=== PATIENT | male | born 1950 | race Caucasian/White ===

== ENCOUNTER 2017-08-04 09:56 | Outpatient (RCR) | payer MEDICARE, MEDICAID ==
[2013-11-03 08:59] VITALS: Ht 167.6 cm; Wt 79.8 kg
[~2017-08-04] VITALS: Ht 167.6 cm; Wt 79.8 kg
[~2017-08-04 09:56] MED LIST: ACE325 PO; ACET-2043 PO; AMLO-104 PO; AMLO-39 PO; AMLO-96 PO; AMLO1TAB51 PO; ASP325 PO; ASPI-879 PO; ATOR20TA22 PO; BACL-1 PO; BENZ0.5T19 PO; CELE-1 PO; CEP500 PO; CEPH-13 PO; CIPR-214 PO; CIPR-344 PO; CLON-393 PO; CYCL10TA29 PO; DOCU-202 PO; FLUO-202 PO; FLUOD OU; GABA-549 PO; HCTZ25 PO; HYDR-2966 PO; HYDR-389 PO; HYDR-4305 PO; LEVO-85 PO; LIDO700A29 TD; LISI-374 PO; MELO-150 PO; MULT-885 PO; NAP500 PO; NAPR-1003 PO; NAPR500T31 PO; NIT50 PO; NITR-105 PO; OXYC-865 PO; OXYC5CAP21 PO; PANT20TA27 PO; PENI-24 PO; PHEN200T32 PO; POTA-28 PO; PRE20 PO; QUET25TA PO; QUET25TA30 PO; QUET50TA21 PO; SIMV10TA98 PO; SULF-198 PO; TAMS0.4C25 PO; TAMS0.4C70 PO; TEMA-55 PO; TRA50 PO; TRAM-420 PO; TRAM-627 PO; VALS1TAB63 PO
--- NOTE | 2017-08-05 16:48 | Medical Nutrition Therapy ---
Nutrition Anthropometrics Height (Inches): 66 Weight (Pounds): 176 (from Standing scale- stated usual wt 188# ) BMI: 30 Hx Weight Loss: Yes Hx Weight Gain: No Sherif Nutrition Score: Sherif Nutrition Risk Score: Dietary Referral Nutrition Risk Factors: Recent Nutrition Impact Nutrition Risk Comment: Pt reports not eating for 3 days Nutrition/Food History Skipped Meals: Yes (usually eats 1 or 2X/da) Alcohol Use: Occassional (Beer) Exercise: No Breakfast: Egg omellet, cottage cheese, yogurt, coffee, water Lunch: Eats out at [employer] and [employer] Dinner: Steak, green beans, vegetables, hamburger Snacks: Muffin, pastry Nutritional Education Nutrition Education Topic: Diabetic Nutrition Learning Readiness: Eager, Interested Teaching Methods: Discussion, Handout Response to Teaching: Verbalize understanding Teaching Recipient: Patient Nutrition Counselin/5 Pt came in with new diagnosis T2DM. Pt is currently retired and lives at [facility]. Pt has limited walking ablility. Uses scooter for mobility. Pt came in wanting to learn what foods should he be eating, how much and how often to eat. Pt had done a lot of research prior to his appt. and received information from other seniors living in his complex who have T2DM. He became fearful of sugar and felt like he couldn't eat anything. Pt had recieved some misinformation from the internet and friends which were discussed. Since his diagnosis he had changed his entire diet off what he researched and lost about 12 pounds in three weeks by cutting out many things in his diet. Reassured pt that small amounts of most foods can be added and still maintain BG WNR. Pt stated that he typically eats once or twice a day. Pt states he normally never eats breakfast until his diagnosis, he now eats cottage cheese, yogurt, and egg omelets. For lunch he normally eats out at [employer] and [employer]. He will normally eat hamburger at [employer] and [place] meal at [employer]. He will sometimes order pancakes. Pt enjoys TV dinners, they are easy for him to make at home. Pt states that changing his diet would be no issue. Reviewed quality and quantity of different CHO and how it effects his BG. Pt had fixation on avoiding sugar. Educated on the conversion of CHO into sugar and how both starches and sugars are important in label reading. He verbalized he now understood. He loves vegetables and is willing to add more into his diet. Reviewed glycemic index. Rrecommended 45-50g of CHO per meal eating at least 3 times a day. Provided examples of TV dinners that would meet his CHO needs and lower in Na, due to his hx of HTN. Provided meal ideas that he could have during the day. Encouraged pt to have a source of protein and fat per meal. A support plan was planned out and pt is scheduled for classes later in the month. Copies To Copies to: GAUDENCIO RUIZ DO Nutrition Monitoring & Eval RD Patient Assessment Time: [address] Assessment Type: RD Education Nutritional Comment: Procvided 90 minutes diabetes education focusing on nutriton, support plan and behavioural goals. ANUM PETERSEN Aug 04, 2017 16:32
--- NOTE | 2017-09-09 13:28 | Medical Nutrition Therapy ---
Nutritional Education Nutrition Education Topic: Diabetic Nutrition Learning Readiness: Not Interested Response to Teaching: Patient Refused Teaching Recipient: Patient Nutrition Counselin/11 Pt scheduled for f/u class on nutrition and living with diabetes. Pt states he is not intersted in any more classes or f/u. Pt states he does reasearch on his owe plus many of his friends are diabetic. Pt stated he did not feel any additional classes would be benifical. Informed pt we are here for him and if he had any questions or concens in the future, please contact us. Copies To Copies to: GAUDENCIO RUIZ BETH Sep 09, 2017 13:28
== END 2017-09-09 ==
LOC: DIET 09:56
PROVIDERS: ATTEND Family Medicine
DX: Z71.3 Dietary counseling and surveillance (principal); E11.65 Type 2 diabetes mellitus with hyperglycemia; F17.210 Nicotine dependence, cigarettes, uncomplicated; Z68.30 Body mass index [BMI] 30.0-30.9, adult
CPT/HCPCS: G0108; G0109

== ENCOUNTER 2017-08-19 10:41 | Emergency (ER) | payer MEDICARE, MEDICAID ==
[2013-11-03 08:59] VITALS: Wt 79.8 kg
--- NOTE | 2017-08-19 10:51 | ER Report ---
History and Physical Time Seen By MD: 10:49 HPI/ROS CHIEF COMPLAINT: Chest and back pain HISTORY OF PRESENT ILLNESS: 66-year-old male long history of chronic back pain is been seen in this emergency department numerous times for both back and chest discomfort has no cardiac history I was recently diagnosis being a diabetic started on new medications was advised to do some exercises cleaning his apartment today for approximately 1 hour fell pain in his back with some radiation into his chest was concerned because of his new diagnosis that he may be having a heart attack on arrival to the emergency department however his chest pain has subsequently resolved patient denies any shortness of breath nausea vomiting diarrhea fever chills abdominal pain or discomfort. Patient does state that he has been a smoker pretty much his entire life and with new diagnosis of diabetes was concerned that his pain may have been caused by his heart did not residual and reciprocal from his back pain. REVIEW OF SYSTEMS: Respiratory: No cough, no dyspnea. Cardiovascular: Chest pain no palpitations Gastrointestinal: No vomiting, no abdominal pain. Musculoskeletal: Chronic back pain Remainder of the 14 system rev: Yes Allergies: Coded Allergies: No Known Drug Allergies (Verified , 08/19/17) Home Meds Active Scripts Tramadol Hcl (TRAMADOL HCL) 50 Mg Tablet, 1 TAB PO Q6H Y for PAIN, #30 TAB Prov:KENNETH REYEZ DO 11/27/15 Reported Medications Acetaminophen (ACETAMINOPHEN) 500 Mg Tablet, 2 TAB PO QID Y for PAIN, TAB 12/07/15 Amlodipine/Atorvastatin (AMLODIPINE-ATORVAST 5-20 MG) 1 Each Tablet, 1 EACH PO QDAY, TAB 06/08/15 Potassium Chloride (POTASSIUM CHLORIDE) 10 Meq Tablet.er, 10 MEQ PO QDAY 06/08/15 Benztropine Mesylate (BENZTROPINE MESYLATE) 0.5 Mg Tab, 0.5 MG PO HS, TAB 01/29/15 Pantoprazole Sodium (PANTOPRAZOLE SODIUM) 20 Mg Tablet.dr, 40 MG PO DAILY, TAB.SR 11/22/14 Quetiapine Fumarate (QUETIAPINE FUMARATE) 25 Mg Tablet, 25 MG PO Q6H Y for AGITATION, #60 10/30/13 Gabapentin (GABAPENTIN) 300 Mg Capsule, 900 MG PO BID, #180 CAPSULE Take 3 capsules every morning and before bed 07/04/13 Baclofen (BACLOFEN) 10 Mg Tablet, 10 MG PO BID, #60 TAB Take 1 tablet by mouth twice daily 06/28/13 Valsartan/Hydrochlorothiazide (DIOVAN HCT 80-12.5 MG TABLET) 1 Each Tablet, 1 TAB PO DAILY, #30 03/18/13 Discontinued Reported Medications Sulfamethoxazole/Trimet 800-160 Mg Tab (BACTRIM DS TABLET) 1 Each Tablet, 1 TAB PO Q12H, TAB 11/27/15 Discontinued Scripts Oxycodone Hcl/Acetaminophen (PERCOCET 5-325 MG TABLET) 1 Each Tablet, 1 EACH PO Q4H Y for PAIN, #12 Prov:KENNETH REYEZ DO 11/27/15 Reviewed Nurses Notes: Yes Old Medical Records Reviewed: Yes Hx Smoking: Yes (1 ppd, 40 years) Smoking Status: Current: Every Day Smoker Exposure to Second Hand Smoke?: Yes Hx Substance Use Disorder: Yes (pot daily) Hx Alcohol Use: No Constitutional Vital Sign - Last 24 Hours 08/19/17 10:42 Temp 98.7 Pulse 75 Resp 16 B/P (MAP) 134/94 Pulse Ox 95 O2 Delivery Nasal Cannula Physical Exam General Appearance: [The patient is alert, has no immediate need for airway protection and no current signs of toxicity.] [ ] Eyes: Pupils equal and round no injection. Respiratory: Chest is non tender, lungs are clear to auscultation. Cardiac: regular rate and rhythm [ ] Gastrointestinal: Abdomen is soft and non tender, no masses, bowel sounds normal. Musculoskeletal: Neck: Neck is supple and non tender. Extremities have full range of motion and are non tender. Skin: No rashes or lesions. [ ] DIFFERENTIAL DIAGNOSIS: After history and physical exam differential diagnosis was considered for acute myocardial infarction blood clot pulmonary emboli aortic dissection chronic back pain with reciprocal changes radiculopathy to the chest costochondritis Medical Decision Making Data Points Result Diagram: 08/19/17 1040 08/19/17 1040 Laboratory Hematology Test 08/19/17 10:40 Red Blood Count 4.87 M/uL (4.00-5.60) Mean Corpuscular Volume 86.3 fL (80.0-96.0) Mean Corpuscular Hemoglobin 29.6 pg (26.0-33.0) Mean Corpuscular Hemoglobin Concent 34.3 g/dL (32.0-36.0) Red Cell Distribution Width 15.4 % (11.5-14.5) Mean Platelet Volume 8.4 fL (7.2-11.1) Neutrophils (%) (Auto) 77.6 % (39.4-72.5) Lymphocytes (%) (Auto) 12.9 % (17.6-49.6) Monocytes (%) (Auto) 8.4 % (4.1-12.4) Eosinophils (%) (Auto) 0.5 % (0.4-6.7) Basophils (%) (Auto) 0.6 % (0.3-1.4) Nucleated RBC Relative Count (auto) 0.1 /100WBC Neutrophils # (Auto) 5.9 K/uL (2.0-7.4) Lymphocytes # (Auto) 1.0 K/uL (1.3-3.6) Monocytes # (Auto) 0.6 K/uL (0.3-1.0) Eosinophils # (Auto) 0.0 K/uL (0.0-0.5) Basophils # (Auto) 0.0 K/uL (0.0-0.1) Nucleated RBC Absolute Count (auto) 0.01 K/uL D-Dimer Quantitative (PE/DVT) 0.43 ug/ml (0-0.50) Sodium Level 139 mmol/L (137-145) Potassium Level 3.6 mmol/L (3.5-5.0) Chloride Level 97 mmol/L (98-107) Carbon Dioxide Level 25 mmol/L (22-30) Blood Urea Nitrogen 21 mg/dl (9-21) Creatinine 0.90 mg/dl (0.66-1.25) Glomerular Filtration Rate Calc > 60.0 Random Glucose 123 mg/dl (75-110) Calcium Level 10.2 mg/dl (8.4-10.2) Total Bilirubin 1.0 mg/dl (0.2-1.3) Aspartate Amino Transf (AST/SGOT) 24 U/L (0-35) Alanine Aminotransferase (ALT/SGPT) 33 U/L (0-56) Alkaline Phosphatase 146 U/L (0-126) Troponin I < 0.012 ng/ml Total Protein 8.3 g/dl (6.3-8.2) Albumin 4.5 g/dl (3.5-5.0) Chemistry Test 08/19/17 10:40 White Blood Count 7.6 k/uL (4.5-11.0) Red Blood Count 4.87 M/uL (4.00-5.60) Hemoglobin 14.4 g/dL (14.0-18.0) Hematocrit 42.0 % (42.0-52.0) Mean Corpuscular Volume 86.3 fL (80.0-96.0) Mean Corpuscular Hemoglobin 29.6 pg (26.0-33.0) Mean Corpuscular Hemoglobin Concent 34.3 g/dL (32.0-36.0) Red Cell Distribution Width 15.4 % (11.5-14.5) Platelet Count 300 K/uL (150-450) Mean Platelet Volume 8.4 fL (7.2-11.1) Neutrophils (%) (Auto) 77.6 % (39.4-72.5) Lymphocytes (%) (Auto) 12.9 % (17.6-49.6) Monocytes (%) (Auto) 8.4 % (4.1-12.4) Eosinophils (%) (Auto) 0.5 % (0.4-6.7) Basophils (%) (Auto) 0.6 % (0.3-1.4) Nucleated RBC Relative Count (auto) 0.1 /100WBC Neutrophils # (Auto) 5.9 K/uL (2.0-7.4) Lymphocytes # (Auto) 1.0 K/uL (1.3-3.6) Monocytes # (Auto) 0.6 K/uL (0.3-1.0) Eosinophils # (Auto) 0.0 K/uL (0.0-0.5) Basophils # (Auto) 0.0 K/uL (0.0-0.1) Nucleated RBC Absolute Count (auto) 0.01 K/uL D-Dimer Quantitative (PE/DVT) 0.43 ug/ml (0-0.50) Glomerular Filtration Rate Calc > 60.0 Calcium Level 10.2 mg/dl (8.4-10.2) Total Bilirubin 1.0 mg/dl (0.2-1.3) Aspartate Amino Transf (AST/SGOT) 24 U/L (0-35) Alanine Aminotransferase (ALT/SGPT) 33 U/L (0-56) Alkaline Phosphatase 146 U/L (0-126) Troponin I < 0.012 ng/ml Total Protein 8.3 g/dl (6.3-8.2) Albumin 4.5 g/dl (3.5-5.0) Coagulation Test 08/19/17 10:40 D-Dimer Quantitative (PE/DVT) 0.43 ug/ml ED Course/Re-evaluation ED Course ED clinical course 64 mL frequent visitor to the emergency department for chronic pain related complaints is workup is negative for cardiac abnormalities negative EKG chest x-ray cardiac markers enzymes d-dimer his pain is reproducible changes in position this is musculoskeletal we'll diagnose accordingly and have him follow primary care Decision to Disposition Date: Aug 19, 2017 Decision to Disposition Time: 11:48 Depart Departure Latest Vital Signs Vital Signs Date Time Temp Pulse Resp B/P (MAP) Pulse Ox O2 Delivery O2 Flow Rate FiO2 08/19/17 10:42 98.7 75 16 134/94 95 Nasal Cannula Impression: Primary Impression: Musculoskeletal chest pain Condition: Improved Disposition: HOME OR SELF-CARE Referrals: GAUDENCIO RUIZ DO (PCP) 5 Days Patient Instructions: Chest Pain (DC) LEENA CHRISTIANSON MD Aug 19, 2017 10:50
--- NOTE | 2017-08-19 11:08 | EKG ---
FACILITY: [facility] - [place] PATIENT NAME: JOEL GOLDBERG : [id number] MR: [id number] V: [id number] EXAM DATE: ORDERING PHYSICIAN: LEENA CHRISTIANSON TECHNOLOGIST: NATALI Mclaughlin Reason : Blood Pressure : / mmHG Vent. Rate : 076 BPM Atrial Rate : 076 BPM P-R Int : 172 ms QRS Dur : 098 ms QT Int : 386 ms P-R-T Axes : 057 022 051 degrees QTc Int : 434 ms Normal sinus rhythm Normal ECG When compared with ECG of 27-NOV-2015 18:17, No significant change was found Confirmed by GUME BROOKS ([id number]) on 08/19/2017 1:18:25 PM Referred By: SAMMY Confirmed By:GUME BROOKS
[2017-08-19 11:17] LABS: PLATELET COUNT, AUTOMATED 300 K/uL (150-450)
--- NOTE | 2017-08-19 11:41 | RADIOLOGY IMAGING REPORT ---
[place] [facility] [place] NAME: Ozzy Mesa : 1950 MR: [id number] V: [id number] EXAM DATE: ORDERING PHYSICIAN: LEENA CHRISTIANSON TECHNOLOGIST: Location: [facility] [place] Patient: Ozzy Mesa : 1950 Visit/Account:[id number] Date of Sevice: 08/19/2017 Exam type: CHEST PA AND LAT History: cp Comparison: November 27, 2015. Findings: The lungs are free of acute effusions, infiltrates or edema. There is no evidence of a pneumothorax or pneumomediastinum. Cardiac silhouette is normal in size. The trachea is midline. There is a mil d compression deformity at the thoracolumbar junction incompletely imaged on the prior study IMPRESSION: 1. No acute cardiac pulmonary process is seen Report Dictated By: Florina Her MD at 08/19/2017 11:35 AM Report E-Signed By: Florina Her MD at 08/19/2017 11:36 AM WSN:[email or web address]
[2017-08-19 11:51] VITALS: BP 115/81
== END 2017-08-19 12:02 | disposition home or self-care (01) ==
LOC: ER 10:44
DX: R07.9 Chest pain, unspecified (principal)
CPT/HCPCS: 71046; 82040; 82247; 82310; 82374; 82435; 82565; 82947; 84075; 84132; 84155; 84295; 84450; 84460; 84484; 84520; 85025; 85379; 93005; 99284

== ENCOUNTER → 2017-08-19 | Outpatient (CLI) | payer MEDICARE, MEDICAID ==
[2013-11-03 08:59] VITALS: BMI 30.8
== END ==
LOC: AMB 10:20
PROVIDERS: ATTEND Nurse Practitioner
DX: R07.9 Chest pain, unspecified (principal); M54.9 Dorsalgia, unspecified; E11.649 Type 2 diabetes mellitus with hypoglycemia without coma
CPT/HCPCS: A0425; A0427

== ENCOUNTER 2017-09-24 15:03 | Emergency (ER) | payer MEDICARE, MEDICAID ==
[2013-11-03 08:59] VITALS: Wt 76.2 kg
--- NOTE | 2017-09-24 15:38 | EKG ---
FACILITY: [facility] - [place] PATIENT NAME: JOEL GOLDBERG : [id number] MR: [id number] V: [id number] EXAM DATE: ORDERING PHYSICIAN: STEPH COLE TECHNOLOGIST: Test Reason : ELECTROLYTE DISORDER Blood Pressure : / mmHG Vent. Rate : 071 BPM Atrial Rate : 071 BPM P-R Int : 176 ms QRS Dur : 094 ms QT Int : 410 ms P-R-T Axes : 036 018 050 degrees QTc Int : 445 ms Sinus rhythm No acute appearing findings When compared with ECG of 19-AUG-2017 10:45, No significant change was found Confirmed by ARCENIO HERNANDEZ ([id number] on 09/25/2017 6:06:49 AM Referred By: Confirmed By:ARCENIO HERNANDEZ
--- NOTE | 2017-09-24 15:38 | ER Report ---
History and Physical Time Seen By MD: 15:20 Hx. of Stated Complaint: pt thinks he might have an uti; experiencing same symptoms like last time; pt has been going numb all over; going on for about 3 days HPI/ROS CHIEF COMPLAINT: I think I have a uti HISTORY OF PRESENT ILLNESS: Pt has 1 d hx of change in odor of urine, r flank pain, increased frequency of urination, and since this afternoon, sensation of numbness throughout his body that he states is similar to prior uti. Symptoms have been gradually increasing, and are present constantly. Pt denies acuna, sob, cp, n/v/abd pain, change in stool, increased thirst, LE edema, or focal weakness. Pt is recently dx'd and treated type 11 diabetic; has checked bs today and it has been in 's. REVIEW OF SYSTEMS: Constitutional: No fever, no chills. Eyes: No discharge. ENT: No sore throat. Cardiovascular: No chest pain, no palpitations. Respiratory: No cough, no shortness of breath. Gastrointestinal: No abdominal pain, no vomiting. Genitourinary: No hematuria. Musculoskeletal: mild r flank pain Skin: No rashes. Neurological: No headache. Has had prior uti's, though unsure why, does not cath. No abx x 2 yrs Allergies: Coded Allergies: No Known Drug Allergies (Verified , 08/19/17) Home Meds Active Scripts Tramadol Hcl (TRAMADOL HCL) 50 Mg Tablet, 1 TAB PO Q6H Y for PAIN, #30 TAB Prov:KENNETH REYEZ 11/27/15 Reported Medications Acetaminophen (ACETAMINOPHEN) 500 Mg Tablet, 2 TAB PO QID Y for PAIN, TAB 12/07/15 Amlodipine/Atorvastatin (AMLODIPINE-ATORVAST 5-20 MG) 1 Each Tablet, 1 EACH PO QDAY, TAB 06/08/15 Potassium Chloride (POTASSIUM CHLORIDE) 10 Meq Tablet.er, 10 MEQ PO QDAY 06/08/15 Benztropine Mesylate (BENZTROPINE MESYLATE) 0.5 Mg Tab, 0.5 MG PO HS, TAB 01/29/15 Pantoprazole Sodium (PANTOPRAZOLE SODIUM) 20 Mg Tablet.dr, 40 MG PO DAILY, TAB.SR 11/22/14 Quetiapine Fumarate (QUETIAPINE FUMARATE) 25 Mg Tablet, 25 MG PO Q6H Y for AGITATION, #60 10/30/13 Gabapentin (GABAPENTIN) 300 Mg Capsule, 900 MG PO BID, #180 CAPSULE Take 3 capsules every morning and before bed 07/04/13 Baclofen (BACLOFEN) 10 Mg Tablet, 10 MG PO BID, #60 TAB Take 1 tablet by mouth twice daily 06/28/13 Valsartan/Hydrochlorothiazide (DIOVAN HCT 80-12.5 MG TABLET) 1 Each Tablet, 1 TAB PO DAILY, #30 03/18/13 Past Medical/Surgical History Cerebral palsy, DM, HTN, prior UTI's Hx Smoking: Yes (1 ppd, 40 years) Smoking Status: Current: Every Day Smoker Exposure to Second Hand Smoke?: Yes Hx Substance Use Disorder: Yes (occ) Hx Alcohol Use: No Constitutional Vital Sign - Last 24 Hours 09/24/17 15:14 Temp 98.5 Pulse 84 Resp 18 B/P (MAP) 138/91 Pulse Ox 94 O2 Delivery Room Air Physical Exam General Appearance: [The patient is alert, has no immediate need for airway protection and no signs of toxicity.] [ ] Eyes: Pupils equal and round no pallor or injection. ENT, Mouth: Mucous membranes are moist. Respiratory: There are no retractions, lungs are clear to auscultation. Cardiovascular: Regular rate and rhythm. no m/r/g Gastrointestinal: Abdomen is soft and non tender, no masses, bowel sounds normal. Neurological: alert, oriented, nad Skin: Warm and dry, no rashes. Musculoskeletal: mild r cvat Extremities are nontender, nonswollen and have full range of motion except lle; strength and rom limited by CP. No edema DIFFERENTIAL DIAGNOSIS: After history and physical exam differential diagnosis was considered for causes of numbness; anginal equivalent, cva, electrolyte disorder, hypoglycemia/hyperglycemia, or other emergent neurologic emergency ( for ex, GBS). Cause of urinary tract symptoms; cystitis/pyelonehpritis/ prostatits or other emergent etiology Medical Decision Making Data Points Result Diagram: 09/24/17 1547 09/24/17 1547 Laboratory Hematology Test 09/24/17 15:09 09/24/17 15:47 Urine Color Yellow Urine Clarity Slightly-cloudy Urine pH 5.0 pH (4.8-9.5) Urine Specific [place] 1.008 Urine Protein Negative mg/dL (NEGATIVE) Urine Glucose (UA) Negative mg/dL (NEGATIVE) Urine Ketones Negative mg/dL (NEGATIVE) Urine Blood Negative (NEGATIVE) Urine Nitrite Negative (NEGATIVE) Urine Bilirubin Negative (NEGATIVE) Urine Urobilinogen Negative mg/dL (0.2-1.9) Urine Leukocyte Esterase Large (NEGATIVE) Urine RBC 2 /HPF (0-2/HPF) Urine WBC 53 /HPF (0-5/HPF) Urine Squamous Epithelial Cells None /LPF (</=FEW) Urine Bacteria Few /HPF (NONE-FEW) Urine Mucus None /HPF (NONE-FEW) Red Blood Count 4.62 M/uL (4.00-5.60) Mean Corpuscular Volume 82.9 fL (80.0-96.0) Mean Corpuscular Hemoglobin 29.0 pg (26.0-33.0) Mean Corpuscular Hemoglobin Concent 35.0 g/dL (32.0-36.0) Red Cell Distribution Width 14.8 % (11.5-14.5) Mean Platelet Volume 8.4 fL (7.2-11.1) Neutrophils (%) (Auto) 70.8 % (39.4-72.5) Lymphocytes (%) (Auto) 18.9 % (17.6-49.6) Monocytes (%) (Auto) 9.0 % (4.1-12.4) Eosinophils (%) (Auto) 0.8 % (0.4-6.7) Basophils (%) (Auto) 0.5 % (0.3-1.4) Nucleated RBC Relative Count (auto) 0.0 /100WBC Neutrophils # (Auto) 4.2 K/uL (2.0-7.4) Lymphocytes # (Auto) 1.1 K/uL (1.3-3.6) Monocytes # (Auto) 0.5 K/uL (0.3-1.0) Eosinophils # (Auto) 0.0 K/uL (0.0-0.5) Basophils # (Auto) 0.0 K/uL (0.0-0.1) Nucleated RBC Absolute Count (auto) 0.00 K/uL Sodium Level 139 mmol/L (137-145) Potassium Level 3.4 mmol/L (3.5-5.0) Chloride Level 101 mmol/L (98-107) Carbon Dioxide Level 24 mmol/L (22-30) Blood Urea Nitrogen 14 mg/dl (9-21) Creatinine 0.70 mg/dl (0.66-1.25) Glomerular Filtration Rate Calc > 60.0 Random Glucose 92 mg/dl (75-110) Calcium Level 9.6 mg/dl (8.4-10.2) Total Bilirubin 0.7 mg/dl (0.2-1.3) Aspartate Amino Transf (AST/SGOT) 25 U/L (0-35) Alanine Aminotransferase (ALT/SGPT) 27 U/L (0-56) Alkaline Phosphatase 129 U/L (0-126) Total Protein 8.2 g/dl (6.3-8.2) Albumin 4.5 g/dl (3.5-5.0) Chemistry Test 09/24/17 15:09 09/24/17 15:47 Urine Color Yellow Urine Clarity Slightly-cloudy Urine pH 5.0 pH (4.8-9.5) Urine Specific [place] 1.008 Urine Protein Negative mg/dL (NEGATIVE) Urine Glucose (UA) Negative mg/dL (NEGATIVE) Urine Ketones Negative mg/dL (NEGATIVE) Urine Blood Negative (NEGATIVE) Urine Nitrite Negative (NEGATIVE) Urine Bilirubin Negative (NEGATIVE) Urine Urobilinogen Negative mg/dL (0.2-1.9) Urine Leukocyte Esterase Large (NEGATIVE) Urine RBC 2 /HPF (0-2/HPF) Urine WBC 53 /HPF (0-5/HPF) Urine Squamous Epithelial Cells None /LPF (</=FEW) Urine Bacteria Few /HPF (NONE-FEW) Urine Mucus None /HPF (NONE-FEW) White Blood Count 5.9 k/uL (4.5-11.0) Red Blood Count 4.62 M/uL (4.00-5.60) Hemoglobin 13.4 g/dL (14.0-18.0) Hematocrit 38.3 % (42.0-52.0) Mean Corpuscular Volume 82.9 fL (80.0-96.0) Mean Corpuscular Hemoglobin 29.0 pg (26.0-33.0) Mean Corpuscular Hemoglobin Concent 35.0 g/dL (32.0-36.0) Red Cell Distribution Width 14.8 % (11.5-14.5) Platelet Count 304 K/uL (150-450) Mean Platelet Volume 8.4 fL (7.2-11.1) Neutrophils (%) (Auto) 70.8 % (39.4-72.5) Lymphocytes (%) (Auto) 18.9 % (17.6-49.6) Monocytes (%) (Auto) 9.0 % (4.1-12.4) Eosinophils (%) (Auto) 0.8 % (0.4-6.7) Basophils (%) (Auto) 0.5 % (0.3-1.4) Nucleated RBC Relative Count (auto) 0.0 /100WBC Neutrophils # (Auto) 4.2 K/uL (2.0-7.4) Lymphocytes # (Auto) 1.1 K/uL (1.3-3.6) Monocytes # (Auto) 0.5 K/uL (0.3-1.0) Eosinophils # (Auto) 0.0 K/uL (0.0-0.5) Basophils # (Auto) 0.0 K/uL (0.0-0.1) Nucleated RBC Absolute Count (auto) 0.00 K/uL Glomerular Filtration Rate Calc > 60.0 Calcium Level 9.6 mg/dl (8.4-10.2) Total Bilirubin 0.7 mg/dl (0.2-1.3) Aspartate Amino Transf (AST/SGOT) 25 U/L (0-35) Alanine Aminotransferase (ALT/SGPT) 27 U/L (0-56) Alkaline Phosphatase 129 U/L (0-126) Total Protein 8.2 g/dl (6.3-8.2) Albumin 4.5 g/dl (3.5-5.0) Urinalysis Test 09/24/17 15:09 Urine Color Yellow Urine Clarity Slightly-cloudy Urine pH 5.0 pH (4.8-9.5) Urine Specific [place] 1.008 Urine Protein Negative mg/dL (NEGATIVE) Urine Glucose (UA) Negative mg/dL (NEGATIVE) Urine Ketones Negative mg/dL (NEGATIVE) Urine Blood Negative (NEGATIVE) Urine Nitrite Negative (NEGATIVE) Urine Bilirubin Negative (NEGATIVE) Urine Urobilinogen Negative mg/dL (0.2-1.9) Urine Leukocyte Esterase Large (NEGATIVE) Urine RBC 2 /HPF (0-2/HPF) Urine WBC 53 /HPF (0-5/HPF) Urine Squamous Epithelial Cells None /LPF (</=FEW) Urine Bacteria Few /HPF (NONE-FEW) Urine Mucus None /HPF (NONE-FEW) EKG/Imaging EKG Interpretation 12 lead EKG: Rhythm: Normal sinus rhythm rate 71 [place]: Normal QRS: Normal ST segments: Normal ED Course/Re-evaluation ED Course Mr. Msea remains in NAD throughout stay, tolerating po, afebrile, and well appearing. Labs unremarkable other than ua which is c/w uti and pt's sympotms. I reviewed prior culture from 02/14 and noted multiple drug resistance. I called pcm and discussed findings with pt's nurse; pt had not clearly improved on nitrofurantoin and was started on clindamycin, and appeared to improve. Given the limited spectrum of clinda for uti and the prior sensitivity x 2 to nitrofurantoin, will initiate both meds in order to provide optimal chance for resolution. Pt will call for close f/u and understands SRP's to ED. Decision to Disposition Date: Sep 24, 2017 Decision to Disposition Time: 16:35 Depart Departure Latest Vital Signs Vital Signs Date Time Temp Pulse Resp B/P (MAP) Pulse Ox O2 Delivery O2 Flow Rate FiO2 09/24/17 15:14 98.5 84 18 138/91 94 Room Air Impression: Primary Impression: Urinary tract infection Condition: Improved Disposition: HOME OR SELF-CARE Referrals: GAUDENCIO RUIZ DO (PCP) New Scripts Nitrofurantoin Monohyd/M-Cryst (MACROBID 100 MG CAPSULE) 100 Mg Capsule 100 MG PO BID for 7 Days, #14 CAPSULE Prov: STEPH COLE MD 09/24/17 Clindamycin Hcl (CLINDAMYCIN HCL) 300 Mg Capsule 300 MG PO Q6H for 7 Days, #28 CAPSULE Prov: STEPH COLE MD 09/24/17 Patient Instructions: Urinary Tract Infection in Men (DC) Problem Qualifiers Primary Impression: Urinary tract infection Urinary tract infection type: acute cystitis Hematuria presence: without hematuria Qualified Codes: N30.00 - Acute cystitis without hematuria STEPH COLE MD Sep 24, 2017 15:37
[2017-09-24 16:02] LABS: PLATELET COUNT, AUTOMATED 304 K/uL (150-450)
[2017-09-24] MEDS ORDERED: NITROFURANTOIN MONO 100 MG PO ONE (16:35)
[2017-09-24] MEDS ORDERED: NITR-105 PO (16:45)
[2017-09-24] MEDS ORDERED: CLIN300C99 PO (16:45)
[2017-09-24 16:55] VITALS: BP 134/98
== END 2017-09-24 16:57 | disposition home or self-care (01) ==
LOC: ER 15:16
DX: N30.00 Acute cystitis without hematuria (principal)
CPT/HCPCS: 36415; 81001; 85025; 87088; 93005; 99283; A9270; 82040; 82247; 82310; 82374; 82435; 82565; 82947; 84075; 84132; 84155; 84295; 84450; 84460; 84520

== ENCOUNTER → 2017-10-05 | Outpatient (CLI) | payer MEDICARE, MEDICAID ==
[2013-11-03 08:59] VITALS: BMI 30.8
[~2017-10-05] MED LIST changes: +CLIN300C99 PO
== END ==
LOC: LAB 14:49
PROVIDERS: ATTEND Family Medicine
DX: N30.00 Acute cystitis without hematuria (principal)
CPT/HCPCS: 81001; 87088

== ENCOUNTER 2017-10-10 06:59 | Emergency (ER) | payer MEDICARE, MEDICAID ==
[2013-11-03 08:59] VITALS: Wt 73.9 kg
[2017-10-10 07:04] VITALS: BP 148/102
--- NOTE | 2017-10-10 07:04 | ER Report ---
History and Physical Time Seen By MD: 07:04 HPI/ROS CHIEF COMPLAINT: Urinary tract infection symptoms. HISTORY OF PRESENT ILLNESS: Patient is a 67-year-old male who presents emergency Department with complaint of increased urinary frequency change in urine color or foul-smelling urine and burning with urination. The symptoms started this past Thursday and progressively worsened. Patient was recently treated for urinary tract infection on September 24. Electronic medical record was reviewed from the contact. Patient's organism at that time did show sensitivity to Rocephin and cephalexin. REVIEW OF SYSTEMS: Respiratory: No cough, no dyspnea. Cardiovascular: No chest pain, no palpitations. Gastrointestinal: No vomiting, no abdominal pain. Musculoskeletal: No back pain. dysuria change in urine color increased urinary frequency: Allergies: Coded Allergies: No Known Drug Allergies (Verified , 10/10/17) Home Meds Active Scripts Tramadol Hcl (TRAMADOL HCL) 50 Mg Tablet, 1 TAB PO Q6H Y for PAIN, #30 TAB Prov:KENNETH REYEZ DO 11/27/15 Reported Medications Acetaminophen (ACETAMINOPHEN) 500 Mg Tablet, 2 TAB PO QID Y for PAIN, TAB 12/07/15 Amlodipine/Atorvastatin (AMLODIPINE-ATORVAST 5-20 MG) 1 Each Tablet, 1 EACH PO QDAY, TAB 06/08/15 Potassium Chloride (POTASSIUM CHLORIDE) 10 Meq Tablet.er, 10 MEQ PO QDAY 06/08/15 Benztropine Mesylate (BENZTROPINE MESYLATE) 0.5 Mg Tab, 0.5 MG PO HS, TAB 01/29/15 Pantoprazole Sodium (PANTOPRAZOLE SODIUM) 20 Mg Tablet.dr, 40 MG PO DAILY, TAB.SR 11/22/14 Quetiapine Fumarate (QUETIAPINE FUMARATE) 25 Mg Tablet, 25 MG PO Q6H Y for AGITATION, #60 10/30/13 Gabapentin (GABAPENTIN) 300 Mg Capsule, 900 MG PO BID, #180 CAPSULE Take 3 capsules every morning and before bed 07/04/13 Baclofen (BACLOFEN) 10 Mg Tablet, 10 MG PO BID, #60 TAB Take 1 tablet by mouth twice daily 06/28/13 Valsartan/Hydrochlorothiazide (DIOVAN HCT 80-12.5 MG TABLET) 1 Each Tablet, 1 TAB PO DAILY, #30 03/18/13 Discontinued Scripts Nitrofurantoin Monohyd/M-Cryst (MACROBID 100 MG CAPSULE) 100 Mg Capsule, 100 MG PO BID for 7 Days, #14 CAPSULE Prov:STEPH COLE MD 09/24/17 Clindamycin Hcl (CLINDAMYCIN HCL) 300 Mg Capsule, 300 MG PO Q6H for 7 Days, #28 CAPSULE Prov:STEPH COLE MD 09/24/17 Past Medical/Surgical History Cerebral palsy Hypertension, type II diabetes, urinary tract infection, gastroesophageal reflux disease Hx Smoking: Yes (1 ppd, 40 years) Smoking Status: Current: Every Day Smoker Exposure to Second Hand Smoke?: Yes Hx Substance Use Disorder: Yes (occ) Hx Alcohol Use: No Constitutional Vital Sign - Last 24 Hours 10/10/17 07:04 Temp 97.8 Pulse 109 Resp 14 B/P (MAP) 148/102 Pulse Ox 92 O2 Delivery Room Air Physical Exam General Appearance: The patient is alert, has no immediate need for airway protection and no current signs of toxicity. Eyes: Pupils equal and round no injection. Respiratory: Chest is non tender, lungs are clear to auscultation. Cardiac: regular rate and rhythm Gastrointestinal: Abdomen is soft and non tender, no masses, bowel sounds normal. Skin: No rashes or lesions. Medical Decision Making Data Points Laboratory Hematology Test 10/10/17 07:06 Chemistry Test 10/10/17 07:06 Urinalysis Test 10/10/17 07:06 ED Course/Re-evaluation ED Course 10/10/2017 7:26:06 am patient with symptoms of urinary tract infection. Patient recently had urinary tract infection and was treated G and 26. Soon after stopping the antibiotics he had recurrence. This could be related to his cerebral palsy as patient is had multiple urinary tract infections throughout his life. Plan at this time will be to give him an injection of IM Rocephin to get a high therapeutic dose of antibiotic. We will start the patient on oral cephalexin for the next 2 weeks. We'll give refill of her cephalexin if symptoms return Decision to Disposition Date: Oct 10, 2017 Decision to Disposition Time: 07:28 Depart Departure Latest Vital Signs Vital Signs Date Time Temp Pulse Resp B/P (MAP) Pulse Ox O2 Delivery O2 Flow Rate FiO2 10/10/17 07:04 97.8 109 14 148/102 92 Room Air Impression: Primary Impression: Dysuria Additional Impression: Urinary tract infection Condition: Condition Unchanged Disposition: HOME OR SELF-CARE Referrals: GAUDENCIO RUIZ DO (PCP) 2 Days if symptoms persist New Scripts Phenazopyridine Hcl (PHENAZOPYRIDINE HCL) 200 Mg Tablet 200 MG PO TID Y for dysuria, #9 TAB 1 Refill Prov: STEPH PHELAN MD 10/10/17 Cephalexin 500 Mg Tab (KEFLEX 500 MG TAB) 500 Mg Tablet 500 MG PO Q6H, #56 TAB 1 Refill TAKE ONE TABLET BY MOUTH EVERY SIX HOURS Prov: STEPH PHELAN MD 10/10/17 Patient Instructions: Urinary Tract Infection in Men (DC) Additional Instructions: Take your antibiotics as directed until complete. If your symptoms seem to persist or return sooner after completing her course of antibiotics you should get a refill of antibiotic and begin immediately intake until completed. Problem Qualifiers Additional Impression: Urinary tract infection Urinary tract infection type: acute cystitis Hematuria presence: without hematuria Qualified Codes: N30.00 - Acute cystitis without hematuria STEPH PHELAN MD Oct 10, 2017 07:04
[2017-10-10] MEDS ORDERED: cefTRIAXone 1 GM VIAL IM ONE (07:25)
[2017-10-10] MEDS ORDERED: PHENAZOPYRIDINE 200 MG TAB PO ONE (07:25)
[2017-10-10] MEDS ORDERED: LIDOCAINE 1% MDV 200 MG/20 ML INJ ONE (07:25)
[2017-10-10] MEDS ORDERED: PHEN200T32 PO (07:30)
[2017-10-10] MEDS ORDERED: CEPH500T7 PO (07:30)
== END 2017-10-10 07:47 | disposition home or self-care (01) ==
LOC: ER 07:02
DX: N30.00 Acute cystitis without hematuria (principal); F17.200 Nicotine dependence, unspecified, uncomplicated; E11.9 Type 2 diabetes mellitus without complications; K21.9 Gastro-esophageal reflux disease without esophagitis; Z87.440 Personal history of urinary (tract) infections; Z79.899 Other long term (current) drug therapy
CPT/HCPCS: 81001; 87088; 99283; A9270; J0696; J2001; 87077; 87186

== ENCOUNTER 2017-10-24 09:06 | Emergency (ER) | payer MEDICARE, MEDICAID ==
[2013-11-03 08:59] VITALS: Wt 69.9 kg
[~2017-10-24 09:06] MED LIST changes: +CEPH500T7 PO
[2017-10-24] MEDS ORDERED: LOSA-51 PO (09:24)
[2017-10-24] MEDS ORDERED: cefTRIAXone 1 GM VIAL IVP ONE (09:50)
[2017-10-24 09:59] LABS: PLATELET COUNT, AUTOMATED 303 K/uL (150-450)
--- NOTE | 2017-10-24 10:03 | ER Report ---
History and Physical Time Seen By MD: 09:12 Hx. of Stated Complaint: PT PRESENTS WITH C/O UTI, STILL ON ANTIBX BUT NOTED INCREASED MATTER IN HIS URINE THIS AM HPI/ROS CHIEF COMPLAINT: Dysuria HISTORY OF PRESENT ILLNESS: Patient is a 67-year-old male who I had seen on October 10 for complaint of urinary tract infection symptoms. At that time he was given IM Rocephin and placed on a 2 week course of Keflex. He states that this past Thursday symptoms seem to be recurring he's having burning and pain with urination. He has been seen multiple times since August for recurring infections the last 2 cultures have grown out Escherichia coli. He states that he is passing particulate material in the urine. He also feels "kidney pain bilaterally". No nausea or vomiting denies any fevers. Patient does have a history of difficulty with bladder emptying secondary to cerebral palsy.. He does follow with the primary care provider REVIEW OF SYSTEMS: Respiratory: No cough, no dyspnea. Cardiovascular: No chest pain, no palpitations. Gastrointestinal: No vomiting, no abdominal pain. Musculoskeletal: No back pain. Allergies: Coded Allergies: No Known Drug Allergies (Verified , 10/24/17) Home Meds Active Scripts Docusate Sodium (COLACE) 100 Mg Capsule, 100 MG PO QDAY for constipation, #20 CAPSULE 0 Refills Prov:STEPH PHELAN MD 10/24/17 Tamsulosin Hcl (FLOMAX) 0.4 Mg Cap.er.24h, 0.4 MG PO QHS for 30 Days, #30 CAP 0 Refills Prov:STEPH PHELAN MD 10/24/17 Cephalexin 500 Mg Tab (KEFLEX 500 MG TAB) 500 Mg Tablet, 500 MG PO Q6H, #56 TAB 1 Refill TAKE ONE TABLET BY MOUTH EVERY SIX HOURS Prov:STEPH PHELAN MD 10/10/17 Tramadol Hcl (TRAMADOL HCL) 50 Mg Tablet, 1 TAB PO Q6H PRN for PAIN, #30 TAB Prov:KENNETH REYEZ DO 11/27/15 Reported Medications Losartan/Hydrochlorothiazide (LOSARTAN-HCTZ 50-12.5 MG TAB) 1 Each Tablet, 1 EACH PO QDAY 10/24/17 Amlodipine/Atorvastatin (AMLODIPINE-ATORVAST 5-20 MG) 1 Each Tablet, 1 EACH PO QDAY, TAB 06/08/15 Potassium Chloride (POTASSIUM CHLORIDE) 10 Meq Tablet.er, 10 MEQ PO QDAY 06/08/15 Benztropine Mesylate (BENZTROPINE MESYLATE) 0.5 Mg Tab, 0.5 MG PO HS, TAB 01/29/15 Pantoprazole Sodium (PANTOPRAZOLE SODIUM) 20 Mg Tablet.dr, 40 MG PO DAILY, TAB.SR 11/22/14 Quetiapine Fumarate (QUETIAPINE FUMARATE) 25 Mg Tablet, 25 MG PO Q6H PRN for AGITATION, #60 10/30/13 Gabapentin (GABAPENTIN) 300 Mg Capsule, 900 MG PO BID, #180 CAPSULE Take 3 capsules every morning and before bed 07/04/13 Baclofen (BACLOFEN) 10 Mg Tablet, 10 MG PO BID, #60 TAB Take 1 tablet by mouth twice daily 06/28/13 Discontinued Reported Medications Acetaminophen (ACETAMINOPHEN) 500 Mg Tablet, 2 TAB PO QID PRN for PAIN, TAB 12/07/15 Valsartan/Hydrochlorothiazide (DIOVAN HCT 80-12.5 MG TABLET) 1 Each Tablet, 1 TAB PO DAILY, #30 03/18/13 Discontinued Scripts Phenazopyridine Hcl (PHENAZOPYRIDINE HCL) 200 Mg Tablet, 200 MG PO TID PRN for dysuria, #9 TAB 1 Refill Prov:STEPH PHELAN MD 10/10/17 Past Medical/Surgical History History of recurrent urinary tract infections, history of cerebral palsy Hx Smoking: Yes (1 ppd, 40 years) Smoking Status: Current: Every Day Smoker Exposure to Second Hand Smoke?: Yes Hx Substance Use Disorder: Yes (occ) Hx Alcohol Use: No Constitutional Vital Sign - Last 24 Hours 10/24/17 10/24/17 10/24/17 10/24/17 09:11 09:18 09:30 09:36 Temp 98.4 Pulse 91 82 Resp 20 B/P (MAP) 146/98 146/98 (114) 136/100 (112) Pulse Ox 95 93 10/24/17 10/24/17 10/24/17 10/24/17 09:41 10:00 10:11 10:30 Pulse 79 84 B/P (MAP) 138/92 (107) 131/86 (101) Pulse Ox 94 96 10/24/17 10/24/17 10/24/17 10/24/17 11:00 11:11 11:16 11:59 Pulse 77 79 B/P (MAP) 126/78 (94) 113/79 (90) Pulse Ox 90 90 Physical Exam General Appearance: The patient is alert, has no immediate need for airway protection and no current signs of toxicity. Eyes: Pupils equal and round no injection. Respiratory: Chest is non tender, lungs are clear to auscultation. Cardiac: regular rate and rhythm Gastrointestinal: Abdomen is soft and non tender, no masses, bowel sounds normal. Musculoskeletal: Neck: Neck is supple and non tender. Skin: No rashes or lesions. Medical Decision Making Data Points Result Diagram: 10/24/17 0940 10/24/17 0940 Laboratory Hematology Test 10/24/17 09:13 10/24/17 09:40 Urine Color Straw Urine Clarity Clear Urine pH 6.0 pH (4.8-9.5) Urine Specific [place] 1.006 Urine Protein Negative mg/dL (NEGATIVE) Urine Glucose (UA) Negative mg/dL (NEGATIVE) Urine Ketones Negative mg/dL (NEGATIVE) Urine Blood Negative (NEGATIVE) Urine Nitrite Negative (NEGATIVE) Urine Bilirubin Negative (NEGATIVE) Urine Urobilinogen Negative mg/dL (0.2-1.9) Urine Leukocyte Esterase Negative (NEGATIVE) Urine RBC <1 /HPF (0-2/HPF) Urine WBC None /HPF (0-5/HPF) Urine Squamous Epithelial Cells Few /LPF (</=FEW) Urine Bacteria Negative /HPF (NONE-FEW) Urine Mucus None /HPF (NONE-FEW) Red Blood Count 4.72 M/uL (4.00-5.60) Mean Corpuscular Volume 83.8 fL (80.0-96.0) Mean Corpuscular Hemoglobin 28.7 pg (26.0-33.0) Mean Corpuscular Hemoglobin Concent 34.2 g/dL (32.0-36.0) Red Cell Distribution Width 15.6 % (11.5-14.5) Mean Platelet Volume 8.2 fL (7.2-11.1) Neutrophils (%) (Auto) 69.0 % (39.4-72.5) Lymphocytes (%) (Auto) 18.9 % (17.6-49.6) Monocytes (%) (Auto) 10.2 % (4.1-12.4) Eosinophils (%) (Auto) 1.0 % (0.4-6.7) Basophils (%) (Auto) 0.9 % (0.3-1.4) Nucleated RBC Relative Count (auto) 0.0 /100WBC Neutrophils # (Auto) 3.8 K/uL (2.0-7.4) Lymphocytes # (Auto) 1.0 K/uL (1.3-3.6) Monocytes # (Auto) 0.6 K/uL (0.3-1.0) Eosinophils # (Auto) 0.1 K/uL (0.0-0.5) Basophils # (Auto) 0.0 K/uL (0.0-0.1) Nucleated RBC Absolute Count (auto) 0.00 K/uL Sodium Level 141 mmol/L (137-145) Potassium Level 3.6 mmol/L (3.5-5.0) Chloride Level 102 mmol/L (98-107) Carbon Dioxide Level 24 mmol/L (22-30) Blood Urea Nitrogen 14 mg/dl (9-21) Creatinine 0.70 mg/dl (0.66-1.25) Glomerular Filtration Rate Calc > 60.0 Random Glucose 101 mg/dl (75-110) Calcium Level 9.7 mg/dl (8.4-10.2) Chemistry Test 10/24/17 09:13 10/24/17 09:40 Urine Color Straw Urine Clarity Clear Urine pH 6.0 pH (4.8-9.5) Urine Specific [place] 1.006 Urine Protein Negative mg/dL (NEGATIVE) Urine Glucose (UA) Negative mg/dL (NEGATIVE) Urine Ketones Negative mg/dL (NEGATIVE) Urine Blood Negative (NEGATIVE) Urine Nitrite Negative (NEGATIVE) Urine Bilirubin Negative (NEGATIVE) Urine Urobilinogen Negative mg/dL (0.2-1.9) Urine Leukocyte Esterase Negative (NEGATIVE) Urine RBC <1 /HPF (0-2/HPF) Urine WBC None /HPF (0-5/HPF) Urine Squamous Epithelial Cells Few /LPF (</=FEW) Urine Bacteria Negative /HPF (NONE-FEW) Urine Mucus None /HPF (NONE-FEW) White Blood Count 5.5 k/uL (4.5-11.0) Red Blood Count 4.72 M/uL (4.00-5.60) Hemoglobin 13.5 g/dL (14.0-18.0) Hematocrit 39.6 % (42.0-52.0) Mean Corpuscular Volume 83.8 fL (80.0-96.0) Mean Corpuscular Hemoglobin 28.7 pg (26.0-33.0) Mean Corpuscular Hemoglobin Concent 34.2 g/dL (32.0-36.0) Red Cell Distribution Width 15.6 % (11.5-14.5) Platelet Count 303 K/uL (150-450) Mean Platelet Volume 8.2 fL (7.2-11.1) Neutrophils (%) (Auto) 69.0 % (39.4-72.5) Lymphocytes (%) (Auto) 18.9 % (17.6-49.6) Monocytes (%) (Auto) 10.2 % (4.1-12.4) Eosinophils (%) (Auto) 1.0 % (0.4-6.7) Basophils (%) (Auto) 0.9 % (0.3-1.4) Nucleated RBC Relative Count (auto) 0.0 /100WBC Neutrophils # (Auto) 3.8 K/uL (2.0-7.4) Lymphocytes # (Auto) 1.0 K/uL (1.3-3.6) Monocytes # (Auto) 0.6 K/uL (0.3-1.0) Eosinophils # (Auto) 0.1 K/uL (0.0-0.5) Basophils # (Auto) 0.0 K/uL (0.0-0.1) Nucleated RBC Absolute Count (auto) 0.00 K/uL Glomerular Filtration Rate Calc > 60.0 Calcium Level 9.7 mg/dl (8.4-10.2) Urinalysis Test 10/24/17 09:13 Urine Color Straw Urine Clarity Clear Urine pH 6.0 pH (4.8-9.5) Urine Specific [place] 1.006 Urine Protein Negative mg/dL (NEGATIVE) Urine Glucose (UA) Negative mg/dL (NEGATIVE) Urine Ketones Negative mg/dL (NEGATIVE) Urine Blood Negative (NEGATIVE) Urine Nitrite Negative (NEGATIVE) Urine Bilirubin Negative (NEGATIVE) Urine Urobilinogen Negative mg/dL (0.2-1.9) Urine Leukocyte Esterase Negative (NEGATIVE) Urine RBC <1 /HPF (0-2/HPF) Urine WBC None /HPF (0-5/HPF) Urine Squamous Epithelial Cells Few /LPF (</=FEW) Urine Bacteria Negative /HPF (NONE-FEW) Urine Mucus None /HPF (NONE-FEW) EKG/Imaging Imaging FACILITY: [facility] [place] PATIENT NAME: Ozzy Mesa : 1950 MR: [id number] V: [id number] EXAM DATE: ORDERING PHYSICIAN: STEPH PHELAN TECHNOLOGIST: Location: [facility] [place] Patient: Ozzy Mesa : 1950 Visit/Account:[id number] Date of Sevice: 10/24/2017 ABDOMEN/PELVIS W/O CONTRAST HISTORY: Flank pain TECHNIQUE: CT abdomen and pelvis without intravenous contrast. One of the following dose optimization techniques was utilized in the performance of this exam: Automated exposure control; adjustment of the mA and/or kV according to the patient's size; or use of an iterative reconstruction technique. Specific details can be referenced in the facility's radiology CT exam operational policy. CONTRAST: None. Please note, lack of IV contrast limits evaluation of solid organs. COMPARISON: December 06, 2014.. FINDINGS: Visualized lung bases: Negative. Hepatobiliary: Gallbladder surgically absent. Otherwise negative. Spleen: Borderline enlarged measuring 14.4 cm in greatest diameter. Adrenals: Negative. Pancreas: Negative. Kidneys/: No visualized urolithiasis or hydronephrosis. Mild/moderate bladder distention. Questionable mild thickening along the posterior/inferior bladder base. Prostate is mildly enlarged with mild nodular mass effect upon the bladder base. No contour deforming renal mass. GI: Mild descending colon diverticulosis without evidence for diverticulitis. Moderate volume stool within the colon with stool noted in the distal ileum. Appendix is not definitively identified however there is no inflammatory changes within the expected region. Vessels/spaces/nodes: Mild atherosclerosis. Conglomerate of lymphadenopathy within the aortocaval retroperitoneum measuring approximately 5.0 x 5.8 cm (coronal image 50). Borderline prominent para-aortic lymph node measuring 9 mm in short axis (image 77 of series 2). Bones/soft tissues: Dense sclerotic lesion within the posterior left iliac bone measuring up to to 6 mm, unchanged and most compatible with a benign bone island.. Few additional punctate sclerotic densities within the pelvis, likely related to benign bone islands. Mild chronic appearing wedging of the L1 superior endplate. IMPRESSION: 1. No acute findings. No urolithiasis or hydronephrosis. 2. Conglomerate of lymphadenopathy within the aortocaval retroperitoneum, of unclear etiology however concerning for bruce metastasis and less likely lymphomatous disease. No gross primary malignancy identified on this unenhanced CT. Tissue sampling is recommended. 3. Mild/moderate bladder distention. 4. Questionable mild thickening along the posterior/inferior bladder base, possibly projectional. This is similar to prior exam from 2015 and favored benign. 5. Borderline nonspecific splenomegaly. Results were discussed with STEPH PHELAN at 10/24/2017 11:10 AM. Report Dictated By: Toby Albarado MD at 10/24/2017 10:55 AM Report E-Signed By: Toby Albarado MD at 10/24/2017 11:52 AM WSN:[facility] ED Course/Re-evaluation ED Course 10/24/2017 10:03:16 am plan at this time will be urinalysis with culture. We will perform a bladder scan postvoid residual test. We'll check CBC and electrolytes we'll consider additional imaging if required. 10/24/2017 10:19:49 am postvoid residual [address] scan concerning for abnormal appearance of abdominal and retroperitoneal lymph nodes concerning possibly for metastatic disease without primary source noted. Tissue sampling is recommended. This was explained to the patient as an incidental finding on CAT scan that will require follow-up with his primary care provider Decision to Disposition Date: Oct 24, 2017 Decision to Disposition Time: 11:53 Depart Departure Latest Vital Signs Vital Signs Date Time Temp Pulse Resp B/P (MAP) Pulse Ox O2 Delivery O2 Flow Rate FiO2 10/24/17 11:59 113/79 (90) 10/24/17 11:16 79 90 10/24/17 09:11 98.4 20 Impression: Primary Impression: Dysuria Additional Impressions: Urinary retention Enlarged lymph nodes Condition: Improved Disposition: HOME OR SELF-CARE Referrals: GAUDENCIO RUIZ DO (PCP) 2 Days call to [facility] [place] appointment New Scripts Docusate Sodium (COLACE) 100 Mg Capsule 100 MG PO QDAY for constipation, #20 CAPSULE 0 Refills Prov: STEPH PHELAN MD 10/24/17 Tamsulosin Hcl (FLOMAX) 0.4 Mg Cap.er.24h 0.4 MG PO QHS for 30 Days, #30 CAP 0 Refills Prov: STEPH PHELAN MD 10/24/17 Patient Instructions: Dysuria (ED) Additional Instructions: Your CT scan today showed an incidental finding of enlarged lymph nodes in the abdomen. The size of the lymph nodes is abnormal and needs follow-up to determine the cause of the enlargement which could include lymphoma. You should schedule a follow-up appointment with your primary care provider next week to follow-up both for the urinary tract infection but also to discuss further workup and evaluation of these enlarged lymph nodes. Continue to take your oral Keflex as directed until completed. Problem Qualifiers STEPH PHELAN MD Oct 24, 2017 10:03
[2017-10-24] MEDS ORDERED: DOCU-416 PO (11:56)
[2017-10-24] MEDS ORDERED: TAMS0.4C25 PO (11:56)
--- NOTE | 2017-10-24 11:57 | RADIOLOGY IMAGING REPORT ---
FACILITY: [facility] [place] PATIENT NAME: Ozzy Mesa : 1950 MR: [id number] V: [id number] EXAM DATE: ORDERING PHYSICIAN: STEPH PHELAN TECHNOLOGIST: Location: [facility] Patient: Ozzy Mesa : 1950 Visit/Account:[id number] Date of Sevice: 10/24/2017 ADDENDUM #1 Impression should include: Small to moderate to large stool within the right hemicolon with stool visualized in the distal ileum , possibly related to an incompetent ileocecal valve. Report Dictated By: Toby Albarado MD at 10/24/2017 12:25 PM Report E-Signed By: Toby Albarado MD at 10/24/2017 12:27 PM ORIGINAL REPORT ABDOMEN/PELVIS W/O CONTRAST HISTORY: Flank pain TECHNIQUE: CT abdomen and pelvis without intravenous contrast. One of the following dose optimization techniques was utilized in the performance of this exam: Autom ated exposure control; adjustment of the mA and/or kV according to the patient's size; or use of an i terative reconstruction technique. Specific details can be referenced in the facility's radiology C T exam operational policy. CONTRAST: None. Please note, lack of IV contrast limits evaluation of solid organs. COMPARISON: December 06, 2014.. FINDINGS: Visualized lung bases: Negative. Hepatobiliary: Gallbladder surgically absent. Otherwise negative. Spleen: Borderline enlarged measuring 14.4 cm in greatest diameter. Adrenals: Negative. Pancreas: Negative. Kidneys/: No visualized urolithiasis or hydronephrosis. Mild/moderate bladder distention. Questi onable mild thickening along the posterior/inferior bladder base. Prostate is mildly enlarged with m ild nodular mass effect upon the bladder base. No contour deforming renal mass. GI: Mild descending colon diverticulosis without evidence for diverticulitis. Moderate volume stool within the colon with stool noted in the distal ileum. Appendix is not definitively identified thomas giovanni there is no inflammatory changes within the expected region. Vessels/spaces/nodes: Mild atherosclerosis. Conglomerate of lymphadenopathy within the aortocaval r etroperitoneum measuring approximately 5.0 x 5.8 cm (coronal image 50). Borderline prominent para-ao rtic lymph node measuring 9 mm in short axis (image 77 of series 2). Bones/soft tissues: Dense sclerotic lesion within the posterior left iliac bone measuring up to to 6 mm, unchanged and most compatible with a benign bone island.. Few additional punctate sclerotic den sities within the pelvis, likely related to benign bone islands. Mild chronic appearing wedging of t he L1 superior endplate. IMPRESSION: 1. No acute findings. No urolithiasis or hydronephrosis. 2. Conglomerate of lymphadenopathy within the aortocaval retroperitoneum, of unclear etiology howeve r concerning for bruce metastasis and less likely lymphomatous disease. No gross primary malignancy identified on this unenhanced CT. Tissue sampling is recommended. 3. Mild/moderate bladder distention. 4. Questionable mild thickening along the posterior/inferior bladder base, possibly projectional. T his is similar to prior exam from 2015 and favored benign. 5. Borderline nonspecific splenomegaly. Results were discussed with STEPH PHELAN at 10/24/2017 11:10 AM. Report Dictated By: Toby Albarado MD at 10/24/2017 10:55 AM Report E-Signed By: Toby Albarado MD at 10/24/2017 11:52 AM WSN:[email or web address]
[2017-10-24 11:59] VITALS: BP 113/79
== END 2017-10-24 12:07 | disposition home or self-care (01) ==
LOC: ER 09:09
DX: R30.0 Dysuria (principal); R33.9 Retention of urine, unspecified; R59.0 Localized enlarged lymph nodes
CPT/HCPCS: 81001; 85025; 87088; 96374; 99284; J0696; 82310; 82374; 82435; 82565; 82947; 84132; 84295; 84520; 87077; 87186

== ENCOUNTER 2017-11-03 16:59 | Emergency (ER) | payer MEDICARE, MEDICAID ==
[2013-11-03 08:59] VITALS: Wt 69.9 kg
[~2017-11-03 16:59] MED LIST changes: -AMLO-111 PO; +AMLO-96 PO; -LEVO250T55 PO
[2017-11-03 17:26] LABS: PLATELET COUNT, AUTOMATED 312 K/uL (150-450)
--- NOTE | 2017-11-03 17:34 | ER Report ---
History and Physical Time Seen By MD: 17:20 Hx. of Stated Complaint: UTI HPI/ROS CHIEF COMPLAINT: I think i have a uti HISTORY OF PRESENT ILLNESS: Pt states that he has had two uti's in september. Was seen here on the 10 of october and was treated with keflex. pt states symptoms returned so he came back on the and had urine rechecked. Pt refilled his prior keflex. Pt states he has not felt any better. NO fevers. no chills. Pt denies back pain. Pt states "my whole body feels numb and this happens when I have uti". Pt denies any weakness. pt stastes that he used to see flock and jules but does not get along with either so no longer sees urology.t came her to be rechecked. REVIEW OF SYSTEMS: Constitutional: No fever, no chills. Eyes: No discharge. ENT: No sore throat. Cardiovascular: No chest pain, no palpitations. Respiratory: No cough, no shortness of breath. Gastrointestinal: No abdominal pain, no vomiting. Genitourinary: No hematuria, + dysuria Musculoskeletal: No back pain. Skin: No rashes. Neurological: No headache, Complete body numbness Allergies: Coded Allergies: No Known Drug Allergies (Verified , 11/03/17) Home Meds Active Scripts Docusate Sodium (COLACE) 100 Mg Capsule, 100 MG PO QDAY for constipation, #20 CAPSULE 0 Refills Prov:STEPH PHELAN MD 10/24/17 Tamsulosin Hcl (FLOMAX) 0.4 Mg Cap.er.24h, 0.4 MG PO QHS for 30 Days, #30 CAP 0 Refills Prov:STEPH PHELAN MD 10/24/17 Cephalexin 500 Mg Tab (KEFLEX 500 MG TAB) 500 Mg Tablet, 500 MG PO Q6H, #56 TAB 1 Refill TAKE ONE TABLET BY MOUTH EVERY SIX HOURS Prov:STEPH PHELAN MD 10/10/17 Tramadol Hcl (TRAMADOL HCL) 50 Mg Tablet, 1 TAB PO Q6H PRN for PAIN, #30 TAB Prov:KENNETH REYEZ DO 11/27/15 Reported Medications Losartan/Hydrochlorothiazide (LOSARTAN-HCTZ 50-12.5 MG TAB) 1 Each Tablet, 1 EACH PO QDAY 10/24/17 Amlodipine/Atorvastatin (AMLODIPINE-ATORVAST 5-20 MG) 1 Each Tablet, 1 EACH PO QDAY, TAB 06/08/15 Potassium Chloride (POTASSIUM CHLORIDE) 10 Meq Tablet.er, 10 MEQ PO QDAY 06/08/15 Benztropine Mesylate (BENZTROPINE MESYLATE) 0.5 Mg Tab, 0.5 MG PO HS, TAB 01/29/15 Pantoprazole Sodium (PANTOPRAZOLE SODIUM) 20 Mg Tablet.dr, 40 MG PO DAILY, TAB.SR 11/22/14 Quetiapine Fumarate (QUETIAPINE FUMARATE) 25 Mg Tablet, 25 MG PO Q6H PRN for AGITATION, #60 10/30/13 Gabapentin (GABAPENTIN) 300 Mg Capsule, 900 MG PO BID, #180 CAPSULE Take 3 capsules every morning and before bed 07/04/13 Baclofen (BACLOFEN) 10 Mg Tablet, 10 MG PO BID, #60 TAB Take 1 tablet by mouth twice daily 06/28/13 Past Medical/Surgical History Pmhx: uti, cerebral palsy, htn, dm Reviewed Nurses Notes: Yes Old Medical Records Reviewed: Yes Hx Smoking: Yes (1 ppd, 40 years) Smoking Status: Current: Every Day Smoker Exposure to Second Hand Smoke?: Yes Hx Substance Use Disorder: Yes (occ) Hx Alcohol Use: No Constitutional Vital Sign - Last 24 Hours 11/03/17 17:02 Temp 98.7 Pulse 78 Resp 20 B/P (MAP) 136/85 Pulse Ox 94 O2 Delivery Room Air Physical Exam General Appearance: The patient is alert, has no immediate need for airway protection and no signs of toxicity. Eyes: Pupils equal and round no pallor or injection, EOMI ENT: no pharyngeal erythema or exudates, Mucous membranes are moist, TM are nl b/l Respiratory: There are no retractions, lungs are clear to auscultation. Cardiovascular: Regular rate and rhythm. pulses are equal and symmetrical Gastrointestinal: Abdomen is soft and non tender, no masses, bowel sounds normal, no guarding, no rigidity or rebound Neurological: Cranial nerves II-XII grossly intact, no sensory or motor loss Skin: Warm and dry, no rashes. Musculoskeletal: Neck is supple non tender, no vertebral tenderness Extremities are nontender, nonswollen and have full range of motion. DIFFERENTIAL DIAGNOSIS: After history and physical exam differential diagnosis was considered for uti, electrolyte abn Medical Decision Making Data Points Result Diagram: 11/03/17 1709 11/03/17 1709 Laboratory Hematology Test 11/03/17 17:09 11/03/17 17:31 Red Blood Count 4.88 M/uL (4.00-5.60) Mean Corpuscular Volume 83.2 fL (80.0-96.0) Mean Corpuscular Hemoglobin 28.4 pg (26.0-33.0) Mean Corpuscular Hemoglobin Concent 34.2 g/dL (32.0-36.0) Red Cell Distribution Width 15.7 % (11.5-14.5) Mean Platelet Volume 8.0 fL (7.2-11.1) Neutrophils (%) (Auto) 69.6 % (39.4-72.5) Lymphocytes (%) (Auto) 18.9 % (17.6-49.6) Monocytes (%) (Auto) 10.1 % (4.1-12.4) Eosinophils (%) (Auto) 0.9 % (0.4-6.7) Basophils (%) (Auto) 0.5 % (0.3-1.4) Nucleated RBC Relative Count (auto) 0.0 /100WBC Neutrophils # (Auto) 4.0 K/uL (2.0-7.4) Lymphocytes # (Auto) 1.1 K/uL (1.3-3.6) Monocytes # (Auto) 0.6 K/uL (0.3-1.0) Eosinophils # (Auto) 0.0 K/uL (0.0-0.5) Basophils # (Auto) 0.0 K/uL (0.0-0.1) Nucleated RBC Absolute Count (auto) 0.00 K/uL Sodium Level 139 mmol/L (137-145) Potassium Level 3.7 mmol/L (3.5-5.0) Chloride Level 102 mmol/L (98-107) Carbon Dioxide Level 25 mmol/L (22-30) Blood Urea Nitrogen 13 mg/dl (9-21) Creatinine 0.90 mg/dl (0.66-1.25) Glomerular Filtration Rate Calc > 60.0 Random Glucose 113 mg/dl (75-110) Calcium Level 9.5 mg/dl (8.4-10.2) Total Bilirubin 0.7 mg/dl (0.2-1.3) Aspartate Amino Transf (AST/SGOT) 25 U/L (0-35) Alanine Aminotransferase (ALT/SGPT) 32 U/L (0-56) Alkaline Phosphatase 122 U/L (0-126) Total Protein 8.2 g/dl (6.3-8.2) Albumin 4.5 g/dl (3.5-5.0) Urine Color Yellow Urine Clarity Clear Urine pH 6.0 pH (4.8-9.5) Urine Specific [place] 1.011 Urine Protein Negative mg/dL (NEGATIVE) Urine Glucose (UA) Negative mg/dL (NEGATIVE) Urine Ketones Negative mg/dL (NEGATIVE) Urine Blood Negative (NEGATIVE) Urine Nitrite Negative (NEGATIVE) Urine Bilirubin Negative (NEGATIVE) Urine Urobilinogen Negative mg/dL (0.2-1.9) Urine Leukocyte Esterase Negative (NEGATIVE) Urine RBC 1 /HPF (0-2/HPF) Urine WBC <1 /HPF (0-5/HPF) Urine Squamous Epithelial Cells Few /LPF (</=FEW) Urine Bacteria Negative /HPF (NONE-FEW) Urine Mucus None /HPF (NONE-FEW) Chemistry Test 11/03/17 17:09 11/03/17 17:31 White Blood Count 5.7 k/uL (4.5-11.0) Red Blood Count 4.88 M/uL (4.00-5.60) Hemoglobin 13.9 g/dL (14.0-18.0) Hematocrit 40.6 % (42.0-52.0) Mean Corpuscular Volume 83.2 fL (80.0-96.0) Mean Corpuscular Hemoglobin 28.4 pg (26.0-33.0) Mean Corpuscular Hemoglobin Concent 34.2 g/dL (32.0-36.0) Red Cell Distribution Width 15.7 % (11.5-14.5) Platelet Count 312 K/uL (150-450) Mean Platelet Volume 8.0 fL (7.2-11.1) Neutrophils (%) (Auto) 69.6 % (39.4-72.5) Lymphocytes (%) (Auto) 18.9 % (17.6-49.6) Monocytes (%) (Auto) 10.1 % (4.1-12.4) Eosinophils (%) (Auto) 0.9 % (0.4-6.7) Basophils (%) (Auto) 0.5 % (0.3-1.4) Nucleated RBC Relative Count (auto) 0.0 /100WBC Neutrophils # (Auto) 4.0 K/uL (2.0-7.4) Lymphocytes # (Auto) 1.1 K/uL (1.3-3.6) Monocytes # (Auto) 0.6 K/uL (0.3-1.0) Eosinophils # (Auto) 0.0 K/uL (0.0-0.5) Basophils # (Auto) 0.0 K/uL (0.0-0.1) Nucleated RBC Absolute Count (auto) 0.00 K/uL Glomerular Filtration Rate Calc > 60.0 Calcium Level 9.5 mg/dl (8.4-10.2) Total Bilirubin 0.7 mg/dl (0.2-1.3) Aspartate Amino Transf (AST/SGOT) 25 U/L (0-35) Alanine Aminotransferase (ALT/SGPT) 32 U/L (0-56) Alkaline Phosphatase 122 U/L (0-126) Total Protein 8.2 g/dl (6.3-8.2) Albumin 4.5 g/dl (3.5-5.0) Urine Color Yellow Urine Clarity Clear Urine pH 6.0 pH (4.8-9.5) Urine Specific [place] 1.011 Urine Protein Negative mg/dL (NEGATIVE) Urine Glucose (UA) Negative mg/dL (NEGATIVE) Urine Ketones Negative mg/dL (NEGATIVE) Urine Blood Negative (NEGATIVE) Urine Nitrite Negative (NEGATIVE) Urine Bilirubin Negative (NEGATIVE) Urine Urobilinogen Negative mg/dL (0.2-1.9) Urine Leukocyte Esterase Negative (NEGATIVE) Urine RBC 1 /HPF (0-2/HPF) Urine WBC <1 /HPF (0-5/HPF) Urine Squamous Epithelial Cells Few /LPF (</=FEW) Urine Bacteria Negative /HPF (NONE-FEW) Urine Mucus None /HPF (NONE-FEW) Urinalysis Test 11/03/17 17:31 Urine Color Yellow Urine Clarity Clear Urine pH 6.0 pH (4.8-9.5) Urine Specific [place] 1.011 Urine Protein Negative mg/dL (NEGATIVE) Urine Glucose (UA) Negative mg/dL (NEGATIVE) Urine Ketones Negative mg/dL (NEGATIVE) Urine Blood Negative (NEGATIVE) Urine Nitrite Negative (NEGATIVE) Urine Bilirubin Negative (NEGATIVE) Urine Urobilinogen Negative mg/dL (0.2-1.9) Urine Leukocyte Esterase Negative (NEGATIVE) Urine RBC 1 /HPF (0-2/HPF) Urine WBC <1 /HPF (0-5/HPF) Urine Squamous Epithelial Cells Few /LPF (</=FEW) Urine Bacteria Negative /HPF (NONE-FEW) Urine Mucus None /HPF (NONE-FEW) ED Course/Re-evaluation Clinical Indication for ER IV: IV Access ED Course check labs and urine 11/03/2017 5:34:17 pm reviewed old records UTI on 10/10 grew ecoli and on 10/24 it grew out pseudomonas. Pt is currently taking the keflex refill which he was given on 10/10 PTs urine on 10/24 appeared clean on UA but grew out pseudomonas. Will repeat culture but will treat for pseudomonas and pt will need to follow up. PT refusing cipro. Pt willing to take levaquin Decision to Disposition Date: Nov 03, 2017 Decision to Disposition Time: 18:38 Depart Departure Latest Vital Signs Vital Signs Date Time Temp Pulse Resp B/P (MAP) Pulse Ox O2 Delivery O2 Flow Rate FiO2 11/03/17 17:02 98.7 78 20 136/85 94 Room Air Impression: Primary Impression: Pseudomonas urinary tract infection Condition: Improved Disposition: HOME OR SELF-CARE Referrals: GAUDENCIO RUIZ DO (PCP) 5 Days New Scripts Levofloxacin 250 Mg Tab (LEVAQUIN 250 MG TAB) 250 Mg Tablet 250 MG PO DAILY, #7 TAB Prov: ANGEL MACDONALD DO 11/03/17 Patient Instructions: GENERAL ER DISCHARGE INSTRUCTIONS Additional Instructions: Follow up with your family doctor this week. Stop your Keflex. Start Levaquin once a day. Return if symptoms worsen. ANGEL MACDONALD DO Nov 03, 2017 17:34
[2017-11-03] MEDS ORDERED: LEVO250T55 PO (18:39)
[2017-11-03] MEDS ORDERED: LEVOFLOXACIN 500 MG TAB PO ONE (18:40)
[2017-11-03 18:54] VITALS: BP 123/97
== END 2017-11-03 18:54 | disposition home or self-care (01) ==
LOC: ER 17:15
DX: N39.0 Urinary tract infection, site not specified (principal); B96.5 Pseudomonas (aeruginosa) (mallei) (pseudomallei) as the cause of diseases classified elsewhere
CPT/HCPCS: 81001; 85025; 87088; 99283; A9270; 82040; 82247; 82310; 82374; 82435; 82565; 82947; 84075; 84132; 84155; 84295; 84450; 84460; 84520; 87077; 87186

== ENCOUNTER → 2017-11-03 | Outpatient (CLI) | payer MEDICARE, MEDICAID ==
[2013-11-03 08:59] VITALS: BMI 30.8
[~2017-11-03] MED LIST changes: +AMLO-111 PO; -AMLO-96 PO; +DOCU-416 PO; +LEVO250T55 PO; +LOSA-51 PO
== END ==
LOC: AMB 16:39
PROVIDERS: ATTEND Nurse Practitioner
DX: R20.0 Anesthesia of skin (principal); N39.0 Urinary tract infection, site not specified; R53.1 Weakness
CPT/HCPCS: A0425; A0429

== ENCOUNTER → 2017-11-27 | Outpatient (CLI) | payer MEDICARE, MEDICAID ==
[2013-11-03 08:59] VITALS: BMI 30.8
[~2017-11-27] MED LIST changes: +AMLO-111 PO; -AMLO-96 PO; +IOPAMIDOL 76% 75 ML INFUS BTL 75 ML ONE; +LEVO250T55 PO
--- NOTE | 2017-11-27 11:02 | RADIOLOGY IMAGING REPORT ---
FACILITY: [facility] PATIENT NAME: Ozzy Mesa : 1950 MR: [id number] V: [id number] EXAM DATE: ORDERING PHYSICIAN: ZAYDA SIDDIQUI TECHNOLOGIST: Location: [facility] Patient: Ozzy Mesa : 1950 Visit/Account:[id number] Date of Sevice: 11/27/2017 CHEST/AB/PELV W/CONTRAST HISTORY: Retroperitoneal lymphadenopathy ADDITIONAL HISTORY: None. TECHNIQUE: Following administration of IV contrast axial images acquired through the chest abdomen a nd pelvis during the portal venous phase. Coronal and sagittal reformatting was also performed. Dose Lowering Technique One of the following dose optimization techniques was utilized in the performance of this exam: Autom ated exposure control; adjustment of the mA and/or kV according to the patient's size; or use of an i terative reconstruction technique. Specific details can be referenced in the facility's radiology C T exam operational policy. CONTRAST: 75 mL Isovue-370 COMPARISON: October 24, 2017, CT of abdomen and pelvis FINDINGS: CHEST: Lungs/Pleura: Negative. Mediastinum/lymph nodes: Negative. Heart/vessels: Coronary artery calcifications mild calcifications and plaque identified the origin o f the left subclavian artery. There are calcifications seen within the left ventricle of uncertain e tiology Bones/soft tissues: No aggressive appearing bone lesions are seen ABDOMEN AND PELVIS: Hepatobiliary: Postsurgical changes from a cholecystectomy Spleen: Borderline enlarged although appears relatively unchanged when compared the prior study Pancreas: Negative. Adrenals: Negative. Kidneys ureters and bladder : Kidneys appear grossly unremarkable. Bladder wall appears mildly thick ened most prominent along the base Genitalia: Prostate gland is heterogeneous containing coarse calcifications with mild impingement on the floor the bladder GI: Mild diverticulosis throughout the left-sided colon although no CT evidence of acute diverticul itis there is a moderate amount fecal material seen in the colon which can be seen with constipation Vessels/spaces/nodes: Mild atherosclerotic changes are seen throughout the abdomen and pelvis. Ther e is an incidental retroaortic left renal vein. Markedly enlarged aortocaval lymph nodes are again seen. These collectively measure 6.4 cm in heigh t 5 cm in width and 3.5 cm in AP dimension and is increased in size. Previous measurements were 5.8 x 5 x 3.1 cm previously noted left periaortic lymph node measuring 9 mm in maximum dimension is also increased in size and now measures 1.3 x 1.1 cm Bones/soft tissues: Dense sclerotic lesion in the posterior left iliac bone remains stable measuring 6 mm in diameter. Mild compression fracture of L1 remains stable Additional findings: None pertinent. IMPRESSION: Aortic caval adenopathy has increased in size when compared to the prior study as concerning for meta static disease although lymphoma does remain in the differential diagnosis. Left periaortic lymph no de also slightly increased. Mild bladder wall thickening most prominent along the base appears similar to the prior study Borderline splenomegaly unchanged Coronary artery calcifications with mild calcifications also noted at the origin the left subclavian artery. Also present are calcifications within the left ventricle of uncertain etiology . Additional chronic findings as described Report Dictated By: Florina Her MD at 11/27/2017 10:26 AM Report E-Signed By: Florina Her MD at 11/27/2017 10:58 AM SAVN:[id number]
== END ==
LOC: CT 04:15
PROVIDERS: ATTEND Surgery
DX: I25.10 Atherosclerotic heart disease of native coronary artery without angina pectoris (principal); R16.1 Splenomegaly, not elsewhere classified
CPT/HCPCS: 71260; 74177; Q9967

== ENCOUNTER → 2017-12-22 | Outpatient (CLI) | payer MEDICARE, MEDICAID ==
[2013-11-03 08:59] VITALS: BMI 30.8
[~2017-12-22] MED LIST changes: -HYDR-4305 PO; +HYDR-627 PO; -IOPAMIDOL 76% 75 ML INFUS BTL 75 ML ONE
--- NOTE | 2017-12-22 15:24 | RADIOLOGY IMAGING REPORT ---
FACILITY: [facility] PATIENT NAME: Ozzy Mesa : 1950 MR: [id number] V: [id number] EXAM DATE: ORDERING PHYSICIAN: ZAYDA SIDDIQUI TECHNOLOGIST: Location: [facility] Patient: Ozzy Mesa : 1950 Visit/Account:[id number] Date of Sevice: 12/22/2017 TESTICULAR HISTORY: Suspected testicular cancer, mass and right testicle COMPARISON: None. FINDINGS: Testes: The right testicle measures 4.4 x 2 x 3.3 cm. The left testicle measures 3.8 x 2.1 x 2.5 cm Symmetric and unremarkable blood flow documented by color and Duplex Doppler ultrasound. There is a 2.7 x 1.9 x 2.8 cm heterogeneous hypervascular mass projecting inferior to the right testi dani. On several images this appears to be extratesticular in origin.. 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 Epididymides: Head epididymis on the right measures 1.7 cm on the left 1 cm there is a 3 mm cyst had epididymis on the left and a 4 mm cyst had epididymis on the right Blood flow is unremarkable in eac h epididymis by color Doppler ultrasound. Hydrocele: Small on the left Varicocele: None. IMPRESSION: There is a 2.7 x 1.9 x 2.8 cm heterogeneous hypervascular mass projecting inferior to the right testi dani. This appears to be extra testicular in origin on several images. 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 Small left hydrocele Small cysts in the head the epididymides bilaterally Report Dictated By: Florina Her MD at 12/22/2017 3:07 PM Report E-Signed By: Florina Her MD at 12/22/2017 3:20 PM WSN:[email or web address]
== END ==
LOC: US 14:06
PROVIDERS: ATTEND Surgery
DX: N43.3 Hydrocele, unspecified (principal); N50.3 Cyst of epididymis; R19.09 Other intra-abdominal and pelvic swelling, mass and lump
CPT/HCPCS: 76870

== ENCOUNTER → 2017-12-24 | Outpatient (CLI) | payer MEDICARE, MEDICAID ==
[2013-11-03 08:59] VITALS: BMI 30.8
[~2017-12-24] MED LIST changes: +DOXY-252 PO; +SITA1TAB17 PO
== END ==
LOC: LAB 11:19
PROVIDERS: ATTEND Urology
DX: R59.0 Localized enlarged lymph nodes (principal); R59.9 Enlarged lymph nodes, unspecified
CPT/HCPCS: 36415; 81001; 82105; 83615; 84702

== ENCOUNTER 2018-01-11 00:48 | Observation (INO) | payer MEDICARE, MEDICAID ==
[2018-01-11] VITALS (20 sets, daily range): BP systolic 97–168; BP diastolic 70–94; Ht 167.6 cm; Wt 59.4 kg
[~2018-01-11] VITALS: Ht 167.6 cm; Wt 59.4 kg
[2018-01-11] MEDS ORDERED: NORMOSOL R SOLN(*) 1000 ML BAG 1,000 ML IV PRN ×2 (05:49→06:30)
[2018-01-11] MEDS ORDERED: LEVOFLOXACIN/D5W*500 MG/100 ML 100 ML IVPB ONE (05:50)
[2018-01-11] MEDS ORDERED: FAMOTIDINE 20 MG TAB PO ONE (06:30)
[2018-01-11] MEDS ORDERED: MIDAZOLAM 2 MG/2 ML VIAL IVP PRN (06:30)
[2018-01-11] MEDS ORDERED: LIDOCAINE/SOD BICARB 8.4% SYR ID ONE (06:30)
[2018-01-11] MEDS ORDERED: HEPARIN SOD LCK FLSH 100 UN/ML ONE (06:57)
[2018-01-11] MEDS ORDERED: ROPIVACAINE 0.5% 20 ML VIAL ONE (06:57)
[2018-01-11] MEDS ORDERED: BUPIV/EPI 0.25% 1:200,000 50ML INFIL ONE (06:58)
[2018-01-11] MEDS ORDERED: NS(*) 0.9% 10 ML VIAL 20 ML ONE (06:58)
[2018-01-11] MEDS ORDERED: ONDANSETRON 4 MG/2 ML VIAL ONE (07:06)
[2018-01-11] MEDS ORDERED: PROPOFOL EMUL(*) 10MG/ML 20 ML 20 ML ONE (07:06)
[2018-01-11] MEDS ORDERED: DEXAMETHASONE SOD 4 MG/ML VIAL ONE (07:06)
[2018-01-11] MEDS ORDERED: LIDOCAINE MPF 1% 5 ML VIAL ONE (07:06)
[2018-01-11] MEDS ORDERED: KETAMINE HCL-NS 50 MG/5 ML SYR ONE (07:07)
[2018-01-11] MEDS ORDERED: fentaNYL CITR 100 MCG/2 ML AMP ONE ×3 (07:07→09:07)
--- NOTE | 2018-01-11 08:40 | Short(Outpt) Discharge Summary ---
Discharge Summary Discharge Instructions Home Meds Active Scripts Doxycycline Monohydrate (DOXYCYCLINE MONOHYDRATE) 100 Mg Capsule, 100 MG PO BID for 10 Days, #20 CAPSULE 1 Refill Prov:JESUS OVALLES MD 12/24/17 Docusate Sodium (COLACE) 100 Mg Capsule, 100 MG PO QDAY for constipation, #20 CAPSULE 0 Refills Prov:STEPH PHELAN MD 10/24/17 Tamsulosin Hcl (FLOMAX) 0.4 Mg Cap.er.24h, 0.4 MG PO QHS for 30 Days, #30 CAP 0 Refills Prov:STEPH PHELAN MD 10/24/17 Tramadol Hcl (TRAMADOL HCL) 50 Mg Tablet, 1 TAB PO Q6H PRN for PAIN, #30 TAB Prov:KENNETH REYEZ DO 11/27/15 Reported Medications Hydrochlorothiazide (HYDROCHLOROTHIAZIDE) 25 Mg Tablet, 0.5 TAB PO QDAY, TAB 12/25/17 Amlodipine/Atorvastatin (AMLODIPINE-ATORVAST 5-20 MG) 1 Each Tablet, 1 EACH PO QDAY, TAB 06/08/15 Potassium Chloride (POTASSIUM CHLORIDE) 10 Meq Tablet.er, 10 MEQ PO QDAY 06/08/15 Benztropine Mesylate (BENZTROPINE MESYLATE) 0.5 Mg Tab, 0.5 MG PO HS, TAB 01/29/15 Pantoprazole Sodium (PANTOPRAZOLE SODIUM) 20 Mg Tablet.dr, 40 MG PO DAILY, TAB.SR 11/22/14 Quetiapine Fumarate (QUETIAPINE FUMARATE) 25 Mg Tablet, 25 MG PO Q6H PRN for AGITATION, #60 10/30/13 Gabapentin (GABAPENTIN) 300 Mg Capsule, 900 MG PO BID, #180 CAPSULE Take 3 capsules every morning and before bed 07/04/13 Baclofen (BACLOFEN) 10 Mg Tablet, 10 MG PO BID, #60 TAB Take 1 tablet by mouth twice daily 06/28/13 Special Instructions: Dr. Siddiqui instructions regarding the chemotherapy port: You may shower starting on 01/13/18, unless Dr. Ovalles needs you to wait longer before showering but don't immerse the incisions for 2 weeks. Leave the steristrips in place until they fall off on their own. There is a stitch in your neck that SHOULD fall out in the next 2 weeks. If it doesn't, gently tug on it and see if it comes out. If it doesn't come out then someone at the cancer center can remove it or you can call my office at [phone] and we'll have you come in to remove the stitch or Dr. Ovalles can remove it as well if you're seeing him in his office in follow up. ZAYDA SIDDIQUI MD Jan 11, 2018 08:39
--- NOTE | 2018-01-11 08:44 | Post Operative Progress Note ---
Post Operative Progress Note Date: Jan 11, 2018 Time: 08:40 Surgeon: Betty Dictation number: [id number] Anesthesia: LMA by Dr. Cabral Pre-Op Diagnosis: Testicular cancer Post-Op Diagnosis: FRANK Findings: None Procedure(s): Right IJ Power Port placement Specimen Removed:(May be N/A): None Complications: None Fluids: See anesthesia record Estimated Blood Loss: Minimal Date OP Note Dictated: Jan 11, 2018 Time OP Note Dictated: 08:40 ZAYDA SIDDIQUI MD Jan 11, 2018 08:44
--- NOTE | 2018-01-11 08:51 | RADIOLOGY IMAGING REPORT ---
FACILITY: [facility] PATIENT NAME: Ozzy Mesa : 1950 MR: [id number] V: [id number] EXAM DATE: ORDERING PHYSICIAN: ZAYDA SIDDIQUI TECHNOLOGIST: Location: [facility] Patient: Ozzy eMsa : 1950 Visit/Account:[id number] Date of Sevice: 01/11/2018 Study: C-ARM FLUORO PORT/CATH Indication: Intraoperative fluoroscopy Findings:2 intraoperative spot films of the upper right chest demonstrates the presence of a implante d port within the right chest. The tip of the catheter is not visualized on these images. There is no evidence of pneumothorax. A fluoroscopy exposure of 0.26296 mGym2 DAP was recorded. IMPRESSION: Intraoperative spot films. Report Dictated By: Akin Downing at 01/11/2018 8:45 AM Report E-Signed By: Akin Downing at 01/11/2018 8:46 AM WSN:[id number]
[2018-01-11] MEDS ORDERED: NORMOSOL R SOLN(*) 1000 ML BAG 1,000 ML IV ONE (09:16)
[2018-01-11] MEDS ORDERED: QUEtiapine FUM 25 MG TAB PO PRN (09:45)
--- NOTE | 2018-01-11 09:57 | RADIOLOGY IMAGING REPORT ---
FAC[place] [facility] [place]IENT NAME: Ozzy Mesa : 1950 MR: [id number] V: [id number] EXAM DATE: ORDERING PHYSICIAN: ZAYDA SIDDIQUI TECHNOLOGIST: Location: [facility] Patient: Ozzy Mesa : 1950 Visit/Account:[id number] Date of Sevice: 01/11/2018 EXAMINATION: Chest radiograph HISTORY: PowerPort placement COMPARISON: August 19, 2017 FINDINGS: Right chest wall port is new with catheter tip in the mid to lower SVC. The cardiac silhouette is normal in size. No pneumothorax. The lungs are clear. Normal osseous str uctures. IMPRESSION: Right chest wall port with catheter tip in the mid to lower SVC. No pneumothorax or acute finding. Report Dictated By: Toby Hinton MD at 01/11/2018 9:51 AM Report E-Signed By: Toby Hinton MD at 01/11/2018 9:52 AM WSN:[email or web address]
[2018-01-11] MEDS: traMADol 50 MG TAB PO PRN ×2 (11:15→18:44)
--- NOTE | 2018-01-11 11:30 | OPERATIVE REPORT 1 ---
EVENT DATE: January 11, 2018 SURGEON: Sunny Hernández M.D. ANESTHESIOLOGIST: Sami Cabral MD ANESTHESIA: LMA. PREOPERATIVE DIAGNOSIS Testicular cancer. POSTOPERATIVE DIAGNOSIS Testicular cancer. PROCEDURE PERFORMED Right IJ PowerPort placement. COMPLICATIONS None. CONDITION Stable. ESTIMATED BLOOD LOSS Minimal. INDICATIONS This is a 67-year-old gentleman who was referred to me initially with retroperitoneal adenopathy adjacent to the right renal hilum, aorta and inferior vena cava. Exam was consistent with a right testicular mass and PET CT, which did not go low enough to see the testicle, revealed only the adenopathy and no other lesions. I referred him to Dr. Cabello with urology, who confirmed the diagnosis and has scheduled him today for an orchiectomy and has requested that I place a PowerPort for this patient, who will need chemotherapy. DESCRIPTION OF PROCEDURE The patient was brought to the operating room and placed supine on the operating table. LMA anesthesia anesthesia was administered and his right neck, chest and shoulder were prepped and draped in the sterile fashion. A time-out was completed. With the patient in Trendelenburg, I used the ultrasound to identify the right internal jugular vein. I used the access needle and accessed the vein in one attempt. I threaded the wire through the needle and removed the needle and then used the C-arm to confirm the wire in the SVC. I then anesthetized the skin in the neck and the right infraclavicular skin and then made a transverse incision in the right infraclavicular area and dissected through the dermis and subcutaneous fat. I then creasted a pocket caudad to the incision using electrocautery and blunt dissection with my finger and the nature of this was hemostatic and made a stab incision in the neck where the wire entered the skin. I then used the tunneler and dragged the catheter from the pocket up into the neck and then with the patient in Trendelenburg threaded the dilator and sheath over the wire and then confirmed this position in the SVC with C-arm and then removed the wire and dilator and threaded the catheter through the sheath and removed the sheath. I then, under fluoroscopic guidance, withdrew the catheter so the tip was in the SVC just above the right atrium and then cut it to length and placed the port on a catheter and locked into place with locking cup. The port was secured to underlying muscle fascia with 2-0 Nylon at the corners and then I aspirated blood through the port and catheter and flushed it with 10 mL of normal saline and then 5 mL of 100 units/mL heparinized saline for a total of 500 units of heparin. It aspirated and flushed without any problems. I took more C-arm images to confirm good course of the catheter and good positioning of the tip and there were no kinks or twists and the tip looked good in the SVC. I then closed the skin incision in the neck with a single 3-0 Chromic suture and the incision in the right infraclavicular area was closed with 3-0 Vicryl interrupted deep dermal sutures and 4-0 Monocryl running subcuticular sutures. The skin was cleaned and dried and steri-strips were applied. I then left the operating room and Dr. Cabello proceeded with his portion of the case, which was the orchiectomy. Please refer to his documentation regarding the rest of this case. MARZENA
[2018-01-11] MEDS ORDERED: APAP/HYDROCODONE 325/5 TAB PO PRN (12:10)
[2018-01-11] MEDS ORDERED: PANT40TA65 PO (12:38)
--- NOTE | 2018-01-11 12:38 | OPERATIVE REPORT 1 ---
EVENT DATE: January 11, 2018 SURGEON: Rufino Cabello MD ANESTHESIOLOGIST: [*] ANESTHESIA: LMA/General. WASTEWATER OPERATOR: None. PREOPERATIVE DIAGNOSIS Right testicular mass. POSTOPERATIVE DIAGNOSIS Right testicular mass. PROCEDURE PERFORMED Right inguinal orchiectomy. DESCRIPTION OF PROCEDURE The patient was brought to the operating room and after adequate induction of general anesthesia via LMA, Dr. Hernández performed the placement of a Portacath. After completion of his part of the procedure, attention was turned to the right inguinal region. The area was scrubbed, prepped and draped in a sterile fashion and the patient examined. Again, demonstrated was a hard immobile mass associated with the lower pole of the right testis. An inguinal incision was made and carried down to the external oblique fascia. This was then opened in the direction of its fibers, exposing the right spermatic cord. The right cord was encircled and the testis delivered from the right hemiscrotum into the surgical field. The cord was then dissected cephalad to the internal inguinal ring. It was then doubly clamped and suture ligated with 0 silk. The specimen was passed off. The area around the incision was then thoroughly infiltrated with 0.25% plain Marcaine. The fascia was closed with a running 3-0 Vicryl suture and the subcutaneous tissue closed with a similar suture. The skin was then closed with a running 5-0 Monocryl in subcuticular fashion. Steri-strips and Tegaderm dressing was applied. He was aroused from anesthesia and then transported to PACU in stable condition. ESTIMATED BLOOD LOSS 10 mL. MTDD
[2018-01-11] MEDS: HYDROmorphone HCL 2 MG TAB PO PRN ×2 (16:20→22:06)
[2018-01-11] MEDS: BACLOFEN 10 MG TAB PO SCH (20:40)
[2018-01-11] MEDS: GABAPENTIN 300 MG CAP PO SCH (20:40)
[2018-01-11] MEDS ORDERED: BENZTROPINE MESYLATE 0.5MG TAB PO SCH (21:00)
[2018-01-11] MEDS ORDERED: TAMSULOSIN HCL 0.4 MG CAP PO SCH (21:00)
[2018-01-12] MEDS: traMADol 50 MG TAB PO PRN ×2 (01:15→08:30)
[2018-01-12 02:23] VITALS: BP 125/77
[2018-01-12] MEDS: HYDROmorphone HCL 2 MG TAB PO PRN (05:12)
[2018-01-12] MEDS: BACLOFEN 10 MG TAB PO SCH (08:29)
[2018-01-12] MEDS: GABAPENTIN 300 MG CAP PO SCH (08:29)
[2018-01-12] MEDS ORDERED: PROMETHAZINE 25 MG/ML 1 ML AMP IVP PRN (08:35)
[2018-01-12] MEDS ORDERED: D5 1/2 NS(*) 1000 ML BAG 1,000 ML IV PRN (08:35)
[2018-01-12] MEDS ORDERED: APAP/HYDROCODONE 325/5 TAB PO PRN ×2 (08:35)
[2018-01-12] MEDS ORDERED: ACETAMINOPHEN 325 MG TAB PO PRN (08:35)
--- NOTE | 2018-01-12 08:47 | Urology Progress Note ---
Subjective Patient Complains of: Neurological: No: Syncope, Confusion, Weakness, Dizziness, Slurred Speech, Other Cardiovascular: No: Chest Pain, Palpitations, Orthostatic Hypotension, Other Respiratory: No: Cough, Congestion, Shortness of Breath, Wheezing, Other Gastrointestinal: No Nausea, No Vomiting, No Flatus, No Bowel Movement, No Other Genitourinary: Other (he has some incisional tenderness appropriate for the procedure) Musculoskeletal: Impaired Mobility Physical Exam Vital Signs Date Time Temp Pulse Resp B/P (MAP) Pulse Ox O2 Delivery O2 Flow Rate FiO2 01/12/18 02:23 98.6 71 12 125/77 (93) 92 Room Air 01/11/18 10:14 2.0 01/11/18 10:14 96.0 Intake and Output 01/12/18 07:00 Intake Total 2150 ml Output Total 1100 ml Balance 1050 ml Intake Oral 1050 ml IV Total 1100 ml Output Urine Total 1100 ml # Voids 4 General Appearance: Alert, Other (he slept poorly and is slightly irate) Eyes: PERRLA GI: Soft and Non-Tender : No CVA Tenderness, Other (incisional dressing is intact on erythematous) Integumentary: Generalized Fragile Skin Assessment and Plan Condition I think he is stable for discharge with home health care assistance. I will send a prescription for Vicodin to his pharmacy to control postoperative pain #51 by mouth every 6 hours when necessary. I would like him to follow up in my office next week to review the pathology. I told him he has no new dietary or showering restrictions Time Spent: < 30 min (postop day #1 status post placement of venous port and right inguinal orchiectomy for testicular mass) Exam Sepsis Risk: No Definite Risk JESUS OVALLES MD Jan 12, 2018 08:47
[2018-01-12] MEDS ORDERED: HYDR-385 PO (08:56)
[2018-01-12] MEDS ORDERED: HYDROCHLOROTHIAZIDE 25 MG TAB PO SCH (09:00)
[2018-01-12] MEDS ORDERED: amLODIPine BESYL(*) 5 MG TAB PO SCH (09:00)
[2018-01-12] MEDS ORDERED: POTASSIUM CHL 10 MEQ TABCR PO SCH (09:00)
[2018-01-12] MEDS ORDERED: ATORVASTATIN 10 MG TAB PO SCH (09:00)
[2018-01-12] MEDS ORDERED: PANTOPRAZOLE SOD 40 MG TABEC PO SCH (09:00)
[2018-01-12] MEDS ORDERED: DOCUSATE SODIUM 100 MG CAP PO SCH ×2 (09:00)
--- NOTE | 2018-01-12 10:22 | Urology Discharge Summary ---
Discharge Summary Departure Weight (Pounds): 131 Condition: Improved Discharge Instructions Home Meds Active Scripts Hydrocodone Bit/Acetaminophen (HYDROCODON-ACETAMINOPHEN 5-325) 1 Each Tablet, 1- 2 TAB PO QID PRN for PAIN for 3 Days, #5 TAB 0 Refills Prov:JESUS OVALLES MD 01/12/18 Pantoprazole Sodium (PANTOPRAZOLE SODIUM) 40 Mg Tablet.dr, 40 MG PO QDAY for 90 Days, #90 TAB.SR Prov:ZAYDA DUDLEY DO 01/11/18 Docusate Sodium (COLACE) 100 Mg Capsule, 100 MG PO QDAY for constipation, #20 CAPSULE 0 Refills Prov:STEPH PHELAN MD 10/24/17 Tamsulosin Hcl (FLOMAX) 0.4 Mg Cap.er.24h, 0.4 MG PO QHS for 30 Days, #30 CAP 0 Refills Prov:STEPH PHELAN MD 10/24/17 Tramadol Hcl (TRAMADOL HCL) 50 Mg Tablet, 1 TAB PO Q6H PRN for PAIN, #30 TAB Prov:KENNETH REYEZ DO 11/27/15 Reported Medications Hydrochlorothiazide (HYDROCHLOROTHIAZIDE) 25 Mg Tablet, 0.5 TAB PO QDAY, TAB 12/25/17 Amlodipine/Atorvastatin (AMLODIPINE-ATORVAST 5-20 MG) 1 Each Tablet, 1 EACH PO QDAY, TAB 06/08/15 Potassium Chloride (POTASSIUM CHLORIDE) 10 Meq Tablet.er, 10 MEQ PO QDAY 06/08/15 Benztropine Mesylate (BENZTROPINE MESYLATE) 0.5 Mg Tab, 0.5 MG PO HS, TAB 01/29/15 Quetiapine Fumarate (QUETIAPINE FUMARATE) 25 Mg Tablet, 25 MG PO Q6H PRN for AGITATION, #60 10/30/13 Gabapentin (GABAPENTIN) 300 Mg Capsule, 900 MG PO BID, #180 CAPSULE Take 3 capsules every morning and before bed 07/04/13 Baclofen (BACLOFEN) 10 Mg Tablet, 10 MG PO BID, #60 TAB Take 1 tablet by mouth twice daily 06/28/13 Discontinued Reported Medications Pantoprazole Sodium (PANTOPRAZOLE SODIUM) 20 Mg Tablet.dr, 40 MG PO DAILY, TAB.SR 11/22/14 Discontinued Scripts Doxycycline Monohydrate (DOXYCYCLINE MONOHYDRATE) 100 Mg Capsule, 100 MG PO BID for 10 Days, #20 CAPSULE 1 Refill Prov:JESUS OVALLES MD 12/24/17 Diet: Regular (okay to shower. We will make an appointment to return to clinic in one week to review pathology results.) Special Instructions: Dr. Hernández instructions regarding the chemotherapy port: You may shower starting on 01/13/18, unless Dr. Ovalles needs you to wait longer before showering but don't immerse the incisions for 2 weeks. Leave the steristrips in place until they fall off on their own. There is a stitch in your neck that SHOULD fall out in the next 2 weeks. If it doesn't, gently tug on it and see if it comes out. If it doesn't come out then someone at the cancer center can remove it or you can call my office at [phone] and we'll have you come in to remove the stitch or Dr. Ovalles can remove it as well if you're seeing him in his office in follow up. Venous Thromboembolism Antithrombotics Is Pt On Any Antithrombotics?: No JESUS OVALLES MD Jan 12, 2018 10:22
--- NOTE | 2018-01-12 12:31 | DISCHARGE SUMMARY ---
DATE OF ADMISSION January 11, 2018 DATE OF DISCHARGE January 12, 2018 BRIEF CLINICAL COURSE The patient is a 67-year-old gentleman found to have retroperitoneal adenopathy on CT scan. Subsequently found to have a right testicular mass. On 01/11/2018, he was taken to the operating room where he underwent placement of a central venous Port-A-Cath for presumed need for further chemotherapy and a right inguinal orchiectomy. His pain was controlled with oral narcotic, and the following day, he was ambulating without assistance, tolerating regular diet, and his pain was controllable with the oral narcotic. He was discharged home with instructions to avoid pushing, lifting, or straining. He was discharged with Home Health Services. He was given no dietary restriction and was instructed to follow up with me in one week to review the pathology findings. MARZENA
== END 2018-01-12 08:32 | disposition home health service (06) ==
LOC: OR 00:48 → MED 10:14
PROVIDERS: ADMIT Urology; ATTEND Urology
DX: C62.91 Malignant neoplasm of right testis, unspecified whether descended or undescended (principal); J44.9 Chronic obstructive pulmonary disease, unspecified; G80.9 Cerebral palsy, unspecified; K21.9 Gastro-esophageal reflux disease without esophagitis; E11.9 Type 2 diabetes mellitus without complications; N40.0 Benign prostatic hyperplasia without lower urinary tract symptoms; Z90.49 Acquired absence of other specified parts of digestive tract
CPT/HCPCS: 36416; 36561; 54530; 71045; 77001; 82948; 88307; A9270; C1788; G0378; J1100; J1956; J2001; J2405; J2704; J2795; J3010; J3490

== ENCOUNTER 2018-02-18 12:39 | Emergency (ER) | payer MEDICARE, MEDICAID ==
[2018-01-11 14:37] VITALS: Wt 58.1 kg
[~2018-02-18 12:39] MED LIST changes: +HYDR-385 PO; +PANT40TA65 PO
--- NOTE | 2018-02-18 12:49 | ER Report ---
History and Physical Time Seen By MD: 12:49 HPI/ROS CHIEF COMPLAINT: Flank pain, abdominal pain HISTORY OF PRESENT ILLNESS: 67-year-old male patient presents to emergency room with complaint of flank pain and abdominal pain. Patient states that he was diagnosed with urinary tract infection approximately one week ago. He states he was treated with Levaquin. He is following up today and had a clean urine. He states that he has had worsening pain to the right flank as well as his abdomen starting on Levaquin. Patient states that the pain has been so significant that his tramadol has not seemed to help. He denies having any fevers or chills. He states he is eating and drinking well but has had continual weight loss. He denies having any dysuria. REVIEW OF SYSTEMS: Respiratory: No cough, no dyspnea. Cardiovascular: No chest pain, no palpitations. Gastrointestinal: As noted above Musculoskeletal: No back pain. Allergies: Coded Allergies: No Known Drug Allergies (Verified , 02/18/18) Home Meds Active Scripts Oxycodone Hcl/Acetaminophen (PERCOCET 5-325 MG TABLET) 1 Each Tablet, 1 EACH PO Q4-6H PRN for PAIN, #30 TAB Prov:INGRID MARINELLI 02/18/18 Pantoprazole Sodium (PANTOPRAZOLE SODIUM) 40 Mg Tablet.dr, 40 MG PO QDAY for 90 Days, #90 TAB.SR Prov:ZAYDA DUDLEY DO 01/11/18 Docusate Sodium (COLACE) 100 Mg Capsule, 100 MG PO QDAY for constipation, #20 CAPSULE 0 Refills Prov:STEPH PHELAN MD 10/24/17 Tamsulosin Hcl (FLOMAX) 0.4 Mg Cap.er.24h, 0.4 MG PO QHS for 30 Days, #30 CAP 0 Refills Prov:STEPH PHELAN MD 10/24/17 Tramadol Hcl (TRAMADOL HCL) 50 Mg Tablet, 1 TAB PO Q6H PRN for PAIN, #30 TAB Prov:KENNETH REYEZ DO 11/27/15 Reported Medications Levofloxacin 500 Mg Tab (LEVAQUIN 500 MG TAB) 500 Mg Tablet, 500 MG PO DAILY, TAB 02/15/18 Hydrochlorothiazide (HYDROCHLOROTHIAZIDE) 25 Mg Tablet, 0.5 TAB PO QDAY, TAB 12/25/17 Amlodipine/Atorvastatin (AMLODIPINE-ATORVAST 5-20 MG) 1 Each Tablet, 1 EACH PO QDAY, TAB 06/08/15 Potassium Chloride (POTASSIUM CHLORIDE) 10 Meq Tablet.er, 10 MEQ PO QDAY 06/08/15 Benztropine Mesylate (BENZTROPINE MESYLATE) 0.5 Mg Tab, 0.5 MG PO HS, TAB 01/29/15 Quetiapine Fumarate (QUETIAPINE FUMARATE) 25 Mg Tablet, 25 MG PO Q6H PRN for AGITATION, #60 10/30/13 Gabapentin (GABAPENTIN) 300 Mg Capsule, 900 MG PO BID, #180 CAPSULE Take 3 capsules every morning and before bed 07/04/13 Baclofen (BACLOFEN) 10 Mg Tablet, 10 MG PO BID, #60 TAB Take 1 tablet by mouth twice daily 06/28/13 Past Medical/Surgical History Patient has a past medical history of cerebral palsy, angina, hypertension, hyperlipidemia, COPD, frequent UTI, enlarged prostate, spinal stenosis, frequent falls, generalized arthritis, fractures, back pain, diabetes, occasional substance abuse, anxiety. Patient has a surgical history of eye surgery, tonsillectomy, right leg surgery, left leg surgery, ankle surgery, heel surgery, cholecystectomy, hernia repair, ulcers, orchiectomy. Patient has a family medical history of cancer, CAD. Reviewed Nurses Notes: Yes Hx Smoking: Yes (1 ppd, 40 years) Smoking Status: Current: Every Day Smoker Exposure to Second Hand Smoke?: Yes Hx Substance Use Disorder: Yes (occ) Hx Alcohol Use: No Constitutional Vital Sign - Last 24 Hours 02/18/18 02/18/18 02/18/18 02/18/18 12:44 12:45 13:00 13:30 Temp 97.5 Resp 20 B/P (MAP) 142/98 (113) 142/98 146/94 (111) 144/99 (114) Pulse Ox 92 O2 Delivery Room Air 02/18/18 02/18/18 02/18/18 02/18/18 13:35 13:40 13:45 13:50 Pulse ? 02/18/18 02/18/18 02/18/18 02/18/18 13:55 14:00 14:05 14:10 Pulse ? 02/18/18 02/18/18 02/18/18 02/18/18 14:11 14:15 14:20 14:25 Pulse 65 70 69 B/P (MAP) 135/89 (104) Pulse Ox 92 93 93 02/18/18 02/18/18 02/18/18 14:30 15:00 15:30 Pulse ??? B/P (MAP) 144/95 (111) 153/96 (115) ???/??? (1665) Pulse Ox 92 Physical Exam General Appearance: The patient is alert, has no immediate need for airway protection and no current signs of toxicity. Respiratory: Chest is non tender, lungs are clear to auscultation. Cardiac: regular rate and rhythm Gastrointestinal: Abdomen is soft and non tender, no masses, bowel sounds normal. Musculoskeletal: Neck: Neck is supple and non tender. Back: Patient does have right-sided CVA tenderness. Extremities have full range of motion and are non tender. Skin: No rashes or lesions. DIFFERENTIAL DIAGNOSIS: After history and physical exam differential diagnosis was considered for flank pain including but not limited to musculoskeletal causes, kidney stone, pyelonephritis, shingles, and intra-abdominal causes such as diverticulitis and appendicitis. Medical Decision Making EKG/Imaging Imaging ABDOMEN/PELVIS WITH CONTRAST HISTORY: abdominal pain, right flank pain, history of kidney cancer TECHNIQUE: Following administration of IV contrast contiguous axial images acquired through the abdomen/pelvis. Coronal and sagittal reformatting also performed.Dose Lowering Technique One of the following dose optimization techniques was utilized in the performance of this exam: Automated exposure control; adjustment of the mA and/or kV according to the patient's size; or use of an iterative reconstruction technique. Specific details can be referenced in the facility's radiology CT exam operational policy. CONTRAST: 75 mL Isovue-370 COMPARISON: CT chest abdomen pelvis November 27, 2017 FINDINGS: Visualized lung bases: There are coronary artery calcifications present Hepatobiliary: There are postsurgical changes from a cholecystectomy Spleen: Spleen appears borderline enlarged although relatively unchanged when compared the prior study Adrenals: Negative. Pancreas: Negative. Kidneys ureters or bladder: There is a 1.3 cm ovoid hypoattenuating mass along the posterior medial inferior left kidney not appreciated on the prior study . There is mild fullness of the right renal collecting system. The bladder is markedly distended to 2 cm below the level of the umbilicus . Genitalia: Coarse calcifications are noted within the prostate gland GI: There is mild diverticulosis throughout the left-sided colon although no CT evidence of acute diverticulitis Vessels/spaces/nodes: Mild atherosclerotic changes are again seen throughout the abdomen and pelvis. Bulky aortocaval adenopathy appears relatively unchanged measuring 6.5 cm in height, 4.8 cm in width 3.5 cm in AP dimension Previous described left para-aortic lymph node is slightly increased in size now measuring 1.7 x 1.5 cm as opposed 1.3 x 1.1 cm previously Bones/soft tissues: Round sclerotic focus in the posterior left iliac bone remains unchanged in size measuring 6 mm in diameter. Mild compression fracture of L1 remains unchanged. There is a new lytic lesion involving the T8 vertebral body not appreciated previously Additional findings: None pertinent. IMPRESSION: There is a 1.3 cm ovoid hypoattenuating mass along the posterior medial inferior aspect left kidney which was not present on the prior study. This could be further evaluated with MR with and without contrast There is mild fullness of the right renal collecting system. This is likely related to marked distention of the urinary bladder with the dome extending to just 2 cm below the level the umbilicus There is a new lytic lesion involving the T8 vertebral body Left periaortic lymph node has increased in size Large aortocaval bruce mass is relatively unchanged Additional chronic findings as described Report Dictated By: Florina Her MD at 02/18/2018 2:30 PM Report E-Signed By: Florina Her MD at 02/18/2018 2:56 PM ED Course/Re-evaluation ED Course Patient was admitted to an exam room, history and physical were obtained. Differential diagnoses were considered. On examination lungs are clear, heart is regular, abdomen is soft with no obvious tenderness to palpation. Patient does complain about some upper abdominal pain. On palpation of the back he does have some tenderness to the right flank. A CT scan of the abdomen and pelvis was done. Patient had lab work done at the cancer center. That showed no urinary tract infection, no elevated white count. CT scan was done looking at the kidney itself as well as any possible worsening of his cancer. CT scan did show a new cyst in the left kidney measuring 1.3 cm. Patient also had a lytic lesion to T8. I believe pain the patient is having is likely advancement of the patient's cancer. As a result we will have him stop doing the tramadol for pain and we will put him on Percocet. Patient was given a limited supply of Percocet, 30, to get him through the weekend and until he can see the cancer center on Thursday. At which time I believe the cancer Center will need to be taking care of his pain management at that time. Patient verbalized understanding and agreement with plan. Decision to Disposition Date: Feb 18, 2018 Decision to Disposition Time: 15:23 Depart Departure Latest Vital Signs Vital Signs Date Time Temp Pulse Resp B/P (MAP) Pulse Ox O2 Delivery O2 Flow Rate FiO2 02/18/18 15:30 ???/??? (1665) 02/18/18 14:30 ??? 92 02/18/18 12:45 97.5 20 Room Air Impression: Primary Impression: Right flank pain Condition: Improved Disposition: HOME OR SELF-CARE Referrals: GAUDENCIO RUIZ DO (PCP) New Scripts Oxycodone Hcl/Acetaminophen (PERCOCET 5-325 MG TABLET) 1 Each Tablet 1 EACH PO Q4-6H PRN for PAIN, #30 TAB Prov: INGRID MARINELLI 02/18/18 Patient Instructions: Flank Pain (ED) Additional Instructions: Monitor your urinary output. Follow up with the cancer center next Thursday, call tomorrow to make an appointment. Return to the ER if pain worsens. Limit activity by pain. INGRID MARINELLI Feb 18, 2018 12:49
[2018-02-18] MEDS ORDERED: NS(*) 0.9% 500 ML BAG 500 ML IV ONE (13:05)
[2018-02-18] MEDS ORDERED: MORPHINE 4 MG/ML SDV IVP ONE (13:05)
[2018-02-18] MEDS ORDERED: IOPAMIDOL 76% 50 ML INFUS BTL 100 ML ONE (13:35)
--- NOTE | 2018-02-18 15:01 | RADIOLOGY IMAGING REPORT ---
FACILITY: [facility] - [place] PATIENT NAME: Ozzy Mesa : 1950 MR: [id number] V: [id number] EXAM DATE: ORDERING PHYSICIAN: INGRID MARINELLI TECHNOLOGIST: Location: [facility] [place] Patient: Ozzy Mesa : 1950 Visit/Account:[id number] Date of Sevice: 02/18/2018 ABDOMEN/PELVIS WITH CONTRAST HISTORY: abdominal pain, right flank pain, history of kidney cancer TECHNIQUE: Following administration of IV contrast contiguous axial images acquired through the abdom en/pelvis. Coronal and sagittal reformatting also performed.Dose Lowering Technique One of the following dose optimization techniques was utilized in the performance of this exam: Autom ated exposure control; adjustment of the mA and/or kV according to the patient's size; or use of an i terative reconstruction technique. Specific details can be referenced in the facility's radiology C T exam operational policy. CONTRAST: 75 mL Isovue-370 COMPARISON: CT chest abdomen pelvis November 27, 2017 FINDINGS: Visualized lung bases: There are coronary artery calcifications present Hepatobiliary: There are postsurgical changes from a cholecystectomy Spleen: Spleen appears borderline enlarged although relatively unchanged when compared the prior sujata dy Adrenals: Negative. Pancreas: Negative. Kidneys ureters or bladder: There is a 1.3 cm ovoid hypoattenuating mass along the posterior medial i nferior left kidney not appreciated on the prior study . There is mild fullness of the right renal c ollecting system. The bladder is markedly distended to 2 cm below the level of the umbilicus . Genitalia: Coarse calcifications are noted within the prostate gland GI: There is mild diverticulosis throughout the left-sided colon although no CT evidence of acute di verticulitis Vessels/spaces/nodes: Mild atherosclerotic changes are again seen throughout the abdomen and pelvis. Bulky aortocaval adenopathy appears relatively unchanged measuring 6.5 cm in height, 4.8 cm in width 3.5 cm in AP dimension Previous described left para-aortic lymph node is slightly increased in size now measuring 1.7 x 1.5 cm as opposed 1.3 x 1.1 cm previously Bones/soft tissues: Round sclerotic focus in the posterior left iliac bone remains unchanged in size measuring 6 mm in diameter. Mild compression fracture of L1 remains unchanged. There is a new lytic lesion involving the T8 vertebral body not appreciated previously Additional findings: None pertinent. IMPRESSION: There is a 1.3 cm ovoid hypoattenuating mass along the posterior medial inferior aspect left kidney w hich was not present on the prior study. This could be further evaluated with MR with and without co ntrast There is mild fullness of the right renal collecting system. This is likely related to marked disten tion of the urinary bladder with the dome extending to just 2 cm below the level the umbilicus There is a new lytic lesion involving the T8 vertebral body Left periaortic lymph node has increased in size Large aortocaval bruce mass is relatively unchanged Additional chronic findings as described Report Dictated By: Florina Her MD at 02/18/2018 2:30 PM Report E-Signed By: Florina Her MD at 02/18/2018 2:56 PM WSN:[email or web address]
[2018-02-18] MEDS ORDERED: OXYC-865 PO (15:26)
[2018-02-18] MEDS ORDERED: HEPARIN FLSH (PORT) 500 UN/5ML IVP ONE (15:30)
== END 2018-02-18 15:54 | disposition home or self-care (01) ==
LOC: ER 12:56
DX: R10.9 Unspecified abdominal pain (principal)
CPT/HCPCS: 74177; 87088; 96361; 96374; 96375; 99284; A9270; J1642; J2270; J7040; Q9967

== ENCOUNTER 2018-04-09 11:00 | Outpatient (RCR) | payer MEDICARE, MEDICAID ==
[2018-01-11 14:37] VITALS: Ht 163.8 cm; Wt 60.1 kg
[2018-01-13 15:56] VITALS: BP 115/82
[2018-01-13 17:02] LABS: PLATELET COUNT, AUTOMATED 341 K/uL (150-450)
--- NOTE | 2018-01-13 21:49 | ONCOLOGY CONSULTATION ---
EVENT DATE: January 13, 2018 REFERRING PHYSICIANS Sunny Hernández MD and Rufino Cabello MD REASON FOR CONSULTATION Concern for testicular cancer. CHIEF COMPLAINT Fatigue. HISTORY OF PRESENT ILLNESS Mr. 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 The patient had undergone a CT scan of the abdomen and pelvis on 10/24/17. This revealed a conglomerate of lymphadenopathy within the aortocaval retroperitoneum. No gross primary was identified on the unenhanced CT. There was [id number] bladder distention. There was questionable mild thickening along the posterior/inferior bladder base. This was similar to 2015 findings and favored benign. There was borderline nonspecific splenomegaly. On November 27, he subsequently underwent a contrast-enhanced CT scan of the chest, abdomen, and pelvis. This revealed aortocaval adenopathy that had increased in size compared to the prior study, and a left periaortic lymph node was also slightly increased. Otherwise, findings were similar. There was coronary artery calcification with mild calcification along the origin of the left subclavian. Also present were calcifications within the left ventricle. 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 The patient had also been experiencing right testicular discomfort. Testicular ultrasound performed on 12/22/17 revealed a 2.7 x 1.9 x 2.8 cm heterogeneous hypervascular mass projecting inferior to the right testicle. This appeared to be extratesticular in origin. 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 Most recently, the patient underwent right inguinal orchiectomy on January 11. Surgical pathology is currently pending. Today, the patient reports that pain is generally well controlled. He reports rather significant fatigue, and he blames this on lack of sleep. He reports an occasional cough, but no shortness of breath or chest pain. He is frustrated by his history of recurrent urinary tract infections. REVIEW OF SYSTEMS Otherwise negative, and all systems were reviewed. PAST MEDICAL HISTORY 1. Recurrent urinary tract infections. 2. Smoking and reported history of polysubstance abuse. 3. Reported concern for personality disorder (borderline versus antisocial characteristics). CURRENT MEDICATIONS 1. Amlodipine/atorvastatin. 2. Benztropine. 3. Colace. 4. Gabapentin. 5. Hydrochlorothiazide. 6. Pantoprazole. 7. Potassium. 8. Quetiapine. 9. Flomax. 10. Tramadol p.r.n. ALLERGIES No known drug allergies. SOCIAL HISTORY The patient does have a history of alcohol use. He is a current everyday smoker. There is a reported history of polysubstance abuse. FAMILY HISTORY Noncontributory. VITAL SIGNS Temperature is 98.3, blood pressure 115/82, heart rate is 79, respirations 16, oxygen saturation is 95% on room air. Weight is 60.6 kg. PHYSICAL EXAMINATION GENERAL: Patient is alert and oriented times three, in no apparent distress, sitting in his wheelchair. He is thin and appears chronically ill. HEENT: Anicteric sclerae. NEUROLOGIC: Grossly nonfocal, although I did not test his gait today. EXTREMITIES: No edema, clubbing, or cyanosis. SKIN: Cursory exam reveals no concerning rash or lesion. LABORATORY STUDIES Reviewed per the [facility] record. IMAGING Please see History of Present Illness. PATHOLOGY Please see History of Present Illness. ASSESSMENT AND PLAN Concern for renal cell carcinoma and possible primary testicular cancer. I visited with Mr. Mesa in clinic today, and we reviewed his past medical history as well as his recent symptoms and workup to date. We spent a great deal of time today discussing the pending results of his surgical pathology from his recent right orchiectomy. I have reviewed the situation over the phone with Dr. Norman in Pathology, and findings at this point would indicate a potentially benign testicular lesion. This is being sent for second opinion, however. At this time, there is also reportedly concern for a renal cell carcinoma from a retroperitoneal lymph node biopsy. I will need to confirm this with the Pathology Department. The patient had many questions today about what will be next steps in management as he has had a port placed for chemotherapy. As discussed, I would want to await and confirm final pathology results, that I will be in touch with him over the phone and visit with him as soon as possible to discuss next steps. I spent a total of 45 minutes of time with the patient today [id number], and 40 minutes of this were spent in direct counseling and coordination of care. MARZENA
[2018-01-27 08:07] VITALS: BP 124/84
--- NOTE | 2018-01-27 14:28 | ONCOLOGY FOLLOW UP NOTE ---
EVENT DATE: January 27, 2018 REASON FOR FOLLOWUP Renal cell carcinoma, diagnosis made by way of retroperitoneal lymph node biopsy. CHIEF COMPLAINT Fatigue. INTERIM HISTORY Mr. Mesa returns to clinic for a followup visit today. Since our last visit, he has been feeling about the same. He reports no new pain or fever. He does continue to feel fairly tired. He has had some increasing back pain since our last visit and he is concerned that it could be one of his kidneys. He reports no hematuria. He has had no changes in his bowel habits. His appetite is fair and his weight has been stable. REVIEW OF SYSTEMS Otherwise negative and all systems were reviewed. ONCOLOGY HISTORY Renal cell carcinoma. * October 24, 2017: CT scan of abdomen and pelvis reveals conglomerate lymphadenopathy within the aortocaval retroperitoneum. No gross primary was identified. Mild to moderate bladder distention. Questionable mild thickening along posterior/inferior bladder base (similar to 2015 findings); borderline nonspecific splenomegaly. * November 27, 2017: CT scan chest, abdomen and pelvis: Aortocaval adenopathy has increased in size compared to prior; a left periaortic lymph node slightly increased; otherwise findings similar to prior study. * December 15, 2017: Retroperitoneal lymph node biopsy. 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 * November 2017: Patient presents with right testicular discomfort. * December 22, 2017: Testicular ultrasound reveals a 2.7 x 1.9 x 2.8 cm heterogeneous hypervascular mass projecting inferior to the right testicle; this appears extratesticular in origin. * January 11, 2018: Patient undergoes right inguinal orchiectomy. Surgical pathology is consistent with chronic lymphocytic inflammation with fibrosis. There is no evidence of malignancy. Second opinion on this tissue shows nonspecific findings overall. Diagnostic considerations included smooth muscle hyperplasia of testicular adnexa, granulomatous ischemic lesion, resolving granulomatous orchitis or possibly resolving reaction to extravasated sperm (sperm granuloma). There is no evidence of neoplastic process. PAST MEDICAL HISTORY 1. Recurrent urinary tract infections. 2. Smoking and reported history of polysubstance abuse. 3. Reported concern for personality disorder (borderline versus antisocial characteristics). CURRENT MEDICATIONS 1. Amlodipine/atorvastatin. 2. Benztropine. 3. Colace. 4. Gabapentin. 5. Hydrochlorothiazide. 6. Pantoprazole. 7. Potassium. 8. Quetiapine. 9. Flomax. 10. Tramadol p.r.n. ALLERGIES No known drug allergies. SOCIAL HISTORY The patient does have a history of alcohol use. He is a current everyday smoker. There is a reported history of polysubstance abuse. FAMILY HISTORY Noncontributory. VITAL SIGNS Temperature is 97.9, blood pressure 124/84, heart rate is 87, respirations 16, oxygen saturation is 93% on room air. Weight is 61.5 kg. PHYSICAL EXAMINATION GENERAL: Patient is alert and oriented x3, in no apparent distress. He is currently sitting in his wheelchair. HEENT: Anicteric sclerae and poor dentition. NEUROLOGIC: Grossly nonfocal, although he does seem generally somewhat weak. SKIN: No concerning rash or lesion. EXTREMITIES: No edema, clubbing, or cyanosis. LABORATORY STUDIES/IMAGING [facility]ed [facility]. PATHOLOGY Please see Oncology History. ASSESSMENT AND PLAN 1. Renal cell carcinoma. I had a good visit with Mr. Mesa today. We spent time reviewing his oncology history in detail. This is noted above. He is somewhat frustrated today as he initially had stated that he really does not understand what is going on. As discussed, his retroperitoneal lymph node biopsy was indeed consistent with renal cell carcinoma, although on re-review of his imaging there is no evidence of a definitive renal mass. We moved on discuss the results of his more recent surgical pathology from his right orchiectomy. This reveals inflammatory changes and no evidence of malignancy. As discussed with Mr. Mesa today, I would recommend that he consider systemic therapy. I do think that he would have a good chance of tolerating a medication such as Votrient, for example. I do, however, want to review his situation with colleagues at [facility]. I am unsure at this point whether he would be a candidate for a retroperitoneal lymph node dissection, for example, again we are unable to identify a renal primary and he does not have evidence of parenchymal metastatic disease. He does have fairly bulky retroperitoneal lymph nodes, however. He is now having more pain and I do think it will be important for him to begin treatment as soon as possible. We will begin the preauthorization process for Votrient and I will be back in touch with him after review with colleagues. Patient had several additional questions for me today and I believe I answered all of his questions to his satisfaction. I spent a total of 30 minutes of time face to face with the patient today and 25 minutes of this was spent in direct counseling and coordination of care. MARZENA
--- NOTE | 2018-02-01 13:36 | NUR ---
Pt states he has spoken with his sister about helping him afford transportation and lodging costs, and she is willing to send him some money to help with this. CHAVA encouraged the pt to hire a industrial tractor driver, however the pt was not agreeable saying "I dont want to rape my sister of all of her money". However, then the patient stated his sister has millions of dollars. CHAVA is concerned for the patient driving himself and will continue to encourage him to hire a industrial tractor driver. CHAVA did give the pt a brochure for [employer] which he can use to hire extra help including a industrial tractor driver.
[2018-02-10 13:52] VITALS: BP 143/79
[2018-02-10 14:31] LABS: PLATELET COUNT, AUTOMATED 369 K/uL (150-450)
--- NOTE | 2018-02-11 00:16 | ONCOLOGY FOLLOW UP NOTE ---
EVENT DATE: February 10, 2018 REASON FOR FOLLOWUP Renal cell carcinoma. CHIEF COMPLAINT Patient feels well today. INTERIM HISTORY Mr. Mesa returns to clinic for a followup visit today. Since our last visit, he has been feeling about the same, perhaps a bit better. His groin incision is healing. He reports no new pain. He denies fever. His appetite has been pretty good, and his weight has been stable. He reports no new bowel or bladder symptoms. He has undergone treatment education for cabozantinib. He does understand the potential side effects and risks. He feels ready to begin treatment. REVIEW OF SYSTEMS Otherwise negative with the exception of some ongoing back pain that has stayed about the same. All systems reviewed. ONCOLOGY HISTORY Renal cell carcinoma. * October 24, 2017: CT scan of abdomen and pelvis reveals conglomerate lymphadenopathy within the aortocaval retroperitoneum. No gross primary was identified. Mild to moderate bladder distention. Questionable mild thickening along posterior/inferior bladder base (similar to 2015 findings); borderline nonspecific splenomegaly. * November 27, 2017: CT scan chest, abdomen and pelvis: Aortocaval adenopathy has increased in size compared to prior; a left periaortic lymph node slightly increased; otherwise findings similar to prior study. * December 15, 2017: Retroperitoneal lymph node biopsy. 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 * November 2017: Patient presents with right testicular discomfort. * December 22, 2017: Testicular ultrasound reveals a 2.7 x 1.9 x 2.8 cm heterogeneous hypervascular mass projecting inferior to the right testicle; this appears extratesticular in origin. * January 11, 2018: Patient undergoes right inguinal orchiectomy. Surgical pathology is consistent with chronic lymphocytic inflammation with fibrosis. There is no evidence of malignancy. Second opinion on this tissue shows nonspecific findings overall. Diagnostic considerations included smooth muscle hyperplasia of testicular adnexa, granulomatous ischemic lesion, resolving granulomatous orchitis or possibly resolving reaction to extravasated sperm (sperm granuloma). There is no evidence of neoplastic process. * January 2018: Plan to initiate palliative cabozantinib. PAST MEDICAL HISTORY 1. Recurrent urinary tract infections. 2. Smoking and reported history of polysubstance abuse. 3. Reported concern for personality disorder (borderline versus antisocial characteristics). CURRENT MEDICATIONS 1. Amlodipine/atorvastatin. 2. Benztropine. 3. Colace. 4. Gabapentin. 5. Hydrochlorothiazide. 6. Pantoprazole. 7. Potassium. 8. Quetiapine. 9. Flomax. 10. Tramadol p.r.n. ALLERGIES No known drug allergies. SOCIAL HISTORY The patient does have a history of alcohol use. He is a current everyday smoker. There is a reported history of polysubstance abuse. FAMILY HISTORY Noncontributory. PHYSICAL EXAMINATION VITAL SIGNS: Temperature is 99.1, blood pressure 143/79, heart rate 107, respirations 16, oxygen saturation 91% on room air. GENERAL: Patient is alert and oriented x3, in no apparent distress, sitting in the exam room chair. HEENT: Anicteric sclerae and poor dentition. NEUROLOGIC: Grossly nonfocal. His gait is somewhat antalgic but stable. EXTREMITIES: No edema, clubbing, or cyanosis. SKIN: No concerning rash or lesion. The right inguinal incision seems to be healing well. LABORATORY STUDIES AND IMAGING Please see oncology history. ASSESSMENT AND PLAN Renal cell carcinoma. I had a good visit with Mr. Mesa today. As discussed, since our last visit, his situation has been reviewed between myself and colleagues at the [facility] [place]. We did have questions previously about the merits of consideration for retroperitoneal lymph node dissection. There are concerns currently that this is quite a large surgery, and given his relative lack of reserve, surgery may well be too risky. Also, there had been discussion about the most appropriate choice for initial systemic therapy for his renal cell carcinoma. We discussed the possibility of using Votrient. After review with Medical Oncology at [facility], the decision has been made to try cabozantinib. The patient has undergone treatment education, and there are two outstanding issues that needed to be addressed from the pharmacy's standpoint. The first is concern for wound healing. I do not have concerns in this regard. His right groin looks good. The second was for a possible increased risk of osteonecrosis of the jaw, with his poor dentition. After further review of the literature, it does seem that the majority of osteonecrosis of the jaw cases have come for patients on bisphosphonate therapy and targeted therapy for renal cell carcinoma. The patient is well aware of the risk of osteonecrosis of the jaw, and quite frankly he just wants to get started on his treatment. We will have him begin the cabozantinib now. He will follow up with Josi Blue, Nurse Practitioner, here in the next two to three weeks. I will plan to see him back after the first of the year. He will have baseline laboratory studies drawn today. MARZENA
[2018-02-18 11:03] VITALS: BP 129/92
[2018-02-18 11:50] LABS: PLATELET COUNT, AUTOMATED 355 K/uL (150-450)
--- NOTE | 2018-02-20 15:04 | ONCOLOGY FOLLOW UP NOTE ---
EVENT DATE: February 18, 2018 CHIEF COMPLAINT Followup for renal cell carcinoma. HISTORY OF PRESENT ILLNESS Patient is a 67-year-old male who was seen today as a work-in. He was diagnosed with a UTI on 02/11/18. Cipro was prescribed, but he did not take this as he felt it "never works." He was then prescribed Levaquin. He began cabozantinib on 02/10/18. He is tolerating this fairly well. He has had constipation for several months. His biggest issue today is that of significant and worsening back pain as well as bilateral "kidney pain." He believes that his UTI is still present. Pain is not well controlled on tramadol one to three per day. ONCOLOGY HISTORY Renal cell carcinoma. * October 24, 2017: CT scan of abdomen and pelvis reveals conglomerate lymphadenopathy within the aortocaval retroperitoneum. No gross primary was identified. Mild to moderate bladder distention. Questionable mild thickening along posterior/inferior bladder base (similar to 2015 findings); borderline nonspecific splenomegaly. * November 27, 2017: CT scan chest, abdomen and pelvis: Aortocaval adenopathy has increased in size compared to prior; a left periaortic lymph node slightly increased; otherwise findings similar to prior study. * December 15, 2017: Retroperitoneal lymph node biopsy. 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 * November 2017: Patient presents with right testicular discomfort. * December 22, 2017: Testicular ultrasound reveals a 2.7 x 1.9 x 2.8 cm heterogeneous hypervascular mass projecting inferior to the right testicle; this appears extratesticular in origin. * January 11, 2018: Patient undergoes right inguinal orchiectomy. Surgical pathology is consistent with chronic lymphocytic inflammation with fibrosis. There is no evidence of malignancy. Second opinion on this tissue shows nonspecific findings overall. Diagnostic considerations included smooth muscle hyperplasia of testicular adnexa, granulomatous ischemic lesion, resolving granulomatous orchitis or possibly resolving reaction to extravasated sperm (sperm granuloma). There is no evidence of neoplastic process. * January 2018: Began palliative cabozantinib. PAST MEDICAL HISTORY 1. Recurrent UTI. 2. Smoking and reported history of polysubstance abuse. 3. Concern for personality disorder. 4. Cerebral palsy. CURRENT MEDICATIONS 1. Amlodipine/atorvastatin. 2. Benztropine. 3. Colace. 4. Gabapentin. 5. Hydrochlorothiazide. 6. Pantoprazole. 7. Potassium. 8. Quetiapine. 9. Flomax. 10. Tramadol p.r.n. ALLERGIES No known drug allergies. FAMILY HISTORY Noncontributory. SOCIAL HISTORY Patient is single. He has a history of heavy alcohol use. He is a current every day smoker. There is also a reported history of polysubstance abuse. LABORATORIES CBC today reveals a WBC of 5.4, hemoglobin 13.6, hematocrit 41.2, platelets 355,000. CMP is within normal limits. Urinalysis is completely clear. REVIEW OF SYSTEMS A 12-point review of systems is performed and is negative except as stated above. PHYSICAL EXAMINATION VITAL SIGNS: BP 129/92, P 74, R 16, temp 97.4, O2 sat 94%. GENERAL: Patient is a well-developed, but somewhat anxious man who is in no acute distress. HEAD: Normocephalic, atraumatic. EYES: Sclerae anicteric. MOUTH: Moist mucous membranes. No lesions. NECK: Supple. No palpable adenopathy. LUNGS: Slightly diminished, but clear bilaterally. CARDIOVASCULAR: Heart rate regular, 74 per minute without murmur, S3, or S4. ABDOMEN: Soft, nontender, with hypoactive bowel sounds. He does have CVA tenderness on the right. EXTREMITIES: No edema. Abnormal gait due to history of cerebral palsy. NEUROLOGIC: Nonfocal. PSYCHIATRIC: Patient's speech is somewhat pressured. He has difficulty relating his symptoms and is very frustrated by the level of pain he is experiencing. IMPRESSION AND PLAN The patient is a 67-year-old male diagnosed with renal cell carcinoma. Began palliative cabozantinib on 02/10/18. 1. Renal cell carcinoma. Continue cabozantinib. He is actually tolerating this well. He has had no issues with diarrhea or nausea. He is mildly hypertensive today, but is very frustrated by his level of pain. He has no evidence of hand-foot syndrome. 2. Genitourinary. Diagnosed with urinary tract infection on 02/11/18 with >100,000 pseudomonas. Cipro was prescribed, but he chose not to take this as he stated, "It never worked." Levaquin was prescribed. Urinalysis today shows no evidence of infection. 3. Back pain/right CVA tenderness. Patient is in significant discomfort. I have referred him to our emergency room for further evaluation as he will likely require some scans. He is in agreement with this plan. 4. Follow up with Dr. Beckford on 02/24/18 to review workup done in the Emergency Room today. MARZENA
[2018-02-24 11:48] VITALS: BP 147/98
--- NOTE | 2018-02-24 14:26 | ONCOLOGY FOLLOW UP NOTE ---
EVENT DATE: February 24, 2018 REASON FOR FOLLOWUP Renal cell carcinoma. INTERIM HISTORY Mr. Mesa returns to clinic for a followup visit today. He reports this has been a very trying time for him. He was recently seen in the emergency department for back pain and he has been taking Percocet since that time. The Percocet seems to be working pretty well but he does have some ongoing issues with constipation that predated opioid use. He had a large BM this morning. He reports no fever. He does have ongoing back pain. He has had no problems urinating. His appetite has been fair. He began taking the cabozantinib on February 10 and he reports that he can barely tell he is taking it. He has a lot of p.r.n. medications at home but he has not had any use for them with the exception of Senna. REVIEW OF SYSTEMS Otherwise negative and all systems were reviewed. ONCOLOGY HISTORY Renal cell carcinoma. * October 24, 2017: CT abdomen and pelvis: Conglomerate lymphadenopathy within aortocaval retroperitoneum; no gross primary malignancy; mild to moderate bladder distention; questionable mild thickening along posterior/inferior bladder base similar to 2015 findings; borderline nonspecific splenomegaly. * November 27, 2017: CT scan chest, abdomen and pelvis: Aortocaval adenopathy has increased in size compared to prior; a left periaortic lymph node has slightly increased. * November 2017: Patient presents with right testicular discomfort. * December 22, 2017: Testicular ultrasound reveals 2.7 x 1.9 x 2.8 cm heterogeneous hypervascular mass projecting inferior to the right testicle. * January 11, 2018: Patient undergoes right inguinal orchiectomy. Surgical pathology reveals chronic lymphocytic inflammation with fibrosis and no evidence of malignancy. Second opinion on tissue shows nonspecific findings overall with diagnostic considerations including smooth muscle hyperplasia of testicular adnexa, granulomatous ischemic lesion, resolving granulomatous orchitis or possibly resolving reaction to extravasated sperm (sperm granuloma). PAST MEDICAL HISTORY 1. Recurrent urinary tract infections. 2. Smoking and reported history of polysubstance abuse. 3. Concern for personality disorder. 4. Cerebral palsy. 5. Hypertension. 6. Hypercholesterolemia. CURRENT MEDICATIONS 1. Potassium. 2. Benztropine mesylate. 3. Quetiapine. 4. Gabapentin. 5. Baclofen p.r.n. 6. Senna p.r.n. 7. Percocet p.r.n. 8. Pantoprazole p.r.n. 9. Colace p.r.n. 10. Flomax 0.4 mg p.o. daily. 11. Tramadol p.r.n. The patient was recently prescribed Levofloxacin, hydrochlorothiazide 12.5 mg daily and Amlodipine/atorvastatin daily. ALLERGIES No known drug allergies. FAMILY HISTORY Noncontributory. SOCIAL HISTORY The patient is single. He has a history of heavy alcohol use. He is a currently daily smoker. There is a reported history of polysubstance abuse. PHYSICAL EXAMINATION VITAL SIGNS: Temperature is 97.2, blood pressure 147/98, heart rate 91, respirations 16, oxygen saturation 96% on room air. GENERAL: Patient is alert and oriented x3, in no apparent distress, sitting in his wheelchair. He is thin. He is interactive and pleasant. HEENT: Anicteric sclerae and poor dentition. NEUROLOGIC: Grossly nonfocal. EXTREMITIES: No edema, clubbing, or cyanosis. SKIN: No concerning rash or lesion. LABORATORY STUDIES AND IMAGING Please see [employer] record. Recent CT scan of abdomen and pelvis (February 18, 2018): 1.3 cm ovoid hypoattenuating mass along the posterior medial inferior aspect of the left kidney. This was not present on the prior study. There was mild fullness of the renal collecting system and marked distention of the urinary bladder. There was a new lytic lesion involving T8 and left periaortic lymph node had increased in size. A large aortocaval bruce mass is relatively unchanged. ASSESSMENT AND PLAN Metastatic renal cell carcinoma. I had a good visit with Mr. Mesa today. Symptomatically, he seems to be holding his own but he is having more back pain, likely as a result of increased size of retroperitoneal lymphadenopathy and potentially to a lesser extent the T8 lesion. He has started cabozantinib and he does seem to be tolerating this without any significant side effects to date. We discussed that it is far too early to assess response to the medication. I will give him a prescription for Percocet today but our main priority will be for pain control. I have recommended that he visit with Radiation Oncology to see whether palliative radiation could help him. This referral will be made today. We discussed Xgeva today, as well. He has very poor dentition, and over the years he has pulled his own teeth if he thinks necessary. He is concerned about expense of dental visit, and we will help him address this, as well. Patient will have follow up with me or with Josi Blue, nurse practitioner, in the next two weeks. MARZENA
[2018-02-25 13:11] LABS: PLATELET COUNT, AUTOMATED 294 K/uL (150-450)
[2018-02-25 13:18] VITALS: BP 121/105
--- NOTE | 2018-02-26 10:53 | NUR ---
CHAVA found a dentist in [place] who takes [place] Medicaid - [facility] [phone]. CHAVA also investigated pt's dental benefits and learned that the pt does have limited benefits which would include exams and tooth extractions. CHAVA gave this information to the patient to schedule the appointment.
--- NOTE | 2018-03-09 05:33 | ONCOLOGY FOLLOW UP NOTE ---
EVENT DATE: March 08, 2018 CHIEF COMPLAINT Followup for renal cell carcinoma. HISTORY OF PRESENT ILLNESS Patient is a 67-year-old male who was seen today as a work-in. He believes he has another UTI. He presents today with dysuria, although notes that his urine has been clear. This has been ongoing for a week. He also has significant back pain, likely complicated by large retroperitoneal mass with nerve root irritation as well as an osteolytic tumor involving T8. he complains of intermittent constipation. He is also very concerned with his living situation, as he lives independently at this time. ONCOLOGY HISTORY Renal cell carcinoma. * October 24, 2017: CT scan of abdomen and pelvis reveals conglomerate lymphadenopathy within the aortocaval retroperitoneum. No gross primary was identified. Mild to moderate bladder distention. Questionable mild thickening along posterior/inferior bladder base (similar to 2015 findings); borderline nonspecific splenomegaly. * November 27, 2017: CT scan chest, abdomen and pelvis: Aortocaval adenopathy has increased in size compared to prior; a left periaortic lymph node slightly increased; otherwise findings similar to prior study. * December 15, 2017: Retroperitoneal lymph node biopsy. 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 * November 2017: Patient presents with right testicular discomfort. * December 22, 2017: Testicular ultrasound reveals a 2.7 x 1.9 x 2.8 cm heterogeneous hypervascular mass projecting inferior to the right testicle; this appears extratesticular in origin. * January 11, 2018: Patient undergoes right inguinal orchiectomy. Surgical pathology is consistent with chronic lymphocytic inflammation with fibrosis. There is no evidence of malignancy. Second opinion on this tissue shows nonspecific findings overall. Diagnostic considerations included smooth muscle hyperplasia of testicular adnexa, granulomatous ischemic lesion, resolving granulomatous orchitis or possibly resolving reaction to extravasated sperm (sperm granuloma). There is no evidence of neoplastic process. * January 2018: Began palliative cabozantinib. * CT scan on 02/18/18 showed an increasing retroperitoneal mass with nerve root irritation and an osteolytic tumor involving T8. To begin palliative radiation. PAST MEDICAL HISTORY 1. Recurrent UTI. 2. Smoking and reported history of polysubstance abuse. 3. Concern for personality disorder. 4. Cerebral palsy. CURRENT MEDICATIONS 1. Amlodipine/atorvastatin. 2. Benztropine. 3. Colace. 4. Gabapentin. 5. Hydrochlorothiazide. 6. Pantoprazole. 7. Potassium. 8. Quetiapine. 9. Flomax. 10. Tramadol p.r.n. 11. Percocet p.r.n. ALLERGIES No known drug allergies. FAMILY HISTORY Noncontributory. SOCIAL HISTORY Patient is single. He has a history of heavy alcohol use. He is a current everyday smoker. There is also a reported history of polysubstance abuse. REVIEW OF SYSTEMS A 12-point review of systems is performed and is negative except as stated above. PHYSICAL EXAMINATION VITAL SIGNS: Blood pressure 121/90, pulse 76, respirations 16, temperature 97.6, O2 saturation 92%. GENERAL: Patient is a well-developed, thin male in no acute distress. He is in a wheelchair. HEAD: Normocephalic, atraumatic. EYES: Sclerae anicteric. MOUTH: Moist mucous membranes. Poor dentition. NECK: Supple. No palpable adenopathy. LUNGS: Slightly diminished but clear bilaterally. CARDIOVASCULAR: Heart rate regular, 76 per minute, without murmur, S3 or S4. EXTREMITIES: No edema. NEUROLOGIC: Bilateral lower-extremity weakness on extension (longstanding, related to cerebral palsy). LABORATORY Urinalysis today shows positive nitrites and moderate leukocytes. IMPRESSION AND PLAN The patient is a 67-year-old male diagnosed with metastatic renal cell carcinoma. Began palliative cabozantinib on 02/10/18. 1. Renal cell carcinoma. Continue cabozantinib. He is tolerating this well. He has had no issues with nausea or diarrhea. He has had no problems with hand- foot syndrome. He is mildly hypertensive, but relates this to his level of pain. 2. . Believes he has a urinary tract infection. Urinalysis showed nitrites and moderate leukocytes. Levaquin 500 mg daily for seven days is prescribed. I will check culture results when available. 3. Pain. Significant back pain. He has met with Dr. Fall, who believes that this is related to nerve root irritation from the large retroperitoneal mass. He will undergo CT simulation today and begin palliative radiation in the near future. 4. Social. Patient is concerned about his living situation, as he is now living independently. He plans to meet with the manager social at his apartment complex to review this further. 5. Follow up as scheduled for continued care, earlier if there is a problem. [facility]William
[2018-03-11 11:38] VITALS: BP 136/93
[2018-03-11 11:48] LABS: PLATELET COUNT, AUTOMATED 186 K/uL (150-450)
--- NOTE | 2018-03-12 02:51 | ONCOLOGY FOLLOW UP NOTE ---
EVENT DATE: March 11, 2018 CHIEF COMPLAINT Followup for metastatic renal cell carcinoma. HISTORY OF PRESENT ILLNESS Patient is a 67-year-old male who was seen today in followup. He was seen on 03/08/18 and presented with dysuria as well as back pain. UA showed nitrites and leukocytes, but unfortunately, culture was not sent. He began Levaquin on 03/08/18, and today feels that this is slightly improved. He also complains of significant constipation and states his last BM was on Thursday. He has been taking increased Percocet since last weekend due to significant pain. We again reviewed that his pain is likely related to the large retroperitoneal mass causing nerve root irritation. Plans are to start palliative radiation on 03/15/18 or 03/16/18. He continues on cabozantinib, which he is actually tolerating fairly well. He is somewhat overwhelmed by all his recent symptoms. ONCOLOGY HISTORY Renal cell carcinoma. * October 24, 2017: CT scan of abdomen and pelvis reveals conglomerate lymphadenopathy within the aortocaval retroperitoneum. No gross primary was identified. Mild to moderate bladder distention. Questionable mild thickening along posterior/inferior bladder base (similar to 2015 findings); borderline nonspecific splenomegaly. * November 27, 2017: CT scan chest, abdomen and pelvis: Aortocaval adenopathy has increased in size compared to prior; a left periaortic lymph node slightly increased; otherwise findings similar to prior study. * December 15, 2017: Retroperitoneal lymph node biopsy. 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 * November 2017: Patient presents with right testicular discomfort. * December 22, 2017: Testicular ultrasound reveals a 2.7 x 1.9 x 2.8 cm heterogeneous hypervascular mass projecting inferior to the right testicle; this appears extratesticular in origin. * January 11, 2018: Patient undergoes right inguinal orchiectomy. Surgical pathology is consistent with chronic lymphocytic inflammation with fibrosis. There is no evidence of malignancy. Second opinion on this tissue shows nonspecific findings overall. Diagnostic considerations included smooth muscle hyperplasia of testicular adnexa, granulomatous ischemic lesion, resolving granulomatous orchitis or possibly resolving reaction to extravasated sperm (sperm granuloma). There is no evidence of neoplastic process. * January 2018: Began palliative cabozantinib. * CT scan on 02/18/18 showed an increasing retroperitoneal mass with nerve root irritation and an osteolytic tumor involving T8. To begin palliative radiation 03/15/2018. PAST MEDICAL HISTORY 1. Recurrent UTI. 2. Smoking and reported history of polysubstance abuse. 3. Concern for personality disorder. 4. Cerebral palsy. 5. Type 2 diabetes, diet controlled. CURRENT MEDICATIONS 1. Amlodipine/atorvastatin. 2. Benztropine. 3. Colace. 4. Gabapentin. 5. Hydrochlorothiazide. 6. Pantoprazole. 7. Potassium. 8. Quetiapine. 9. Flomax. 10. Tramadol p.r.n. 11. Percocet p.r.n. 12. Levaquin. ALLERGIES No known drug allergies. FAMILY HISTORY Noncontributory. SOCIAL HISTORY Patient is single. He has a history of heavy alcohol use. He is a current everyday smoker. There is also a reported history of polysubstance abuse. REVIEW OF SYSTEMS A 12-point review of systems is performed and is negative except as stated above. PHYSICAL EXAMINATION VITAL SIGNS: Weight is not taken. Blood pressure 136/93, pulse 88, respirations 16, temperature 98.4, O2 saturation 93%. GENERAL: Patient is a well-developed, thin male in no acute distress. He ambulates very slowly using a cane. HEAD: Normocephalic, atraumatic. EYES: Sclerae anicteric. MOUTH: Slightly dry mucous membranes. No lesions. NECK: Supple. No palpable adenopathy. LUNGS: Slightly diminished but clear bilaterally. CARDIOVASCULAR: Heart rate regular, 88 per minute, without murmur, S3 or S4. EXTREMITIES: No edema. NEUROLOGIC: Bilateral lower-extremity weakness (longstanding, related to cerebral palsy). LABORATORY CBC reveals a WBC of 4.2, ANC of 2.7, hemoglobin 15.1, hematocrit 45.6, platelets 186,000. CMP shows a slightly elevated AST of 52, ALT 61, and alkaline phosphatase 163. UA with culture if indicated is pending. IMPRESSION AND PLAN The patient is a 67-year-old male diagnosed with metastatic renal cell carcinoma. Began palliative cabozantinib on 02/10/18. To begin palliative radiation on 03/15/18. 1. Renal cell carcinoma. Continue cabozantinib. He tolerates this fairly well. He has had no issues with nausea or diarrhea. He does have mild hypertension, possibly related to his level of pain. He has had no issues with hand-foot syndrome. 2. GI. Significant constipation. Last bowel movement was on Thursday. He has been using senna S. I recommended trial of magnesium citrate tonight, and then continue senna S. 3. . Patient is concerned that he has another urinary tract infection. He began Levaquin on 03/08/18. Urinalysis with possible culture is pending. 4. Pain. Significant back pain. He believes this is mostly related to his urinary tract infection symptoms, but we again discussed that he has a large retroperitoneal mass causing nerve root irritation. We expect to begin palliative radiation on 03/15/18. He is using Percocet between one and six per day. Pain has subsided somewhat. I have refilled Percocet 5/325, #60, for him today. He attempts to use as little as possible. 5. Social. Patient continues to be concerned about his living situation, as he lives independently. He has met with the social secretary at his apartment complex. He is considering moving into assisted living during radiation, but will evaluate as treatment progresses. 6. Follow up with Dr. Fall on 03/16/18 for radiation. 7. Follow up in two weeks for continued care. CBC and CMP will be drawn at that time. MTDD
[2018-03-17 13:52] VITALS: BP 175/88
--- NOTE | 2018-03-17 16:25 | NUR ---
RETURNED PT'S CALL ABOUT COMPLAINT OF LOWER ABDOMINAL PAIN AND CONSTIPATION. PT DID NOT ANSWER. LEFT A VOICEMAIL MESSAGES ASKING PT TO CALL BACK AT HIS CONVIENENCE.
--- NOTE | 2018-03-19 14:58 | NUR ---
CHAVA rec'd a request from Elizabeth Mercado, for copy of patients most recent progress note. Consent was signed by patient and filed. CHAVA faxed this along with consultation notes.
[2018-03-22 10:41] VITALS: BP 152/102
[2018-03-22 11:02] LABS: PLATELET COUNT, AUTOMATED 172 K/uL (150-450)
--- NOTE | 2018-03-23 04:46 | ONCOLOGY FOLLOW UP NOTE ---
EVENT DATE: March 22, 2018 CHIEF COMPLAINT Followup for metastatic renal cell carcinoma. HISTORY OF PRESENT ILLNESS Patient is a 67-year-old male who was seen today in followup. He continues on cabozantinib, which he is tolerating fairly well. He does have slightly loose stools, but is concerned about constipation, so is using senna S. It is not felt that this is diarrhea related to the cabozantinib. He has noted more GERD symptoms, which he blames on the senna. Today he presents and notes less overall back pain. I am hopeful that radiation is helping him. He does complain of L1 discomfort (known old compression fracture), which is worse when using twisting movements. He requests bilateral arm/elbow crutches. Otherwise he is doing fairly well. He requests another urinalysis, as he has had some dysuria. ONCOLOGY HISTORY Renal cell carcinoma. * October 24, 2017: CT scan of abdomen and pelvis reveals conglomerate lymphadenopathy within the aortocaval retroperitoneum. No gross primary was identified. Mild to moderate bladder distention. Questionable mild thickening along posterior/inferior bladder base (similar to 2015 findings); borderline nonspecific splenomegaly. * November 27, 2017: CT scan chest, abdomen and pelvis: Aortocaval adenopathy has increased in size compared to prior; a left periaortic lymph node slightly increased; otherwise findings similar to prior study. * December 15, 2017: Retroperitoneal lymph node biopsy. 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 * November 2017: Patient presents with right testicular discomfort. * December 22, 2017: Testicular ultrasound reveals a 2.7 x 1.9 x 2.8 cm heterogeneous hypervascular mass projecting inferior to the right testicle; this appears extratesticular in origin. * January 11, 2018: Patient undergoes right inguinal orchiectomy. Surgical pathology is consistent with chronic lymphocytic inflammation with fibrosis. There is no evidence of malignancy. Second opinion on this tissue shows nonspecific findings overall. Diagnostic considerations included smooth muscle hyperplasia of testicular adnexa, granulomatous ischemic lesion, resolving granulomatous orchitis or possibly resolving reaction to extravasated sperm (sperm granuloma). There is no evidence of neoplastic process. * January 2018: Began palliative cabozantinib. * CT scan on 02/18/18 showed an increasing retroperitoneal mass with nerve root irritation and an osteolytic tumor involving T8. Began palliative radiation on 01/14/19. PAST MEDICAL HISTORY 1. Recurrent UTI. 2. Smoking and reported history of polysubstance abuse. 3. Concern for personality disorder. 4. Cerebral palsy. 5. Type 2 diabetes, diet controlled. CURRENT MEDICATIONS 1. Amlodipine/atorvastatin. 2. Benztropine. 3. Colace. 4. Gabapentin. 5. Hydrochlorothiazide. 6. Pantoprazole. 7. Potassium. 8. Quetiapine. 9. Flomax. 10. Tramadol p.r.n. 11. Percocet p.r.n. ALLERGIES No known drug allergies. FAMILY HISTORY Noncontributory. SOCIAL HISTORY Patient is single. He has a history of heavy alcohol use. He is a current everyday smoker. There is also a reported history of polysubstance abuse. REVIEW OF SYSTEMS A 12-point review of systems is performed and is negative except as stated above. PHYSICAL EXAMINATION VITAL SIGNS: Blood pressure 152/102, pulse 78, respirations 16, temperature 98.8, O2 saturation 93%. GENERAL: Patient is a well-developed, well-nourished male in no acute distress. He is in a wheelchair today. HEAD: Normocephalic, atraumatic. EYES: Sclerae anicteric. MOUTH: Moist mucous membranes. No lesions. NECK: Supple. No palpable adenopathy. LUNGS: Diminished but clear bilaterally. CARDIOVASCULAR: Heart rate regular, 78 per minute, without murmur, S3 or S4. EXTREMITIES: No edema. NEUROLOGIC: Nonfocal. LABORATORY CBC today reveals a WBC of 4.7, hemoglobin 15.2, hematocrit 47.2, platelets 172,000. CMP is within normal limits except for an alkaline phosphatase of 155. IMPRESSION AND PLAN The patient is a 67-year-old male diagnosed with metastatic renal cell carcinoma. Began palliative cabozantinib on 02/10/18. Began palliative radiation on 03/15/18. 1. Metastatic renal cell carcinoma. Continue cabozantinib. He is actually tolerating this fairly well. He has had no issues with nausea. Stools are slightly loose, but he suspects it is related to the senna S. He has had no evidence of hand-foot syndrome. 2. Hypertension. Blood pressure today on exam is 152/102. However, he relates that at home this morning, an hour before he came to the clinic, it was 130/79. He continues on amlodipine/atorvastatin. He believes he has white-coat syndrome. We will continue to monitor his blood pressure as this can be affected by the cabozantinib. 3. Dysuria. Urinalysis today was completely negative. 4. GI. He recently had significant constipation. He has been using senna S and is trying to keep his stools somewhat loose due to pain from what he believes is his L1 compression fracture. 5. Pain. Ongoing back pain, although today presents and has only had to take one Percocet today. He is moving better. I am hopeful that the radiation is helping this. 6. Prescription is written for bilateral arm/elbow crutches. He has used these in the past. He deferred physical therapy consult. 7. Follow up with Dr. Singh on 03/31/18 for continued care, earlier if there is a problem. MARZENA
--- NOTE | 2018-03-24 10:48 | PROGRESS NOTE ---
DATE: March 24, 2018 The patient is a 67-year old male who has a history of cerebral palsy. He previously had been ambulating with a cane. However, he was diagnosed with metastatic renal cell carcinoma in September 2017. He was noted to have bone metastases in January 2018, causing significant pain and overall weakness. He is currently receiving palliative radiation but ambulation is affected by both pain and weakness from his cancer as well as his cerebral palsy. He is no longer stable on his cane. I have recommended bilateral arm/elbow crutches to improve his stability when ambulating. He has used these previously and feels that he will manage well with these at this time. Please call us if you need any further information. MTDD
--- NOTE | 2018-03-26 08:20 | NUR ---
SW followed up on pt's question about why he was receiving a letter from [employer] (his [employer]) that he had surpassed his 180 pills/30 days limit. The rep indicated even though he had not yet filled 180 pills/30 days (6/day), the recommendation on his most recent fill ([employer] - for 60 pills/5 days = 12/day), was greater than the 6 per day limit they allot the patient. The rep indicated either the next time the pt would need medication he could ask the provider to write it for 6/day, or if there was a greater need, he could submit a quantity limit review. Information given to the patient.
[2018-03-31 10:48] VITALS: BP 145/94
[2018-03-31 10:57] LABS: PLATELET COUNT, AUTOMATED 156 K/uL (150-450)
--- NOTE | 2018-03-31 16:00 | ONCOLOGY FOLLOW UP NOTE ---
EVENT DATE: March 31, 2018 REASON FOR FOLLOWUP Renal cell carcinoma. INTERIM HISTORY Mr. Mesa returns to clinic for a followup visit today. He is here by himself. I visited with him as well as Josi Blue, nurse practitioner. For the most part, he reports that side effects from ongoing cabozantinib have been pretty minimal. He has had some modest skin changes, but no tamir rash. He denies fever. His appetite has been fair. He has been having ongoing issues with pain control. He continues on palliative radiation. He feels that there has been perhaps about a 15% reduction in his pain in general, but he is relying on p.r.n. Percocet regularly. He did have a particularly bad day recently where he required more pain medication than usual. He feels that he is not keeping up with the pain as well as he could. On days when the pain is bad, he tends to spend quite a bit of time in bed. He reports he will be getting paid soon, so he will have a particularly active day that will likely bring more pain. He reports no nausea. He has had no other concerns while on the palliative cabozantinib. REVIEW OF SYSTEMS Otherwise negative, and all systems reviewed. ONCOLOGY HISTORY Renal cell carcinoma. * October 24, 2017, CT abdomen and pelvis: Conglomerate lymphadenopathy within aortocaval retroperitoneum; no gross primary malignancy; [id number] bladder distention; questionable mild thickening along posterior/inferior bladder base similar to 2015 findings; borderline nonspecific splenomegaly. * November 27, 2017, CT scan chest, abdomen and pelvis: Aortocaval adenopathy has increased in size compared to prior; a left periaortic lymph node has slightly increased. * November 2017, patient presents with right testicular discomfort. * December 22, 2017, testicular ultrasound reveals 2.7 x 1.9 x 2.8 cm heterogeneous hypervascular mass projecting inferior to the right testicle. * January 11, 2018, patient undergoes right inguinal orchiectomy. Surgical pathology reveals chronic lymphocytic inflammation with fibrosis and no evidence of malignancy. Second opinion on tissue shows nonspecific findings overall with diagnostic considerations including smooth muscle hyperplasia of testicular adnexa, granulomatous ischemic lesion, resolving granulomatous orchitis or possibly resolving reaction to extravasated sperm (sperm granuloma). * February 18, 2018, CT of abdomen and pelvis reveals 1.3 cm ovoid, hypoattenuating mass along posteromedial inferior aspect of left kidney, not present on prior study. There was fullness of the right renal collecting system related to marked distention of the urinary bladder. There is a new lytic lesion involving the T8 vertebral body, and left periaortic lymph node has increased in size. A large aortocaval bruce mass was relatively unchanged. * He began palliative radiation on March 15, 2018, ongoing. PAST MEDICAL HISTORY 1. Recurrent urinary tract infections. 2. Smoking and reported history of polysubstance abuse. 3. Concern for personality disorder. 4. Cerebral palsy. 5. Hypertension. 6. Hypercholesterolemia. CURRENT MEDICATIONS 1. Potassium. 2. Benztropine mesylate. 3. Quetiapine. 4. Gabapentin. 5. Baclofen p.r.n. 6. Senna p.r.n. 7. Percocet p.r.n. 8. Pantoprazole p.r.n. 9. Colace p.r.n. 10. Flomax 0.4 mg p.o. daily. 11. Tramadol p.r.n. The patient was recently prescribed levofloxacin, hydrochlorothiazide 12.5 mg daily, and amlodipine/atorvastatin daily. ALLERGIES No known drug allergies. FAMILY HISTORY Noncontributory. SOCIAL HISTORY The patient is single. He has a history of heavy alcohol use. He is a currently daily smoker. There is a reported history of polysubstance abuse. PHYSICAL EXAMINATION VITAL SIGNS: Temperature is 97.1, blood pressure 145/94, heart rate 75, respirations 16, oxygen saturation is 96% on room air. Weight is 60.1 kg. GENERAL: Patient is alert and oriented times three, no apparent distress, sitting in his wheelchair. He is kyphotic and appears somewhat disheveled and tired. He is nontoxic. HEENT: Anicteric sclerae. NEUROLOGIC: Grossly nonfocal, though his gait was not tested today. SKIN: Generalized pallor, but no concerning rash or lesion. EXTREMITIES: No edema, clubbing, or cyanosis. Exam is further deferred for discussion. ASSESSMENT AND PLAN Renal cell carcinoma. We had a good visit with Mr. Mesa today. There has been quite a bit of concern for pain control recently, but with further discussion with the patient, it does seem that his pain in general has been better both with p.r.n. Percocet and ongoing palliative radiation. That said, he does not feel like he has very good control with only p.r.n. dosing of opioid pain medication. I have recommended that he consider a long-acting pain medicine. We will give him a prescription for OxyContin 10 mg p.o. q.12 hours to take on the clock, and he will change from Percocet to oxycodone to avoid high levels of Tylenol. He does have a prescription for 5 mg one to two tablets q.4-6 hours as needed for breakthrough pain. He did begin palliative cabozantinib in January, and we will need to address followup imaging, likely in April or April. I would want to have some input from Dr. Fall in this regard to see whether or not we will be able to accurately assess response to the cabozantinib, depending on radiation valentine. The patient will continue to have regular short-term followup with Josi Blue here, and I will plan to see him back in four to six weeks. All questions answered today. [facility]
[~2018-04-09] VITALS: Ht 163.8 cm; Wt 60.1 kg
[~2018-04-09 11:00] MED LIST changes: -AMLO-111 PO; +AMLO-125 PO; +OXYC-823 PO; +SENN1TAB28 PO; +oxycodone PO
[2018-04-09 12:51] LABS: PLATELET COUNT, AUTOMATED 136 K/uL (150-450)
--- NOTE | 2018-04-09 20:26 | ONCOLOGY FOLLOW UP NOTE ---
EVENT DATE: April 09, 2018 CHIEF COMPLAINT Followup for metastatic renal cell carcinoma. HISTORY OF PRESENT ILLNESS Patient is a 67-year-old male who was seen today as a work-in. He has multiple complaints including increased GERD symptoms, constipation, possible UTI, and pain. He continues on cabozantinib, which he is tolerating well. He recently was changed from Percocet to OxyContin 10 mg q.12 hours and oxycodone p.r.n. breakthrough pain. He is not sure that this is effective, but would prefer to wait until next week so that he can bring his log with him. He is concerned about possible urinary tract infection as he notes some left-sided discomfort. ONCOLOGY HISTORY Renal cell carcinoma. * October 24, 2017: CT scan of abdomen and pelvis reveals conglomerate lymphadenopathy within the aortocaval retroperitoneum. No gross primary was identified. [id number] bladder distention. Questionable mild thickening along posterior/inferior bladder base (similar to 2015 findings); borderline nonspecific splenomegaly. * November 27, 2017: CT scan chest, abdomen, and pelvis: Aortocaval adenopathy has increased in size compared to prior; a left periaortic lymph node slightly increased; otherwise findings similar to prior study. * December 15, 2017: Retroperitoneal lymph node biopsy. 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 * November 2017: Patient presents with right testicular discomfort. * December 22, 2017: Testicular ultrasound reveals a 2.7 x 1.9 x 2.8 cm heterogeneous hypervascular mass projecting inferior to the right testicle; this appears extratesticular in origin. * January 11, 2018: Patient undergoes right inguinal orchiectomy. Surgical pathology is consistent with chronic lymphocytic inflammation with fibrosis. There is no evidence of malignancy. Second opinion on this tissue shows nonspecific findings overall. Diagnostic considerations included smooth muscle hyperplasia of testicular adnexa, granulomatous ischemic lesion, resolving granulomatous orchitis, or possibly resolving reaction to extravasated sperm (sperm granuloma). There is no evidence of neoplastic process. * January 2018: Began palliative cabozantinib. * CT scan on 02/18/18 showed an increasing retroperitoneal mass with nerve root irritation and an osteolytic tumor involving T8. Began palliative radiation on 03/15/18. PAST MEDICAL HISTORY 1. Recurrent UTI. 2. Smoking and reported history of polysubstance abuse. 3. Concern for personality disorder. 4. Cerebral palsy. 5. Type 2 diabetes, diet controlled. CURRENT MEDICATIONS 1. Amlodipine/atorvastatin. 2. Benztropine. 3. Colace. 4. Gabapentin. 5. Hydrochlorothiazide. 6. Pantoprazole. 7. Potassium. 8. Quetiapine. 9. Flomax. 10. Tramadol p.r.n. 11. Percocet p.r.n. ALLERGIES No known drug allergies. FAMILY HISTORY Noncontributory. SOCIAL HISTORY Patient is single. He has a history of heavy alcohol use. He is a current everyday smoker. There is also a reported history of polysubstance abuse. REVIEW OF SYSTEMS A 12-point review of systems is performed and is negative except as stated above. PHYSICAL EXAMINATION VITAL SIGNS: BP 145/94, P 75, R 16, temp 97.1, O2 sat 91%. GENERAL: Patient is a well-developed, thin male in no acute distress. He is in a wheelchair. HEAD: Normocephalic, atraumatic. EYES: Sclerae anicteric. MOUTH: Poor dentition. Moist mucous membranes. LUNGS: Diminished bilaterally. CARDIOVASCULAR: Heart rate regular, 75 per minute, without murmur, S3, or S4. EXTREMITIES: No edema. BACK: No CVA tenderness. LABORATORY CBC today reveals a WBC of 3.9, hemoglobin 14.3, hematocrit 42.6, platelets 136,000. CMP shows mildly elevated LFTs, but fairly stable. Urinalysis is pending. IMPRESSION The patient is a 67-year-old male diagnosed with metastatic renal cell carcinoma. Began palliative cabozantinib on 02/10/18. Began palliative radiation on 03/15/18. PLAN 1. Metastatic renal cell carcinoma. Continue cabozantinib. He has had no issues with nausea or diarrhea. He has no evidence of hand-foot syndrome. 2. Pain. Currently on OxyContin 10 mg q.12 hours with oxycodone p.r.n. breakthrough pain. He is not sure that this is "working very well," but promises to bring his pain log with him to his visit next week. He notes he does have enough oxycodone in the interim. 3. ? UTI. Complaining of left-sided discomfort. No CVA tenderness. UA will be repeated today. 4. GI. Recent constipation. He has been using Senna-S which had been working fairly well. I recommended magnesium citrate if needed. 5. GERD. Increased GERD symptoms despite pantoprazole. He ate [place] food last night, but does not think it affected his GERD. I recommended Pepcid Complete. 6. Follow up on 04/13/18 for continued care, earlier if there is a problem. MARZENA
[2018-04-13] MEDS ORDERED: ONDANSETRON 4 MG/2 ML VIAL IVP ONE (14:15)
[2018-04-13] MEDS ORDERED: NS(*) 0.9% 1000 ML BAG 1,000 ML IV ONE (14:15)
== END 2018-04-12 ==
LOC: SPU 11:00
PROVIDERS: ATTEND Internal Medicine Medical Oncology
DX: C64.9 Malignant neoplasm of unspecified kidney, except renal pelvis (principal); R53.83 Other fatigue; F17.210 Nicotine dependence, cigarettes, uncomplicated; B96.5 Pseudomonas (aeruginosa) (mallei) (pseudomallei) as the cause of diseases classified elsewhere; R06.02 Shortness of breath; M54.5 Low back pain; N39.0 Urinary tract infection, site not specified; R30.0 Dysuria; R82.90 Unspecified abnormal findings in urine; Z92.3 Personal history of irradiation; Z79.810 Long term (current) use of selective estrogen receptor modulators (SERMs)
CPT/HCPCS: 36415; 81001; 83615; 84153; 84443; 85025; 86140; 87077; 87088; 87186; 93306; G0463; 82040; 82247; 82310; 82374; 82435; 82565; 82947; 84075; 84132; 84155; 84295; 84450; 84460; 84520; 99202; 99212

== ENCOUNTER 2018-04-16 13:15 | Outpatient (RCR) | payer MEDICARE, MEDICAID ==
[2018-01-11 14:37] VITALS: BMI 21.1
--- NOTE | 2018-03-05 03:06 | TOBIN CONSULT ---
EVENT DATE: March 04, 2018 DIAGNOSIS Severe back pain related to metastatic renal cell carcinoma. Patient presenting with large retroperitoneal lymph node mass with nerve root irritation, celiac plexus and the prevertebral space. Aortocaval adenopathy measures 6.5 x 4.8 x 3.5 cm. 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 Mild compression fracture of L1. STAGE IV. HISTORY This is a 67-year-old gentleman with a complex medical history, who was referred to me with metastatic renal cell carcinoma resulting in back pain. Patient is referred by Dr. Singh, who is the patient's primary medical oncologist. The patient was diagnosed in September 2017 with metastatic renal cell carcinoma with progressive lymphadenopathy in the aortocaval lymph node chain. The initial imaging was obtained 10/24/17. Patient has been started on systemic therapy directed by Dr. Singh with reasonably good tolerance. The patient underwent initial retroperitoneal lymph node biopsy on 12/15/[address] Hernández. Pathology was compatible with clear cell/renal cell carcinoma. The patient has also undergone a recent right testicular orchiectomy; however, the pathology on that specimen (dated 01/20/18) was benign. The patient was started on Cabometyx with very good tolerance to date. Patient also was started on denosumab at the end of January. The patient presented to the emergency room recently with moderately severe back pain. This has been present for the last three to six weeks, but seems to be increasing in intensity and presently is rated as an 8 on a scale of 1 to 10. Tramadol was ineffective and was discontinued, and the patient was started recently on Percocet. He presently takes three to four tablets per day at 5 mg strength. The patient is referred for focal palliative radiotherapy recommendations due to the progressive retroperitoneal lymphadenopathy with back pain as well as the osteolytic T8 vertebral involvement. PAST MEDICAL HISTORY 1. Type 2 diabetes. 2. Hypertension. 3. DJD. 4. Cerebral palsy. 5. 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 6. History of tobacco and polysubstance abuse. MEDICATIONS 1. Gabapentin. 2. Baclofen p.r.n. 3. Percocet, one every four to six hours. 4. Pantoprazole. 5. Colace. 6. Flomax 0.4 mg a day. ALLERGIES None. SOCIAL HISTORY Patient is single, has a history of significant alcohol use. He smokes one pack per day. FAMILY HISTORY Negative for cancer. REVIEW OF SYSTEMS Comprehensive review of systems most notable for the back pain, movement disorder which is longstanding, intermittent constipation. PHYSICAL EXAMINATION GENERAL: A pleasant 67-year-old male of medium build. VITALS: Weight 127, blood pressure 113/81, pulse 81, respirations 16, O2 saturation 92% on room air. Karnofsky Performance Status 70. LUNGS: Clear bilaterally. HEART: Heart sounds regular; no audible murmur. LYMPHATIC: No peripheral lymphadenopathy detected. ABDOMEN: Soft, with no gross organomegaly, mass, or tenderness. BACK: Exam reveals no tenderness on light percussion. NEUROLOGICAL: Exam reveals bilateral weakness on extension at the knee and hip level, but that is longstanding related to his cerebral palsy. No recent change in motor strength. Abnormal shuffling gait due to some mild truncal ataxia. Alert and oriented. Aware of disease status. IMPRESSION This is a 67-year-old gentleman who was recently diagnosed with metastatic renal cell carcinoma, presenting with retroperitoneal lymphadenopathy. He has been initiated on appropriate systemic therapy by Dr. Singh, and he is presently referred for radiation therapy considerations due to progressive back pain. On review of the recent CT images, the lymphadenopathy appears to be in a location sufficient to cause pain along the celiac axis. The mass was approximately 7 x 5 x 3 cm with multiple adjacent enlarged lymph nodes along the chain as well. There is also osteolytic involvement at T8. There is a partial compression fracture at L1, which may or may not be related to his malignancy, and I will need to review older images later today on the computer to make that determination. PLAN Patient is agreeable to a course of external beam radiotherapy to decrease the size of the tumor mass in the portocaval space. I would hope to relieve the pain and also prevent secondary complications of lymph nodes at that location, which can include lymphedema. My tentative plan is to also add a second radiation field to the T8 vertebral body separately. I plan to treat to 45 Gy in 25 fractions with a multifield IMRT approach to minimize dose to normal tissues surrounding the lymph node mass, which include the kidneys, liver, and small bowel. T8 will be treated by 3D or IMRT technique to 30Gy/15 fxs. I may need to use IMRT due to proximity of the heart anteriorly. Targeting simulation will be performed within the next 72 hours, and treatments will start within the next five to seven days. Images were reviewed with the patient, and he is fully agreeable to proceed with the above treatment plan. Potential acute and late side effects and alternatives discussed. All questions answered to his satisfaction over a 90- minute consultation today. Patient was seen with [facility] Lawson CNP, [facility], who assisted with the continuity of care between Medical and Radiation Oncology and is also assisting with pain management. MARZENA
--- NOTE | 2018-04-13 08:45 | NUR ---
CHAVA rec'd a request to help look into a coverage issue for his oxycontin. He received a letter from [employer] indicating the quantity he is being prescribed will not be covered. CHAVA spent approximately 2 hours investigating the appropriate way to approach a "quantity limit review" per [employer]'s request. However the process was not clear. CHAVA has prepared a "Request for an Appeal of an [employer] Medicare [employer]vantage Plan Authorization Denial". CHAVA contacted the pt to bring in his [employer] card to complete the request however pt did not respond. CHAVA will visit with pt about this today.
--- NOTE | 2018-04-13 15:19 | Medical Nutrition Therapy ---
Nutritional Education Nutrition Education Topic: Other ([place]) Learning Readiness: Interested Teaching Methods: Handout Teaching Recipient: Patient Nutrition Counseling: Provided NIH handout. Pt states will contact RD and make appointment to review nutritional issues. Nutrition Monitoring & Eval RD Patient Assessment Time: [address] Assessment Type: RD Education ANUM PETERSEN Apr 13, 2018 15:19
--- NOTE | 2018-04-14 01:57 | ONCOLOGY FOLLOW UP NOTE ---
EVENT DATE: April 13, 2018 CHIEF COMPLAINT Followup for metastatic renal cell carcinoma. HISTORY OF PRESENT ILLNESS Patient is a 67-year-old male who was seen today in followup. He continues on cabozantinib, which he is tolerating fairly well. Pain is under fairly good control on OxyContin with p.r.n. oxycodone. He was diagnosed with a UTI yesterday and is on levofloxacin. He relates a history of nausea and vomiting "all day yesterday." He has not eaten today. He has had problems with constipation, but has tried to manage this. Dr. Fall also saw him today. ONCOLOGY HISTORY Renal cell carcinoma. * October 24, 2017: CT scan of abdomen and pelvis reveals conglomerate lymphadenopathy within the aortocaval retroperitoneum. No gross primary was identified. Npya-il-qsyvflxy bladder distention. Questionable mild thickening along posterior/inferior bladder base (similar to 2015 findings); borderline nonspecific splenomegaly. * November 27, 2017: CT scan chest, abdomen, and pelvis: Aortocaval adenopathy has increased in size compared to prior; a left periaortic lymph node slightly increased; otherwise findings similar to prior study. * December 15, 2017: Retroperitoneal lymph node biopsy. 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 * November 2017: Patient presents with right testicular discomfort. * December 22, 2017: Testicular ultrasound reveals a 2.7 x 1.9 x 2.8 cm heterogeneous hypervascular mass projecting inferior to the right testicle; this appears extratesticular in origin. * January 11, 2018: Patient undergoes right inguinal orchiectomy. Surgical pathology is consistent with chronic lymphocytic inflammation with fibrosis. There is no evidence of malignancy. Second opinion on this tissue shows nonspecific findings overall. Diagnostic considerations included smooth muscle hyperplasia of testicular adnexa, granulomatous ischemic lesion, resolving granulomatous orchitis, or possibly resolving reaction to extravasated sperm (sperm granuloma). There is no evidence of neoplastic process. * January 2018: Began palliative cabozantinib. * CT scan on 02/18/18 showed an increasing retroperitoneal mass with nerve root irritation and an osteolytic tumor involving T8. Began palliative radiation on 03/15/18. PAST MEDICAL HISTORY 1. Recurrent UTI. 2. Smoking and reported history of polysubstance abuse. 3. Concern for personality disorder. 4. Cerebral palsy. 5. Type 2 diabetes, diet controlled. CURRENT MEDICATIONS 1. Amlodipine/atorvastatin. 2. Benztropine. 3. Colace. 4. Gabapentin. 5. Hydrochlorothiazide. 6. Pantoprazole. 7. Potassium. 8. Quetiapine. 9. Flomax. 10. Tramadol p.r.n. 11. Oxycodone 10 mg p.r.n. breakthrough pain. 12. OxyContin 10 mg every 12 hours. ALLERGIES No known drug allergies. FAMILY HISTORY Noncontributory. SOCIAL HISTORY Patient is single. He has a history of heavy alcohol use. He is a current everyday smoker. There is also a reported history of polysubstance abuse. REVIEW OF SYSTEMS A 12-point review of systems is performed and is negative except as stated above. PHYSICAL EXAMINATION VITAL SIGNS: Recorded in medical record. GENERAL: Patient is a well-developed, thin male in no acute distress. He is in a wheelchair. HEAD: Normocephalic, atraumatic. EYES: Sclerae anicteric. MOUTH: Dry mucous membranes. No lesions. Poor dentition. LUNGS: Diminished bilaterally. CARDIOVASCULAR: Heart rate regular, 88 per minute. EXTREMITIES: No edema. NEURO: Nonfocal. LABORATORY No lab today. Urinalysis with culture on 04/12/18 showed greater than 100,000 Pseudomonas aeruginosa. IMPRESSION The patient is a 67-year-old male diagnosed with metastatic renal cell carcinoma. Began palliative cabozantinib on 02/10/18. Began palliative radiation on 03/15/18. PLAN 1. Metastatic renal cell carcinoma. Continue cabozantinib. He had one-day history of nausea, but not previously. He has had no diarrhea and no evidence of hand/foot syndrome. 2. GI. Relates a one-day history of nausea and vomiting. He is slightly tachycardic with dry mucous membranes. He will be hydrated with 1L of normal saline. As he is still nauseated, Zofran 8 mg IV will be given. 3. Pain. He brought in his pain log. I have reviewed this. It appears that he is managing fairly well with OxyContin 10 mg every 12 hours routinely. He uses between two to four oxycodone per day. We again spent some time discussing pain management. 4. UTI. Urine culture showed >100,000 pseudomonas. Levaquin 500 mg daily was prescribed on 04/12/18. He still has some discomfort from this. 5. Constipation. He has been using senna S, although I again reiterated the need to be taking this routinely. I instructed him to take one to two daily to prevent significant constipation. 6. GERD. He continues on pantoprazole. He also had some increased GERD symptoms. I recommended Pepcid Complete, but he was not able to chew this. He will monitor his symptoms. 7. Continue daily radiation. 8. Followup as scheduled for continued care, earlier if there is a problem. MTDD
[2018-05-25] MEDS ORDERED: LEVO-85 PO (15:50)
[2018-05-26] MEDS ORDERED: POTA10CA40 PO (16:25)
== END 2018-06-01 ==
LOC: RAON 13:15
PROVIDERS: ATTEND Radiology Radiation Oncology
DX: Z51.0 Encounter for antineoplastic radiation therapy (principal); C64.2 Malignant neoplasm of left kidney, except renal pelvis
CPT/HCPCS: 36415; 77336; 77386; 81001; 85025; 87088; G0463; 77280; 77290; 77300; 77301; 77338; 82040; 82247; 82310; 82374; 82435; 82565; 82947; 84075; 84132; 84155; 84295; 84450; 84460; 84520; 96361; 96365; 99212; J2405; J7030

== ENCOUNTER 2018-05-18 13:05 | Inpatient (IN) | payer MEDICARE, MEDICAID ==
[~2018-05-18] VITALS: Ht 163.8 cm; Wt 53.5 kg
--- NOTE | 2018-05-18 13:07 | ER Report ---
History and Physical Time Seen By MD: 13:06 HPI/ROS CHIEF COMPLAINT: Electrolyte abnormalities HISTORY OF PRESENT ILLNESS:Patient is a 67-year-old male who was sent from the cancer center for evaluation of multiple electrolyte abnormalities including low nasion, low potassium and low calcium. Patient is on his 4th round of Cabometyx renal cell carcinoma. The patient has been having diarrhea ongoing for approximately 3 weeks, of note he prefers "having diarrhea to constipation". Patient has a primary care provider is Dr. Ruiz and patient is apparently on 40 mEq of potassium daily. Patient just states he's having 20 loose stools per d ay states he feels generally weak and nauseous and is unable to eat. REVIEW OF SYSTEMS: Constitutional: No fever, no chills. Denies weakness Eyes: No discharge. ENT: No sore throat. Cardiovascular: No chest pain, no palpitations. Respiratory: No cough, no shortness of breath. Gastrointestinal: Voluminous diarrhea 3 weeks Genitourinary: No hematuria. Musculoskeletal: No back pain. Skin: No rashes. Neurological: No headache. Allergies: Coded Allergies: No Known Drug Allergies (Verified , 05/18/18) Home Meds Active Scripts Pantoprazole Sodium (PANTOPRAZOLE SODIUM) 40 Mg Tablet.dr, 40 MG PO QDAY for 90 Days, #90 TAB.SR Prov:ZAYDA DUDLEY DO 01/11/18 Tamsulosin Hcl (FLOMAX) 0.4 Mg Cap.er.24h, 0.4 MG PO QHS for 30 Days, #30 CAP 0 Refills Prov:STEPH PHELAN MD 10/24/17 Reported Medications [oxycodone] 5mg No Conflict Check, 5 MG PO Q4-6H PRN for PAIN take 1-2 tabs po q 4-6 hours 03/31/18 Oxycodone Hcl (OXYCONTIN) 10 Mg Tab.er.12h, 10 MG PO, TAB 03/31/18 Sennosides/Docusate Sodium (SENNA S TABLET) 1 Each Tablet, 1 EACH PO 03/22/18 Amlodipine/Atorvastatin (AMLODIPINE-ATORVAST 5-20 MG) 1 Each Tablet, 1 EACH PO QDAY, TAB 06/08/15 Potassium Chloride (POTASSIUM CHLORIDE) 10 Meq Tablet.er, 10 MEQ PO QDAY 06/08/15 Benztropine Mesylate (BENZTROPINE MESYLATE) 0.5 Mg Tab, 0.5 MG PO HS, TAB 01/29/15 Quetiapine Fumarate (QUETIAPINE FUMARATE) 25 Mg Tablet, 25 MG PO Q6H PRN for AGITATION, #60 10/30/13 Gabapentin (GABAPENTIN) 300 Mg Capsule, 900 MG PO BID, #180 CAPSULE Take 3 capsules every morning and before bed 07/04/13 Baclofen (BACLOFEN) 10 Mg Tablet, 10 MG PO BID, #60 TAB Take 1 tablet by mouth twice daily 06/28/13 Discontinued Reported Medications Levofloxacin 500 Mg Tab (LEVAQUIN 500 MG TAB) 500 Mg Tablet, 500 MG PO DAILY, TAB 02/15/18 Hydrochlorothiazide (HYDROCHLOROTHIAZIDE) 25 Mg Tablet, 0.5 TAB PO QDAY, TAB 12/25/17 Past Medical/Surgical History Past medical history for alcohol abuse, polysubstance abuse, depression and suicidal ideation, renal cell cancer currently undergoing chemotherapy, urinary tract infections, chronic pain, GERD, benign prostatic hypertrophy., Cerebral palsy, hypercholesterolemia, patient is a smoker Hx Smoking: Yes (1 ppd, 40 years) Smoking Status: Current: Every Day Smoker Exposure to Second Hand Smoke?: Yes Hx Substance Use Disorder: Yes (occ) Hx Alcohol Use: No Constitutional Vital Sign - Last 24 Hours 05/18/18 05/18/18 05/18/18 05/18/18 13:16 13:19 13:30 13:35 Temp 97.7 Pulse 59 59 Resp 14 13 B/P (MAP) 120/92 (101) 120/92 115/85 (95) Pulse Ox 90 91 O2 Delivery Room Air 05/18/18 05/18/18 14:00 14:05 Pulse 58 Resp 8 B/P (MAP) 123/84 (97) Pulse Ox 90 Physical Exam General/Constitutional: Patient is awake, alert, appears pale Head: Normocephalic and atraumatic. Eyes: Conjunctival clear, Pupils are equal and reactive to light. Extraocular muscles are intact and symmetrical. Sclera are clear and anicteric. Ears:External canals are clear. Tympanic membranes are clear with normal landmarks and light reflex. Nares: No rhinorrhea or bleeding. Turbinates are pink and moist. Oropharyngeal: Mucous membranes are moist. There is no pharyngeal erythema or exudate. There are no palatal petechiae. Uvula is midline and symmetrical. Neck: Supple, no adenopathy. Cardiovascular: Heart is regular rate and rhythm without audible murmurs, rubs or gallops. Pulmonary: Lungs are clear to auscultation bilaterally. There are no wheezes, rales, or rhonchi. Chest rise is symmetrical Abdomen: Soft, nontender, no guarding or peritoneal signs. Extremities: No gross deformities, No peripheral cyanosis. Able to move all 4 extremities. Neuro: Alert and oriented X3, Skin: No rashes, skin is pale and cool Medical Decision Making Data Points Result Diagram: 05/19/18 0532 05/19/18 0532 EKG/Imaging EKG Interpretation EKG shows sinus bradycardia with a ventricular rate of 59 bpm with some T-wave inversions in the anterior leads which appears new from August 2017. Monitor Interpretation: Sinus Bradycardia ED Course/Re-evaluation Clinical Indication for ER IV: Hydration, IV Access ED Course Case discussed with hospitalist will admit MedSurg telemetry for electrolyte replacement. Decision to Disposition Date: May 18, 2018 Decision to Disposition Time: 13:42 Depart Departure Latest Vital Signs Vital Signs Date Time Temp Pulse Resp B/P (MAP) Pulse Ox O2 Delivery O2 Flow Rate FiO2 05/18/18 14:05 58 8 90 05/18/18 14:00 123/84 (97) 05/18/18 13:19 97.7 Room Air Impression: Primary Impression: Hypomagnesemia Additional Impressions: Hypokalemia Hypocalcemia Condition: Condition Unchanged Disposition: Admitted from ER (to DR Medrano, med surg tele) Referrals: GAUDENCIO RUIZ DO (PCP) Problem Qualifiers STEPH PHELAN MD May 18, 2018 13:07
[2018-05-18] MEDS ORDERED: KCL (*) 20 MEQ/100 ML PREMIX 100 ML IV SCH (13:15)
[2018-05-18] MEDS ORDERED: MAGNESIUM SUL* 2 GM/50 ML IVPB 50 ML IVPB ONE (13:15)
[2018-05-18] MEDS ORDERED: CALCIUM GLUC 10% 100 MG/ML VL IVP ONE (13:15)
[2018-05-18] MEDS ORDERED: NS(*) 0.9% 1000 ML BAG 1,000 ML IV ONE (13:45)
[2018-05-18] MEDS ORDERED: CALCIUM GLUC 1 GM/NS 100 ML IVPB ONE (13:45)
--- NOTE | 2018-05-18 14:01 | EKG ---
FACILITY: [facility] PATIENT NAME: JOEL GOLDBERG : [id number] MR: [id number] V: [id number] EXAM DATE: ORDERING PHYSICIAN: STEPH PHELAN TECHNOLOGIST: XAVIER Test Reason : VOMITTING, FATIGUE Blood Pressure : / mmHG Vent. Rate : 059 BPM Atrial Rate : 059 BPM P-R Int : 176 ms QRS Dur : 102 ms QT Int : 436 ms P-R-T Axes : 047 034 062 degrees QTc Int : 431 ms Sinus bradycardia T wave abnormality consitent with hypokalemia Abnormal ECG When compared with ECG of 24-SEP-2017 15:31, Changes of hypokalemia evident T wave inversion now evident in Anterior leads Confirmed by Rashad Woody ([id number]) on 05/19/2018 12:06:17 AM Referred By: TAPAN Confirmed By:Rashad Medrano
[2018-05-18 14:59] VITALS: BP 123/78
[2018-05-18] MEDS ORDERED: oxyCODONE HCL 5 MG CAP PO PRN (16:20)
[2018-05-18] MEDS ORDERED: BACLOFEN 10 MG TAB PO PRN (16:20)
[2018-05-18] MEDS ORDERED: QUEtiapine FUM 25 MG TAB PO PRN (16:20)
[2018-05-18] MEDS ORDERED: ONDANSETRON 4 MG/2 ML VIAL IVP PRN (16:20)
[2018-05-18] MEDS ORDERED: FLUSH 10 ML SYR IVP PRN (16:20)
[2018-05-18] MEDS ORDERED: ACETAMINOPHEN 325 MG TAB PO PRN (16:20)
[2018-05-18] MEDS ORDERED: KCL/NS* 20 MEQ/1000 ML PREMIX 1,000 ML IV SCH (17:00)
[2018-05-18] MEDS ORDERED: MAGNESIUM SUL* 4 GM/100 ML BAG 100 ML IVPB ONE (17:00)
[2018-05-18] MEDS: KCL/NS* 20 MEQ/1000 ML PREMIX 1,000 ML IV SCH (17:15)
[2018-05-18] MEDS ORDERED: LOPERAMIDE HCL 2 MG CAP PO PRN (18:40)
--- NOTE | 2018-05-18 18:54 | History & Physical ---
History of Present Illness Chief Complaint electrolyte problems, diarrhea History of Present Illness 67M admitted after referral from cancer center for electrolyte disturbances. PMHx significant for metastatic RCC, DM, chronic diarrhea. Reports diarrhea since 04.20.18 when he completed radiation therapy. Has been working with PCP to try and correct electrolyte disturbances caused by diarrhea. Up to 20 BM daily, he had not told the cancer center staff about. Labs reveal severe hypomagnesemia, hypokalemia, hypocalcemia. Reports some clouded thinking is what made him seek further medical attention and led to lab abnormalities being discovered. History Problems: (1) Renal cell carcinoma Home Meds Active Scripts Pantoprazole Sodium (PANTOPRAZOLE SODIUM) 40 Mg Tablet.dr, 40 MG PO QDAY for 90 Days, #90 TAB.SR Prov:ZAYDA DUDLEY DO 01/11/18 Tamsulosin Hcl (FLOMAX) 0.4 Mg Cap.er.24h, 0.4 MG PO QHS for 30 Days, #30 CAP 0 Refills Prov:STEPH PHELAN MD 10/24/17 Reported Medications [oxycodone] 5mg No Conflict Check, 5 MG PO Q4-6H PRN for PAIN take 1-2 tabs po q 4-6 hours 03/31/18 Oxycodone Hcl (OXYCONTIN) 10 Mg Tab.er.12h, 10 MG PO, TAB 03/31/18 Sennosides/Docusate Sodium (SENNA S TABLET) 1 Each Tablet, 1 EACH PO 03/22/18 Levofloxacin 500 Mg Tab (LEVAQUIN 500 MG TAB) 500 Mg Tablet, 500 MG PO DAILY, TAB 02/15/18 Hydrochlorothiazide (HYDROCHLOROTHIAZIDE) 25 Mg Tablet, 0.5 TAB PO QDAY, TAB 12/25/17 Amlodipine/Atorvastatin (AMLODIPINE-ATORVAST 5-20 MG) 1 Each Tablet, 1 EACH PO QDAY, TAB 06/08/15 Potassium Chloride (POTASSIUM CHLORIDE) 10 Meq Tablet.er, 10 MEQ PO QDAY 06/08/15 Benztropine Mesylate (BENZTROPINE MESYLATE) 0.5 Mg Tab, 0.5 MG PO HS, TAB 01/29/15 Quetiapine Fumarate (QUETIAPINE FUMARATE) 25 Mg Tablet, 25 MG PO Q6H PRN for AGITATION, #60 10/30/13 Gabapentin (GABAPENTIN) 300 Mg Capsule, 900 MG PO BID, #180 CAPSULE Take 3 capsules every morning and before bed 07/04/13 Baclofen (BACLOFEN) 10 Mg Tablet, 10 MG PO BID, #60 TAB Take 1 tablet by mouth twice daily 06/28/13 Allergies: Coded Allergies: No Known Drug Allergies (Verified , 05/18/18) Patient History: Back pain FATHER FH: cerebral palsy FATHER FH: diabetes mellitus FATHER Hx Smoking: Yes (1 ppd, 40 years) Smoking Status: Current: Every Day Smoker Exposure to Second Hand Smoke?: Yes Caffeine Intake: Coffee Caffeine/Cups Per Day: 1 quart of cpffee/day Hx Alcohol Use: No Hx Substance Use Disorder: Yes (occ) Social Drug Use: Former Social Drugs: Marijuana Amount Of Social Drug/s Used: Used Meth once, Marijuana daily Review of Systems All Systems Reviewed/Normal: Yes, Except as Noted Neurological: Confusion Exam Vital Signs Vital Signs Date Time Temp Pulse Resp B/P (MAP) Pulse Ox O2 Delivery O2 Flow Rate FiO2 05/18/18 15:40 91 Room Air 05/18/18 14:59 98.3 57 16 123/78 (93) General Appearance: Awake, No Acute Distress, Afebrile Neuro: No Gross deficits Cardiovascular: Normal Rhythm & Peripheral Pulses Respiratory: No Respiratory Distress GI: Abd Soft and Non-Tender (hyperactive bowel sounds) Extremities: Soft and Non Tender, Warm, Pulses, Perfused; No Edema Integumentary: Pallor Medical Decision Making EKG / Imaging EKG Interpretation sinus avelino Assessment and Plan Problems: (1) Renal cell carcinoma Assessment & Plan: Metastatic, completed radiation 04.20, Currently taking Cabometyx. Diarrhea without blood, mucous and has been occurring for one month is common side effect of medication. Hold Cabometyx per cancer center. Poor short term prognosis. (2) Hypomagnesemia Status: Acute Assessment & Plan: Severe at 0.3 on admission, secondary to diarrhea. Will replace PRN and monitor. (3) Hypocalcemia Status: Acute Assessment & Plan: Likely secondary to severe hypomagnesemia. Will recheck on AM lab after getting Mg replaced and replete PRN. (4) Hypokalemia Status: Acute Assessment & Plan: Due to diarrhea, will replace after getting Mg to reasonable level. (5) Diarrhea due to drug Assessment & Plan: Does not appear infectious and is very common side effect of chemotherapy medication. Will begin loperamide in addition to supportive cares. Venous Thromboembolism Antithrombotics Is Pt On Any Antithrombotics?: Yes Exam Sepsis Risk: No Definite Risk ADAMS YAMIL FLORES DO May 18, 2018 18:54
[2018-05-18 19:00] VITALS: BP 123/90
[2018-05-18] MEDS: GABAPENTIN 300 MG CAP PO SCH (20:37)
[2018-05-18] MEDS ORDERED: QUEtiapine FUM 25 MG TAB PO SCH (21:00)
[2018-05-18] MEDS ORDERED: TAMSULOSIN HCL 0.4 MG CAP PO SCH (21:00)
[2018-05-18] MEDS ORDERED: KCL (*) 20 MEQ/100 ML PREMIX 100 ML IV ONE (22:00)
[2018-05-18 23:17] VITALS: BP 124/78
[2018-05-19] MEDS: KCL (*) 20 MEQ/100 ML PREMIX 100 ML IV SCH ×2 (00:05→01:20)
[2018-05-19] MEDS: KCL/NS* 20 MEQ/1000 ML PREMIX 1,000 ML IV SCH (01:20)
[2018-05-19 03:40] VITALS: BP 130/74
[2018-05-19 05:47] LABS: PLATELET COUNT, AUTOMATED 130 K/uL (150-450)
[2018-05-19 07:26] VITALS: BP 96/62
[2018-05-19] MEDS ORDERED: CALCIUM GLUC 100 MG/ML 50 ML SDV IVP ONE (07:30)
[2018-05-19] MEDS ORDERED: CALCIUM GLUC 10% 100 MG/ML VL IVP ONE (07:30)
[2018-05-19 08:47] VITALS: BMI 19.9
[2018-05-19] MEDS ORDERED: PANTOPRAZOLE SOD 40 MG TABEC PO SCH (09:00)
[2018-05-19] MEDS ORDERED: ENOXAPARIN 40 MG/0.4ML SYR SC SCH (09:00)
[2018-05-19] MEDS ORDERED: amLODIPine BESYL(*) 5 MG TAB PO SCH (09:00)
[2018-05-19] MEDS: GABAPENTIN 300 MG CAP PO SCH (09:10)
--- NOTE | 2018-05-19 10:19 | Hospitalist Depart ---
Discharge Summary Reason for Hosp/Final Diag: (1) Hypomagnesemia Status: Acute Hospital Course & Plan: He was noted to have severely low magnesium at admission. He received several doses of IV magnesium, and his levels are now in normal range. (2) Hypokalemia Status: Acute Hospital Course & Plan: Resolved with IV supplementation. (3) Diarrhea due to drug Hospital Course & Plan: His diarrhea spontaneously resolved on admission. (4) Renal cell carcinoma Hospital Course & Plan: He will follow up in the cancer center. Departure Latest Vital Signs Vital Signs 05/19/18 05/19/18 07:26 07:30 Temp 98.1 Pulse 61 Resp 16 B/P (MAP) 96/62 (73) Pulse Ox 95 O2 Delivery Room Air Weight (Pounds): 118 Result Diagram: 05/19/1853105/19/18531 Condition: Improved Discharge: Home, Self Care Discharge Instructions Home Meds Active Scripts Pantoprazole Sodium (PANTOPRAZOLE SODIUM) 40 Mg Tablet.dr, 40 MG PO QDAY for 90 Days, #90 TAB.SR Prov:ZAYDA DUDLEY DO 01/11/18 Tamsulosin Hcl (FLOMAX) 0.4 Mg Cap.er.24h, 0.4 MG PO QHS for 30 Days, #30 CAP 0 Refills Prov:STEPH PHELAN MD 10/24/17 Reported Medications [oxycodone] 5mg No Conflict Check, 5 MG PO Q4-6H PRN for PAIN take 1-2 tabs po q 4-6 hours 03/31/18 Oxycodone Hcl (OXYCONTIN) 10 Mg Tab.er.12h, 10 MG PO, TAB 03/31/18 Sennosides/Docusate Sodium (SENNA S TABLET) 1 Each Tablet, 1 EACH PO 03/22/18 Amlodipine/Atorvastatin (AMLODIPINE-ATORVAST 5-20 MG) 1 Each Tablet, 1 EACH PO QDAY, TAB 06/08/15 Potassium Chloride (POTASSIUM CHLORIDE) 10 Meq Tablet.er, 10 MEQ PO QDAY 06/08/15 Benztropine Mesylate (BENZTROPINE MESYLATE) 0.5 Mg Tab, 0.5 MG PO HS, TAB 01/29/15 Quetiapine Fumarate (QUETIAPINE FUMARATE) 25 Mg Tablet, 25 MG PO Q6H PRN for AGITATION, #60 10/30/13 Gabapentin (GABAPENTIN) 300 Mg Capsule, 900 MG PO BID, #180 CAPSULE Take 3 capsules every morning and before bed 07/04/13 Baclofen (BACLOFEN) 10 Mg Tablet, 10 MG PO BID, #60 TAB Take 1 tablet by mouth twice daily 06/28/13 Discontinued Reported Medications Levofloxacin 500 Mg Tab (LEVAQUIN 500 MG TAB) 500 Mg Tablet, 500 MG PO DAILY, TAB 02/15/18 Hydrochlorothiazide (HYDROCHLOROTHIAZIDE) 25 Mg Tablet, 0.5 TAB PO QDAY, TAB 12/25/17 Diet: Regular Activity: As Tolerated Copies to: JULIET CAPELLAN MD ; Venous Thromboembolism Antithrombotics Is Pt On Any Antithrombotics?: Yes ZAYDA DUDLEY DO May 19, 2018 10:19
[2018-05-19] MEDS ORDERED: HEPARIN FLSH (PORT) 500 UN/5ML ONE (10:33)
[2018-05-19 10:59] VITALS: Ht 163.8 cm; Wt 53.5 kg
[2018-05-20] MEDS ORDERED: INFLUENZA VIRUS VAC 0.5ML SYR IM ONLY ONE (16:20)
== END 2018-05-19 11:15 | disposition home or self-care (01) | DRG 641 ==
LOC: ER 13:39 → MED 14:09
PROVIDERS: ADMIT Internal Medicine; ATTEND Internal Medicine
DX: E83.42 Hypomagnesemia (principal); C64.9 Malignant neoplasm of unspecified kidney, except renal pelvis; K52.1 Toxic gastroenteritis and colitis; E87.6 Hypokalemia; E83.51 Hypocalcemia; E11.9 Type 2 diabetes mellitus without complications; T45.1X5A Adverse effect of antineoplastic and immunosuppressive drugs, initial encounter; F32.9 Major depressive disorder, single episode, unspecified; G89.29 Other chronic pain; K21.9 Gastro-esophageal reflux disease without esophagitis; N40.0 Benign prostatic hyperplasia without lower urinary tract symptoms; G80.9 Cerebral palsy, unspecified; F17.210 Nicotine dependence, cigarettes, uncomplicated; E78.00 Pure hypercholesterolemia, unspecified; Z87.440 Personal history of urinary (tract) infections; Z92.3 Personal history of irradiation; Z90.49 Acquired absence of other specified parts of digestive tract
CPT/HCPCS: 36415; 82310; 82374; 82435; 82565; 82947; 83735; 84132; 84295; 84520; 85025; 93005; J0610; J1642; J1650; J3475; J3480; J7030; J7050

== ENCOUNTER 2018-05-25 11:06 | Emergency (ER) | payer MEDICARE, MEDICAID ==
[2018-05-19 10:59] VITALS: BMI 19.9
--- NOTE | 2018-05-25 11:23 | ER Report ---
History and Physical Time Seen By MD: 11:23 Hx. of Stated Complaint: S/S of UTI HPI/ROS CHIEF COMPLAINT: UTI symptoms HISTORY OF PRESENT ILLNESS: 67 year old male presents to ED with symptoms of a UTI. Symptoms started on with nausea, burning with urination, frequency of urination, pain with urination, and vomiting that occurred Thursday. Patient reports urine was the color of mud this morning. Report s to increasing his fluid intake over the weekend and drinking 32oz of water this morning. Patient reports costovertebral angle tenderness bilaterally with a pain of 7 out of 10; reports pain is dull and achy. Patient has taken oxycontin and oxycodone this morning with no pain relief. Patient was hospitalized last week and discharged last Thursday. Reports diarrhea over the hospital stay and believes his UTI is from that. Reports frequent UTIs and last dose of levaquin due to a UTI was about 1.5 months ago. Patient has a history of kidney cancer and is followed by oncology. Patient did reports his symptoms to his oncologist. They collected a urine sample yesterday, but were waiting for the culture before treating. Patient reports his symptoms were so bad this morning compared to yesterday that he decided to come to the ER. REVIEW OF SYSTEMS: Respiratory: No cough, no dyspnea. Cardiovascular: No chest pain, no palpitations. Gastrointestinal: Reports nausea, vomiting on Thursday, no abdominal or pelvic pain. Reports diarrhea last week. Reports he now has constipation and hasn't had a BM since his discharge from the hospital last Thursday. Genitourinary: Reports burning, frequency, and pain with urination. Reports dark urine; urine was the color of mud this morning. Musculoskeletal: Reports constovertebral angle tenderness bilaterally; reports pain is 7 out of dull and dull and achy. Reports weakness that has gotten worse over the last few days. Allergies: Coded Allergies: No Known Drug Allergies (Verified , 05/25/18) Home Meds Active Scripts Levofloxacin 500 Mg Tab (LEVAQUIN 500 MG TAB) 500 Mg Tablet, 500 MG PO DAILY for 7 Days, #7 TAB Prov:INGRID MARINELLI 05/25/18 Pantoprazole Sodium (PANTOPRAZOLE SODIUM) 40 Mg Tablet., 40 MG PO QDAY for 90 Days, #90 TAB.SR Prov:ZAYDA DUDLEY DO 01/11/18 Tamsulosin Hcl (FLOMAX) 0.4 Mg Cap.er.24h, 0.4 MG PO QHS for 30 Days, #30 CAP 0 Refills Prov:STEPH PHELAN MD 10/24/17 Reported Medications [oxycodone] 5mg No Conflict Check, 5 MG PO Q4-6H PRN for PAIN take 1-2 tabs po q 4-6 hours 03/31/18 Oxycodone Hcl (OXYCONTIN) 10 Mg Tab.er.12h, 10 MG PO, TAB 03/31/18 Sennosides/Docusate Sodium (SENNA S TABLET) 1 Each Tablet, 1 EACH PO 03/22/18 Amlodipine/Atorvastatin (AMLODIPINE-ATORVAST 5-20 MG) 1 Each Tablet, 1 EACH PO QDAY, TAB 06/08/15 Potassium Chloride (POTASSIUM CHLORIDE) 10 Meq Tablet.er, 10 MEQ PO QDAY 06/08/15 Benztropine Mesylate (BENZTROPINE MESYLATE) 0.5 Mg Tab, 0.5 MG PO HS, TAB 01/29/15 Quetiapine Fumarate (QUETIAPINE FUMARATE) 25 Mg Tablet, 25 MG PO Q6H PRN for AGITATION, #60 10/30/13 Gabapentin (GABAPENTIN) 300 Mg Capsule, 900 MG PO BID, #180 CAPSULE Take 3 capsules every morning and before bed 07/04/13 Baclofen (BACLOFEN) 10 Mg Tablet, 10 MG PO BID, #60 TAB Take 1 tablet by mouth twice daily 06/28/13 Discontinued Reported Medications Levofloxacin 500 Mg Tab (LEVAQUIN 500 MG TAB) 500 Mg Tablet, 500 MG PO DAILY, TAB 02/15/18 Hydrochlorothiazide (HYDROCHLOROTHIAZIDE) 25 Mg Tablet, 0.5 TAB PO QDAY, TAB 12/25/17 Past Medical/Surgical History Past medical history significant for cerebral palsy, angina, hypertension, hypercholesterolemia, COPD, GERD, gastric ulcers, left inguinal hernia without surgery,gallbladder disease, frequent UTIs, enlarged prostate, spinal stenosis, arthritis, spinal fracture in 2012, multiple falls, back pain, diabetes, anxiety, renal cell carcinoma diagnosed in 12/17- on chemotherapy. Past surgical history significant for childhood inguinal hernia repair, procedure for ulcers on 08/2014, cholecystectomy in 1999, multiple surgeries for cerebral palsy, tonsillectomy, eye surgery in 1999 Reviewed Nurses Notes: Yes Hx Smoking: Yes (1 ppd, 40 years) Smoking Status: Current: Every Day Smoker Exposure to Second Hand Smoke?: Yes Hx Substance Use Disorder: Yes (occ) Hx Alcohol Use: No Constitutional Vital Sign - Last 24 Hours 05/25/18 05/25/18 05/25/18 05/25/18 11:32 11:33 11:36 11:48 Pulse 86 82 Resp 14 B/P (MAP) 123/82 (96) 123/82 Pulse Ox 91 94 O2 Delivery Room Air O2 Flow Rate 2.0 05/25/18 05/25/18 05/25/18 05/25/18 12:06 12:36 12:41 13:00 Pulse 70 67 70 B/P (MAP) ???/??? (1665) Pulse Ox 97 97 97 05/25/18 05/25/18 05/25/18 05/25/18 13:07 13:11 13:30 13:41 Pulse 66 79 Resp 14 14 B/P (MAP) 112/73 (86) 124/74 (91) Pulse Ox 97 97 05/25/18 05/25/18 05/25/18 05/25/18 14:00 14:11 14:16 14:43 Pulse 65 68 Resp 19 16 B/P (MAP) 103/64 (77) 116/73 (87) Pulse Ox 97 05/25/18 05/25/18 05/25/18 05/25/18 14:46 14:51 15:00 15:06 Pulse 68 70 70 Resp 16 7 10 B/P (MAP) 114/64 (81) Pulse Ox 93 96 96 05/25/18 05/25/18 05/25/18 15:21 15:30 15:36 Pulse 76 74 Resp 9 12 B/P (MAP) 99/68 (78) Pulse Ox 97 94 Physical Exam General Appearance: The patient is alert, has no immediate need for airway protection and no current signs of toxicity. Eyes: Pupils equal and round no injection. Respiratory: Chest is non tender, lungs are clear to auscultation with decreased air flow in bases bilaterally. Cardiac: regular rate and rhythm Gastrointestinal: Abdomen is soft and non tender, no masses, bowel sounds normal. Musculoskeletal: Reports CVA tenderness bilaterally with light palpation Skin: No rashes or lesions. DIFFERENTIAL DIAGNOSIS: After history and physical exam differential diagnosis was considered for acute cystitis, chronic cystitis, pyelonephritis. Medical Decision Making Data Points Result Diagram: 05/25/18 1222 05/25/18 1222 Laboratory Hematology Test 05/25/18 11:30 05/25/18 12:22 Urine Color Yellow Urine Clarity Slightly-cloudy Urine pH 6.0 pH (4.8-9.5) Urine Specific [place] 1.012 Urine Protein Negative mg/dL (NEGATIVE) Urine Glucose (UA) Negative mg/dL (NEGATIVE) Urine Ketones Negative mg/dL (NEGATIVE) Urine Blood Negative (NEGATIVE) Urine Nitrite Negative (NEGATIVE) Urine Bilirubin Negative (NEGATIVE) Urine Urobilinogen 4.0 mg/dL (0.2-1.9) Urine Leukocyte Esterase Trace (NEGATIVE) Urine RBC None /HPF (0-2/HPF) Urine WBC 3 /HPF (0-5/HPF) Urine Squamous Epithelial Cells Few /LPF (</=FEW) Urine Bacteria Few /HPF (NONE-FEW) Urine Mucus None /HPF (NONE-FEW) Red Blood Count 2.95 M/uL (4.00-5.60) Mean Corpuscular Volume 89.9 fL (80.0-96.0) Mean Corpuscular Hemoglobin 31.2 pg (26.0-33.0) Mean Corpuscular Hemoglobin Concent 34.7 g/dL (32.0-36.0) Red Cell Distribution Width 32.0 % (11.5-14.5) Mean Platelet Volume 7.0 fL (7.2-11.1) Neutrophils (%) (Auto) % (39.4-72.5) Lymphocytes (%) (Auto) % (17.6-49.6) Monocytes (%) (Auto) % (4.1-12.4) Eosinophils (%) (Auto) % (0.4-6.7) Basophils (%) (Auto) % (0.3-1.4) Nucleated RBC Relative Count (auto) /100WBC Neutrophils # (Auto) K/uL (2.0-7.4) Lymphocytes # (Auto) K/uL (1.3-3.6) Monocytes # (Auto) K/uL (0.3-1.0) Eosinophils # (Auto) K/uL (0.0-0.5) Basophils # (Auto) K/uL (0.0-0.1) Nucleated RBC Absolute Count (auto) K/uL Neutrophils % (Manual) 48 % (39.4-72.5) Band Neutrophils % 6 % Lymphocytes % (Manual) 4 % (17.6-49.6) Monocytes % (Manual) 7 % (4.1-12.4) Eosinophils % (Manual) 35 % (0.4-6.7) Basophils % (Manual) 0 % (0.3-1.4) Platelet Estimate Normal Anisocytosis 3+ Peripheral Blood Smear Yes Y/N Sodium Level 136 mmol/L (137-145) Potassium Level 2.9 mmol/L (3.5-5.0) Chloride Level 99 mmol/L (98-107) Carbon Dioxide Level 31 mmol/L (22-30) Blood Urea Nitrogen 11 mg/dl (9-21) Creatinine 0.60 mg/dl (0.66-1.25) Glomerular Filtration Rate Calc > 60.0 Random Glucose 92 mg/dl (75-110) Calcium Level 8.5 mg/dl (8.4-10.2) Magnesium Level 1.2 mg/dl (1.7-2.2) Total Bilirubin 1.7 mg/dl (0.2-1.3) Aspartate Amino Transf (AST/SGOT) 33 U/L (0-35) Alanine Aminotransferase (ALT/SGPT) 37 U/L (0-56) Alkaline Phosphatase 129 U/L (0-126) Total Protein 6.5 g/dl (6.3-8.2) Albumin 3.3 g/dl (3.5-5.0) Chemistry Test 05/25/18 11:30 05/25/18 12:22 Urine Color Yellow Urine Clarity Slightly-cloudy Urine pH 6.0 pH (4.8-9.5) Urine Specific [place] 1.012 Urine Protein Negative mg/dL (NEGATIVE) Urine Glucose (UA) Negative mg/dL (NEGATIVE) Urine Ketones Negative mg/dL (NEGATIVE) Urine Blood Negative (NEGATIVE) Urine Nitrite Negative (NEGATIVE) Urine Bilirubin Negative (NEGATIVE) Urine Urobilinogen 4.0 mg/dL (0.2-1.9) Urine Leukocyte Esterase Trace (NEGATIVE) Urine RBC None /HPF (0-2/HPF) Urine WBC 3 /HPF (0-5/HPF) Urine Squamous Epithelial Cells Few /LPF (</=FEW) Urine Bacteria Few /HPF (NONE-FEW) Urine Mucus None /HPF (NONE-FEW) White Blood Count 3.6 k/uL (4.5-11.0) Red Blood Count 2.95 M/uL (4.00-5.60) Hemoglobin 9.2 g/dL (14.0-18.0) Hematocrit 26.5 % (42.0-52.0) Mean Corpuscular Volume 89.9 fL (80.0-96.0) Mean Corpuscular Hemoglobin 31.2 pg (26.0-33.0) Mean Corpuscular Hemoglobin Concent 34.7 g/dL (32.0-36.0) Red Cell Distribution Width 32.0 % (11.5-14.5) Platelet Count 150 K/uL (150-450) Mean Platelet Volume 7.0 fL (7.2-11.1) Neutrophils (%) (Auto) % (39.4-72.5) Lymphocytes (%) (Auto) % (17.6-49.6) Monocytes (%) (Auto) % (4.1-12.4) Eosinophils (%) (Auto) % (0.4-6.7) Basophils (%) (Auto) % (0.3-1.4) Nucleated RBC Relative Count (auto) /100WBC Neutrophils # (Auto) K/uL (2.0-7.4) Lymphocytes # (Auto) K/uL (1.3-3.6) Monocytes # (Auto) K/uL (0.3-1.0) Eosinophils # (Auto) K/uL (0.0-0.5) Basophils # (Auto) K/uL (0.0-0.1) Nucleated RBC Absolute Count (auto) K/uL Neutrophils % (Manual) 48 % (39.4-72.5) Band Neutrophils % 6 % Lymphocytes % (Manual) 4 % (17.6-49.6) Monocytes % (Manual) 7 % (4.1-12.4) Eosinophils % (Manual) 35 % (0.4-6.7) Basophils % (Manual) 0 % (0.3-1.4) Platelet Estimate Normal Anisocytosis 3+ Peripheral Blood Smear Yes Y/N Glomerular Filtration Rate Calc > 60.0 Calcium Level 8.5 mg/dl (8.4-10.2) Magnesium Level 1.2 mg/dl (1.7-2.2) Total Bilirubin 1.7 mg/dl (0.2-1.3) Aspartate Amino Transf (AST/SGOT) 33 U/L (0-35) Alanine Aminotransferase (ALT/SGPT) 37 U/L (0-56) Alkaline Phosphatase 129 U/L (0-126) Total Protein 6.5 g/dl (6.3-8.2) Albumin 3.3 g/dl (3.5-5.0) Urinalysis Test 05/25/18 11:30 Urine Color Yellow Urine Clarity Slightly-cloudy Urine pH 6.0 pH (4.8-9.5) Urine Specific [place] 1.012 Urine Protein Negative mg/dL (NEGATIVE) Urine Glucose (UA) Negative mg/dL (NEGATIVE) Urine Ketones Negative mg/dL (NEGATIVE) Urine Blood Negative (NEGATIVE) Urine Nitrite Negative (NEGATIVE) Urine Bilirubin Negative (NEGATIVE) Urine Urobilinogen 4.0 mg/dL (0.2-1.9) Urine Leukocyte Esterase Trace (NEGATIVE) Urine RBC None /HPF (0-2/HPF) Urine WBC 3 /HPF (0-5/HPF) Urine Squamous Epithelial Cells Few /LPF (</=FEW) Urine Bacteria Few /HPF (NONE-FEW) Urine Mucus None /HPF (NONE-FEW) ED Course/Re-evaluation ED Course Patient admitted to an exam room, history and physical obtained, and differential diagnoses considered. Patient presents with UTI symtpoms that started on with nausea, vomiting, burning with urination, frequency of urination, pain with urination. Reports bilateral CVA tenderness; reports pain in a 7 out of 10. He has taken oxycontin and oxycodone for pain with no relief. Reports urine the color of mud this morning. Reports he contacted his oncologist yesterday. They had him go to the cancer center and leave a UA, but did not treat at that time. IV started with 500mL NS. Oxygen started and titrated to keep sats >90%. CBC, CMP, Mag, UA with culture collected. Mag was 1.2 and potassium was 2.9. 2 grams IV magnesium and 20 meq IV potassium given. 20 meq oral potassium then given. Hct 26.5 and hbg 9.2; these values appear to be at about his baseline. UA that was collected yesterday shows >100,000 colonies per ML growth present; checking for pathogens. UA today with trace leukocytes. Patient reports he feels much better after infusion of magnesium and potassium. Patient to be discharged home with prescription for levaquin, 500mg for 7 days. Once we receive his UA sensitivity, we will let him know if the antibiotic needs to be changed. He is to follow up with his oncologist and primary care provider. Decision to Disposition Date: May 25, 2018 Decision to Disposition Time: 15:39 Depart Departure Latest Vital Signs Vital Signs Date Time Temp Pulse Resp B/P (MAP) Pulse Ox O2 Delivery O2 Flow Rate FiO2 05/25/18 15:36 74 12 94 05/25/18 15:30 99/68 (78) 05/25/18 11:48 2.0 05/25/18 11:33 Room Air Impression: Primary Impression: Urinary tract infection Condition: Improved Disposition: HOME OR SELF-CARE Referrals: GAUDENCIO RUIZ DO (PCP) New Scripts Levofloxacin 500 Mg Tab (LEVAQUIN 500 MG TAB) 500 Mg Tablet 500 MG PO DAILY for 7 Days, #7 TAB Prov: INGRID MARINELLI 05/25/18 Patient Instructions: Interstitial Cystitis (ED) Additional Instructions: Please take levoquin once a day for 7 days until the antibiotics are gone. Please follow up with your primary care provider or oncologist in 2 days. Please drink plenty of fluids the next couple of days. Please return to the ED if your UTI symptoms worsen, you develop fevers, you start to vomit, or your flank pain does not worsen. Problem Qualifiers Primary Impression: Urinary tract infection Urinary tract infection type: acute cystitis Hematuria presence: without hematuria Qualified Codes: N30.00 - Acute cystitis without hematuria INGRID MARINELLI May 25, 2018 11:23
[2018-05-25] MEDS ORDERED: NS(*) 0.9% 1000 ML BAG 500 ML IV ONE (11:40)
[2018-05-25 12:34] LABS: PLATELET COUNT, AUTOMATED 150 K/uL (150-450)
[2018-05-25] MEDS ORDERED: MAGNESIUM SUL* 2 GM/50 ML IVPB 50 ML IVPB ONE (12:50)
[2018-05-25] MEDS ORDERED: POTASSIUM CHL 20 MEQ TABCR PO ONE (12:50)
[2018-05-25] MEDS ORDERED: KCL (*) 20 MEQ/100 ML PREMIX 100 ML IV ONE (12:50)
[2018-05-25 15:30] VITALS: BP 99/68
[2018-05-25] MEDS ORDERED: HEPARIN FLSH (PORT) 500 UN/5ML IVP ONE (15:50)
[2018-05-25] MEDS ORDERED: LEVO-85 PO (15:50)
[2018-05-26] MEDS ORDERED: POTA10CA40 PO (16:25)
== END 2018-05-25 16:08 | disposition home or self-care (01) ==
LOC: ER 11:36
DX: N30.00 Acute cystitis without hematuria (principal); I10 Essential (primary) hypertension; G80.9 Cerebral palsy, unspecified
CPT/HCPCS: 81001; 83735; 85025; 87088; 96361; 96365; 96366; 96375; 99284; A9270; J1642; J3475; J3480; J7030; 82040; 82247; 82310; 82374; 82435; 82565; 82947; 84075; 84132; 84155; 84295; 84450; 84460; 84520

== ENCOUNTER 2018-06-15 11:00 | Outpatient (RCR) | payer MEDICARE, MEDICAID ==
[2018-04-13 16:11] VITALS: BP 118/78
[2018-04-26 10:41] VITALS: BP 105/80
[2018-04-26 10:43] LABS: PLATELET COUNT, AUTOMATED 139 K/uL (150-450)
[2018-05-11 11:17] VITALS: BP 91/62
[2018-05-11 11:41] LABS: PLATELET COUNT, AUTOMATED 141 K/uL (150-450)
--- NOTE | 2018-05-11 14:35 | ONCOLOGY FOLLOW UP NOTE ---
EVENT DATE: May 11, 2018 The patient was in [facility] today for scheduled weekly labs, to include CBC and CMP. The patient then left prior to results. I was notified of patient's hypokalemia on CMP with a potassium of 2.5. This has significantly decreased compared to two weeks ago when potassium was 3.6 on 04/26/18. In addition, his calcium today was 6.8, also decreased from previous 8.8 two weeks ago on 04/26/18. The patient is currently on Cabometyx and is on his fourth cycle. Corrected calcium using his albumin level from today's lab draw, which is 3.5, is still low at 7.2. I did have our flue gas analyst call the patient and speak to him. Apparently, the patient did notify one of our staff members that he has having diarrhea, though stated that this was ongoing for about three weeks now. He apparently stated that he much preferred to have diarrhea versus constipation. He also incidentally mentioned that he recently had labs done with an outside physician, his PCP, and stated that he was aware that he had hypokalemia. When our office called the patient, he stated that he was currently having breakfast at a restaurant nearby, and we instructed him to continue eating and drinking and push fluids. We also questioned his diarrhea, though he reported that this was stable. Lastly, I did have the nurses instruct the patient that I recommended he return to clinic for IV fluids hydration and potassium replacement as well as consideration of oral potassium supplementation, but patient remarked that he is currently seeing Dr. Tillman, PCP, and was placed on 40 mEq potassium daily. He also reported he will be having repeat labs with his PCP. He is diabetic, but apparently reported that he was no longer checking his blood sugar. The patient also reported when he was here for labs that he thought he was having a UTI, and so UA was obtained today. This is currently pending. Blood glucose from today's labs was normal, with a blood glucose level at 87. I did have the nurses instruct him to increase his oral calcium intake as well as potassium and to stay on his potassium supplementation, and we will defer to PCP since he is already scheduled with them the day after tomorrow. He declined the need for IV fluid hydration as well. We did give him precautions in signs and symptoms. He will return to clinic next week as scheduled for ongoing weekly labs. MRAZENA
[2018-05-18 11:37] VITALS: BP 106/74
[2018-05-18 11:58] LABS: PLATELET COUNT, AUTOMATED 163 K/uL (150-450)
--- NOTE | 2018-05-19 00:31 | ONCOLOGY FOLLOW UP NOTE ---
EVENT DATE: May 18, 2018 CHIEF COMPLAINT Here for followup regarding fatigue and diarrhea times one month. Diagnosis of metastatic renal cell carcinoma. DIAGNOSIS Metastatic renal cell carcinoma. HISTORY OF PRESENT ILLNESS Patient is a 67-year-old male seen today after he called this morning and requested an add-on visit for complaints of fatigue, nausea, and diarrhea. He reports that he has had diarrhea constantly for the last four weeks. He is currently on cabozantinib 60 mg daily. At his last visit, he reported that he was tolerating this fairly well. He does have a pain syndrome and reports that his pain is under good control with OxyContin b.i.d. as well as oxycodone p.r.n. He tells me he is only using about three oxycodone tablets per 24 hours. He has had frequent UTIs in the past as well, but denies any UTI-type symptoms currently. He has had difficulty with constipation in the past and as such tells me that once he began starting having diarrhea, he felt that this was actually a good thing given his history of significant constipation. He also states that he did not know that he needed to notify us for severe ongoing diarrhea. He has also had nausea and vomiting for the last four weeks as well. His main issue is diarrhea, and he tells me that he cannot really eat or drink because he then immediately has to go to the bathroom. He believes he last ate a full meal approximately three days, but then tells me today that he drank a glass of milk and ate a banana this morning. He is alternating with his home antiemetics and is using his Compazine and lorazepam. He believes the Compazine may be worsening his diarrhea. Lastly, he was in the clinic on 05/11/18 for weekly labs, and at that time, his potassium was noted to be 2.5. We did notify the patient, and he stated that he was following up with his PCP and would be following up his PCP a couple of days later for repeat labs. He was placed on potassium supplementation through his PCP. Labs a couple of days later on 05/14/[address] Tillman's office did show that he was still hypokalemic with a potassium of 2.7. He has also had hypocalcemia, and calcium level at that time was not much improved and was only at 7.0. He tells me that he is having general abdominal pain mostly from his diarrhea. He states that his diarrhea began exactly on 04/20/18. He believes his weight is down. He is also having some increased gas, but tells me that he is unable to use simethicone chewable tablets as he does not have any teeth, and it is hard for him to chew. He remains on daily Cabometyx, 60 mg, and denies missing any doses. ONCOLOGY HISTORY Renal cell carcinoma. * October 24, 2017: CT scan of abdomen and pelvis reveals conglomerate lymphadenopathy within the aortocaval retroperitoneum. No gross primary was identified. Scyy-tc-sexlaozw bladder distention. Questionable mild thickening along posterior/inferior bladder base (similar to 2015 findings); borderline nonspecific splenomegaly. * November 27, 2017: CT scan chest, abdomen, and pelvis: Aortocaval adenopathy has increased in size compared to prior; a left periaortic lymph node slightly increased; otherwise findings similar to prior study. * December 15, 2017: Retroperitoneal lymph node biopsy. 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 * November 2017: Patient presents with right testicular discomfort. * December 22, 2017: Testicular ultrasound reveals a 2.7 x 1.9 x 2.8 cm heterogeneous hypervascular mass projecting inferior to the right testicle; this appears extratesticular in origin. * January 11, 2018: Patient undergoes right inguinal orchiectomy. Surgical pathology is consistent with chronic lymphocytic inflammation with fibrosis. There is no evidence of malignancy. Second opinion on this tissue shows nonspecific findings overall. Diagnostic considerations included smooth muscle hyperplasia of testicular adnexa, granulomatous ischemic lesion, resolving granulomatous orchitis, or possibly resolving reaction to extravasated sperm (sperm granuloma). There is no evidence of neoplastic process. * January 2018: Began palliative cabozantinib. * CT scan on 02/18/18 showed an increasing retroperitoneal mass with nerve root irritation and an osteolytic tumor involving T8. Began palliative radiation on 03/15/18. PAST MEDICAL HISTORY 1. Recurrent UTI. 2. Smoking and reported history of polysubstance abuse. 3. Concern for personality disorder. 4. Cerebral palsy. 5. Type 2 diabetes, diet controlled. FAMILY HISTORY Noncontributory. SOCIAL HISTORY Patient is single. He has a history of heavy alcohol use. He is a current everyday smoker. There is also a reported history of polysubstance abuse. CURRENT MEDICATIONS 1. Amlodipine/atorvastatin. 2. Benztropine. 3. Colace. 4. Gabapentin. 5. Hydrochlorothiazide. 6. Pantoprazole. 7. Potassium. 8. Quetiapine. 9. Flomax. 10. Tramadol p.r.n. 11. Oxycodone 10 mg p.r.n. breakthrough pain. 12. OxyContin 10 mg every 12 hours. ALLERGIES No known drug allergies. REVIEW OF SYSTEMS CONSTITUTIONAL: The patient denies any recent fevers or infections. He does report significant fatigue, which he attributes to his ongoing and persistent diarrhea and decreased oral intake. HENT: He denies mucositis. CARDIOVASCULAR: He denies any chest pain, syncope, or presyncope. RESPIRATORY: He denies any shortness of breath, hemoptysis, or pleuritic chest pain. GASTROINTESTINAL: He reports some general abdominal pain mostly in the form of gas. He has also had significant nausea for several weeks. He has had several episodes of emesis, but tells me that he mostly has nausea. He has been having diarrhea, he reports for at least four weeks now. Basically, anything he eats or drinks causes diarrhea. He is worried about having incontinence or accidents. He has significant dysgeusia and reports that nothing tastes good, not even water. He is diabetic and is concerned about drinking Boost, but tells me he thinks maybe it is time for him to start Boost supplements/shakes. GENITOURINARY: He denies any UTI symptoms at this time. No dysuria, no hematuria, no urinary frequency or urgency, no genitourinary discharge. He reports a history of frequent UTIs. MUSCULOSKELETAL: The patient reports generalized weakness. No focal areas of pain, though he does have a pain syndrome and a history of back pain. ENDOCRINE: No heat or cold intolerance. He has generalized fatigue and weakness, as well as lower endurance. He feels hungry, but nothing tastes good. DERM: He denies any rash. He has a couple of areas on each hand bilaterally which he says he was told could be related to his current chemo regimen. He tells me that one area is still not healed, and this is due to rubbing from his walking stick. No drainage. No pus. No free bleeding or generalized pruritus. EXTREMITIES: He denies any swelling. The remainder of a 12-point review of systems is performed today and is otherwise negative. PHYSICAL EXAMINATION VITAL SIGNS: Weight today 125 pounds, which is down 7 pounds compared to last weight on 03/31/18. T 98.0 degrees Fahrenheit, P 76, R 14, BP 105/74, oxygen saturation 95% room air. GENERAL: This is a pleasant 67-year-old chronically ill-appearing, somewhat volume contracted, and possibly under nourished gentleman who is in no acute distress. He does seem alert and is able to answer questions appropriately, though is having some obvious short-term memory disturbances today. HEAD: Atraumatic, normocephalic. EYES: Sclerae anicteric. ENT, MOUTH: No mucositis. No ulcerations. Patient is missing teeth. NECK: Supple. No lymphadenopathy. No JVD. LUNGS: Diminished breath sounds to auscultation bilaterally. No wheezes, rales, or rhonchi. Respiratory effort is normal. CARDIOVASCULAR: Heart rate regular. No ectopy. Heart sounds are somewhat distant. ABDOMEN: Soft, nondistended. Minimal pain to palpation. Bowel sounds positive times four. EXTREMITIES: No edema bilaterally. No clubbing or cyanosis. NEUROLOGIC: Patient is awake, alert, oriented times three. He has had some moments of forgetfulness in the form of repeating himself or forgetting what he told the medical transcription supervisor 10 minutes prior to our visit. I think he is mixing up some of his dates during our exam today, but otherwise, he appears alert. PSYCHIATRIC: Mood and affect are appropriate today. DERM: Patient has a mild grade 1 hand-foot syndrome. This is most noticeable in the form of excessive dryness and some peeling in his palms bilaterally. There are two areas on his palms bilaterally which appear to be old dried blisters, which are still a little open and likely related to friction from his walking stick. No signs of infection. LABORATORY CBC today: WBC 8.3, ANC pending, hemoglobin 11.4, hematocrit 33.0%, platelets 163,000. CMP today: Sodium 137, potassium 2.9, only minimally improved from 05/11/18 at 2.5, serum creatinine normal at 0.60, random glucose 85, calcium lower today at 6.2, previously 6.8 on 05/11/18, phosphorus normal at 3.7, magnesium critically low at 0.3 today, total bilirubin 1.3, AST slightly more elevated today at 49 compared to 43 on 05/11/18, ALT 44, alkaline phosphatase 82. IMPRESSION AND PLAN Mr. Mesa is a 67-year-old male diagnosed with metastatic renal cell carcinoma. He began palliative treatment with cabozantinib on 02/10/18. He initiated palliative radiation on 03/15/18. He is currently into his fourth cycle with cabozantinib. He is having significant diarrhea, which he states has been ongoing now for four weeks. He has had electrolyte disturbances of hypokalemia and hypocalcemia, and this is noted as recently as 05/11/18. At that time, patient was seeing his primary care physician and was placed oral potassium supplementation. He tells me is currently on 30 mEq of potassium chloride daily, prescribed through his primary care physician. He does seem to have a very mild grade 1 hand-foot syndrome. He has also had significant nausea, which he has had for several weeks as well with minimal emesis, though this has persisted. He believes he has had diarrhea for at least a month now. His pain, thankfully, is under good control with his current regimen with OxyContin 10 mg b.i.d. as well as oxycodone p.r.n. breakthrough pain, of which he is using approximately three tablets per day. He does have gastroesophageal reflux disease as well. 1. Metastatic renal cell carcinoma: Patient is currently on full dose of cabozantinib 60 mg daily. He typically takes this every morning at 6 a.m. and took today's dose. Due to his significant diarrhea, volume contraction, and electrolyte disturbance, I have instructed Mr. Mesa to HOLD his cabozantinib for one week, starting with tomorrow's dose. We will reevaluate whether or not we proceed with treatment versus dose reduction when he is in clinic next week. Once his symptoms do improve, we will likely need to re-initiate treatment at a lower dose of 40 mg daily. I explained this to the patient today at length. He has a good understanding. 2. Hand-foot syndrome, mild, grade 1: No intervention necessary at this time. We discussed using a good emollient lotion and protecting his hands as he does have some possible irritation related to some friction from his walking stick. He verbalized understanding. 3. Diarrhea: Ongoing. Per patient, it has been going on for at least four weeks. We had a long discussion about side effects related to cabozantinib, and I have given instructions on when he needs to call our office. He is down at least 7 pounds today. As such, I have written orders to hold cabozantinib per #1, and I would like to hydrate him today as well. At the time of this dictation, CMP was pending, but I did write for orders to hydrate with 1 L of normal saline and plan to treat with 30 mEq of potassium intravenously. 4. Nausea: He is alternating his Compazine with lorazepam, but I do not think he is using his lorazepam as prescribed or as often. Today, he is having some nausea, and I have written orders to add Zofran 8 mg intravenously today with his intravenous fluid hydration. I have called in a prescription for Zofran 8 mg ODT one sublingual q.8 hours p.r.n. chemotherapy-induced nausea or vomiting, #20, no refills. I discussed how he should take this. 5. Diet/nutrition: We had a long discussion about which foods to use appropriately, as patient is concerned about his diabetes, though tells that he his recent hemoglobin A1c was in good range with Dr. Tillman. We discussed eating small, frequent meals, softer foods, drinking half water/half Gatorade to get some electrolytes and flavor as he is having significant dysgeusia, and we also discussed using potentially Glucerna shakes as he is concerned about Boost because of his diabetes. 6. Pain: Currently under good control with his current pain regimen with OxyContin b.i.d. and oxycodone p.r.n. breakthrough pain. 7. Gastroesophageal reflux disease: Under control right now, managed with daily pantoprazole. He is to continue this. We also discussed that he could potentially use Alondra Sycamore for upset stomach as he has difficulty chewing. 8. I have asked the patient to return to clinic next week as scheduled so that we may reevaluate him. 9. I have given him emergency room parameters. ADDENDUM Initially during the time of this dictation and during patient's assessment, all labs were not resulted. Magnesium came back low at 0.3. Initially, planned to administer IV magnesium and calcium along with his IV fluids and potassium replacement today; however, as this is critically low and quite a change for the patient, and as he would likely need an EKG given these abnormally low results, I have had a long discussion with the patient in the infusion room today, and I have recommended ER evaluation. I explained that he will likely be admitted. Patient understands and agrees to proceed to the Emergency Room. Our office called report to the ER. I did instruct him that he is to continue with all instructions, especially holding his cabozantinib and returning to clinic next week for followup evaluation. MARZENA
[2018-05-19 10:59] VITALS: Wt 56.6 kg
[2018-05-24 11:11] VITALS: BP 105/73
--- NOTE | 2018-05-25 10:58 | Oncology Note ---
Mr. Cagle called the clinic this morning at 0937 am. He spoke with our FO staff, Viv, and told her he has a UTI and asked to speak with me or other clinical staff. I called him back at 0940 am and tried to assess his symptoms via phone. He immediately stated that he had just woken up and "took a pee and noticed that his urine was dark brown". I asked Mr. Cagle if he had any fever or elevated temperature or any other symptoms. I informed him that the UA we collected yesterday on Thursday05/24/17 was sent for C&S as there was a trace amount of leukocytes in the urine, though the UA was negative for nitrites. He told me he didn't care if it was pending C&S as he knew he had a UTI. He denied any fever but reported "some left-sided pain". He also stated that he had some nausea. When I asked how severe his nausea was, if he had any associated emesis with it, or if he had picked up the Zofran Rx we sent in for him last week, he told me that he knew his nausea wasn't related to his cancer. He then went on to state that he "wasn't going to argue with me because anyone else would be looking at his toilet and calling an ambulance". I politely and calmly explained that I was simply trying to get some information from him but he again cut me off. He was very short on the phone, wasn't listening to what I was asking, and wouldn't allow me to finish my sentences or questions. He was speaking over me. He did sound agitated and insisted that he had some kind of UTI. Per his history, he's had chronic UTI-type symptoms and UAs are often collected on patient. I asked the patient if he would be able to see his PCP today, as this didn't seem to be related to his oncologic disease, but he told me that he needed an ER. Finally, Mr. Cagle told me that he was going to call an ambulance. I told him to go ahead and proceed as he felt like he really needed emergent care. I will update clinic staff and we'll follow-up with him as scheduled, sooner if needed. ENEIDA LEONG APRN,DIE CAST TECHNICIAN May 25, 2018 10:58
[2018-05-26 12:34] VITALS: BP 148/88
[2018-05-26 13:31] LABS: PLATELET COUNT, AUTOMATED 174 K/uL (150-450)
--- NOTE | 2018-06-04 07:42 | ONCOLOGY FOLLOW UP NOTE ---
EVENT DATE: May 26, 2018 REASON FOR FOLLOWUP Metastatic renal cell carcinoma. INTERIM HISTORY Mr. Mesa returns to clinic for a followup visit today. He continues to take palliative cabozantinib, which he started in January. In general, his tolerance for side effects of the cabozantinib has been excellent. Unfortunately, he continues to have problems with pre-existing fatigue as well as low back pain. We spent a good deal of time today discussing his recent concern for UTI. Mr. Mesa expresses confusion about who he is supposed to call in case he has these symptoms. He most recently was seen in the emergency department, where he received Levaquin. Urinalysis was very modestly abnormal at that time but there was significant growth on his urine culture of what might be a carinii bacterium species. In any case, since starting the antibiotic, he is feeling much better. His appetite has been somewhat modest but he is maintaining his weight. Nausea has been minimal. He denies fever. Urinary symptoms have resolved. REVIEW OF SYSTEMS Otherwise negative and all systems reviewed. ONCOLOGY HISTORY Renal cell carcinoma. * October 24, 2017, CT abdomen and pelvis: Conglomerate lymphadenopathy within aortocaval retroperitoneum; no gross primary malignancy; [id number] bladder distention; questionable mild thickening along posterior/inferior bladder base similar to 2015 findings; borderline nonspecific splenomegaly. * November 27, 2017, CT scan chest, abdomen and pelvis: Aortocaval adenopathy has increased in size compared to prior; a left periaortic lymph node has slightly increased. * November 2017, patient presents with right testicular discomfort. * December 22, 2017, testicular ultrasound reveals 2.7 x 1.9 x 2.8 cm heterogeneous hypervascular mass projecting inferior to the right testicle. * January 11, 2018, patient undergoes right inguinal orchiectomy. Surgical pathology reveals chronic lymphocytic inflammation with fibrosis and no evidence of malignancy. Second opinion on tissue shows nonspecific findings overall with diagnostic considerations including smooth muscle hyperplasia of testicular adnexa, granulomatous ischemic lesion, resolving granulomatous orchitis or possibly resolving reaction to extravasated sperm (sperm granuloma). * February 18, 2018, CT of abdomen and pelvis reveals 1.3 cm ovoid, hypoattenuating mass along posteromedial inferior aspect of left kidney, not present on prior study. There was fullness of the right renal collecting system related to marked distention of the urinary bladder. There is a new lytic lesion involving the T8 vertebral body, and left periaortic lymph node has increased in size. A large aortocaval bruce mass was relatively unchanged. * He began palliative radiation on March 15, 2018, ongoing. * January 2018: Initiation of palliative cabozantinib. PAST MEDICAL HISTORY 1. Recurrent urinary tract infections. 2. Smoking and reported history of polysubstance abuse. 3. Concern for personality disorder. 4. Cerebral palsy. 5. Hypertension. 6. Hypercholesterolemia. CURRENT MEDICATIONS 1. Potassium. 2. Benztropine mesylate. 3. Quetiapine. 4. Gabapentin. 5. Baclofen p.r.n. 6. Senna p.r.n. 7. Percocet p.r.n. 8. Pantoprazole p.r.n. 9. Colace p.r.n. 10. Flomax 0.4 mg p.o. daily. 11. Tramadol p.r.n. The patient was recently prescribed levofloxacin, hydrochlorothiazide 12.5 mg daily, and amlodipine/atorvastatin daily. ALLERGIES No known drug allergies. FAMILY HISTORY Noncontributory. SOCIAL HISTORY The patient is single. He has a history of heavy alcohol use. He is a currently daily smoker. There is a reported history of polysubstance abuse. PHYSICAL EXAMINATION VITAL SIGNS: Temperature is 98.5, blood pressure 148/88, heart rate 100, respirations 16, oxygen saturation is 93% on room air. GENERAL: Patient is alert and oriented x3, no apparent distress, sitting in his wheelchair. He appears chronically ill but is in good spirits. He is kyphotic. HEENT: Anicteric sclerae and poor dentition. NEUROLOGIC: Grossly nonfocal, although he does have some generalized weakness. SKIN: No concerning rash or lesion. EXTREMITIES: No edema or cyanosis but some clubbing. LABORATORY STUDIES Reviewed per the [employer] record. IMAGING None today. ASSESSMENT AND PLAN Renal cell carcinoma. Mr. Mesa continues on palliative cabozantinib, which he is tolerating remarkably well. He remains on a chronic schedule of opioid medication for pain control and these seem to be doing a good job for the time being, although he does continue to have pain. We spent time today reviewing his diagnostic and treatment history. It is certainly time for us to evaluate his response to therapy and I have recommended that he undergo a repeat CT scan in the next week. He can either follow up with me or with nurse practitioner here in the clinic to review the results. At this point, he does not have particularly concerning symptoms to suggest progression and given his excellent tolerance for therapy I certainly hope he is finding some response to his current treatment. We discussed management of recurrent UTI and we would certainly be more than happy to help him with this as the first call. I have also asked for speciation and sensitivity of the organism that is currently growing in urine culture. This may be helpful for us in the future. All questions answered today. I spent a total of 30 minutes of time face to face with the patient today and 25 minutes of this was spent in direct counseling and coordination of care. [*] TEAD
[2018-06-04 12:34] VITALS: BP 103/70
[2018-06-04 12:44] LABS: PLATELET COUNT, AUTOMATED 286 K/uL (150-450)
[2018-06-04] MEDS: LIDOCAINE/SOD BICARB 8.4% SYR ID PRN (12:50)
[2018-06-04] MEDS: HEPARIN FLSH (PORT) 500 UN/5ML IVP PRN (13:44)
--- NOTE | 2018-06-04 20:21 | ONCOLOGY FOLLOW UP NOTE ---
EVENT DATE: June 04, 2018 CHIEF COMPLAINT Metastatic renal cell carcinoma, acute visit for complaints of recent diarrhea and fatigue INTERIM HISTORY Mr. Mesa is here today for an add-on visit after calling our office this morning with complaints of significant fatigue, diarrhea, and dehydration which began 36 hours ago. He continues to take palliative cabozantinib, which he started in January. In general, his tolerance for side effects of the cabozantinib has been excellent. Unfortunately, he continues to have problems with pre-existing fatigue as well as low back pain. Several weeks ago, he presented to clinic with complaints of diarrhea and worsening fatigue and had significant electrolyte imbalance. He was admitted inpatient for about a day and a half. Electrolytes were repleted, and he was discharged in good condition. He has also had difficulty with chronic UTIs. He is currently on amoxicillin for his most recent UTI, and this was just changed approximately four days ago per our hospital after sensitivity reports returned back. Most recent urine culture showed possibly a carinii bacterium species. He did feel better after initiating antibiotics, but today tells me that he is unsure if his symptoms are related to his UTI or side effect from cabozantinib. His appetite has been somewhat modest, but recently improved, and he has actually increased his weight. He was quite happy to see that he had gained about 5 pounds. He has had minimal nausea. He has not had any fevers. As far as urinary symptoms are concerned, he tells me he has some "left urethra pain." He began to notice excessive stooling approximately 36 hours ago and tells me that this has been quite loose. He is using adult briefs. He tells me he has gone through about four briefs in a 24-hour period. He has not tried any [id number] measures for his diarrhea to include no Imodium, although he does report that he knows we've previously instructed him to try Imodium. He believes he may be dehydrated. ONCOLOGY HISTORY Renal cell carcinoma. 1. October 24, 2017, CT abdomen and pelvis: Conglomerate lymphadenopathy within aortocaval retroperitoneum; no gross primary malignancy; [id number]-yodiaexn bladder distention; questionable mild thickening along posterior/inferior bladder base similar to 2015 findings; borderline nonspecific splenomegaly. 2. November 27, 2017, CT scan chest, abdomen, and pelvis: Aortocaval adenopathy has increased in size compared to prior; a left periaortic lymph node has slightly increased. 3. November 2017, patient presents with right testicular discomfort. 4. December 22, 2017, testicular ultrasound reveals 2.7 x 1.9 x 2.8 cm heterogeneous hypervascular mass projecting inferior to the right testicle. 5. January 11, 2018, patient undergoes right inguinal orchiectomy. Surgical pathology reveals chronic lymphocytic inflammation with fibrosis and no evidence of malignancy. Second opinion on tissue shows nonspecific findings overall with diagnostic considerations including smooth muscle hyperplasia of testicular adnexa, granulomatous ischemic lesion, resolving granulomatous orchitis, or possibly resolving reaction to extravasated sperm (sperm granuloma). 6. February 18, 2018, CT of abdomen and pelvis reveals 1.3 cm ovoid, hypoattenuating mass along posteromedial inferior aspect of left kidney, not present on prior study. There was fullness of the right renal collecting system related to marked distention of the urinary bladder. There is a new lytic lesion involving the T8 vertebral body, and left periaortic lymph node has increased in size. A large aortocaval bruce mass was relatively unchanged. 7. He began palliative radiation on March 15, 2018, ongoing. 8. January 2018: Initiation of palliative cabozantinib. PAST MEDICAL HISTORY 1. Recurrent urinary tract infections. 2. Smoking and reported history of polysubstance abuse. 3. Concern for personality disorder. 4. Cerebral palsy. 5. Hypertension. 6. Hypercholesterolemia. FAMILY HISTORY Noncontributory. SOCIAL HISTORY The patient is single. He has a history of heavy alcohol use. He is a currently daily smoker. There is a reported history of polysubstance abuse. ALLERGIES No known drug allergies. CURRENT MEDICATIONS 1. Potassium. 2. Benztropine mesylate. 3. Quetiapine. 4. Gabapentin. 5. Baclofen p.r.n. 6. Senna p.r.n. 7. Percocet p.r.n. 8. Pantoprazole p.r.n. 9. Colace p.r.n. 10. Flomax 0.4 mg p.o. daily. 11. Tramadol p.r.n. 12. Levofloxacin. 13. Amoxicillin. 14. Hydrochlorothiazide 12.5 mg. 15. Amlodipine/atorvastatin. REVIEW OF SYSTEMS CONSTITUTIONAL: Patient denies any recent fevers, chills, or night sweats. He does report significant fatigue and believes he is dehydrated. HEENT: He denies any vision changes. No significant epistaxis. He denies any mouth sores. CARDIOVASCULAR: He denies any chest pain, syncope, or presyncope. RESPIRATORY: He denies any shortness of breath, hemoptysis, or pleuritic chest pain. GASTROINTESTINAL: No abdominal pain. No nausea. No emesis. He has had significant diarrhea, which he states began approximately 36 hours ago. He is having to use adult briefs due to the urgency and spontaneity of his diarrhea. He tells me that this is all loose. He has not tried anything prescription or over the counter for his diarrhea. He is extremely concerned about incontinence and is having some accidents. He does report some significant dysgeusia, even with water, but tells me that his weight has recently improved, up 5 pounds. He is diabetic and also is concerned about that. Prior to these symptoms, he tells me he was feeling quite well, eating and drinking well, and may have been eating a bit too much since he was feeling so good. GENITOURINARY: He reports some left flank pain, which he describes as left ureteral pain. No dysuria or hematuria. No significant urinary frequency. He reports a history of frequent UTIs and tells me that the Emergency Room recently called and changed him over to amoxicillin approximately four days ago after sensitivities returned back from most recent UA and C and S. MUSCULOSKELETAL: He has generalized weakness. He does have a pain syndrome and has a history of back pain. No focal areas of pain today. ENDOCRINE: No heat or cold intolerance. He has generalized fatigue and weakness. His fatigue has worsened a bit over the last day or two. He has poor endurance. DERM: He denies any rash. EXTREMITIES: He denies any swelling. The remainder of a 12-point review of systems is performed today and is otherwise negative. PHYSICAL EXAMINATION VITAL SIGNS: Temperature 97.3 degrees Fahrenheit, pulse 100, respirations 16, BP 103/70, oxygen saturation 94% room air. GENERAL: In general, this is a pleasant 67-year-old gentleman who appears chronically ill and somewhat fatigued today, but is otherwise in no acute distress. HEAD: Atraumatic, normocephalic. EYES: Sclerae anicteric. ENT, MOUTH: No mucositis. No ulcerations. Patient is missing teeth and has poor dentition. NECK: Supple. No lymphadenopathy. No JVD. LUNGS: Diminished breath sounds to auscultation bilaterally. No focal findings. Respiratory effort is normal. CARDIOVASCULAR: Mildly tachycardic with regular rhythm. No ectopy. Heart sounds are somewhat distant. ABDOMEN: Soft, nondistended, nontender. Bowel sounds positive times four. No organomegaly. EXTREMITIES: No edema bilaterally. No clubbing or cyanosis. NEUROLOGIC: Patient is awake, alert, oriented times three. PSYCHIATRIC: Mood and affect are appropriate. DERM: No hand-foot syndrome. He has mostly dryness to his palms bilaterally. No blisters or ulcerations. LABORATORY CBC today: WBC 2.3, ANC 1.8, hemoglobin 10.3, hematocrit 30.3%, platelets 286,000. CMP today: Sodium 137, potassium 3.8, serum creatinine 0.60, blood glucose 79. Magnesium level today normal at 1.8. IMPRESSION AND PLAN Renal cell carcinoma: This is a pleasant 67-year-old gentleman with metastatic renal cell carcinoma. He currently continues on palliative cabozantinib, which he had been tolerating fairly well. He is into his fifth cycle, and last month, he did have difficulty with severe diarrhea resulting in dehydration and electrolytes imbalance. He did require hospital admission for about a day and a half or so and was discharged in much better condition. He has followed up with Dr. Beckford. He remains on cabozantinib at 60 mg daily. He is also on a chronic scheduled opioid medication for his pain control due to chronic lower back pain. His pain medication has been managing his pain fairly well, although he does continue to have some pain. After his last visit, restaging CT scans were ordered. He tells me that these are scheduled to be done early next week. He will be following up with me next week to review results. He does have chronic urinary tract infections and most recently had recurrence and apparently was switched over to a different antibiotic a few days ago per the Emergency Room after sensitivity reports resulted back. He is currently on amoxicillin for this. He has not had any fevers or significant dysuria, but does report some flank pain. He is being seen today for add-on visit with complaints of significant diarrhea which began approximately 36 hours ago. He has not had any fevers, nausea, or vomiting. He did take his dose of cabozantinib this morning. Labs today all look good. 1. Metastatic renal cell carcinoma: Due to current symptomatology, I have asked the patient to hold cabozantinib. HE took his dose this morning so he'll start to hold this tomorrow. We will hold this until we reevaluate him next week. 2. For his mild hypotension and diarrhea and overall volume contraction, we will administer 1 L normal saline intravenously today. 3. Labs today: CBC is in good range, as is CMP, which was a bit surprising given his symptoms. Added stool for O&P, leukocytes, and C-diff. 4. Patient will be having restaging CT scans next week. I have instructed him to hold cabozantinib until we see him next week when we review results. Hopefully, there is not any sign of disease progression on his upcoming scans, and hopefully we can continue with treatment. Depending on scans, we may continue with cabozantinib, though likely at a dose reduction at 40 mg daily. This will change, however, if there is any disease progression on scans. 5. He is to continue all of his other medications, to include his antibiotic for his urinary tract infection. 6. We reviewed emergency room parameters and signs and symptoms of when to notify our office. MARZENA
[2018-06-09] MEDS: LIDOCAINE/SOD BICARB 8.4% SYR ID PRN ×2 (08:45→10:53)
[2018-06-09 09:04] VITALS: BP 88/65
[2018-06-09] MEDS: HEPARIN FLSH (PORT) 500 UN/5ML IVP PRN ×2 (09:53→10:53)
--- NOTE | 2018-06-09 11:16 | RADIOLOGY IMAGING REPORT ---
FACILITY: [facility] - [place] PATIENT NAME: Ozzy Mesa : 1950 MR: [id number] V: [id number] EXAM DATE: ORDERING PHYSICIAN: JULIET CAPELLAN TECHNOLOGIST: Location: [facility] [place] Patient: Ozzy Mesa : 1950 Visit/Account:[id number] Date of Sevice: 06/09/2018 CT CHEST ABDOMEN PELVIS W/CON HISTORY: Renal cell carcinoma ADDITIONAL HISTORY: None. TECHNIQUE: Following administration of IV contrast axial images acquired through the chest abdomen a nd pelvis during the portal venous phase. Coronal and sagittal reformatting was also performed.Dose Lowering Technique One of the following dose optimization techniques was utilized in the performance of this exam: Autom ated exposure control; adjustment of the mA and/or kV according to the patient's size; or use of an i terative reconstruction technique. Specific details can be referenced in the facility's radiology C T exam operational policy. CONTRAST: 75 mL [id number] COMPARISON: CT chest seven pelvis November 19, [address] abdomen pelvis February 18, 2018 FINDINGS: CHEST: Lungs/Pleura: There is a small patchy area of airspace consolidation the posterior aspect right lowe r lobe not present previously. An additional small area of pleural parenchymal scarring in the poste rior aspect superior segment of the right lower lobe. There is mild pleural pleural thickening along the posterior aspect left lower lobe that is slightly increased. Mediastinum/lymph nodes: Negative. Heart/vessels: There is an implanted right-sided port with the distal tip in the superior vena cava. There are coronary artery calcifications. There is a small pericardial effusion. There are increa sing calcifications within the left ventricle. There calcifications and plaque at the origin of the left subclavian artery similar to the prior study Bones/soft tissues: There is a large lytic lesion in the T8 vertebral body that appears similar to t he prior CT of abdomen and pelvis from February 18, 2018. There is a new lytic lesion along the ante rior right side of the T5 vertebral body. Mild compression fracture of L1 appears relatively unchang ed. There is a dextroconvex scoliosis of the thoracic spine ABDOMEN AND PELVIS: Hepatobiliary: There postsurgical changes from a cholecystectomy Spleen: Negative. Pancreas: Negative. Adrenals: Negative. Kidneys ureters and bladder : Previously noted ovoid hypoattenuating mass along the posterior medial inferior left kidney is again seen although slightly decreased in size now measuring approximately 1. 1 cm . There is mild to moderate perinephric stranding bilaterally increased when compared the prio r study Genitalia: There coarse calcifications within the prostate gland GI: There is diverticulosis of the left-sided colon although no CT evidence of acute diverticulitis . There is a moderate amount of fecal material seen throughout colon which can be seen with constipa tion Vessels/spaces/nodes: Mild atherosclerotic calcifications again seen throughout the abdomen and pelv is. Previously noted left periaortic lymph node slightly decreased in size now measuring 1.5 x 1.1 cm pre viously measuring 1.7 x 1.5 cm. Bulky aortocaval adenopathy previously noted bulky aortocaval adenopathy is slightly decreased in siz e now measuring 6.2 cm in height collectively 4.3 cm in width and 2.1 cm in AP dimension Bones/soft tissues: As mentioned above there are lytic lesions involving the T8 and T5 vertebral bod ies. Mild compression fracture L1 remains stable Round sclerotic focus posterior aspect of the left iliac bone remains stable at 6 mm Additional findings: None pertinent. IMPRESSION: There is a small patchy area of airspace consolidation posterior aspect of the right lower lobe not p resent previously. Is also mild pleural thickening along the posterior aspect left lower lobe that i s slightly increased. These could represent an acute infectious/inflammatory processes ho ever short -term interval follow-up recommended. The additional small area of pleural parenchymal scarring supe rior aspect of the right lower lobe is minimally increased There is a small pericardial effusionCalcifications within the left ventricle are slightly increased. Previously noted ovoid hypoattenuating mass along the posterior medial aspect left kidney is slightly decreased in size although does not appear to represent a simple cyst further evaluation with MR wit h and without contrast is recommended. Previously noted retroperitoneal adenopathy is slightly decreased as described above There is a new lytic lesion involving the right side of the T5 vertebral body. The previously noted lytic lesion involving T8 and a mild compression fracture of L1 remains relatively stable. Additional chronic findings as described Report Dictated By: Florina Her MD at 06/09/2018 10:20 AM Report E-Signed By: Florina Her MD at 06/09/2018 11:13 AM WSN:[id number]
[2018-06-09 12:26] VITALS: BP 116/72
--- NOTE | 2018-06-10 03:31 | ONCOLOGY FOLLOW UP NOTE ---
EVENT DATE: June 09, 2018 CHIEF COMPLAINT Metastatic renal cell carcinoma, here for complaints of symptoms which he believes are UTI symptoms. INTERIM HISTORY Mr. Mesa is here today for an add-on visit after calling our office this morning with complaints of significant fatigue, diarrhea, and dehydration which began 36 hours ago. He continues to take palliative cabozantinib, which he started in January. In general, his tolerance for side effects of the cabozantinib has been excellent. Unfortunately, he continues to have problems with pre-existing fatigue as well as low back pain. Several weeks ago, he presented to clinic with complaints of diarrhea and worsening fatigue and had significant electrolyte imbalance. He was admitted inpatient for about a day and a half. Electrolytes were repleted, and he was discharged in good condition. He has also had difficulty with chronic UTIs. Currently, he was changed over to amoxicillin per our ER due to sensitivity reports from most recent UA and urine culture and sensitivity. He just completed amoxicillin yesterday. Most recent urine culture showed possibly a corynebacterium species. He did feel better after initiating antibiotics, but today continues to report that he believes he may have UTI symptoms. He is not sure. He also tells me that maybe this is musculoskeletal in nature. He is reporting some left-sided back pain, though he tells me that this is "left urethra pain." I did see him last week for an acute-care visit secondary to UTI symptoms as well as sudden onset of diarrhea of approximately 36 hours. He was volume contracted and required IV fluid hydration. He was in the hospital incidentally today for his CT scans. He is scheduled to follow up with me again in two days' time to review CT results. His cabozantinib remains on hold per our last instructions. He reports that he took two oxycodone yesterday for this left-sided pain, and his pain significantly responded to that. He has not had any further diarrhea since his last visit. He believes that he is drinking fluids fairly well today, but tells me that he had some difficulty drinking fluids yesterday. He tried to purposely push fluids today prior to his CT scan. He reports that his urine was extremely dark-colored this morning, which he describes as brown to nirali. ONCOLOGY HISTORY Renal cell carcinoma. 1. October 24, 2017, CT abdomen and pelvis: Conglomerate lymphadenopathy within aortocaval retroperitoneum; no gross primary malignancy; [id number] bladder distention; questionable mild thickening along posterior/inferior bladder base similar to 2015 findings; borderline nonspecific splenomegaly. 2. November 27, 2017, CT scan chest, abdomen, and pelvis: Aortocaval adenopathy has increased in size compared to prior; a left periaortic lymph node has slightly increased. 3. November 2017, patient presents with right testicular discomfort. 4. December 22, 2017, testicular ultrasound reveals 2.7 x 1.9 x 2.8 cm heterogeneous hypervascular mass projecting inferior to the right testicle. 5. January 11, 2018, patient undergoes right inguinal orchiectomy. Surgical pathology reveals chronic lymphocytic inflammation with fibrosis and no evidence of malignancy. Second opinion on tissue shows nonspecific findings overall with diagnostic considerations including smooth muscle hyperplasia of testicular adnexa, granulomatous ischemic lesion, resolving granulomatous orchitis, or possibly resolving reaction to extravasated sperm (sperm granuloma). 6. February 18, 2018, CT of abdomen and pelvis reveals 1.3 cm ovoid, hypoattenuating mass along posteromedial inferior aspect of left kidney, not present on prior study. There was fullness of the right renal collecting system related to marked distention of the urinary bladder. There is a new lytic lesion involving the T8 vertebral body, and left periaortic lymph node has increased in size. A large aortocaval bruce mass was relatively unchanged. 7. He began palliative radiation on March 15, 2018, ongoing. 8. January 2018: Initiation of palliative cabozantinib. PAST MEDICAL HISTORY 1. Recurrent urinary tract infections. 2. Smoking and reported history of polysubstance abuse. 3. Concern for personality disorder. 4. Cerebral palsy. 5. Hypertension. 6. Hypercholesterolemia. FAMILY HISTORY Noncontributory. SOCIAL HISTORY The patient is single. He has a history of heavy alcohol use. He is a currently daily smoker. There is a reported history of polysubstance abuse. ALLERGIES No known drug allergies. CURRENT MEDICATIONS 1. Potassium. 2. Benztropine mesylate. 3. Quetiapine. 4. Gabapentin. 5. Baclofen p.r.n. 6. Senna p.r.n. 7. Percocet p.r.n. 8. Pantoprazole p.r.n. 9. Colace p.r.n. 10. Flomax 0.4 mg p.o. daily. 11. Tramadol p.r.n. 12. Levofloxacin. 13. Amoxicillin. 14. Hydrochlorothiazide 12.5 mg. 15. Amlodipine/atorvastatin. REVIEW OF SYSTEMS CONSTITUTIONAL: Patient reports some UTI symptoms as per above. He denies any fevers, chills or night sweats. He has significant fatigue and has been trying to push oral fluids, but believes that he was not able to drink very much yesterday. HEENT: He denies any vision changes. No significant epistaxis. He denies any mouth sores. CARDIOVASCULAR: He denies any chest pain, syncope, or presyncope. RESPIRATORY: He denies any shortness of breath, hemoptysis, or pleuritic chest pain. GASTROINTESTINAL: No abdominal pain, nausea, vomiting, constipation, or diarrhea. He had significant diarrhea last week, though reports that this has completely resolved since fluids last Thursday. He does use adult briefs due to urgency and spontaneity. He does have significant dysgeusia, even with water. He recently improved his weight, however, up 5 pounds. He was eating quite well last week. He is also diabetic. GENITOURINARY: He continues to report some left-sided back pain. He believes that this is related to his ureters. No dysuria. He does have some urinary frequency, but tells me that this is really unchanged. He is unsure if this is UTI symptoms, and tells me that now he thinks this may be musculoskeletal. He just completed a course of amoxicillin. MUSCULOSKELETAL: He reports generalized weakness and fatigue. He has a pain syndrome and has a history of back pain. ENDOCRINE: No heat or cold intolerance. He has generalized fatigue and weakness. Fatigue is overall stable and has not worsened. He has poor endurance overall. DERM: He denies any rash. EXTREMITIES: He denies any swelling. The remainder of a 12-point review of systems is performed today and is otherwise negative. PHYSICAL EXAMINATION VITAL SIGNS: Temperature 98.0 degrees Fahrenheit, pulse 82, respirations 16, BP 88/65, oxygen saturation 89% room air. GENERAL: In general, this is a pleasant 67-year-old gentleman who appears chronically ill and somewhat fatigued, but is in no acute distress. He does appear improved compared to last week. HEAD: Atraumatic, normocephalic. EYES: Sclerae anicteric. ENT, MOUTH: No mucositis. No ulcerations. Patient is missing teeth and has poor dentition. NECK: Supple. No lymphadenopathy. No JVD. LUNGS: Diminished breath sounds to auscultation bilaterally. No focal findings. Respiratory effort is normal. CARDIOVASCULAR: Regular rate and rhythm. No ectopy. Heart sounds are somewhat distant. ABDOMEN: Soft, nondistended, nontender. Bowel sounds positive times four. No organomegaly. EXTREMITIES: No edema bilaterally. No clubbing or cyanosis. NEUROLOGIC: Patient is awake, alert, oriented times three. PSYCHIATRIC: Mood and affect are appropriate. DERM: No hand-foot syndrome. He has mostly dryness to his palms bilaterally. No blisters or ulcerations. MUSCULOSKELETAL: No CVA tenderness noted bilaterally. No pain to palpation of the bony spinous processes. He does report pain at the posterior lower thoracic spine. LABORATORY UA today: Completely negative, to include negative leukocytes, negative bacteria, negative nitrites. Urine appeared clear yellow. IMPRESSION AND PLAN This is a pleasant 67-year-old gentleman with metastatic renal cell carcinoma. He currently continues on palliative cabozantinib, which he had been tolerating fairly well. He is into his fifth cycle. Last month, he did have some difficulty with severe diarrhea, resulting in dehydration and significant electrolytes imbalance which required hospital admission for about a day and a half or two. He was discharged in much better condition. At that time, cabozantinib was held, though this was able to be reinitiated at full dose, 60 mg daily. He is also on chronic scheduled opioid medication for his chronic lower back pain. He has had difficulty with chronic urinary tract infections. He was seen in office last week for another case of severe diarrhea, which had been ongoing for approximately 36 hours. He was hydrated and was noted to feel much better afterwards. I did place the cabozantinib last week due to his side effects, and he just had restaging scans done today. Plan is to review these with him at the end of this week and reevaluate whether or not we continue with cabozantinib, versus continuation at a dose reduction, versus change in treatment plan. He is reporting some left-sided pain, which is really posterior lower thoracic pain. This currently seems to be muscular in nature, and this responded well to oxycodone. A UA today was completely normal. 1. Metastatic renal cell carcinoma: Recently placed on hold. We are going to reevaluate this on Thursday, after he has his restaging scans. For now, cabozantinib will remain on hold. 2. Hypotension and decreased oral intake. We will administer 1L normal saline intravenously today. 3. Diarrhea: Completely resolved. 4. Imaging: Awaiting results from restaging CT scans, which were just done earlier this morning. 5. Pain: He will continue on his oxycodone, as his pain did respond well to this. 6. We reviewed emergency room parameters and signs and symptoms of when to call our office. MARZENA
[~2018-06-15 11:00] MED LIST changes: +ALTEPLASE RECOMB 2 MG VIAL IVP PRN; +DEXTROSE 5%(*) 100 ML BAG 100 ML IVPB PRN; +IOPAMIDOL 76% 150 ML INFUS BTL 150 ML ONE; +NS(*) 0.9% 100 ML BAG 100 ML IVPB PRN; +NS(*) 0.9% 1000 ML BAG 1,000 ML IV ONE; +NS(*) 0.9% 500 ML BAG 500 ML IV PRN; +ONDANSETRON 4 MG/2 ML VIAL IVP ONE; +POTA10CA40 PO; +WATER FOR INJ,STERILE 20 ML IVP PRN
[2018-06-15 11:02] VITALS: BP 100/66
[2018-06-15 12:22] LABS: PLATELET COUNT, AUTOMATED 235 K/uL (150-450)
--- NOTE | 2018-06-16 14:30 | ONCOLOGY FOLLOW UP NOTE ---
EVENT DATE: June 15, 2018 CHIEF COMPLAINT Patient here for ongoing care regarding his metastatic renal cell carcinoma. Also here for results on recent re-staging scans. INTERIM HISTORY Mr. Mesa is here today for followup on some restaging CT scans that were just obtained on June 09, 2018. I also saw him last week and instructed him to hold his cabo secondary to worsening fatigue, diarrhea and dehydration. He did require IV fluid hydration last week. Overall, he had tolerated cabo quite well, although he did have one episode a few weeks ago where he had significant diarrhea and fatigue and was found to have severe electrolyte imbalance. He required inpatient admission for about 1-1/2 days or so. Unfortunately, that had been ongoing for some time and he did not alert us. He has also had difficulty with chronic UTIs. He recently completed a course of amoxicillin. Most recently, he completed a course of oxacillin for UTI after sensitivity reports returned from the ER. He continues to report "UTI" symptoms, although is not having any dysuria or hematuria or urinary frequency. He is mostly reporting left flank/left sided back pain, which is musculoskeletal in nature. This is alleviated by his oxycodone tablets. He also is on oral potassium supplementation and this has been ordered by his PCP, Dr. Tillman. He has questions about dosing. He reports he is drinking fluids well and is eating better. He is no longer having any diarrhea and now is reporting some constipation, although Cabo has been on hold for about 1 to 1-1/2 weeks. ONCOLOGY HISTORY Renal cell carcinoma. 1. October 24, 2017, CT abdomen and pelvis: Conglomerate lymphadenopathy within aortocaval retroperitoneum; no gross primary malignancy; [id number] bladder distention; questionable mild thickening along posterior/inferior bladder base similar to 2015 findings; borderline nonspecific splenomegaly. 2. November 27, 2017, CT scan chest, abdomen, and pelvis: Aortocaval adenopathy has increased in size compared to prior; a left periaortic lymph node has slightly increased. 3. November 2017, patient presents with right testicular discomfort. 4. December 22, 2017, testicular ultrasound reveals 2.7 x 1.9 x 2.8 cm heterogeneous hypervascular mass projecting inferior to the right testicle. 5. January 11, 2018, patient undergoes right inguinal orchiectomy. Surgical pathology reveals chronic lymphocytic inflammation with fibrosis and no evidence of malignancy. Second opinion on tissue shows nonspecific findings overall with diagnostic considerations including smooth muscle hyperplasia of testicular adnexa, granulomatous ischemic lesion, resolving granulomatous orchitis, or possibly resolving reaction to extravasated sperm (sperm granuloma). 6. February 18, 2018, CT of abdomen and pelvis reveals 1.3 cm ovoid, hypoattenuating mass along posteromedial inferior aspect of left kidney, not present on prior study. There was fullness of the right renal collecting system related to marked distention of the urinary bladder. There is a new lytic lesion involving the T8 vertebral body, and left periaortic lymph node has increased in size. A large aortocaval bruce mass was relatively unchanged. 7. He began palliative radiation on March 15, 2018, ongoing. 8. January 2018: Initiation of palliative cabozantinib. PAST MEDICAL HISTORY 1. Recurrent urinary tract infections. 2. Smoking and reported history of polysubstance abuse. 3. Concern for personality disorder. 4. Cerebral palsy. 5. Hypertension. 6. Hypercholesterolemia. FAMILY HISTORY Noncontributory. SOCIAL HISTORY The patient is single. He has a history of heavy alcohol use. He is a currently daily smoker. There is a reported history of polysubstance abuse. ALLERGIES No known drug allergies. CURRENT MEDICATIONS 1. Potassium. 2. Benztropine mesylate. 3. Quetiapine. 4. Gabapentin. 5. Baclofen p.r.n. 6. Senna p.r.n. 7. Percocet p.r.n. 8. Pantoprazole p.r.n. 9. Colace p.r.n. 10. Flomax 0.4 mg p.o. daily. 11. Tramadol p.r.n. 12. Levofloxacin. 13. Amoxicillin. 14. Hydrochlorothiazide 12.5 mg. 15. Amlodipine/atorvastatin. REVIEW OF SYSTEMS CONSTITUTIONAL: Patient continues to report some left flank pain, which he thinks is a UTI. He denies any recent fevers, chills or night sweats. He has significant fatigue, which is unchanged. This did improve after recent IV fluid hydration. He believes his appetite is decreased, although he believes he is starting to eat better. HEENT: He denies any vision changes. No significant epistaxis. He denies any mouth sores. CARDIOVASCULAR: He denies any chest pain, syncope, or presyncope. RESPIRATORY: He denies any shortness of breath, hemoptysis, or pleuritic chest pain. He continues to smoke cigarettes. GASTROINTESTINAL: No abdominal pain. No further nausea. No vomiting. No further diarrhea. He is now reporting some constipation over the last couple of days. He is drinking fluids well. He is concerned about being diabetic and proper nutrition related to diabetes. GENITOURINARY: No dysuria or hematuria. He reports some left sided back/flank pain which he now believes is musculoskeletal. He is not having any urgency or frequency. MUSCULOSKELETAL: He continues to report generalized weakness and fatigue. He has a pain syndrome as well as a history of chronic back pain. ENDOCRINE: No heat or cold intolerance. He continues to report generalized fatigue and weakness. Fatigue is overall stable. DERM: He denies any rash. No suspicious lumps or bumps. EXTREMITIES: He denies any swelling. The remainder of a 12-point review of systems is performed today and is otherwise negative. PHYSICAL EXAMINATION VITAL SIGNS: Weight today 56.6 kg, stable. Temperature 98.8t, P 77, R 16, BP 100/66, oxygen saturation 94% room air. Currently reports pain level at "2/10". Currently reports fatigue at level of 0. GENERAL: In general, this is a pleasant 67-year-old gentleman who appears chronically ill but is in no acute distress. He appears improved compared to last week. HEAD: Atraumatic, normocephalic. EYES: Sclerae anicteric. ENT/MOUTH: No mucositis. No ulcerations. Patient is missing teeth and has poor dentition. NECK: Supple. No lymphadenopathy. No JVD. LUNGS: Diminished breath sounds to auscultation bilaterally. No focal findings. Respiratory effort is normal. CARDIOVASCULAR: Regular rate and rhythm. No ectopy. Heart sounds are somewhat distant. ABDOMEN: Soft, nondistended, nontender. Bowel sounds positive times four. No organomegaly. EXTREMITIES: No edema bilaterally. No clubbing or cyanosis. NEUROLOGIC: Patient is awake, alert, oriented times three. PSYCHIATRIC: Mood and affect are appropriate. DERM: No hand-foot syndrome. He has mostly dryness to his palms bilaterally. No blisters or ulcerations. MUSCULOSKELETAL: No CVA tenderness noted bilaterally. No pain to palpation of the bony spinous processes. He does report pain at the posterior lower thoracic spine. LABORATORY No labs today. These will be done after our visit today. IMAGING CT chest, abdomen and pelvis with contrast at [facility] on June 09, 2018: 1. There is a small patchy area of air space consolidation of posterior aspect of the right lower lobe not present previously. There is also mild pleural thickening along the posterior aspect of the left lower lobe that is slightly increased. These could represent an acute infectious/inflammatory process, although short-term interval followup recommended. The additional small area of pleural parenchymal scarring of superior aspect of the right lower lobe is minimally increased. 2. There is a small pericardial effusion. Calcifications within the left ventricle are slightly increased. 3. Previously noted ovoid hypoattenuating mass along the posterior medial aspect, left kidney, is slightly decreased in size, although does not appear to represent a simple cyst. Further evaluation with MR with and without contrast is recommended. 4. Previously noted retroperitoneal adenopathy is slightly decreased as described above. 5. There is a new lytic lesion involving the right side of the T5 vertebral body. The previously noted lytic lesions involving T8 and a mild compression fracture of L1 remains relatively stable. 6. Additional chronic findings as described. IMPRESSION AND PLAN This is a pleasant 67-year-old gentleman with metastatic renal cell carcinoma. He currently continues on palliative cabozantinib, which he had been tolerating fairly well. He is into his fifth cycle. Last month, he did have some difficulty with severe diarrhea, resulting in dehydration and significant electrolytes imbalance which required hospital admission for about a day and a half or two. He was discharged in much better condition. At that time, cabozantinib was held, though this was able to be reinitiated at full dose, 60 mg daily. He is also on chronic scheduled opioid medication for his chronic lower back pain. He has had difficulty with chronic urinary tract infections. He recently completed a course of amoxicillin per ER. He is not having any typical urinary tract infection symptoms to include no dysuria, hematuria or urinary frequency or urgency. He is having some left lower back/flank pain, which may actually correlate to area on CT scan which is pre-existing to the left kidney. Additionally, some of this is musculoskeletal in nature and is alleviated by his pain medication. Cabo was placed on hold at his last visit secondary to side effects. We discussed reinitiating after CT scans were done. 1. Metastatic renal cell carcinoma: Patient just had re-imaging CT chest, abdomen and pelvis on June 09, 2018. Overall, results are stable to slightly improved. I reviewed these line by line with patient today. I would like to reinitiate his cabo, but given recent side effects we are going to restart this at a dose reduction at 40 mg daily. New prescription and orders were written today. Patient and I discussed that the process is the same as before and he will be contacted via his specialty pharmacy for delivery once authorization has been obtained. 2. Imaging. Again, reviewed in clinic today. There is an area in the right lower lobe that was not present previously, although this could certainly be inflammatory. He is not having any infection-type symptoms and will continue to monitor. Discussed with Mr. Mesa that we could potentially order a short- term followup CT of the chest in four to eight weeks. He verbalized understanding. He is aware that he needs to notify us for any fever. Again, he does continue to smoke quite heavily. 3. Diarrhea: Currently completely resolved. He now has some constipation. We discussed this at length. His constipation may be related to his pain medications as well as the fact that he has been on a treatment hold regarding cabo. Discussed that his diarrhea can certainly recur once cabo is reinitiated and, again, we discussed signs and symptoms of common side effects. 4. Hypokalemia. We will recheck CMP after visit today. Depending on results today, we will notify him of what dose to take for his oral potassium. Patient would like for us to manage this now versus his PCP. Discussed this at length with patient today. He is to go to one doctor for management, either us or his PCP. 5. Pain: Currently using oxycodone. He does not require any refills at this time. 6. Our certified social workers in health care, Siena, was in the office with us today during our visit as they needed to discuss a phone call from his home health provider. See social work notes. 7. Patient will return to clinic in four weeks for followup. He should be on cabo at lower dose at that point. He may certainly follow up sooner in the interim. MTDD
[2018-07-02] MEDS ORDERED: CABO40TA (08:42)
[2018-07-09 11:17] VITALS: BP 126/65
[2018-07-17] MEDS ORDERED: CIPR-344 PO (14:46)
[2018-07-17] MEDS ORDERED: CEPH500T7 PO (14:59)
== END 2018-07-18 ==
LOC: ONC 11:00
PROVIDERS: ATTEND Internal Medicine Medical Oncology
DX: C64.2 Malignant neoplasm of left kidney, except renal pelvis (principal); E87.6 Hypokalemia; R19.7 Diarrhea, unspecified; I95.9 Hypotension, unspecified; M54.5 Low back pain; F17.210 Nicotine dependence, cigarettes, uncomplicated; R91.8 Other nonspecific abnormal finding of lung field
CPT/HCPCS: 36415; 36591; 71260; 74177; 81001; 83630; 83735; 84100; 85025; 85027; 87088; 87177; 96360; 96361; G0463; J1642; J7030; Q9967; 82040; 82247; 82310; 82374; 82435; 82565; 82947; 84075; 84132; 84155; 84295; 84450; 84460; 84520; 96365; 99212; J2405

== ENCOUNTER 2018-07-17 13:53 | Emergency (ER) | payer MEDICARE, MEDICAID ==
[2018-05-19 10:59] VITALS: Wt 53.5 kg
[~2018-07-17 13:53] MED LIST changes: -ALTEPLASE RECOMB 2 MG VIAL IVP PRN; +CABO40TA; -DEXTROSE 5%(*) 100 ML BAG 100 ML IVPB PRN; -IOPAMIDOL 76% 150 ML INFUS BTL 150 ML ONE; -NS(*) 0.9% 100 ML BAG 100 ML IVPB PRN; -NS(*) 0.9% 1000 ML BAG 1,000 ML IV ONE; -NS(*) 0.9% 500 ML BAG 500 ML IV PRN; -ONDANSETRON 4 MG/2 ML VIAL IVP ONE; -WATER FOR INJ,STERILE 20 ML IVP PRN
--- NOTE | 2018-07-17 13:58 | ER Report ---
History and Physical Time Seen By MD: 13:58 HPI/ROS CHIEF COMPLAINT: UTI symptoms HISTORY OF PRESENT ILLNESS: This is a 67-year-old male who presents to emergency department for UTI symptoms. Patient states that he began to have some painful urination and discoloration noted in his urine today, also has bilateral flank pain. He also has a history of renal cell carcinoma on the right. Is on continued chemotherapy. Patient states that this feels similar to the urinary tract infections he's had in the past. He denies fevers or chills. No nausea or vomiting this time. Denies chest pain or shortness of breath. No rashes. REVIEW OF SYSTEMS: Constitutional: No fever, no chills. Eyes: No discharge. ENT: No sore throat. Cardiovascular: No chest pain, no palpitations. Respiratory: No cough, no shortness of breath. Gastrointestinal: No abdominal pain, no vomiting. Genitourinary: As above. Musculoskeletal: As above. Skin: No rashes. Neurological: No headache. Allergies: Coded Allergies: No Known Drug Allergies (Verified , 07/17/18) Home Meds Active Scripts Cephalexin 500 Mg Tab (KEFLEX 500 MG TAB) 500 Mg Tablet, 500 MG PO Q6H for 7 Days, #28 TAB 0 Refills Prov:TRAE AMADOR CLINICAL CARE LEADER-BC 07/17/18 Levofloxacin 500 Mg Tab (LEVAQUIN 500 MG TAB) 500 Mg Tablet, 500 MG PO DAILY for 7 Days, #7 TAB Prov:INGRID MARINELLI [facility] 05/25/18 Pantoprazole Sodium (PANTOPRAZOLE SODIUM) 40 Mg Tablet.dr, 40 MG PO QDAY for 90 Days, #90 TAB.SR Prov:ZAYDA DUDLEY DO 01/11/18 Tamsulosin Hcl (FLOMAX) 0.4 Mg Cap.er.24h, 0.4 MG PO QHS for 30 Days, #30 CAP 0 Refills Prov:STEPH PHELAN MD 10/24/17 Reported Medications Cabozantinib S-Malate (Cabometyx) 40 Mg Tablet Pt takes 40mg QD 07/02/18 Potassium Chloride (POTASSIUM CHLORIDE) 10 Meq Capsule.er, 20 MEQ PO BID 05/26/18 [oxycodone] 5mg No Conflict Check, 5 MG PO Q4-6H PRN for PAIN take 1-2 tabs po q 4-6 hours 03/31/18 Oxycodone Hcl (OXYCONTIN) 10 Mg Tab.er.12h, 10 MG PO, TAB 03/31/18 Sennosides/Docusate Sodium (SENNA S TABLET) 1 Each Tablet, 1 EACH PO 03/22/18 Amlodipine/Atorvastatin (AMLODIPINE-ATORVAST 5-20 MG) 1 Each Tablet, 1 EACH PO QDAY, TAB 06/08/15 Benztropine Mesylate (BENZTROPINE MESYLATE) 0.5 Mg Tab, 0.5 MG PO HS, TAB 01/29/15 Quetiapine Fumarate (QUETIAPINE FUMARATE) 25 Mg Tablet, 25 MG PO Q6H PRN for AGITATION, #60 10/30/13 Gabapentin (GABAPENTIN) 300 Mg Capsule, 900 MG PO BID, #180 CAPSULE Take 3 capsules every morning and before bed 07/04/13 Baclofen (BACLOFEN) 10 Mg Tablet, 10 MG PO BID, #60 TAB Take 1 tablet by mouth twice daily 06/28/13 Past Medical/Surgical History The patient has a past medical and surgical history of cerebral palsy, angina, hypertension, hypercholesterolemia, COPD, frequent nausea and emesis in the mornings, GERD, gastric ulcer, inguinal hernia, gallbladder disease, renal cell carcinoma, prostatitis, frequent urinary tract infections, spinal stenosis, generalized arthritis, chronic back pain, wears glasses, diet-controlled d iabetes, depression, anxiety, smokes, cholecystectomy, placement of a hossein in his right leg, left heel surgery, ankle surgery, tonsillectomy. Reviewed Nurses Notes: Yes Hx Smoking: Yes (1 ppd, 40 years) Smoking Status: Current: Every Day Smoker Exposure to Second Hand Smoke?: Yes Hx Substance Use Disorder: Yes (occ) Hx Alcohol Use: No Constitutional Vital Sign - Last 24 Hours 07/17/18 07/17/18 07/17/18 13:59 14:13 14:30 Temp 98.2 Pulse 79 73 Resp 20 B/P (MAP) 123/92 123/92 (102) Pulse Ox 93 95 O2 Delivery Room Air Physical Exam General Appearance: The patient is alert, has no immediate need for airway protection and no signs of toxicity. Eyes: Pupils equal and round no pallor or injection. ENT, Mouth: Mucous membranes are moist. Respiratory: There are no retractions, lungs are clear to auscultation. Cardiovascular: Regular rate and rhythm. Gastrointestinal: Abdomen is soft and non tender, no masses, bowel sounds normal. Neurological: No murmurs, clicks or rubs. Skin: Warm and dry, no rashes. Musculoskeletal: Neck is supple non tender. Extremities are nontender, nonswollen and have full range of motion. DIFFERENTIAL DIAGNOSIS: After history and physical exam differential diagnosis was considered for urinary tract infection, renal colic, kidney stone, metastasis of renal cell carcinoma. Medical Decision Making Data Points Laboratory Hematology Test 07/17/18 13:58 Urine Color Yellow Urine Clarity Slightly-cloudy Urine pH 6.0 pH (4.8-9.5) Urine Specific [place] 1.019 Urine Protein Negative mg/dL (NEGATIVE) Urine Glucose (UA) Negative mg/dL (NEGATIVE) Urine Ketones Negative mg/dL (NEGATIVE) Urine Blood Negative (NEGATIVE) Urine Nitrite Negative (NEGATIVE) Urine Bilirubin Negative (NEGATIVE) Urine Urobilinogen 0.2 mg/dL (0.2-1.9) Urine Leukocyte Esterase Small (NEGATIVE) Urine RBC 1 /HPF (0-2/HPF) Urine WBC 20 /HPF (0-5/HPF) Urine Squamous Epithelial Cells None /LPF (</=FEW) Urine Bacteria Few /HPF (NONE-FEW) Urine Mucus None /HPF (NONE-FEW) Chemistry Test 07/17/18 13:58 Urine Color Yellow Urine Clarity Slightly-cloudy Urine pH 6.0 pH (4.8-9.5) Urine Specific [place] 1.019 Urine Protein Negative mg/dL (NEGATIVE) Urine Glucose (UA) Negative mg/dL (NEGATIVE) Urine Ketones Negative mg/dL (NEGATIVE) Urine Blood Negative (NEGATIVE) Urine Nitrite Negative (NEGATIVE) Urine Bilirubin Negative (NEGATIVE) Urine Urobilinogen 0.2 mg/dL (0.2-1.9) Urine Leukocyte Esterase Small (NEGATIVE) Urine RBC 1 /HPF (0-2/HPF) Urine WBC 20 /HPF (0-5/HPF) Urine Squamous Epithelial Cells None /LPF (</=FEW) Urine Bacteria Few /HPF (NONE-FEW) Urine Mucus None /HPF (NONE-FEW) Urinalysis Test 07/17/18 13:58 Urine Color Yellow Urine Clarity Slightly-cloudy Urine pH 6.0 pH (4.8-9.5) Urine Specific [place] 1.019 Urine Protein Negative mg/dL (NEGATIVE) Urine Glucose (UA) Negative mg/dL (NEGATIVE) Urine Ketones Negative mg/dL (NEGATIVE) Urine Blood Negative (NEGATIVE) Urine Nitrite Negative (NEGATIVE) Urine Bilirubin Negative (NEGATIVE) Urine Urobilinogen 0.2 mg/dL (0.2-1.9) Urine Leukocyte Esterase Small (NEGATIVE) Urine RBC 1 /HPF (0-2/HPF) Urine WBC 20 /HPF (0-5/HPF) Urine Squamous Epithelial Cells None /LPF (</=FEW) Urine Bacteria Few /HPF (NONE-FEW) Urine Mucus None /HPF (NONE-FEW) ED Course/Re-evaluation ED Course The patient was admitted to room. A history of physical were obtained. Differential diagnoses were considered. A UA was collected.UA showing small leukocytes, 20 urine white blood cells with urine bacteria. The patient's presentation we'll go ahead and treat as a urinary tract infection, I did send the urine for culture. The patient was started on Keflex. Estrogen to follow-up with his primary care provider within the next 2-4 days patient expressed understanding was discharged home. Also encouraged drink plenty of water. Decision to Disposition Date: July 17, 2018 Decision to Disposition Time: 14:43 Depart Departure Latest Vital Signs Vital Signs Date Time Temp Pulse Resp B/P (MAP) Pulse Ox O2 Delivery O2 Flow Rate FiO2 07/17/18 14:30 73 95 07/17/18 14:13 123/92 (102) 07/17/18 13:59 98.2 20 Room Air Impression: Primary Impression: Urinary tract infection Condition: Improved Disposition: HOME OR SELF-CARE Referrals: GAUDENCIO RUIZ DO (PCP) 5 Days New Scripts Cephalexin 500 Mg Tab (KEFLEX 500 MG TAB) 500 Mg Tablet 500 MG PO Q6H for 7 Days, #28 TAB 0 Refills Prov: TRAE AMAODR CLINICAL CARE LEADER-BC 07/17/18 Patient Instructions: Urinary Tract Infection in Men (ED) Additional Instructions: You have what appears to be the start of a UTI. Please start taking Cipro as prescribed. The culture has been sent out. Please follow up with your PCP next week for reevaluation. Drink plenty of water. Get plenty of rest. Return to the ED for any other concerns or worsening symptoms. Problem Qualifiers Primary Impression: Urinary tract infection Urinary tract infection type: acute cystitis Hematuria presence: without hematuria Qualified Codes: N30.00 - Acute cystitis without hematuria TRAE AMADOR July 17, 2018 13:58
[2018-07-17 14:13] VITALS: BP 123/92
[2018-07-17] MEDS ORDERED: CIPR-344 PO (14:46)
[2018-07-17] MEDS ORDERED: CEPH500T7 PO (14:59)
== END 2018-07-17 14:54 | disposition home or self-care (01) ==
LOC: ER 13:57
DX: N30.00 Acute cystitis without hematuria (principal)
CPT/HCPCS: 81001; 87088; 99282

== ENCOUNTER → 2018-08-09 | Outpatient (CLI) | payer MEDICARE, MEDICAID ==
[2018-05-19 10:59] VITALS: BMI 19.9
[~2018-08-09] MED LIST changes: +MAGN400T36 PO; +ONDA4TAB9 PO
--- NOTE | 2018-08-09 15:03 | RADIOLOGY IMAGING REPORT ---
FACILITY: [facility] - [place] PATIENT NAME: Ozzy Mesa : 1950 MR: [id number] V: [id number] EXAM DATE: ORDERING PHYSICIAN: ENEIDA LEONG TECHNOLOGIST: Location: [facility] - [place] Patient: Ozzy eMsa : 1950 Visit/Account:[id number] Date of Sevice: 08/09/2018 WHOLE BODY BONE SCAN HISTORY: Metastatic renal cell carcinoma TECHNIQUE: 25.4 mCi technetium 99m HDP was injected intravenously. Delayed anterior and posterior wh ole body gamma camera images were obtained. Additional gamma camera images: Right and left lateral skull COMPARISON: CT chest abdomen pelvis June 09, 2018 FINDINGS: Bone radiotracer activity: There are focal areas of isotope uptake involving the right humeral head, the midshaft of the right humerus, multiple left-sided ribs,. There is relative photopenia of the T 8 and T9 vertebral bodies. A large lytic lesion was present in the T8 vertebral body on the recent C T which may account for the photopenia. Extraosseous radiotracer activity: Unremarkable. Renal and urinary collecting system activity: Unremarkable. IMPRESSION: Focal areas of uptake along the right humeral head, midshaft of the right humerus and multiple left-s ided rib fractures are concerning for metastases There is relative photopenia of the T8 and T9 vertebral bodies. A large lytic lesion is present in t he T8 vertebral body which may account for this photopenia Report Dictated By: Florina Her MD at 08/09/2018 2:52 PM Report E-Signed By: Florina Her MD at 08/09/2018 2:59 PM WSN:[email or web address]
== END ==
LOC: NUC 09:51
PROVIDERS: ATTEND Nurse Practitioner
DX: C64.9 Malignant neoplasm of unspecified kidney, except renal pelvis (principal); C79.51 Secondary malignant neoplasm of bone
CPT/HCPCS: 78306; A9503

== ENCOUNTER 2018-08-10 14:18 | Emergency (ER) | payer MEDICARE, MEDICAID ==
[2018-05-19 10:59] VITALS: Wt 53.5 kg
[~2018-08-10 14:18] MED LIST changes: -MAGN400T36 PO
--- NOTE | 2018-08-10 14:23 | ER Report ---
History and Physical Time Seen By MD: 14:23 HPI/ROS CHIEF COMPLAINT: Low potassium HISTORY OF PRESENT ILLNESS: This is a 67-year-old male who presents to the emergency department for low potassium. Patient has a history of renal cell carcinoma. Has routinely been following oncology, noted to have metastasis to the thoracic spine, started radiation treatment last week. Had a routine follow- up with his oncology group this morning, did routine laboratory studies his potassium was noted be 2.7, potassium 2.8 yesterday. Patient has no other co mplaints other than fatigue. He was recently seen in the emergency department for a urinary tract infection, started on antibiotics, patient states that has since then resolved. No fevers or chills home, no chest pain or shortness of breath. REVIEW OF SYSTEMS: Constitutional: No fever, no chills. Eyes: No discharge. ENT: No sore throat. Cardiovascular: No chest pain, no palpitations. Respiratory: No cough, no shortness of breath. Gastrointestinal: No abdominal pain, no vomiting. Genitourinary: No hematuria. Musculoskeletal: As above. Skin: No rashes. Neurological: No headache. Allergies: Coded Allergies: No Known Drug Allergies (Verified , 08/10/18) Home Meds Active Scripts Magnesium Oxide (MAGNESIUM OXIDE) 400 Mg Tablet, 400 MG PO BID for 30 Days, #60 TAB 0 Refills Prov:TRAE AMADOR CANDY PULLER-BC 08/10/18 Pantoprazole Sodium (PANTOPRAZOLE SODIUM) 40 Mg Tablet.dr, 40 MG PO QDAY for 90 Days, #90 TAB.SR Prov:ZAYDA DUDLEY DO 01/11/18 Tamsulosin Hcl (FLOMAX) 0.4 Mg Cap.er.24h, 0.4 MG PO QHS for 30 Days, #30 CAP 0 Refills Prov:STEPH PHELAN MD 10/24/17 Reported Medications Ondansetron 4 Mg Odt (ONDANSETRON 4 MG ODT) 4 Mg Tab.rapdis, 8 MG PO ONCE, TAB 08/05/18 Cabozantinib S-Malate (Cabometyx) 40 Mg Tablet Pt takes 40mg QD 07/02/18 Potassium Chloride (POTASSIUM CHLORIDE) 10 Meq Capsule.er, 20 MEQ PO BID 05/26/18 [oxycodone] 5mg No Conflict Check, 5 MG PO Q4-6H PRN for PAIN take 1-2 tabs po q 4-6 hours 03/31/18 Oxycodone Hcl (OXYCONTIN) 10 Mg Tab.er.12h, 10 MG PO, TAB 03/31/18 Amlodipine/Atorvastatin (AMLODIPINE-ATORVAST 5-20 MG) 1 Each Tablet, 1 EACH PO QDAY, TAB 06/08/15 Benztropine Mesylate (BENZTROPINE MESYLATE) 0.5 Mg Tab, 0.5 MG PO HS, TAB 01/29/15 Quetiapine Fumarate (QUETIAPINE FUMARATE) 25 Mg Tablet, 25 MG PO Q6H PRN for AGITATION, #60 10/30/13 Gabapentin (GABAPENTIN) 300 Mg Capsule, 900 MG PO BID, #180 CAPSULE Take 3 capsules every morning and before bed 07/04/13 Baclofen (BACLOFEN) 10 Mg Tablet, 10 MG PO BID, #60 TAB Take 1 tablet by mouth twice daily 06/28/13 Discontinued Reported Medications Sennosides/Docusate Sodium (SENNA S TABLET) 1 Each Tablet, 1 EACH PO 03/22/18 Discontinued Scripts Cephalexin 500 Mg Tab (KEFLEX 500 MG TAB) 500 Mg Tablet, 500 MG PO Q6H for 7 Days, #28 TAB 0 Refills Prov:TRAE AMADOR CANDY PULLER-BC 07/17/18 Levofloxacin 500 Mg Tab (LEVAQUIN 500 MG TAB) 500 Mg Tablet, 500 MG PO DAILY for 7 Days, #7 TAB Prov:INGRID MARINELLI CANDY PULLER 05/25/18 Past Medical/Surgical History The patient has a past medical and surgical history of cerebral palsy, angina, hypertension, hypercholesterolemia, COPD, frequent nausea and emesis in the mornings, GERD, gastric ulcer, inguinal hernia, gallbladder disease, renal cell carcinoma, prostatitis, frequent urinary tract infections, spinal stenosis, generalized arthritis, chronic back pain, wears glasses, diet-controlled diabetes, depression, anxiety, smokes, cholecystectomy, placement of a hossein in his right leg, left heel surgery, ankle surgery, tonsillectomy. Reviewed Nurses Notes: Yes Hx Smoking: Yes (1 ppd, 40 years) Smoking Status: Current: Every Day Smoker Exposure to Second Hand Smoke?: Yes Hx Substance Use Disorder: Yes (occ) Hx Alcohol Use: No Constitutional Vital Sign - Last 24 Hours 6/1108/10/18 08/10/18 08/10/18 14:24 14:30 14:35 14:45 Temp 99.7 Pulse 80 81 78 Resp 16 B/P (MAP) 113/80 102/79 (87) Pulse Ox 88 93 95 O2 Delivery Room Air O2 Flow Rate 1.5 08/10/18 08/10/18 08/10/18 08/10/18 15:00 15:15 15:30 15:45 Pulse 74 72 71 72 B/P (MAP) 118/81 (93) 116/80 (92) Pulse Ox 96 95 94 96 08/10/18 08/10/18 08/10/18 08/10/18 16:00 16:15 16:30 16:45 Pulse 69 67 66 70 B/P (MAP) 113/74 (87) 108/71 (83) Pulse Ox 96 96 08/10/18 08/10/18 08/10/18 08/10/18 17:00 17:30 17:45 18:00 Pulse 71 71 68 B/P (MAP) 93/70 (78) 109/77 (88) 117/78 (91) Pulse Ox 97 96 Physical Exam General Appearance: The patient is alert, has no immediate need for airway protection and no signs of toxicity. Eyes: Pupils equal and round no pallor or injection. ENT, Mouth: Mucous membranes are moist. Respiratory: There are no retractions, lungs are clear to auscultation. Cardiovascular: Regular rate and rhythm. No murmurs, clicks or rubs. Gastrointestinal: Abdomen is soft and non tender, no masses, bowel sounds normal. Neurological: Alert and oriented 4. Moving all extremities. Following. No focal neuro deficits. Skin: Warm and dry, no rashes. Musculoskeletal: Neck is supple non tender. Extremities are nontender, nonswollen and have full range of motion. DIFFERENTIAL DIAGNOSIS: After history and physical exam differential diagnosis was considered for cardiac arrhythmia, low potassium, metastatic cancer. Medical Decision Making Data Points Result Diagram: 08/10/18 1432 08/10/18 1432 Laboratory Hematology Test 08/10/18 14:32 Red Blood Count 3.05 M/uL (4.00-5.60) Mean Corpuscular Volume 89.7 fL (80.0-96.0) Mean Corpuscular Hemoglobin 29.6 pg (26.0-33.0) Mean Corpuscular Hemoglobin Concent 32.9 g/dL (32.0-36.0) Red Cell Distribution Width 20.4 % (11.5-14.5) Mean Platelet Volume 6.9 fL (7.2-11.1) Neutrophils (%) (Auto) 82.5 % (39.4-72.5) Lymphocytes (%) (Auto) 6.7 % (17.6-49.6) Monocytes (%) (Auto) 9.1 % (4.1-12.4) Eosinophils (%) (Auto) 1.0 % (0.4-6.7) Basophils (%) (Auto) 0.7 % (0.3-1.4) Nucleated RBC Relative Count (auto) 0.1 /100WBC Neutrophils # (Auto) 1.8 K/uL (2.0-7.4) Lymphocytes # (Auto) 0.1 K/uL (1.3-3.6) Monocytes # (Auto) 0.2 K/uL (0.3-1.0) Eosinophils # (Auto) 0.0 K/uL (0.0-0.5) Basophils # (Auto) 0.0 K/uL (0.0-0.1) Nucleated RBC Absolute Count (auto) 0.00 K/uL Peripheral Blood Smear No Y/N Sodium Level 139 mmol/L (137-145) Potassium Level 2.8 mmol/L (3.5-5.0) Chloride Level 100 mmol/L (98-107) Carbon Dioxide Level 29 mmol/L (22-30) Blood Urea Nitrogen 8 mg/dl (9-21) Creatinine 0.60 mg/dl (0.66-1.25) Glomerular Filtration Rate Calc > 60.0 Random Glucose 91 mg/dl (75-110) Calcium Level 5.9 mg/dl (8.4-10.2) Magnesium Level 0.6 mg/dl (1.7-2.2) Total Bilirubin 0.7 mg/dl (0.2-1.3) Aspartate Amino Transf (AST/SGOT) 31 U/L (0-35) Alanine Aminotransferase (ALT/SGPT) 46 U/L (0-56) Alkaline Phosphatase 79 U/L (0-126) Total Protein 6.2 g/dl (6.3-8.2) Albumin 2.9 g/dl (3.5-5.0) Chemistry Test 08/10/18 14:32 White Blood Count 2.2 k/uL (4.5-11.0) Red Blood Count 3.05 M/uL (4.00-5.60) Hemoglobin 9.0 g/dL (14.0-18.0) Hematocrit 27.4 % (42.0-52.0) Mean Corpuscular Volume 89.7 fL (80.0-96.0) Mean Corpuscular Hemoglobin 29.6 pg (26.0-33.0) Mean Corpuscular Hemoglobin Concent 32.9 g/dL (32.0-36.0) Red Cell Distribution Width 20.4 % (11.5-14.5) Platelet Count 181 K/uL (150-450) Mean Platelet Volume 6.9 fL (7.2-11.1) Neutrophils (%) (Auto) 82.5 % (39.4-72.5) Lymphocytes (%) (Auto) 6.7 % (17.6-49.6) Monocytes (%) (Auto) 9.1 % (4.1-12.4) Eosinophils (%) (Auto) 1.0 % (0.4-6.7) Basophils (%) (Auto) 0.7 % (0.3-1.4) Nucleated RBC Relative Count (auto) 0.1 /100WBC Neutrophils # (Auto) 1.8 K/uL (2.0-7.4) Lymphocytes # (Auto) 0.1 K/uL (1.3-3.6) Monocytes # (Auto) 0.2 K/uL (0.3-1.0) Eosinophils # (Auto) 0.0 K/uL (0.0-0.5) Basophils # (Auto) 0.0 K/uL (0.0-0.1) Nucleated RBC Absolute Count (auto) 0.00 K/uL Peripheral Blood Smear No Y/N Glomerular Filtration Rate Calc > 60.0 Calcium Level 5.9 mg/dl (8.4-10.2) Magnesium Level 0.6 mg/dl (1.7-2.2) Total Bilirubin 0.7 mg/dl (0.2-1.3) Aspartate Amino Transf (AST/SGOT) 31 U/L (0-35) Alanine Aminotransferase (ALT/SGPT) 46 U/L (0-56) Alkaline Phosphatase 79 U/L (0-126) Total Protein 6.2 g/dl (6.3-8.2) Albumin 2.9 g/dl (3.5-5.0) EKG/Imaging EKG Interpretation 12 lead EKG: Time of EKG 1439. Rhythm: Normal sinus rhythm, ventricular rate 78 bpm. [place]: normal QRS: normal ST segments: No ST depression or elevation identified. No significant changes from the 05/18/2018 EKG. ED Course/Re-evaluation Clinical Indication for ER IV: Hydration, IV Access ED Course The patient was admitted to room. A history and physical obtained. Differential diagnoses were considered. An IV was started. A CBC, CMP, magnesium were obtained. CBC showing white count of 2.2, hemoglobin 9.0, hematocrit 27.4, platelets 181, repeat chemistry showing potassium 2.8, calcium 5.9, magnesium 0.6. Reviewing the patient's historical data, this is not unusual for his laboratory findings however we did replete the potassium with 40 mEq by mouth, as well as 20 mEq IV, was given 40 mg by mouth magnesium as well as 2 g IV magnesium. Patient was given 500 mL of normal saline as well. Patient states feeling much better, he was able to eat some dinner, no nausea or vomiting. As noted below, I did review the case with Dr. Young, the hospitalist, and the patient had no other major complaints and this is similar to his historical data, we did feel the patient was safe to go home at this time. Patient was agreeable, he preferred to go home as opposed to staying in the hospital. Patient was also instructed to follow-up with the oncology unit within the next 1-3 days for reevaluation of his laboratory studies. This also started on supplemental magnesium, his potassium was also increased to 4 mL equivalents twice a day. Patient expressed understanding, was agreeable with this discharge instructions. 08/10/2018 3:54:55 pm I did speak with Dr. Young, the hospitalist on-call, we did review the patient's case, he felt that with the recurrent low potassium, magnesium and calcium that if we did replete the potassium and magnesium, that the patient wouldn't the safe to go home. I did speak with the patient, he has been symptomatic with nausea and one episode of vomiting yesterday, no diarrhea I did review this with the patient, he states that he would rather go home and not be admitted to the hospital. We will replete his potassium with one K rider, 40 male purulence by mouth, 400 mg of by mouth magnesium and 2 g IV. Decision to Disposition Date: Aug 10, 2018 Decision to Disposition Time: 18:03 Depart Departure Latest Vital Signs Vital Signs Date Time Temp Pulse Resp B/P (MAP) Pulse Ox O2 Delivery O2 Flow Rate FiO2 08/10/18 18:00 117/78 (91) 08/10/18 17:45 68 96 08/10/18 14:35 1.5 08/10/18 14:24 99.7 16 Room Air Impression: Primary Impression: Hypokalemia Additional Impressions: Hypomagnesemia Hypocalcemia Renal cell carcinoma Condition: Improved Disposition: HOME OR SELF-CARE Referrals: GAUDENCIO RUIZ DO (PCP) 5 Days New Scripts Magnesium Oxide (MAGNESIUM OXIDE) 400 Mg Tablet 400 MG PO BID for 30 Days, #60 TAB 0 Refills Prov: TRAE AMADOR-BRIONNA 08/10/18 Patient Instructions: Hypokalemia (ED), Hypomagnesemia (ED) Additional Instructions: Increase your potassium to 40Meq's twice a day. Start the magnesium twice a day. Please follow up with the oncology unit within the next 2 days for reevaluation of your blood work. Be sure to drink plenty of water. Get plenty of rest. Follow up with your PCP within the next 2-4 days for reevaluation too. Return to the ED for any other concerns or worsening symptoms. Problem Qualifiers Additional Impressions: Renal cell carcinoma Laterality: unspecified laterality Qualified Codes: C64.9 - Malignant neoplasm of unspecified kidney, except renal pelvis TRAE AMADOR CANDY PULLER-BC Aug 10, 2018 14:23
[2018-08-10 14:45] LABS: PLATELET COUNT, AUTOMATED 181 K/uL (150-450)
--- NOTE | 2018-08-10 14:52 | EKG ---
FACILITY: [facility] - [place] PATIENT NAME: JOEL GOLDBERG : [id number] MR: [id number] V: [id number] EXAM DATE: ORDERING PHYSICIAN: TRAE AMADOR TECHNOLOGIST: AVA Test Reason : low potassium Blood Pressure : / mmHG Vent. Rate : 078 BPM Atrial Rate : 078 BPM P-R Int : 156 ms QRS Dur : 094 ms QT Int : 420 ms P-R-T Axes : 055 034 060 degrees QTc Int : 478 ms Normal sinus rhythm Normal ECG When compared with ECG of 18-MAY-2018 13:28, T wave inversion no longer evident in Anterior leads Confirmed by GUME BROOKS ([id number]) on 08/11/2018 12:58:54 AM Referred By: Confirmed By:GUME BROOKS
[2018-08-10] MEDS ORDERED: NS(*) 0.9% 500 ML BAG 500 ML IV PRN (15:30)
[2018-08-10] MEDS ORDERED: MAGNESIUM SUL* 2 GM/50 ML IVPB 50 ML IVPB ONE (15:30)
[2018-08-10] MEDS ORDERED: KCL (*) 20 MEQ/100 ML PREMIX 100 ML IV SCH ×2 (15:30→15:50)
[2018-08-10] MEDS ORDERED: POTASSIUM CHL 20 MEQ TABCR PO ONE (15:50)
[2018-08-10] MEDS ORDERED: ONDANSETRON 4 MG ODT TABDP SL ONE (15:50)
[2018-08-10] MEDS ORDERED: MAGNESIUM OXIDE 400 MG TAB PO ONE (15:50)
[2018-08-10] MEDS ORDERED: MAGN400T36 PO (16:03)
[2018-08-10 18:00] VITALS: BP 117/78
== END 2018-08-10 18:12 | disposition home or self-care (01) ==
LOC: ER 14:24
DX: E87.6 Hypokalemia (principal); E83.42 Hypomagnesemia; E83.51 Hypocalcemia; C64.9 Malignant neoplasm of unspecified kidney, except renal pelvis
CPT/HCPCS: 83735; 85025; 93005; 96365; 96367; 99284; A9270; J3475; J3480; J7040; Q0162; 82040; 82247; 82310; 82374; 82435; 82565; 82947; 84075; 84132; 84155; 84295; 84450; 84460; 84520; S0119

== ENCOUNTER 2018-08-12 11:00 | Outpatient (RCR) | payer MEDICARE, MEDICAID ==
--- NOTE | 2018-07-25 23:06 | ONCOLOGY FOLLOW UP NOTE ---
EVENT DATE: July 23, 2018 CHIEF COMPLAINT/REASON FOR VISIT Metastatic renal cell carcinoma; new bone lesion at T5. HISTORY This is a 67-year-old gentleman who is well known to me. He is referred back to me by medical oncology team. Dr. Singh recently saw the patient and requested updated imaging, including CT scan of the thorax. Patient was found to have a new lesion at the T3 location, which was not appreciated previously. I went up to Radiology today to confirm the lesion on the high-resolution monitors, and there appeared to be a circular 2 cm osteolytic lesion in the mid vertebral body, slightly off center to the right. The patient, fortunately, is not experiencing any pain at that location. He did have good pain relief from prior treatment of a large lytic lesion at the T8 level, as well as treatment of advanced lymph nodes in the upper abdomen concurrently. Full details listed in my last oncology note. Patient is presently seen in the infusion area, where he is about to start fluids for rehydration and electrolyte disturbance. I believe his systemic therapy is on hold due to loose bowels and dehydration. He also was recently treated for a UTI. ONCOLOGY HISTORY Renal cell carcinoma. 1. October 24, 2017, CT abdomen and pelvis: Conglomerate lymphadenopathy within aortocaval retroperitoneum; no gross primary malignancy; [id number] bladder distention; questionable mild thickening along posterior/inferior bladder base similar to 2015 findings; borderline nonspecific splenomegaly. 2. November 27, 2017, CT scan chest, abdomen, and pelvis: Aortocaval adenopathy has increased in size compared to prior; a left periaortic lymph node has slightly increased. 3. November 2017, patient presents with right testicular discomfort. 4. December 22, 2017, testicular ultrasound reveals 2.7 x 1.9 x 2.8 cm heterogeneous hypervascular mass projecting inferior to the right testicle. 5. January 11, 2018, patient undergoes right inguinal orchiectomy. Surgical pathology reveals chronic lymphocytic inflammation with fibrosis and no evidence of malignancy. Second opinion on tissue shows nonspecific findings overall with diagnostic considerations including smooth muscle hyperplasia of testicular adnexa, granulomatous ischemic lesion, resolving granulomatous orchitis, or possibly resolving reaction to extravasated sperm (sperm granuloma). 6. February 18, 2018, CT of abdomen and pelvis reveals 1.3 cm ovoid, hypoattenuating mass along posteromedial inferior aspect of left kidney, not present on prior study. There was fullness of the right renal collecting system related to marked distention of the urinary bladder. There is a new lytic lesion involving the T8 vertebral body, and left periaortic lymph node has increased in size. A large aortocaval bruce mass was relatively unchanged. 7. He began palliative radiation on March 15, 2018, ongoing. 8. January 2018: Initiation of palliative cabozantinib. PAST MEDICAL HISTORY 1. Recurrent urinary tract infections. 2. Smoking and reported history of polysubstance abuse. 3. Concern for personality disorder. 4. Cerebral palsy. 5. Hypertension. 6. Hypercholesterolemia. FAMILY HISTORY Noncontributory. SOCIAL HISTORY The patient is single. He has a history of heavy alcohol use. He is a currently daily smoker. There is a reported history of polysubstance abuse. ALLERGIES No known drug allergies. CURRENT MEDICATIONS 1. Potassium. 2. Benztropine mesylate. 3. Quetiapine. 4. Gabapentin. 5. Baclofen p.r.n. 6. Senna p.r.n. 7. Percocet p.r.n. 8. Pantoprazole p.r.n. 9. Colace p.r.n. 10. Flomax 0.4 mg p.o. daily. 11. Tramadol p.r.n. 12. Levofloxacin. 13. Amoxicillin. 14. Hydrochlorothiazide 12.5 mg. 15. Amlodipine/atorvastatin. REVIEW OF SYSTEMS See completed notes from Medical Oncology earlier today, which were reviewed. PHYSICAL EXAMINATION GENERAL: A 67-year-old male of thin build. Patient in fair general clinical condition, with main symptom of fatigue. VITAL SIGNS: Listed in EMR. LYMPHATIC: No peripheral lymphadenopathy detected. LUNGS: Clear bilaterally. HEART: Heart sounds regular. ABDOMEN: Soft, with no gross organomegaly. BACK: No pain on light percussion over the spine today. IMPRESSION This is a 67-year-old gentleman who was diagnosed in the past six months with renal cell carcinoma, metastatic to bone and lymph nodes. He has previously been treated with external beam radiotherapy with IMRT to a large lytic lesion at T8 and also to locally advanced lymph nodes in the periaortic chain, which were causing the patient referred back pain. Patient is found to have a new lytic lesion at T5, which was confirmed with Radiology today with review of the films in multiple planes in their department. I discussed the option of treating the T5 vertebral body with the patient today, with a goal of preventing further progression at that site and/or pathologic fracture in the future. My plan would be to deliver 3000 cGy in 10 fractions with two- or four-field treatment technique. Patient will undergo targeting CT simulation next week and start the radiation program the following week. Patient is agreeable to the above plan, and all questions answered to his satisfaction today. [facility]
[~2018-08-12 11:00] MED LIST changes: +MAGN400T36 PO
--- NOTE | 2018-08-26 20:07 | ONCOLOGY FOLLOW UP NOTE ---
EVENT DATE: August 25, 2018 CHIEF COMPLAINT Followup for metastatic renal cell carcinoma. HISTORY OF PRESENT ILLNESS Patient is a 67-year-old male who was seen today in followup. He continues on a decreased dose of Cabometyx, but he feels he is managing this well. He completed radiation to T5 on 08/17/18. Pain continues to be somewhat of an issue, but he believes he is managing this well on current OxyContin doses with three to four doses of oxycodone for breakthrough. He has lost weight. He saw a construction estimator yesterday, who feels no procedure was needed for his ingrown toenail. He has had issues with hypokalemia and hypomagnesemia, but this seems to be stabilized. He tells me he would like to quit cigarettes. ONCOLOGY HISTORY Renal cell carcinoma. a. October 24, 2017: CT scan of abdomen and pelvis reveals conglomerate lymphadenopathy within the aortocaval retroperitoneum. No gross primary was identified. [id number] bladder distention. Questionable mild thickening along posterior/inferior bladder base (similar to 2015 findings); borderline nonspecific splenomegaly. b. November 27, 2017: CT scan chest, abdomen, and pelvis: Aortocaval adenopathy has increased in size compared to prior; a left periaortic lymph node slightly increased; otherwise findings similar to prior study. c. December 15, 2017: Retroperitoneal lymph node biopsy. 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 d. November 2017: Patient presents with right testicular discomfort. e. December 22, 2017: Testicular ultrasound reveals a 2.7 x 1.9 x 2.8 cm heterogeneous hypervascular mass projecting inferior to the right testicle; this appears extratesticular in origin. f. January 11, 2018: Patient undergoes right inguinal orchiectomy. Surgical pathology is consistent with chronic lymphocytic inflammation with fibrosis. There is no evidence of malignancy. Second opinion on this tissue shows nonspecific findings overall. Diagnostic considerations included smooth muscle hyperplasia of testicular adnexa, granulomatous ischemic lesion, resolving granulomatous orchitis, or possibly resolving reaction to extravasated sperm (sperm granuloma). There is no evidence of neoplastic process. g. January 2018: Began palliative cabozantinib. h. CT scan on 02/18/18 showed an increasing retroperitoneal mass with nerve root irritation and an osteolytic tumor involving T8. Completed palliative radiation on 02/18/19. i. Completed palliative radiation to T5 from 08/03/18 through 08/17/18. PAST MEDICAL HISTORY 1. Recurrent UTI. 2. Smoking and reported history of polysubstance abuse. 3. Concern for personality disorder. 4. Cerebral palsy. 5. Type 2 diabetes, diet controlled. CURRENT MEDICATIONS 1. Flomax 0.4 mg daily. 2. Seroquel 25 mg two at bedtime. 3. Hydrochlorothiazide 12.5 mg daily. 4. Pantoprazole 40 mg daily. 5. Baclofen 10 mg b.i.d. 6. Amlodipine/atorvastatin 5/20 mg daily. 7. Cogentin 0.5 mg at bedtime. 8. Gabapentin 300 mg three p.o. b.i.d. 9. Micro-K 10 mEq four tabs b.i.d. 10. Cabometyx 40 mg daily. 11. OxyContin 10 mg every 12 hours. 12. Oxycodone 5 mg every four to six hours p.r.n. 13. Zofran 8 mg p.r.n. 14. Magnesium oxide 400 mg one b.i.d. ALLERGIES No known drug allergies. FAMILY HISTORY Noncontributory. SOCIAL HISTORY Patient is single. He has a history of heavy alcohol use. He is a current everyday smoker. There is also a reported history of polysubstance abuse. REVIEW OF SYSTEMS A 12-point review of systems is performed and is negative except as stated above. PHYSICAL EXAMINATION VITAL SIGNS: Weight 51.6 kg. BP 92/67, P 80, R 16, temp 98.8, O2 sat 89%. This improved to 96% after deep breathing and coughing. GENERAL: Patient is a well-developed, thin male in no acute distress. HEAD: Normocephalic, atraumatic. EYES: Sclerae anicteric. MOUTH: Dry mucous membranes. Poor dentition. NECK: No palpable adenopathy. LUNGS: Diminished bilaterally. CARDIOVASCULAR: Heart rate regular, 80 per minute, without murmur. EXTREMITIES: No edema. Significant muscle loss in quadriceps. NEURO: Nonfocal. LABORATORY CBC today reveals a WBC of 2.9, ANC of 2.5, hemoglobin 9.9, hematocrit 29.3, platelets 237,000. CMP shows a magnesium of 1.6, potassium 4.6, and albumin 3.0. IMPRESSION The patient is a 67-year-old male diagnosed with metastatic renal cell carcinoma. He continues on palliative cabozantinib with a dose reduction due to significant diarrhea. He completed palliative radiation to his mesentery. He then completed palliative treatment to T5 on 08/17/18. PLAN 1. Metastatic renal cell carcinoma. Continue Cabometyx 40 mg daily. He is tolerating this fairly well. 2. Hypomagnesemia. He has received several doses of IV magnesium sulfate. He is now on magnesium oxide 400 mg two q.a.m. and one q.p.m. Magnesium has been fairly stable at 1.6. Will continue to monitor. 3. Hypokalemia, now resolved. He continues on Micro-K 10 mEq four tabs b.i.d. 4. Restaging. Last scans were done on 06/09/18. I have reviewed this with Dr. Beckford. We will repeat CT of the chest, abdomen, and pelvis in early August. 5. Weight loss. Patient has lost 5 kg in the past three months. He states his appetite is fairly poor. He is "trying to eat more." I will have Nutrition meet with him at next visit. Albumin is down to 3.0. 6. Pain. Currently well controlled on OxyContin 10 mg q.12 hours and oxycodone 5 mg three to four tabs per day. He does admit to occasionally forgetting a dose of OxyContin. 7. Leukopenia. Ongoing. White count today is 2.9, but neutrophils are 2.2. This is likely related to Cabometyx. 8. Anemia. Hemoglobin has been stable, although in the 9 to 10 g range. Will continue to monitor trend. 9. Follow up weekly for continued care. CBC, CMP, and magnesium will be drawn at that time. MTDD
[2018-09-25] MEDS ORDERED: OXYC5TAB38 PO (17:05)
[2018-09-25] MEDS ORDERED: POTA20TA94 PO (17:05)
[2018-09-25] MEDS ORDERED: OXYC-823 PO (17:05)
[2018-09-25] MEDS ORDERED: HYDR12.556 PO (17:05)
[2018-09-26 12:27] VITALS: BMI 20.1
[2018-09-27] MEDS ORDERED: ONDA8TAB97 PO (12:34)
[2018-10-07] MEDS ORDERED: OXYC-823 PO (14:24)
[2018-10-07] MEDS ORDERED: OXYC5CAP21 PO (14:27)
== END 2018-10-21 ==
LOC: RAON 11:00
PROVIDERS: ATTEND Radiology Radiation Oncology
DX: Z51.0 Encounter for antineoplastic radiation therapy (principal); C64.2 Malignant neoplasm of left kidney, except renal pelvis; M53.84 Other specified dorsopathies, thoracic region; F17.210 Nicotine dependence, cigarettes, uncomplicated
CPT/HCPCS: 77336; 77412; 78306; A9503; G0463; 77295; 77300; 77334; 77386; 82040; 82247; 82310; 82374; 82435; 82565; 82947; 84075; 84132; 84155; 84295; 84450; 84460; 84520; 99212

== ENCOUNTER → 2018-09-14 | Outpatient (CLI) | payer MEDICARE, MEDICAID ==
[2018-05-19 10:59] VITALS: BMI 19.9
[~2018-09-14] MED LIST changes: +IOPAMIDOL 76% 100 ML INFUS BTL 100 ML ONE
--- NOTE | 2018-09-14 11:11 | RADIOLOGY IMAGING REPORT ---
FACILITY: [facility] - [place] PATIENT NAME: Ozzy Mesa : 1950 MR: [id number] V: [id number] EXAM DATE: ORDERING PHYSICIAN: JUDITH HOOPER TECHNOLOGIST: [place] [facility] [place]: Ozzy Mesa : 1950 Visit/Account:[id number] Date of Sevice: 09/14/2018 Study: CT scan of the chest abdomen and pelvis with intravenous contrast Indication: Follow-up renal cell carcinoma Comparison study: None Contrast used: 80 mL Isovue-370 Technique: Multiple axial images were obtained through the chest abdomen and pelvis following intrave nous administration of iodinated contrast. Coronal and sagittal two-dimensional reconstructions were made from the original data set. One of the following dose optimization techniques was utilized in the performance of this exam: Autom ated exposure control; adjustment of the mA and/or kV according to the patient's size; or use of an i terative reconstruction technique. Specific details can be referenced in the facility's radiology C T exam operational policy. Findings: Mediastinum: Unremarkable Lung parenchyma: There is no evidence of parenchymal lung mass. There is no evidence of pulmonary no dules. There is no evidence of pleural effusion. Liver: Unremarkable Spleen: The spleen is prominent in size and not significantly changed from the previous study. Gallbladder: Surgically removed Stomach: Unremarkable Small bowel:The small bowel is unremarkable in appearance. Large bowel: The large bowel is unremarkable in appearance. Pancreas: Unremarkable Adrenal glands: Unremarkable Kidneys: Within the medial midpole of the left kidney, there is a hypoenhancing mass measuring 2.4 x 1.8 x 2.6 cm. This has increased in size as compared to the previous study. There is no significant abnormality identified within the right kidney. Retroperitoneum: There are enlarged lymph nodes present within the retroperitoneum. Within the right retroperitoneum, there is a conglomerate of enlarged lymph nodes. This measures 3.6 x 4.3 x 4.1 cm. This has decreased in size as compared to the previous study. Within the left retroperitoneum at the level of the lower pole of the left kidney, there is an enlarg ed lymph node measuring 1.4 x 1.2 cm. This is not significantly changed from the previous study. Pelvis: Unremarkable Bony structures: There is a lytic lesion present within the T8 vertebral body. This is unchanged in appearance from the previous study. There is loss of height of the L1 vertebral body. This is also unchanged as compared to the previous study. IMPRESSION: Interval increase in size in the lesion within the medial midpole of the left kidney. There is an interval decrease in size of the right-sided retroperitoneal adenopathy as described. There is no evidence of parenchymal lung mass or nodule. Report Dictated By: Akin Downing at 09/14/2018 10:47 AM Report E-Signed By: Akin Downing at 09/14/2018 11:04 AM WSN:[id number]
== END ==
LOC: CT 00:49
PROVIDERS: ATTEND Nurse Practitioner
DX: C64.9 Malignant neoplasm of unspecified kidney, except renal pelvis (principal)
CPT/HCPCS: 71260; 74177; Q9967

== ENCOUNTER 2018-09-25 12:31 | Inpatient (IN) | payer MEDICARE, MEDICAID ==
[2018-09-25] VITALS (8 sets, daily range): BP systolic 91–122; BP diastolic 54–70
[~2018-09-25] VITALS: Ht 163.8 cm; Wt 54.0 kg
[~2018-09-25 12:31] MED LIST changes: -HYDR12.556 PO; -ONDA8TAB97 PO; -OXYC5TAB38 PO; -POTA20TA94 PO
--- NOTE | 2018-09-25 12:45 | ER Report ---
History and Physical Time Seen By MD: 12:32 Hx. of Stated Complaint: WEAK AND FATIGUED FOR 3 DAYS. HAS NOT ATE IN A WHILE AND NOT DRINKING MUCH. GLUCOSE WAS 133 IN EMS. NEURO STATUS INTACT HPI/ROS CHIEF COMPLAINT: Weakness HISTORY OF PRESENT ILLNESS: This is a 68-year-old male who presents to emergency department for weakness. Patient has a history of renal cell carcinoma. 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 The patient states that over the last 3 days he's had increased fatigue, weakness and increasing confusion, patient states he's had little to no food over the last several days as well, he does appear cachectic and malnourished, he is also very pale, he denies fevers or chills. He has had intermittent nausea no vomiting. He states that "it's all I can do to get up out of bed go to the bathroom and returned to bed". He states that he was having such a hard time filling his pillboxes last night and today that he became concerned at which time he called the ambulance for transfer to the emergency department for an evaluation. He denies chest pain or shortness of breath. No new rashes. REVIEW OF SYSTEMS: Constitutional: No fever, no chills. Eyes: No discharge. ENT: No sore throat. Cardiovascular: No chest pain, no palpitations. Respiratory: No cough, no shortness of breath. Gastrointestinal: As above. Genitourinary: No hematuria. Musculoskeletal: No back pain. Skin: No rashes. Neurological: As above. Allergies: Coded Allergies: No Known Drug Allergies (Verified , 08/10/18) Home Meds Active Scripts Magnesium Oxide (MAGNESIUM OXIDE) 400 Mg Tablet, 400 MG PO BID for 30 Days, #60 TAB 0 Refills Prov:TRAE AMADOR PARTS RUNNER-BC 08/10/18 Pantoprazole Sodium (PANTOPRAZOLE SODIUM) 40 Mg Tablet., 40 MG PO QDAY for 90 Days, #90 TAB.SR Prov:ZAYDA DUDLEY DO 01/11/18 Tamsulosin Hcl (FLOMAX) 0.4 Mg Cap.er.24h, 0.4 MG PO QHS for 30 Days, #30 CAP 0 Refills Prov:STEPH PHELAN MD 10/24/17 Reported Medications Ondansetron 4 Mg Odt (ONDANSETRON 4 MG ODT) 4 Mg Tab.rapdis, 8 MG PO ONCE, TAB 08/05/18 Cabozantinib S-Malate (Cabometyx) 40 Mg Tablet Pt takes 40mg QD 07/02/18 Potassium Chloride (POTASSIUM CHLORIDE) 10 Meq Capsule.er, 20 MEQ PO BID 05/26/18 [oxycodone] 5mg No Conflict Check, 5 MG PO Q4-6H PRN for PAIN take 1-2 tabs po q 4-6 hours 03/31/18 Oxycodone Hcl (OXYCONTIN) 10 Mg Tab.er.12h, 10 MG PO, TAB 03/31/18 Amlodipine/Atorvastatin (AMLODIPINE-ATORVAST 5-20 MG) 1 Each Tablet, 1 EACH PO QDAY, TAB 06/08/15 Benztropine Mesylate (BENZTROPINE MESYLATE) 0.5 Mg Tab, 0.5 MG PO HS, TAB 01/29/15 Quetiapine Fumarate (QUETIAPINE FUMARATE) 25 Mg Tablet, 25 MG PO Q6H PRN for AGITATION, #60 10/30/13 Gabapentin (GABAPENTIN) 300 Mg Capsule, 900 MG PO BID, #180 CAPSULE Take 3 capsules every morning and before bed 07/04/13 Baclofen (BACLOFEN) 10 Mg Tablet, 10 MG PO BID, #60 TAB Take 1 tablet by mouth twice daily 06/28/13 Past Medical/Surgical History The patient has a past medical and surgical history of cerebral palsy, angina, hypertension, hypercholesterolemia, COPD, frequent nausea and emesis in the mornings, GERD, gastric ulcer, inguinal hernia, gallbladder disease, renal cell carcinoma, prostatitis, frequent urinary tract infections, spinal stenosis, generalized arthritis, chronic back pain, wears glasses, diet-controlled diabetes, depression, anxiety, smokes, cholecystectomy, placement of a hossein in his right leg, left heel surgery, ankle surgery, tonsillectomy. Reviewed Nurses Notes: Yes Hx Smoking: Yes (1 ppd, 40 years) Smoking Status: Current: Every Day Smoker Exposure to Second Hand Smoke?: Yes Hx Substance Use Disorder: Yes (occ) Hx Alcohol Use: No Constitutional Vital Sign - Last 24 Hours 09/25/18 09/25/18 09/25/18 09/25/18 12:38 13:00 13:30 14:00 Temp 99.0 Pulse 71 68 63 63 Resp 20 B/P (MAP) 92/63 Pulse Ox 91 94 87 89 O2 Delivery Room Air 09/25/18 09/25/18 09/25/18 14:19 14:30 15:00 Pulse 56 64 B/P (MAP) 105/64 (78) Pulse Ox 91 91 Physical Exam General Appearance: The patient is alert, has no immediate need for airway protection and no signs of toxicity. Very cachectic appearing. Eyes: Pupils equal and round no pallor or injection. ENT, Mouth: Mucous membranes are dry. Respiratory: There are no retractions, lungs are clear to auscultation. Cardiovascular: Regular rate and rhythm. No murmurs, clicks or rubs. Gastrointestinal: Abdomen is soft and non tender, no masses, hypoactive bowel sounds. Neurological: Alert and oriented 3, moving all extremities however very slow, following all commands. No focal neuro deficits. He is slow to respond to questions, does appear to be somewhat confused with some questions, GCS 14. Skin: Warm and dry, no rashes. Very pale appearing. Musculoskeletal: Neck is supple non tender. Extremities are nontender, nonswollen and have full range of motion. DIFFERENTIAL DIAGNOSIS: After history and physical exam differential diagnosis was considered for altered mental status including but not limited to hypoglycemia, infectious process, electrolyte abnormality, head injury and intoxicants. Medical Decision Making Data Points Result Diagram: 09/25/18 1230 09/25/18 1321 Laboratory Hematology Test 09/25/18 12:30 White Blood Count 2.3 k/uL (4.5-11.0) L Red Blood Count 2.52 M/uL (4.00-5.60) L Hemoglobin 7.4 g/dL (14.0-18.0) *L Hematocrit 22.9 % (42.0-52.0) *L Mean Corpuscular Volume 90.7 fL (80.0-96.0) Mean Corpuscular Hemoglobin 29.3 pg (26.0-33.0) Mean Corpuscular Hemoglobin Concent 32.4 g/dL (32.0-36.0) Red Cell Distribution Width 20.7 % (11.5-14.5) H Platelet Count 342 K/uL (150-450) Mean Platelet Volume 7.1 fL (7.2-11.1) L Neutrophils (%) (Auto) 79.2 % (39.4-72.5) H Lymphocytes (%) (Auto) 3.4 % (17.6-49.6) L Monocytes (%) (Auto) 16.9 % (4.1-12.4) H Eosinophils (%) (Auto) 0.1 % (0.4-6.7) L Basophils (%) (Auto) 0.4 % (0.3-1.4) Nucleated RBC Relative Count (auto) 0.0 /100WBC Neutrophils # (Auto) 1.8 K/uL (2.0-7.4) L Lymphocytes # (Auto) 0.1 K/uL (1.3-3.6) L Monocytes # (Auto) 0.4 K/uL (0.3-1.0) Eosinophils # (Auto) 0.0 K/uL (0.0-0.5) Basophils # (Auto) 0.0 K/uL (0.0-0.1) Nucleated RBC Absolute Count (auto) 0.00 K/uL Peripheral Blood Smear Y/N Chemistry Test 09/25/18 12:30 09/25/18 13:21 Magnesium Level 2.1 mg/dl (1.7-2.2) Sodium Level 136 mmol/L (137-145) Potassium Level 3.7 mmol/L (3.5-5.0) Chloride Level 100 mmol/L (98-107) Carbon Dioxide Level 25 mmol/L (22-30) Blood Urea Nitrogen 13 mg/dl (9-21) Creatinine 0.60 mg/dl (0.66-1.25) Glomerular Filtration Rate Calc > 60.0 Random Glucose 137 mg/dl (75-110) Calcium Level 8.7 mg/dl (8.4-10.2) Total Bilirubin 0.8 mg/dl (0.2-1.3) Aspartate Amino Transf (AST/SGOT) 26 U/L (0-35) Alanine Aminotransferase (ALT/SGPT) 32 U/L (0-56) Alkaline Phosphatase 147 U/L (0-126) Ammonia < 9 UMOL/L (9-33) Total Protein 6.9 g/dl (6.3-8.2) Albumin 3.1 g/dl (3.5-5.0) EKG/Imaging EKG Interpretation 12 lead EKG: Time of EKG 1311. Rhythm: Normal sinus rhythm, ventricular rate 62 bpm. [place]: normal QRS: normal ST segments: No ST depression or elevation identified, poor T-wave progression in V2, V3. Imaging PATIENT NAME: Ozzy Mesa : 1950 MR: [id number] V: [id number] EXAM DATE: ORDERING PHYSICIAN: TRAE AMADOR TECHNOLOGIST: [place] [facility] [place] : 1950 Visit/Account:[id number] Date of Sevice: 09/25/2018 CHEST SINGLE AP Indication: confusion Comparison: Chest x-ray 01/11/2018. Findings: Lungs: Clear. Mediastinum/pulmonary vasculature: Heart size and pulmonary vasculature are normal. Bones/soft tissues: Right-sided portacatheter is seen. IMPRESSION: Clear lungs. Report Dictated By: Ricky Dillard at 09/25/2018 1:48 PM Report E-Signed By: Ricky Dillard at 09/25/2018 1:49 PM WSN:[id number] ED Course/Re-evaluation Clinical Indication for ER IV: Hydration, IV Access ED Course The patient was admitted to room. A history and physical were obtained. Differential diagnoses were considered. An IV was started. A CBC, CMP, cold stool were obtained. CBC showing WBC is 2.3, RBCs 2.52, H&H 7.4 and 22.9. Chemistry unremarkable. EKG showing sinus rhythm. Unremarkable chest x-ray. No blood noted on the rectal exam. I did review the results with the patient, I did tell patient that I do recommend an admission. I did speak with Dr. Trujillo was notable, I also spoke with Dr. Dudley, the hospitalist corporate relations manager, the patient will be admitted to hospitalist services with Dr. Trujillo consult for a possible colonoscopy. Patient was agreeable. Patient was also typed and screened. Patient was given a in 80 mg Protonix bolus and then started on an 80 mg IV drip. After discussing the laboratory results of the patient, he did remember that he did have some bloody stools couple of days ago he said anywhere from bright red to dark. 09/25/2018 2:25:[address] Trujillo, the surgeon on-call about the patient's rectal bleeding, we'll plan to admit the patient to the hospitalist, he will likely scope the patient tomorrow. Clear liquids only, no red containing clear liquids. 09/25/2018 2:30:34 pm I did speak with Dr. Dudley, the hospitalist on-call, he's except the patient and the hospitalist services, Dr. Trujillo will consult with Dr. Dudley. Decision to Disposition Date: Sep 25, 2018 Decision to Disposition Time: 14:30 Depart Departure Latest Vital Signs Vital Signs Date Time Temp Pulse Resp B/P (MAP) Pulse Ox O2 Delivery O2 Flow Rate FiO2 09/25/18 15:00 64 91 09/25/18 14:19 105/64 (78) 09/25/18 12:38 99.0 20 Room Air Impression: Primary Impression: Anemia Additional Impressions: Renal cell carcinoma Upper GI bleeding Condition: Improved Disposition: Admitted from ER Referrals: GAUDENCIO RUIZ DO (PCP) Problem Qualifiers Primary Impression: Anemia Anemia type: other cause Other causes of anemia: other cause, not classified Qualified Codes: D64.89 - Other specified anemias Additional Impressions: Renal cell carcinoma Laterality: right Qualified Codes: C64.1 - Malignant neoplasm of right kidney, except renal pelvis TRAE AMADOR PARTS RUNNER-BC Sep 25, 2018 12:45
[2018-09-25] MEDS ORDERED: NS(*) 0.9% 1000 ML BAG 1,000 ML IV ONE (13:10)
[2018-09-25 13:26] LABS: PLATELET COUNT, AUTOMATED 342 K/uL (150-450)
--- NOTE | 2018-09-25 13:56 | RADIOLOGY IMAGING REPORT ---
FACILITY: [facility] - [place] PATIENT NAME: Ozzy Mesa : 1950 MR: [id number] V: [id number] EXAM DATE: ORDERING PHYSICIAN: TRAE AMADOR TECHNOLOGIST: [place] [facility] [place]: Ozzy Mesa : 1950 Visit/Account:[id number] Date of Sevice: 09/25/2018 CHEST SINGLE AP Indication: confusion Comparison: Chest x-ray 01/11/2018. Findings: Lungs: Clear. Mediastinum/pulmonary vasculature: Heart size and pulmonary vasculature are normal. Bones/soft tissues: Right-sided portacatheter is seen. IMPRESSION: Clear lungs. Report Dictated By: Ricky Dillard at 09/25/2018 1:48 PM Report E-Signed By: Ricky Dillard at 09/25/2018 1:49 PM WSN:[id number]
[2018-09-25] MEDS ORDERED: PANTOPRAZOLE SOD(*)40 MG VIAL 80 MG in NS(*) 0.9% 100 ML BAG 100 ML IV ONE (14:00)
[2018-09-25] MEDS ORDERED: PANTOPRAZOLE SOD(*)40 MG VIAL 80 MG in NS(*) 0.9% 100 ML BAG 100 ML IVPB ONE (14:00)
[2018-09-25] MEDS ORDERED: PANTOPRAZOLE SOD 40 MG IV VIAL ONE (14:05)
[2018-09-25] MEDS ORDERED: NS(*) 0.9% 100 ML BAG 100 ML ONE (14:07)
--- NOTE | 2018-09-25 16:14 | General Surgery Consultation ---
History of Present Illness Reason for Consult gi bleed Chief Complaint doesn't feel well, can't put thoughts together History of Present Illness 68 yo m with renal cell ca. he lives alone and for the last couple of days has been feeling poorly. he is dizzy and has not been able to put thoughts together. he has not eaten well and doesn't feel he is taking good care of himself the last couple days. he has had recent brb in stool. he is constipated and has been using fleets enemas. he has some stomach pain and rectal pain. he vomited once in the last couple weeks and thinks there may have been blood in his vomit. he has h/o bleeding ulcers 3 yrs ago. he does not remember when his last egd and colonoscopy were but it may have been a couple of yrs ago. has lost almost 100 lbs in a yr. History Home Meds Active Scripts Magnesium Oxide (MAGNESIUM OXIDE) 400 Mg Tablet, 400 MG PO BID for 30 Days, #60 TAB 0 Refills Prov:TRAE AMADOR ELECTRIC MOTOR FITTER- 08/10/18 Pantoprazole Sodium (PANTOPRAZOLE SODIUM) 40 Mg Tablet.dr, 40 MG PO QDAY for 90 Days, #90 TAB.SR Prov:ZAYDA DUDLEY DO 01/11/18 Tamsulosin Hcl (FLOMAX) 0.4 Mg Cap.er.24h, 0.4 MG PO QHS for 30 Days, #30 CAP 0 Refills Prov:STEPH PHELAN MD 10/24/17 Reported Medications Ondansetron 4 Mg Odt (ONDANSETRON 4 MG ODT) 4 Mg Tab.rapdis, 8 MG PO ONCE, TAB 08/05/18 Cabozantinib S-Malate (Cabometyx) 40 Mg Tablet Pt takes 40mg QD 07/02/18 Potassium Chloride (POTASSIUM CHLORIDE) 10 Meq Capsule.er, 20 MEQ PO BID 05/26/18 [oxycodone] 5mg No Conflict Check, 5 MG PO Q4-6H PRN for PAIN take 1-2 tabs po q 4-6 hours 03/31/18 Oxycodone Hcl (OXYCONTIN) 10 Mg Tab.er.12h, 10 MG PO, TAB 03/31/18 Amlodipine/Atorvastatin (AMLODIPINE-ATORVAST 5-20 MG) 1 Each Tablet, 1 EACH PO QDAY, TAB 06/08/15 Benztropine Mesylate (BENZTROPINE MESYLATE) 0.5 Mg Tab, 0.5 MG PO HS, TAB 01/29/15 Quetiapine Fumarate (QUETIAPINE FUMARATE) 25 Mg Tablet, 25 MG PO Q6H PRN for AGITATION, #60 10/30/13 Gabapentin (GABAPENTIN) 300 Mg Capsule, 900 MG PO BID, #180 CAPSULE Take 3 capsules every morning and before bed 07/04/13 Baclofen (BACLOFEN) 10 Mg Tablet, 10 MG PO BID, #60 TAB Take 1 tablet by mouth twice daily 06/28/13 Allergies: Coded Allergies: No Known Drug Allergies (Verified , 08/10/18) Family History: Back pain FATHER FH: cerebral palsy FATHER FH: diabetes mellitus FATHER Review of Systems Constitutional: Other (per hpi) Exam Vital Signs Vital Signs Date Time Temp Pulse Resp B/P (MAP) Pulse Ox O2 Delivery O2 Flow Rate FiO2 09/25/18 15:00 64 91 09/25/18 14:19 105/64 (78) 09/25/18 12:38 99.0 20 Room Air General Appearance: Awake, No Acute Distress, Other (appears weak and cachectic) Cardiovascular: Other (reg rate) Respiratory: No Respiratory Distress GI: Abd Soft and Non-Tender Extremities: Other (no pitting edema) Medical Decision Making Data Points Result Diagram: 09/25/18 1230 09/25/18 1321 Assessment and Plan Problems: (1) Anemia Status: Acute Assessment & Plan: 09/25/18: pt is anemic and has seen brb in stool and maybe blood in vomit. h/o bleeding gastric ulcers. stool test neg for blood. pt needs egd/colonoscopy; however, he is very weak right now and the procedures are not urgent. pt will be admitted and we will try to improve his condition prior to putting him through prep and procedures. Venous Thromboembolism Antithrombotics Is Pt On Any Antithrombotics?: No Problem Qualifiers (1) Anemia: Anemia type: other cause Other causes of anemia: other cause, not classified Qualified Codes: D64.89 - Other specified anemias STANISLAW BRIONES Sep 25, 2018 16:14
--- NOTE | 2018-09-25 16:18 | EKG ---
FACILITY: [facility] [place] PATIENT NAME: JOEL GOLDBERG : [id number] MR: [id number] V: [id number] EXAM DATE: ORDERING PHYSICIAN: TRAE AMADOR TECHNOLOGIST: XAVIER Test Reason : CONFUSED Blood Pressure : / mmHG Vent. Rate : 062 BPM Atrial Rate : 062 BPM P-R Int : 156 ms QRS Dur : 090 ms QT Int : 414 ms P-R-T Axes : 056 051 072 degrees QTc Int : 420 ms Normal sinus rhythm Normal ECG Confirmed by ZAYDA DUDLEY ([id number]) on 09/25/2018 8:21:23 PM Referred By: TRAE Confirmed By:ZAYDA DUDLEY
[2018-09-25] MEDS ORDERED: INFLUENZA VIRUS VAC 0.5ML SYR IM ONLY ONE (17:05)
[2018-09-25] MEDS ORDERED: OXYC5TAB38 PO (17:05)
[2018-09-25] MEDS ORDERED: HYDR12.556 PO (17:05)
[2018-09-25] MEDS ORDERED: OXYC-823 PO (17:05)
[2018-09-25] MEDS ORDERED: POTA20TA94 PO (17:05)
--- NOTE | 2018-09-25 17:09 | History & Physical ---
History of Present Illness Chief Complaint Weakness History of Present Illness This patient presented to the emergency room for increased weakness and confusion. He noted large amounts of blood in his stool several days ago, and has been feeling poorly since. History Problems: (1) Renal cell carcinoma Home Meds Active Scripts Magnesium Oxide (MAGNESIUM OXIDE) 400 Mg Tablet, 400 MG PO BID for 30 Days, #60 TAB 0 Refills Prov:JARODTUSHARTRAE ESPOSITO Ana MANAGER ENROLLMENT-BC 08/10/18 Pantoprazole Sodium (PANTOPRAZOLE SODIUM) 40 Mg Tablet.dr, 40 MG PO QDAY for 90 Days, #90 TAB.SR Prov:ZAYDA DUDLEY DO 01/11/18 Tamsulosin Hcl (FLOMAX) 0.4 Mg Cap.er.24h, 0.4 MG PO QHS for 30 Days, #30 CAP 0 Refills Prov:STEPH PHELAN MD 10/24/17 Reported Medications Ondansetron 4 Mg Odt (ONDANSETRON 4 MG ODT) 4 Mg Tab.rapdis, 8 MG PO ONCE, TAB 08/05/18 Cabozantinib S-Malate (Cabometyx) 40 Mg Tablet Pt takes 40mg QD 07/02/18 Potassium Chloride (POTASSIUM CHLORIDE) 10 Meq Capsule.er, 20 MEQ PO BID 05/26/18 [oxycodone] 5mg No Conflict Check, 5 MG PO Q4-6H PRN for PAIN take 1-2 tabs po q 4-6 hours 03/31/18 Oxycodone Hcl (OXYCONTIN) 10 Mg Tab.er.12h, 10 MG PO, TAB 03/31/18 Amlodipine/Atorvastatin (AMLODIPINE-ATORVAST 5-20 MG) 1 Each Tablet, 1 EACH PO QDAY, TAB 06/08/15 Benztropine Mesylate (BENZTROPINE MESYLATE) 0.5 Mg Tab, 0.5 MG PO HS, TAB 01/29/15 Quetiapine Fumarate (QUETIAPINE FUMARATE) 25 Mg Tablet, 25 MG PO Q6H PRN for AGITATION, #60 10/30/13 Gabapentin (GABAPENTIN) 300 Mg Capsule, 900 MG PO BID, #180 CAPSULE Take 3 capsules every morning and before bed 07/04/13 Baclofen (BACLOFEN) 10 Mg Tablet, 10 MG PO BID, #60 TAB Take 1 tablet by mouth twice daily 06/28/13 Allergies: Coded Allergies: No Known Drug Allergies (Verified , 08/10/18) Patient History: Back pain FATHER FH: cerebral palsy FATHER FH: diabetes mellitus FATHER Hx Smoking: Yes (1 ppd, 40 years) Smoking Status: Current: Every Day Smoker Exposure to Second Hand Smoke?: Yes Caffeine Intake: Coffee Caffeine/Cups Per Day: 1 quart of cpffee/day Hx Alcohol Use: No Hx Substance Use Disorder: Yes (occ) Social Drug Use: Former Social Drugs: Marijuana Amount Of Social Drug/s Used: Used Meth once, Marijuana daily Review of Systems All Systems Reviewed/Normal: Yes Exam Vital Signs Vital Signs Date Time Temp Pulse Resp B/P (MAP) Pulse Ox O2 Delivery O2 Flow Rate FiO2 09/25/18 16:51 95/59 (71) 09/25/18 16:45 98.2 65 16 93 Room Air Neuro: No Gross deficits Eyes: PERRLA Cardiovascular: Regular Rate and Rhythm Respiratory: Clear to Auscultation GI: Abd Soft and Non-Tender Extremities: No Edema Integumentary: Pallor Medical Decision Making Data Points Result Diagram: 09/25/18 1230 09/25/18 1321 Assessment and Plan Problems: (1) Anemia due to GI blood loss Assessment & Plan: He is scheduled to receive 2 units of red cells today. A repeat Hgb is ordered for the morning. (2) GI bleed Assessment & Plan: He has been started on Protonix. Dr. Trujillo is aware of his admission, but does not plan to perform endoscopy at this time. (3) Renal cell carcinoma Assessment & Plan: He is followed through the cancer center. Venous Thromboembolism Antithrombotics Is Pt On Any Antithrombotics?: No Exam Sepsis Risk: No Definite Risk Problem Qualifiers (1) Renal cell carcinoma: Laterality: right Qualified Codes: C64.1 - Malignant neoplasm of right kidney, except renal pelvis AZYDA DUDLEY DO Sep 25, 2018 17:09
[2018-09-25] MEDS ORDERED: NS(*) 0.9% 500 ML BAG 500 ML ONE (17:43)
[2018-09-25] MEDS ORDERED: ONDANSETRON 4 MG ODT TABDP SL PRN (18:20)
[2018-09-25] MEDS: oxyCODONE HCL 5 MG CAP PO PRN ×2 (19:47→23:52)
[2018-09-25] MEDS: BENZTROPINE MESYLATE 0.5MG TAB PO SCH (20:40)
[2018-09-25] MEDS: QUEtiapine FUM 25 MG TAB PO SCH (20:40)
[2018-09-25] MEDS: BACLOFEN 10 MG TAB PO SCH (20:40)
[2018-09-25] MEDS: GABAPENTIN 300 MG CAP PO SCH (20:41)
[2018-09-25] MEDS ORDERED: PANTOPRAZOLE SOD IV SCH (23:55)
[2018-09-25] MEDS ORDERED: NS IV SCH (23:55)
[2018-09-25] MEDS: NS(*) 0.9% 1000 ML BAG 1,000 ML IV PRN (23:58)
[2018-09-26] MEDS: oxyCODONE HCL 5 MG CAP PO PRN ×3 (03:59→19:21)
[2018-09-26 04:10] VITALS: BP 98/57
[2018-09-26 05:43] LABS: PLATELET COUNT, AUTOMATED 281 K/uL (150-450)
[2018-09-26] MEDS: GABAPENTIN 300 MG CAP PO SCH ×2 (08:41→21:39)
[2018-09-26] MEDS: BACLOFEN 10 MG TAB PO SCH ×2 (08:41→21:39)
[2018-09-26] MEDS: POTASSIUM CHL PWDR 20 MEQ PKT PO SCH ×2 (08:41→17:09)
[2018-09-26 08:43] VITALS: BP 95/62
--- NOTE | 2018-09-26 09:33 | Hospitalist Progress Note ---
Subjective Progress Notes Subjective The patient notes that he has had some burning with urination the past few days at home. He states he gets frequent UTIs and has a urethral stricture. Physical Exam Vital Signs Date Time Temp Pulse Resp B/P (MAP) Pulse Ox O2 Delivery O2 Flow Rate FiO2 09/26/18 08:43 98.8 76 16 95/62 (73) 91 Room Air Intake and Output 09/26/18 07:03 Intake Total 2725 ml Balance 2725 ml Intake Oral 600 ml IV Total 1125 ml Blood Product 1000 ml # Voids 3 Result Diagram: 09/26/1813 09/26/18512 Assessment and Plan Problems: (1) Anemia due to GI blood loss Assessment & Plan: He is scheduled to receive 2 units of red cells today. A repeat Hgb is ordered for the morning. (2) GI bleed Assessment & Plan: He has been started on Protonix. Dr. Trujillo is aware of his admission, but does not plan to perform endoscopy at this time. (3) Renal cell carcinoma Assessment & Plan: He is followed through the cancer center. Exam Sepsis Risk: No Definite Risk Problem Qualifiers (1) Renal cell carcinoma: Laterality: right Qualified Codes: C64.1 - Malignant neoplasm of right kidney, except renal pelvis MONIQUE HERNANDEZ MD Sep 26, 2018 09:33
--- NOTE | 2018-09-26 10:11 | Hospitalist Progress Note ---
Subjective Progress Notes Subjective The patient states he is feeling much better today. On further questioning, the patient notes that the rectal bleeding was external. He does have pictures on his phone that clearly show normal colored stool with blood streaking on the exterior. He also has picture of tissue with BRB from "dabbing" his rectum. He does have history of a one time bleeding ulcer but has not had trouble recently. The patient also complains of some dysuria. He states that for the past few days he has started having burning with urination and he feels he is "working on a UTI". He states he has a history of recurrent UTIs and also has narrowing of his urethra. Physical Exam Vital Signs Date Time Temp Pulse Resp B/P (MAP) Pulse Ox O2 Delivery O2 Flow Rate FiO2 09/26/18 08:43 98.8 76 16 95/62 (73) 91 Room Air Intake and Output 09/26/18 07:03 Intake Total 2725 ml Balance 2725 ml Intake Oral 600 ml IV Total 1125 ml Blood Product 1000 ml # Voids 3 General Appearance: Alert, Awake, No Acute Distress, Other (Cachetic. Appears chronically ill. Pale.) Neuro: No Gross deficits Eyes: PERRLA Cardiovascular: Regular Rate and Rhythm, No Edema Respiratory: Clear to Auscultation Chest: Other (Port in R upper chest appears clean and dry. No redness or drainage noted.) GI: Soft and Non-Tender Extremities: Warm, Perfused Integumentary: Other (Skin is pale with yellowish tone.) Psych: Alert & Oriented X3, Appropriate Mood & Affect Result Diagram: 09/26/18 0513 09/26/18 05 Assessment and Plan Problems: (1) Fever Status: Acute Assessment & Plan: The patient has developed fever. He does have dysuria and hx of UTIs. Will do a UA and culture today. CXR on admission was without acute issues. (2) Anemia due to GI blood loss Assessment & Plan: He received 2 units of red cells yesterday. Hgb improved to 8.2 today. Clinically, the patient feels much better. A repeat Hgb is ordered for the morning. (3) GI bleed Assessment & Plan: He has been started on Protonix. Will switch from IV to po today. Dr. Trujillo is following the patient and favors ongoing monitoring rather than endoscopy at this time. (4) Renal cell carcinoma Assessment & Plan: He is followed through the cancer center. Time Spent on Plan of Care: < 30 min Exam Sepsis Risk: No Definite Risk Problem Qualifiers (1) Renal cell carcinoma: Laterality: right Qualified Codes: C64.1 - Malignant neoplasm of right kidney, except renal pelvis MONIQUE HERNANDEZ MD Sep 26, 2018 10:11
--- NOTE | 2018-09-26 10:36 | General Surgery Progress Note ---
Subjective Progress Notes Subjective feels better. cas po well. Physical Exam Vital Signs Date Time Temp Pulse Resp B/P (MAP) Pulse Ox O2 Delivery O2 Flow Rate FiO2 09/26/18 08:43 98.8 76 16 95/62 (73) 91 Room Air Intake and Output 09/26/18 07:03 Intake Total 2725 ml Balance 2725 ml Intake Oral 600 ml IV Total 1125 ml Blood Product 1000 ml # Voids 3 General Appearance: No Acute Distress Cardiovascular: Other (reg rate) GI: Other (soft) Result Diagram: 09/26/18 0513 09/26/18512 Assessment and Plan Problems: (1) Anemia Status: Acute Assessment & Plan: 09/25/18: pt is anemic and has seen brb in stool and maybe blood in vomit. h/o bleeding gastric ulcers. stool test neg for blood. pt needs egd/colonoscopy; however, he is very weak right now and the procedures are not urgent. pt will be admitted and we will try to improve his condition prior to putting him through prep and procedures. 09/26/18: discussed with hospitalist. no current blood per rectum. will monitor hb. if it appears that pt has acute significant bleed and/or his overall physical condition improves then will perform egd and colonoscopy. until then will work on getting strength, nutrition back. Exam Sepsis Risk: No Definite Risk Problem Qualifiers (1) Anemia: Anemia type: other cause Other causes of anemia: other cause, not classified Qualified Codes: D64.89 - Other specified anemias STANISLAW BRIONES Sep 26, 2018 10:36
[2018-09-26 12:25] VITALS: BP 109/77
[2018-09-26 12:27] VITALS: Ht 163.8 cm; Wt 54.0 kg
[2018-09-26] MEDS: NS(*) 0.9% 1000 ML BAG 1,000 ML IV PRN (13:41)
[2018-09-26 15:13] VITALS: BP 115/72
[2018-09-26 19:20] VITALS: BP 129/69
[2018-09-26] MEDS: PANTOPRAZOLE SOD 40 MG TABEC PO SCH (21:38)
[2018-09-26] MEDS: QUEtiapine FUM 25 MG TAB PO SCH (21:39)
[2018-09-26] MEDS: BENZTROPINE MESYLATE 0.5MG TAB PO SCH (21:40)
[2018-09-27] VITALS (7 sets, daily range): BP systolic 103–119; BP diastolic 66–89
[2018-09-27] MEDS: oxyCODONE HCL 5 MG CAP PO PRN ×5 (01:43→20:29)
[2018-09-27 06:17] LABS: PLATELET COUNT, AUTOMATED 278 K/uL (150-450)
--- NOTE | 2018-09-27 07:31 | General Surgery Progress Note ---
Physical Exam Vital Signs Date Time Temp Pulse Resp B/P (MAP) Pulse Ox O2 Delivery O2 Flow Rate FiO2 09/27/18 06:51 98.5 64 16 104/70 (81) 94 Room Air Intake and Output 09/27/18 07:03 Intake Total 2653 ml Balance 2653 ml Intake Oral 990 ml IV Total 1663 ml # Voids 7 General Appearance: No Acute Distress, Other (pt sleeping) Result Diagram: 09/26/18 0513 09/27/18 0558 Assessment and Plan Problems: (1) Anemia Status: Acute Assessment & Plan: 09/25/18: pt is anemic and has seen brb in stool and maybe blood in vomit. h/o bleeding gastric ulcers. stool test neg for blood. pt needs egd/colonoscopy; however, he is very weak right now and the procedures are not urgent. pt will be admitted and we will try to improve his condition prior to putting him through prep and procedures. 09/26/18: discussed with hospitalist. no current blood per rectum. will monitor hb. if it appears that pt has acute significant bleed and/or his overall physical condition improves then will perform egd and colonoscopy. until then will work on getting strength, nutrition back. 09/27/18: pt sleeping comfortable this am. i did not wake him. continue current plan. likely no egd/cscope this hospital stay. Exam Sepsis Risk: No Definite Risk Problem Qualifiers (1) Anemia: Anemia type: other cause Other causes of anemia: other cause, not classified Qualified Codes: D64.89 - Other specified anemias STANISLAW BRIONES Sep 27, 2018 07:31
[2018-09-27] MEDS: POTASSIUM CHL PWDR 20 MEQ PKT PO SCH ×2 (08:47→17:40)
[2018-09-27] MEDS: BACLOFEN 10 MG TAB PO SCH ×2 (08:47→21:26)
[2018-09-27] MEDS: PANTOPRAZOLE SOD 40 MG TABEC PO SCH ×2 (08:47→21:26)
[2018-09-27] MEDS: GABAPENTIN 300 MG CAP PO SCH ×2 (08:47→21:26)
[2018-09-27] MEDS ORDERED: ONDA8TAB97 PO (12:34)
--- NOTE | 2018-09-27 14:37 | NUR ---
Physical Therapy Impression PT eval complete. Recommend long-term rehab. Physical Therapy Goals 1. Mod I bed mobility. 2. Mod I transfers. 3. Mod I gait x 50' with RW. Patient's Goals
--- NOTE | 2018-09-27 14:55 | NUR ---
Occupational Therapy Impression Initial OT evaluation completed. Min A supine to sit. CGA ambulation with RW. CGA toileting. Mod A sit<>supine. Pt reports increased difficulty managing ADLs/IADLs at home. Recommend long-term rehab. Occupational Therapy Goals 1) pt will be SBA UB/LB dressing. 2) pt will be SBA toilet task. Patient's Goal
--- NOTE | 2018-09-27 15:22 | NUR ---
ECF Referral - Met with patient to explain the rehab philosophy of ECF. Patient states he's going home tomorrow. Questioned if he felt he was able to care for himself at home. "I'm feeling better by the minute". "I thought that they meant to come up for physical therapy tomorrow". After discussion, the plan is to check with him in the morning to determine if he thinks he might need some strengthening and a few days on ECF prior to going home. PASRR negative. He will have a qualifying stay after midnight tonight.
--- NOTE | 2018-09-27 15:29 | Hospitalist Progress Note ---
Subjective Progress Notes Subjective 68M admitted for GI bleed, anemia. JOSÉ LUIS overnight, will consult PT/OT to evaluate as appears to be weak and might benefit. Hgb stable. Patient Complains of: Neurological: Weakness Gastrointestinal: Bowel Movement Genitourinary: No Dysuria Physical Exam Vital Signs Date Time Temp Pulse Resp B/P (MAP) Pulse Ox O2 Delivery O2 Flow Rate FiO2 09/27/18 10:50 99.3 72 14 104/67 (79) 91 Room Air Intake and Output 09/27/18 07:03 Intake Total 2653 ml Balance 2653 ml Intake Oral 990 ml IV Total 1663 ml # Voids 7 General Appearance: No Acute Distress, Afebrile Neuro: No Gross deficits ENT: Other (poor dentition) Cardiovascular: Normal Rhythm & Peripheral Pulses Respiratory: No Respiratory Distress Musculoskeletal: Other (generalized weakness) Result Diagram: 09/27/1858 09/27/18557 Assessment and Plan Problems: (1) Elevated temperature Assessment & Plan: No acute infectious process identified, suspect malignancy is cause. (2) Anemia due to GI blood loss Assessment & Plan: He received 2 units of red cells.. Hgb improved to 8.2. Clinically, the patient feels much better. A repeat Hgb stable, BM has minimal blood on outside stool. Likely hemorrhoid or fissure. (3) GI bleed Assessment & Plan: He has been started on Protonix. Dr. Trujillo is following the patient and favors ongoing monitoring rather than endoscopy at this time. (4) Renal cell carcinoma Assessment & Plan: He is followed through the cancer center. Exam Sepsis Risk: No Definite Risk Problem Qualifiers (1) Renal cell carcinoma: Laterality: right Qualified Codes: C64.1 - Malignant neoplasm of right kidney, except renal pelvis YAMIL FERNANDEZ DO Sep 27, 2018 15:29
[2018-09-27] MEDS ORDERED: ACETAMINOPHEN 500 MG TAB PO PRN (20:30)
[2018-09-27] MEDS: BENZTROPINE MESYLATE 0.5MG TAB PO SCH (21:26)
[2018-09-27] MEDS: QUEtiapine FUM 25 MG TAB PO SCH (21:26)
[2018-09-28] MEDS: oxyCODONE HCL 5 MG CAP PO PRN ×2 (00:57→05:33)
[2018-09-28 05:34] VITALS: BP 117/67
--- NOTE | 2018-09-28 07:54 | NUR ---
ECF Referral - met with patient who is in agreement to come to ECF for skilled rehab. "If I ask for help, I guess I should take it". Can be admitted once medically cleared.
--- NOTE | 2018-09-28 08:27 | NUR ---
LT101 request made, as pt has Medicaid.
[2018-09-28] MEDS: GABAPENTIN 300 MG CAP PO SCH (09:44)
[2018-09-28] MEDS: PANTOPRAZOLE SOD 40 MG TABEC PO SCH (09:45)
[2018-09-28] MEDS: BACLOFEN 10 MG TAB PO SCH (09:45)
[2018-09-28] MEDS: POTASSIUM CHL PWDR 20 MEQ PKT PO SCH (09:45)
--- NOTE | 2018-09-28 09:51 | Hospitalist Depart ---
Discharge Summary Reason for Hosp/Final Diag: (1) Elevated temperature Hospital Course & Plan: No acute infectious process identified, suspect malignancy is cause. (2) Anemia due to GI blood loss Hospital Course & Plan: He received 2 units of red cells.. Hgb improved to 8.2. Clinically, the patient feels much better. A repeat Hgb stable, BM has minimal blood on outside stool. Likely hemorrhoid or fissure. (3) GI bleed Hospital Course & Plan: He has been started on Protonix. Dr. Trujillo is following the patient and favors ongoing monitoring rather than endoscopy at this time. (4) Renal cell carcinoma Hospital Course & Plan: He is followed through the cancer center. Departure Latest Vital Signs Vital Signs 09/27/18 09/28/18 09/28/18 09/28/18 23:15 05:34 05:45 08:56 Temp 98.8 Pulse 73 Resp 16 B/P (MAP) 117/67 (84) Pulse Ox 92 O2 Delivery Room Air Weight (Pounds): 119 Result Diagram: 09/27/1855709/27/18557 Condition: Improved Discharge: [facility] PT/OT Follow Up For: PT Evaluation and Treat, OT Evaluation and Treat Discharge Instructions Home Meds Active Scripts Magnesium Oxide (MAGNESIUM OXIDE) 400 Mg Tablet, 400 MG PO BID for 30 Days, #60 TAB 0 Refills Prov:TRAE AMADOR [employer]PER[employer] SPECIALIST-BC 08/10/18 Pantoprazole Sodium (PANTOPRAZOLE SODIUM) 40 Mg Tablet.dr, 40 MG PO QDAY for 90 Days, #90 TAB.SR Prov:ZAYDA DUDLEY DO 01/11/18 Tamsulosin Hcl (FLOMAX) 0.4 Mg Cap.er.24h, 0.4 MG PO QHS for 30 Days, #30 CAP 0 Refills Prov:STEPH PHELAN MD 10/24/17 Reported Medications Ondansetron Hcl (ONDANSETRON HCL) 8 Mg Tablet, 1 TAB PO Q8-12H PRN for NAUSEA, TAB 09/27/18 Hydrochlorothiazide (HYDROCHLOROTHIAZIDE) 12.5 Mg Capsule, 1 TAB PO QDAY, CAPSULE 09/25/18 Oxycodone Hcl (OXYCONTIN) 10 Mg Tab.er.12h, 10 MG PO Q12H, TAB 09/25/18 Oxycodone Hcl (OXYCODONE HCL) 5 Mg Tablet, 5 MG PO Q4-6H PRN for pain 09/25/18 Potassium Chloride (POTASSIUM CHLORIDE) 20 Meq Tab.er.prt, 40 MEQ PO BIDBS 09/25/18 Cabozantinib S-Malate (Cabometyx) 40 Mg Tablet Pt takes 40mg QD 07/02/18 Amlodipine/Atorvastatin (AMLODIPINE-ATORVAST 5-20 MG) 1 Each Tablet, 1 EACH PO QDAY, TAB 06/08/15 Benztropine Mesylate (BENZTROPINE MESYLATE) 0.5 Mg Tab, 0.5 MG PO HS, TAB 01/29/15 Quetiapine Fumarate (QUETIAPINE FUMARATE) 25 Mg Tablet, 50 MG PO QHS, #60 10/30/13 Gabapentin (GABAPENTIN) 300 Mg Capsule, 900 MG PO BID, #180 CAPSULE Take 3 capsules every morning and before bed 07/04/13 Baclofen (BACLOFEN) 10 Mg Tablet, 10 MG PO BID, #60 TAB Take 1 tablet by mouth twice daily 06/28/13 Discontinued Reported Medications Ondansetron 4 Mg Odt (ONDANSETRON 4 MG ODT) 4 Mg Tab.rapdis, 8 MG PO BID PRN for nausea, TAB 08/05/18 Potassium Chloride (POTASSIUM CHLORIDE) 10 Meq Capsule.er, 20 MEQ PO BID 05/26/18 [oxycodone] 5mg No Conflict Check, 5 MG PO Q4-6H PRN for PAIN take 1-2 tabs po q 4-6 hours 03/31/18 Oxycodone Hcl (OXYCONTIN) 10 Mg Tab.er.12h, 10 MG PO, TAB 03/31/18 Diet: Regular Activity: As Tolerated, With Walker Special Instructions: Venous Thromboembolism Antithrombotics Is Pt On Any Antithrombotics?: No Problem Qualifiers (1) Renal cell carcinoma: Laterality: right Qualified Codes: C64.1 - Malignant neoplasm of right kidney, except renal pelvis ZAYDA DUDLEY DO Sep 28, 2018 09:51
[2018-09-28 09:58] VITALS: BP 90/56
[2018-09-28] MEDS ORDERED: HEPARIN FLSH (PORT) 500 UN/5ML ONE (11:11)
== END 2018-09-28 11:30 | DRG 812 ==
LOC: ER 12:35 → MED 15:13
PROVIDERS: ADMIT Family Medicine; ATTEND Family Medicine
PROC: 30233P1 Transfusion of Nonautologous Frozen Red Cells into Peripheral Vein, Percutaneous Approach (ICD-10-PCS; principal; 2018-09-25)
DX: D62 Acute posthemorrhagic anemia (principal); C64.1 Malignant neoplasm of right kidney, except renal pelvis; K92.1 Melena; Z92.21 Personal history of antineoplastic chemotherapy; Z87.891 Personal history of nicotine dependence; Z90.49 Acquired absence of other specified parts of digestive tract
CPT/HCPCS: 36415; 71045; 81001; 82040; 82140; 82247; 82274; 82310; 82374; 82435; 82565; 82947; 83735; 84075; 84132; 84155; 84295; 84443; 84450; 84460; 84520; 85025; 86850; 86900; 86901; 86920; 87088; 93005; 97162; 97166; C9113; J7030; J7040; J7050; P9016; S0119

== ENCOUNTER → 2018-09-25 | Outpatient (CLI) | payer MEDICARE, MEDICAID ==
[~2018-09-25] MED LIST changes: +HYDR12.556 PO; -IOPAMIDOL 76% 100 ML INFUS BTL 100 ML ONE; +ONDA8TAB97 PO; +OXYC5TAB38 PO; +POTA20TA94 PO
[2018-09-26 12:27] VITALS: BMI 20.1
== END ==
LOC: AMB 12:03
PROVIDERS: ATTEND Nurse Practitioner
DX: R53.1 Weakness (principal); R53.83 Other fatigue; R42 Dizziness and giddiness
CPT/HCPCS: A0425; A0427

== ENCOUNTER 2018-10-13 10:30 | Outpatient (RCR) | payer MEDICARE, MEDICAID ==
[2018-07-23 14:11] LABS: PLATELET COUNT, AUTOMATED 221 K/uL (150-450)
[2018-07-23 17:11] VITALS: BP 124/75
--- NOTE | 2018-07-24 08:38 | ONCOLOGY FOLLOW UP NOTE ---
EVENT DATE: July 23, 2018 CHIEF COMPLAINT Patient here for ongoing care regarding his metastatic renal cell carcinoma. Currently, on cabo, at decreased dose of 40 mg daily. He is one month into this lower dose or has completed one cycle at lower dose. INTERIM HISTORY Mr. Mesa is here today for ongoing followup. Overall, he tells me he is feeling quite well and tells me that he is quite happy with the way things are going for him currently. He believes that the decreased dose in cabo, down 40 mg, which we decreased about a month ago, has significantly improved his side effects. He tells me he is no longer having any diarrhea and now is even having some constipation. He believes he is eating and drinking well and tells me that he is mostly eating small frequent meals throughout the day as he does get full faster. He reports that his weight is holding steady at 118 pounds. He was in the ER last Thursday due to repeat UTI but tells me before that he had not been hospitalized. He was placed on oral antibiotics. He still has some left-sided flank pain, posterior back pain. He tells me he has no pain on the right side. He remains on OxyContin 10 mg b.i.d. as well as oxycodone 5 mg tablets p.r.n. for breakthrough pain. He reports that his pain has been significantly better and tells me he has had many episodes of where he has no pain at all. Currently, he tells me he has no pain. Back in May, his cabo was on hold for about 1 to 1-1/2 weeks secondary to side effects. ONCOLOGY HISTORY Renal cell carcinoma. 1. October 24, 2017, CT abdomen and pelvis: Conglomerate lymphadenopathy within aortocaval retroperitoneum; no gross primary malignancy; [id number] bladder distention; questionable mild thickening along posterior/inferior bladder base similar to 2015 findings; borderline nonspecific splenomegaly. 2. November 27, 2017, CT scan chest, abdomen, and pelvis: Aortocaval adenopathy has increased in size compared to prior; a left periaortic lymph node has slightly increased. 3. November 2017, patient presents with right testicular discomfort. 4. December 22, 2017, testicular ultrasound reveals 2.7 x 1.9 x 2.8 cm heterogeneous hypervascular mass projecting inferior to the right testicle. 5. January 11, 2018, patient undergoes right inguinal orchiectomy. Surgical pathology reveals chronic lymphocytic inflammation with fibrosis and no evidence of malignancy. Second opinion on tissue shows nonspecific findings overall with diagnostic considerations including smooth muscle hyperplasia of testicular adnexa, granulomatous ischemic lesion, resolving granulomatous orchitis, or possibly resolving reaction to extravasated sperm (sperm granuloma). 6. February 18, 2018, CT of abdomen and pelvis reveals 1.3 cm ovoid, hypoattenuating mass along posteromedial inferior aspect of left kidney, not present on prior study. There was fullness of the right renal collecting system related to marked distention of the urinary bladder. There is a new lytic lesion involving the T8 vertebral body, and left periaortic lymph node has increased in size. A large aortocaval bruce mass was relatively unchanged. 7. He began palliative radiation on March 15, 2018, ongoing. 8. January 2018: Initiation of palliative cabozantinib. PAST MEDICAL HISTORY 1. Recurrent urinary tract infections. 2. Smoking and reported history of polysubstance abuse. 3. Concern for personality disorder. 4. Cerebral palsy. 5. Hypertension. 6. Hypercholesterolemia. FAMILY HISTORY Noncontributory. SOCIAL HISTORY The patient is single. He has a history of heavy alcohol use. He is a currently daily smoker. There is a reported history of polysubstance abuse. ALLERGIES No known drug allergies. CURRENT MEDICATIONS 1. Potassium. 2. Benztropine mesylate. 3. Quetiapine. 4. Gabapentin. 5. Baclofen p.r.n. 6. Senna p.r.n. 7. Percocet p.r.n. 8. Pantoprazole p.r.n. 9. Colace p.r.n. 10. Flomax 0.4 mg p.o. daily. 11. Tramadol p.r.n. 12. Levofloxacin. 13. Amoxicillin. 14. Hydrochlorothiazide 12.5 mg. 15. Amlodipine/atorvastatin. REVIEW OF SYSTEMS CONSTITUTIONAL: Patient denies any recent fevers, chills or night sweats. He recently was diagnosed with UTI about a week ago. He believes his appetite and weight are stable. HEENT: He denies any vision changes. No significant epistaxis. He denies any mouth sores. CARDIOVASCULAR: He denies any chest pain, syncope, or presyncope. RESPIRATORY: He denies any shortness of breath, hemoptysis, or pleuritic chest pain. He continues to smoke cigarettes. GASTROINTESTINAL: No abdominal pain. No further diarrhea. He has had some episodes of constipation. No nausea or vomiting. He is drinking fluids well. He is concerned about his diabetes and nutrition related to diabetes. He eats small frequent meals. His weight has been study at 118 pounds. GENITOURINARY: No dysuria or hematuria. He reports some left sided back/flank pain which he now believes is musculoskeletal. He is not having any urgency or frequency. MUSCULOSKELETAL: Patient continues to report some generalized fatigue and generalized weakness. He also has a pain syndrome as well as a history of chronic back pain. Currently, he tells me he has no pain at all and particularly no pain on the right side of his back. ENDOCRINE: No heat or cold intolerance. He continues to report generalized fatigue and weakness. Fatigue is overall stable. DERM: He denies any rash. No suspicious lumps or bumps. EXTREMITIES: He denies any swelling. The remainder of a 12-point review of systems is performed today and is otherwise negative. PHYSICAL EXAMINATION VITAL SIGNS: T 99.9, P 77, R 18, BP 109/70, oxygen saturation 92% room air. GENERAL: In general, this is a pleasant 67-year-old gentleman who appears chronically ill but is in no acute distress. He appears quite stable and actually looks good. HEAD: Atraumatic, normocephalic. EYES: Sclerae anicteric. ENT/MOUTH: No mucositis. No ulcerations. Patient is missing teeth and has poor dentition. NECK: Supple. No lymphadenopathy. No JVD. LUNGS: Diminished breath sounds to auscultation bilaterally. No focal findings. Respiratory effort is normal. CARDIOVASCULAR: Regular rate and rhythm. No ectopy. Heart sounds are somewhat distant. ABDOMEN: Soft, nondistended, nontender. Bowel sounds positive times four. No organomegaly. EXTREMITIES: No edema bilaterally. No clubbing or cyanosis. NEUROLOGIC: Patient is awake, alert, oriented x3. PSYCHIATRIC: Mood and affect are appropriate. DERM: No hand-foot syndrome. He has only some mild dryness to his palms bilaterally. No ulcerations or blistering. MUSCULOSKELETAL: No CVA tenderness noted bilaterally. No pain to palpation of the bony spinous processes. LABORATORY CBC today: WBC 2.4, ANC 1.9, hemoglobin 10.6, hematocrit 31.9%, platelets 221,000. CMP today: Normal sodium at 139, potassium down to 3.2, previously 3.5 on July 09, 2018. Serum creatinine normal at 0.60, although slightly low. Glucose normal at 91. Magnesium low at 1.1. Previously, this was 1.7 on June 15, 2018. Calcium minimally low today at 8.3. Total bilirubin normal at 0.7. LFTs normal to include normal AST at 35, normal ALT at 39, normal alkaline phosphatase at 97. Total protein normal at 6.8, although albumin is low at 3.2. Previously, his albumin was at 3.3 on July 09, 2018. IMAGING CT chest, abdomen and pelvis with contrast at [facility] on June 09, 2018: 1. There is a small patchy area of air space consolidation of posterior aspect of the right lower lobe not present previously. There is also mild pleural thickening along the posterior aspect of the left lower lobe that is slightly increased. These could represent an acute infectious/inflammatory process, although short-term interval followup recommended. The additional small area of pleural parenchymal scarring of superior aspect of the right lower lobe is minimally increased. 2. There is a small pericardial effusion. Calcifications within the left ventricle are slightly increased. 3. Previously noted ovoid hypoattenuating mass along the posterior medial aspect, left kidney, is slightly decreased in size, although does not appear to represent a simple cyst. Further evaluation with MR with and without contrast is recommended. 4. Previously noted retroperitoneal adenopathy is slightly decreased as described above. 5. There is a new lytic lesion involving the right side of the T5 vertebral body. The previously noted lytic lesions involving T8 and a mild compression fracture of L1 remains relatively stable. 6. Additional chronic findings as described. IMPRESSION AND PLAN This is a pleasant 67-year-old gentleman with metastatic renal cell carcinoma. He currently continues on palliative cabozantinib, which he had been tolerating fairly well. He has just completed six cycles. Back in late April, he had some difficulty with severe diarrhea, resulting in dehydration and significant electrolyte imbalance, which required hospitalization. He was discharged in much better condition and we reinitiated cabo at full dose, 60 mg daily. Back in mid May, he was noted to have difficulty again with electrolyte imbalance as well as diarrhea and was inpatient for about a day or two. As a result, we decreased his cabo down to 40 mg daily. This was done after his fifth cycle on June 15, 2018. He has completed now one cycle at the dose reduction at 40 mg daily. He is also on chronic scheduled opioid medication for his chronic lower back pain. He has had previous palliative radiotherapy to T5. He was recently seen for UTI and was treated in the ER a week ago. He tells me his urine is now clear. He did have re-staging CT scans done on June 09, 2018 and after those results they were discussed with Dr. Beckford and his case was reviewed at [facility]. I spoke with Dr. Beckford yesterday. Images were asked for comparison as most recent CT scan revealed a new lytic lesion involving the T8 vertebral body. I reviewed his case in clinic again with Dr. Beckford yesterday and we have referred him to Radiation Oncology. Patient will be seeing Dr. Fall today for consultation. 1. Metastatic renal cell carcinoma: Status post re-staging CT scan of chest, abdomen and pelvis done on June 09, 2018. Overall, results were mixed as there is possibly some disease progression at T5 vertebral body. He has been tolerating decreased dose of cabo 40 mg daily quite well. He is to continue with this. He has now completed one full cycle at the decreased dose and prior to that had received five cycles. In total, he has had six cycles and will be starting a seventh cycle next week with cabo. 2. Radiation Oncology: Patient consulting with Dr. Fall later today for evaluation of radiotherapy to the new lytic lesion at T8. Patient tells me he is having no pain at this time and tells me that in the last month his pain has significantly improved. He is still taking chronic opioids and I will refill his OxyContin and oxycodone today, see chart. He will receive #60 tablets of OxyContin 10 mg to take one p.o. b.i.d. and we will also refill his oxycodone 5 mg one p.o. every four to six hours p.r.n. breakthrough pain with #120 given, no refills. 3. Imaging: Discussed his case with Dr. Beckford yesterday as well as Dr. Fall yesterday and today. I have ordered a bone scan to further evaluate for any possible further bony lytic disease. Discussed this with patient and he understand rationale and is in agreement with that. 4. Diarrhea: Completely resolved now. He has had some constipation. Discussed self-care measures for this. 5. Hypokalemia/hypomagnesemia: CMP today revealed mild hypokalemia with potassium at 3.2. Magnesium today is down to 1.1. He is on supplementation and although his magnesium is low, his electrolyte imbalance is certainly better than it has been in the past. He did recently seek treatment in the ER for UTI. As such, we will provide 1L normal saline IV today along with 20 mEq potassium chloride IV and 2 g magnesium sulfate IV. 6. Patient will return to clinic in four weeks for followup. He will continue to follow up with Radiation Oncology per their recommendations. 7. Dr. Beckford was updated on his case today. [facility]
[2018-08-09 11:35] LABS: PLATELET COUNT, AUTOMATED 204 K/uL (150-450)
[2018-08-09 11:43] VITALS: BP 81/56
[2018-08-10 11:31] VITALS: BP 85/60
--- NOTE | 2018-08-10 14:49 | ONCOLOGY FOLLOW UP NOTE ---
EVENT DATE: August 09, 2018 Patient was seen in the office today for lab work. He was noted to have a potassium of 2.8 and a calcium of 6.3. He was called on the phone and notified that he should come in for IV potassium replacement but he declined. He stated that he would increase his KCL from 20 mEq q.a.m. to 20 mEq b.i.d. He did agree to come into the office tomorrow for followup lab and visit. Medications will be reviewed at that time. MARZENA
--- NOTE | 2018-08-11 04:59 | ONCOLOGY FOLLOW UP NOTE ---
EVENT DATE: August 10, 2018 CHIEF COMPLAINT Followup for metastatic renal cell carcinoma. HISTORY OF PRESENT ILLNESS Patient is seen today in followup. He continues on decreased dose of Cabometyx, which he feels he is tolerating well. He has had chronic issues with constipation and has found that Fleet enema works best for this. He does not describe any significant diarrhea; however, labs done yesterday showed his potassium to be low at 2.8 and calcium low at 6.3. He refused IV potassium and stated he would increase his oral potassium to twice a day. He presents today in followup to discuss labs. He has also had an issue with his right fifth toenail being ingrown. He met with the foot nurse last night, who recommended he see a construction technology instructor. Mr. Mesa plans to do this in the near future. ONCOLOGY HISTORY Renal cell carcinoma. * October 24, 2017: CT scan of abdomen and pelvis reveals conglomerate lymphadenopathy within the aortocaval retroperitoneum. No gross primary was identified. [id number] bladder distention. Questionable mild thickening along posterior/inferior bladder base (similar to 2015 findings); borderline nonspecific splenomegaly. * November 27, 2017: CT scan chest, abdomen, and pelvis: Aortocaval adenopathy has increased in size compared to prior; a left periaortic lymph node slightly increased; otherwise findings similar to prior study. * December 15, 2017: Retroperitoneal lymph node biopsy. 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 * November 2017: Patient presents with right testicular discomfort. * December 22, 2017: Testicular ultrasound reveals a 2.7 x 1.9 x 2.8 cm heterogeneous hypervascular mass projecting inferior to the right testicle; this appears extratesticular in origin. * January 11, 2018: Patient undergoes right inguinal orchiectomy. Surgical pathology is consistent with chronic lymphocytic inflammation with fibrosis. There is no evidence of malignancy. Second opinion on this tissue shows nonspecific findings overall. Diagnostic considerations included smooth muscle hyperplasia of testicular adnexa, granulomatous ischemic lesion, resolving granulomatous orchitis, or possibly resolving reaction to extravasated sperm (sperm granuloma). There is no evidence of neoplastic process. * January 2018: Began palliative cabozantinib. * CT scan on 02/18/18 showed an increasing retroperitoneal mass with nerve root irritation and an osteolytic tumor involving T8. Completed palliative radiation on 04/19/18. * Currently receiving palliative radiation to T5 beginning on 08/03/18. PAST MEDICAL HISTORY 1. Recurrent UTI. 2. Smoking and reported history of polysubstance abuse. 3. Concern for personality disorder. 4. Cerebral palsy. 5. Type 2 diabetes, diet controlled. CURRENT MEDICATIONS 1. Flomax 0.4 mg daily. 2. Seroquel 25 mg, two at bedtime. 3. Hydrochlorothiazide 12.5 mg daily. 4. Pantoprazole 40 mg daily. 5. Baclofen 10 mg b.i.d. 6. Amlodipine/atorvastatin 5-20 mg daily. 7. Cogentin 0.5 mg at bedtime. 8. Gabapentin 300 mg, three p.o. b.i.d. 9. Micro-K 10 mEq, two daily. 10. Cabometyx 40 mg daily. 11. OxyContin 10 mg every 12 hours. 12. Oxycodone 5 mg every four to six hours p.r.n. 13. Zofran 8 mg p.r.n. ALLERGIES No known drug allergies. FAMILY HISTORY Noncontributory. SOCIAL HISTORY Patient is single. He has a history of heavy alcohol use. He is a current everyday smoker. There is also a reported history of polysubstance abuse. REVIEW OF SYSTEMS A 12-point review of systems is performed and is negative except as stated above. PHYSICAL EXAMINATION VITAL SIGNS: BP 85/60, P 82, R 16, temp 98.6, O2 sat 89%. GENERAL: Patient is a well-developed but thin male in no acute distress. HEAD: Normocephalic, atraumatic. EYES: Sclerae anicteric. MOUTH: Slightly dry mucous membranes. No lesions. Poor dentition. NECK: Supple. No palpable adenopathy. LUNGS: Diminished bilaterally. CARDIOVASCULAR: Heart rate regular, 83 per minute. EXTREMITIES: No edema. NEURO: Nonfocal. LABORATORY CBC today reveals WBC of 2.2, ANC of 1.8, hemoglobin 9.0, hematocrit 27.4, platelets 181,000. CMP shows a potassium of 2.7 and calcium of 6.0. Albumin remains low at 3.0. IMPRESSION The patient is a 67-year-old male diagnosed with metastatic renal cell carcinoma. He continues on palliative cabozantinib with a dose reduction due to significant diarrhea. He has undergone palliative radiation to his mesentery and has recently begun treatment with radiation to T5. PLAN 1. Metastatic renal cell carcinoma. Continue Cabometyx 40 mg daily. He states that he is tolerating this well. 2. Pain. Well controlled on current doses of OxyContin and oxycodone. 3. GI. Chronic difficulties with constipation. He has not found MiraLAX or senna to be effective, and uses Fleet enema every three days. He denies significant diarrhea. 4. Hypokalemia. Despite having a potassium of 2.8 yesterday, he refused IV potassium. Today, potassium is 2.7 with a calcium of 6.0. Patient is sent to the emergency room for further treatment. 5. Ingrown toenail. He was seen by the foot nurse, who recommended a visit with the construction technology instructor. He will make this appointment in the near future. 6. Patient will require closer followup. He will be seen again on 08/16/18 with a CBC and CMP. We will also follow up after this ER visit. MARZENA
[2018-08-12 11:32] LABS: PLATELET COUNT, AUTOMATED 204 K/uL (150-450)
[2018-08-13 12:48] VITALS: BP 98/60
[2018-08-13] MEDS: LIDOCAINE/SOD BICARB 8.4% SYR ID PRN (13:04)
[2018-08-13 15:05] VITALS: BP 107/72
[2018-08-13] MEDS: HEPARIN FLSH (PORT) 500 UN/5ML IVP PRN (15:07)
[2018-08-16 11:22] VITALS: BP 110/84
[2018-08-16 11:41] LABS: PLATELET COUNT, AUTOMATED 210 K/uL (150-450)
[2018-08-16] MEDS: LIDOCAINE/SOD BICARB 8.4% SYR ID PRN (12:29)
[2018-08-16] MEDS: HEPARIN FLSH (PORT) 500 UN/5ML IVP PRN (12:30)
--- NOTE | 2018-08-17 08:47 | ONCOLOGY FOLLOW UP NOTE ---
EVENT DATE: August 16, 2018 CHIEF COMPLAINT Followup for metastatic renal cell carcinoma. HISTORY OF PRESENT ILLNESS Patient is a 67-year old male who is seen today in followup. He continues on the decreased dose of Cabometyx, which he feels he is tolerating well. He began radiation to T5 on August 03, 2018, and will complete this treatment tomorrow. He has had ongoing issues with hypokalemia and hypomagnesemia. We have been hesitant to increase his oral mag oxide as this can cause significant diarrhea. He was treated with 4 grams of magnesium sulfate on August 13, 2018. ONCOLOGY HISTORY Renal cell carcinoma. * October 24, 2017: CT scan of abdomen and pelvis reveals conglomerate lymphadenopathy within the aortocaval retroperitoneum. No gross primary was identified. [id number] bladder distention. Questionable mild thickening along posterior/inferior bladder base (similar to 2015 findings); borderline nonspecific splenomegaly. * November 27, 2017: CT scan chest, abdomen, and pelvis: Aortocaval adenopathy has increased in size compared to prior; a left periaortic lymph node slightly increased; otherwise findings similar to prior study. * December 15, 2017: Retroperitoneal lymph node biopsy. 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 * November 2017: Patient presents with right testicular discomfort. * December 22, 2017: Testicular ultrasound reveals a 2.7 x 1.9 x 2.8 cm heterogeneous hypervascular mass projecting inferior to the right testicle; this appears extratesticular in origin. * January 11, 2018: Patient undergoes right inguinal orchiectomy. Surgical pathology is consistent with chronic lymphocytic inflammation with fibrosis. There is no evidence of malignancy. Second opinion on this tissue shows nonspecific findings overall. Diagnostic considerations included smooth muscle hyperplasia of testicular adnexa, granulomatous ischemic lesion, resolving granulomatous orchitis, or possibly resolving reaction to extravasated sperm (sperm granuloma). There is no evidence of neoplastic process. * January 2018: Began palliative cabozantinib. * CT scan on 02/18/18 showed an increasing retroperitoneal mass with nerve root irritation and an osteolytic tumor involving T8. Completed palliative radiation on 04/19/18. * Currently receiving palliative radiation to T5 beginning on 08/03/18. PAST MEDICAL HISTORY 1. Recurrent UTI. 2. Smoking and reported history of polysubstance abuse. 3. Concern for personality disorder. 4. Cerebral palsy. 5. Type 2 diabetes, diet controlled. CURRENT MEDICATIONS 1. Flomax 0.4 mg daily. 2. Seroquel 25 mg, two at bedtime. 3. Hydrochlorothiazide 12.5 mg daily. 4. Pantoprazole 40 mg daily. 5. Baclofen 10 mg b.i.d. 6. Amlodipine/atorvastatin 5-20 mg daily. 7. Cogentin 0.5 mg at bedtime. 8. Gabapentin 300 mg, three p.o. b.i.d. 9. Micro-K 10 mEq, four tabs b.i.d. 10. Cabometyx 40 mg daily. 11. OxyContin 10 mg every 12 hours. 12. Oxycodone 5 mg every four to six hours p.r.n. 13. Zofran 8 mg p.r.n. 14. Magnesium oxide 400 mg one b.i.d. ALLERGIES No known drug allergies. FAMILY HISTORY Noncontributory. SOCIAL HISTORY Patient is single. He has a history of heavy alcohol use. He is a current everyday smoker. There is also a reported history of polysubstance abuse. REVIEW OF SYSTEMS A 12-point review of systems is performed and is negative except as stated above. PHYSICAL EXAMINATION VITAL SIGNS: Blood pressure 110/84, pulse 76, R 16, temperature 97.8, O2 sat 90%. GENERAL: Patient is a well-developed but thin male in no acute distress. HEAD: Normocephalic, atraumatic. EYES: Sclerae anicteric. MOUTH: Poor dentition. Dry mucous membranes. No lesions noted. NECK: No palpable adenopathy. LUNGS: Diminished throughout. CARDIOVASCULAR: Heart rate regular, 76 per minute. EXTREMITIES: No edema. NEURO: Nonfocal. LABORATORY CBC today reveals WBC of 2.4, ANC of 2.0, hemoglobin 9.8, hematocrit 30.5, platelets 210,000. Magnesium 1.6. Calcium 6.5. Potassium 4.4. Albumin 3.2. IMPRESSION The patient is a 67-year-old male diagnosed with metastatic renal cell carcinoma. He continues on palliative cabozantinib with a dose reduction due to significant diarrhea. He has undergone palliative radiation to his mesentery and has recently begun treatment with radiation to T5. PLAN 1. Metastatic renal cell carcinoma. Continue Cabometyx 40 mg daily. He is doing well on this current dose. 2. Pain. Well controlled on current doses of oxycodone and OxyContin. 3. Hypomagnesemia. Magnesium on August 13 was 1.1 and he received magnesium sulfate 4 grams IV that day. Magnesium has improved to 1.6. He agreed to increase his magnesium oxide to 400 mg two q.a.m.and one q.p.m. He will monitor for possible diarrhea. 4. Hypokalemia. He currently is taking KCl 40 mEq b.i.d. Potassium has now normalized at 4.4. We will continue current dosing. 5. Leukopenia. White count today is 2.4 with neutrophils of 2.0. This has been very stable since beginning Cabometyx. 6. Anemia. Hemoglobin today is 9.8. This has also been very stable since April 2018. 7. Radiation. He will complete radiation to T5 on August 17, 2018. 8. Followup in one week for continued care. CBC and CMP will be drawn at that time. MTDD
[2018-08-25 11:14] VITALS: BP 92/67
[2018-08-25 11:28] LABS: PLATELET COUNT, AUTOMATED 237 K/uL (150-450)
[2018-08-31 12:43] VITALS: BP 102/73
[2018-08-31 12:44] LABS: PLATELET COUNT, AUTOMATED 229 K/uL (150-450)
[2018-09-06 12:19] VITALS: BP 89/60
[2018-09-06 12:56] LABS: PLATELET COUNT, AUTOMATED 225 K/uL (150-450)
[2018-09-08 08:52] VITALS: BP 101/72
[2018-09-08] MEDS: LIDOCAINE/SOD BICARB 8.4% SYR ID PRN (09:00)
[2018-09-08] MEDS: HEPARIN FLSH (PORT) 500 UN/5ML IVP PRN (10:16)
[2018-09-08 10:17] VITALS: BP 104/72
--- NOTE | 2018-09-08 18:01 | ONCOLOGY FOLLOW UP NOTE ---
EVENT DATE: September 15, 2018 CHIEF COMPLAINT Followup for metastatic renal cell carcinoma, severe diarrhea. HISTORY OF PRESENT ILLNESS Patient is a 68-year-old male who was seen today as a work-in. He relates a 12- to 14-hour history of significant diarrhea. He states he was "up all night." He has ongoing nausea. He is very fatigued and notes he is sleeping more. He is somewhat overwhelmed by how poorly he feels. He has lost a significant amount of weight, but believes that he is eating better. ONCOLOGY HISTORY Renal cell carcinoma. 1. October 24, 2017: CT scan of abdomen and pelvis reveals conglomerate lymphadenopathy within the aortocaval retroperitoneum. No gross primary was identified. [id number] bladder distention. Questionable mild thickening along posterior/inferior bladder base (similar to 2015 findings). Borderline nonspecific splenomegaly. 2. November 27, 2017, CT scan chest, abdomen, and pelvis: Aortocaval adenopathy has increased in size compared to prior. A left periaortic lymph node slightly increased. Otherwise, findings similar to prior study. 3. 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 4. November 2017: Patient presents with right testicular discomfort. 5. December 22, 2017: Testicular ultrasound reveals a 2.7 x 1.9 x 2.8 cm heterogeneous hypervascular mass projecting inferior to the right testicle. This appears extratesticular in origin. 6. January 11, 2018: Patient undergoes right inguinal orchiectomy. Surgical pathology is consistent with chronic lymphocytic inflammation with fibrosis. There is no evidence of malignancy. Second opinion on this tissue shows nonspecific findings overall. Diagnostic considerations included smooth muscle hyperplasia of testicular adnexa, granulomatous ischemic lesion, resolving granulomatous orchitis, or possibly resolving reaction to extravasated sperm (sperm granuloma). There is no evidence of neoplastic process. 7. January 2018: Began palliative cabozantinib. 8. CT scan on 02/18/18 showed an increasing retroperitoneal mass with nerve root irritation and an osteolytic tumor involving T8. Completed palliative radiation on 04/19/18. 9. Completed palliative radiation to T5 from 08/03/18 through 08/17/18. PAST MEDICAL HISTORY 1. Recurrent UTI. 2. Smoking and reported history of polysubstance abuse. 3. Concern for personality disorder. 4. Cerebral palsy. 5. Type 2 diabetes, diet controlled. CURRENT MEDICATIONS 1. Flomax 0.4 mg daily. 2. Seroquel 25 mg, two at bedtime. 3. Hydrochlorothiazide 12.5 mg daily. 4. Pantoprazole 40 mg daily. 5. Baclofen 10 mg b.i.d. 6. Amlodipine/atorvastatin 5-20 mg daily. 7. Cogentin 0.5 mg at bedtime. 8. Gabapentin 300 mg, three p.o. b.i.d. 9. Micro-K 10 mEq, four tabs b.i.d. 10. Cabometyx 40 mg daily. 11. OxyContin 10 mg every 12 hours. 12. Oxycodone 5 mg every four to six hours p.r.n. 13. Zofran 8 mg p.r.n. 14. Magnesium oxide 400 mg one b.i.d. ALLERGIES No known drug allergies. FAMILY HISTORY Noncontributory. SOCIAL HISTORY Patient is single. He has a history of heavy alcohol use. He is a current everyday smoker. There is also a reported history of polysubstance abuse. REVIEW OF SYSTEMS A 12-point review of systems is performed and is negative except as stated above. PHYSICAL EXAMINATION VITAL SIGNS: Blood pressure 101/72, pulse 88, respirations 16, temp 97.5, O2 sat 92%. GENERAL: Patient is a well-developed, but thin and ill-appearing male in no acute distress. HEAD: Normocephalic, atraumatic. EYES: Sclerae anicteric. MOUTH: Dry mucous membranes. Poor dentition. NECK: Palpable adenopathy. LUNGS: Diminished bilaterally. CARDIOVASCULAR: Heart rate regular, 88 per minute. ABDOMEN: Deferred due to nausea and diarrhea. EXTREMITIES: No edema. NEUROLOGIC: Nonfocal. LABORATORY CBC on 09/06/18 showed a WBC of 2.2, ANC of 1.9, hemoglobin 10.2, hematocrit 30.9, platelets 225,000. CMP was within normal limits except for a slightly low albumin of 3.4. Magnesium 1.8. Potassium 4.4. IMPRESSION The patient is a 68-year-old male diagnosed with metastatic renal cell carcinoma. He continues on palliative cabozantinib with a dose reduction due to significant diarrhea. He completed palliative radiation to the mesentery as well as T5, last on 08/17/18. PLAN 1. Metastatic renal cell carcinoma. Patient has been on Cabometyx 40 mg daily. Due to current symptoms, I have asked him to hold the Cabometyx. He will be undergoing CT of the chest, abdomen, and pelvis later this week for restaging. 2. GI. Significant diarrhea over the past 12 to 14 hours. He also describes nausea. He was given Imodium 2 mg two capsules now and instructed to use this at home. He was hydrated with 1 L of normal saline and received Zofran 8 mg IV. 3. Hypomagnesemia. Magnesium has normalized, last at 1.8. He continues magnesium oxide 400 mg two q.a.m. and one q.p.m. 4. Hypokalemia. Patient has normalized at 4.4. He will continue KCl 40 mEq b.i.d. 5. Leukopenia, ongoing. He has not had neutropenia. 6. Weight loss. Patient has lost a significant amount of weight. He states he is now eating better. Albumin is low at 3.4. Will continue to monitor trend. 7. CT of the chest, abdomen, and pelvis later this week for restaging. 8. Follow up with Dr. Beckford on 09/29/18 for continued care, earlier if there is a problem. [facility]
--- NOTE | 2018-09-22 07:49 | NUR ---
SW assisted pt with completion of a Will via [employer]. Pt satisfied with the end product but is going to take it to an ip attorney to review.
[2018-09-29 13:32] VITALS: BP 99/65
--- NOTE | 2018-09-29 21:14 | ONCOLOGY FOLLOW UP NOTE ---
EVENT DATE: September 29, 2018 REASON FOR FOLLOWUP Metastatic renal cell carcinoma. INTERIM HISTORY Mr. Mesa returns to clinic for a followup visit today. He currently is living in the extended care facility here at [facility] after being hospitalized for acute GI bleed. He did not have endoscopic evaluation, and his status has stabilized. He reports ongoing frustration with his general situation. He really wants to be home. He feels that he has made substantial strides in the past few days both in strength and eating, as well as weight gain. He denies fever. Pain seems to be fairly well controlled, although he does have ongoing back pain. He reports no new bowel or bladder symptoms. He does generally feel weak. He is currently here in a wheelchair with physical therapy gait belt on. He has had a followup CT scan performed, and he is here to review the results. REVIEW OF SYSTEMS Otherwise negative, and all systems were reviewed. EVENT DATE: May 26, 2018 REASON FOR FOLLOWUP Metastatic renal cell carcinoma. INTERIM HISTORY Mr. Mesa returns to clinic for a followup visit today. He continues to take palliative cabozantinib, which he started in January. In general, his tolerance for side effects of the cabozantinib has been excellent. Unfortunately, he continues to have problems with pre-existing fatigue as well as low back pain. We spent a good deal of time today discussing his recent concern for UTI. Mr. Mesa expresses confusion about who he is supposed to call in case he has these symptoms. He most recently was seen in the emergency department, where he received Levaquin. Urinalysis was very modestly abnormal at that time but there was significant growth on his urine culture of what might be a carinii bacterium species. In any case, since starting the antibiotic, he is feeling much better. His appetite has been somewhat modest but he is maintaining his weight. Nausea has been minimal. He denies fever. Urinary symptoms have resolved. REVIEW OF SYSTEMS Otherwise negative and all systems reviewed. ONCOLOGY HISTORY Renal cell carcinoma. a. October 24, 2017, CT abdomen and pelvis: Conglomerate lymphadenopathy within aortocaval retroperitoneum; no gross primary malignancy; [id number] bladder distention; questionable mild thickening along posterior/inferior bladder base similar to 2015 findings; borderline nonspecific splenomegaly. b. November 27, 2017, CT scan chest, abdomen, and pelvis: Aortocaval adenopathy has increased in size compared to prior; a left periaortic lymph node has slightly increased. c. November 2017, patient presents with right testicular discomfort. d. December 22, 2017, testicular ultrasound reveals 2.7 x 1.9 x 2.8 cm heterogeneous hypervascular mass projecting inferior to the right testicle. e. January 11, 2018, patient undergoes right inguinal orchiectomy. Surgical pathology reveals chronic lymphocytic inflammation with fibrosis and no evidence of malignancy. Second opinion on tissue shows nonspecific findings overall with diagnostic considerations including smooth muscle hyperplasia of testicular adnexa, granulomatous ischemic lesion, resolving granulomatous orchitis, or possibly resolving reaction to extravasated sperm (sperm granuloma). f. February 18, 2018, CT of abdomen and pelvis reveals 1.3 cm ovoid, hypoattenuating mass along posteromedial inferior aspect of left kidney, not present on prior study. There was fullness of the right renal collecting system related to marked distention of the urinary bladder. There is a new lytic lesion involving the T8 vertebral body, and left periaortic lymph node has increased in size. A large aortocaval bruce mass was relatively unchanged. g. He began palliative radiation on March 15, 2018, ongoing. h. January 2018: Initiation of palliative cabozantinib. i. Patient has had reasonable tolerance of cabozantinib and has undergone palliative radiation therapy to thoracic vertebrae as well as periaortic lymph nodes. j. September 14, 2018, CT chest, abdomen, and pelvis reveals an interval increase in size in the lesion within medial mid pole of the left kidney, now up to 2.4 x 1.8 x 2.6 cm. There has been interval decrease in the size of the right-sided retroperitoneal adenopathy. There is no evidence of parenchymal lung mass or nodule. PAST MEDICAL HISTORY 1. Recurrent urinary tract infections. 2. Smoking and reported history of polysubstance abuse. 3. Concern for personality disorder. 4. Cerebral palsy. 5. Hypertension. 6. Hypercholesterolemia. CURRENT MEDICATIONS 1. Potassium. 2. Benztropine mesylate. 3. Quetiapine. 4. Gabapentin. 5. Baclofen p.r.n. 6. Senna p.r.n. 7. Percocet p.r.n. 8. Pantoprazole p.r.n. 9. Colace p.r.n. 10. Flomax 0.4 mg p.o. daily. 11. Tramadol p.r.n. The patient was recently prescribed levofloxacin, hydrochlorothiazide 12.5 mg daily, and amlodipine/atorvastatin daily. ALLERGIES No known drug allergies. FAMILY HISTORY Noncontributory. SOCIAL HISTORY The patient is single. He has a history of heavy alcohol use. He is a currently daily smoker. There is a reported history of polysubstance abuse. VITAL SIGNS Temperature is 99.5, blood pressure 99/64, heart rate is 85, respirations 16, oxygen saturation is 95% on room air. PHYSICAL EXAMINATION GENERAL: Patient is alert and oriented times three, no apparent distress, sitting in his wheelchair. He appears groggy, but is interactive and relatively pleasant. He is extremely thin, somewhat disheveled. HEENT: Anicteric sclerae. NEUROLOGIC: Grossly nonfocal, although he does have generalized weakness. His gait was not tested today. EXTREMITIES: Some edema of the bilateral lower extremities, without erythema or tenderness. SKIN: Eczema, but no other concerning rash or lesion. LABORATORY STUDIES Reviewed per the [facility] record. IMAGING Please see Oncology History. ASSESSMENT AND PLAN Metastatic renal cell carcinoma. I visited with Mr. Mesa today alongside Josi Blue, Nurse Practitioner. Kevin had continued on palliative cabozantinib until recently when treatment was stopped. He was hospitalized for an acute gastrointestinal bleed, but had not undergone endoscopic evaluation. His status improved, and he has subsequently been discharged to the extended care facility. We spent a good deal of time today discussing results of his followup CT scan. He has had generally favorable findings since his last imaging study. The thoracic vertebral abnormalities and lymphadenopathy all appear stable to improved. Unfortunately, there has been some growth in the left kidney. As discussed, it does seem that his renal cell carcinoma is particularly sensitive to radiation therapy. The primary lesion has not been addressed with focal therapy, and given progression while on cabozantinib, I have recommended that he stop indefinitely. His performance status is currently poor. I would estimate an ECOG of 3. As discussed, if he is able to make progress in terms of regaining his independence and get substantial improvement in strength and endurance, we could consider focal therapy to the primary lesion in the kidney. If his status improves further, we can consider second line systemic palliative therapy. All questions answered today. [facility]
[2018-10-04 09:04] VITALS: BP 87/60
--- NOTE | 2018-10-04 11:58 | ONCOLOGY FOLLOW UP NOTE ---
EVENT DATE: October 04, 2018 CHIEF COMPLAINT Followup for metastatic renal cell carcinoma and recent GI bleed. HISTORY OF PRESENT ILLNESS Patient is a 68-year old male who was seen today in followup. He was recently admitted for GI bleed and is now in the extended care facility for ongoing physical therapy. His hemoglobin has remained in the 7.8 range. He does note some fatigue but feels he is getting stronger. It was discussed that perhaps inpatient rehab in [facility] would be helpful but he feels he can manage at home and plans to check himself out of the extended care facility in the near future. He reports occasional ringing in his ears as well as low-grade temps. ONCOLOGY HISTORY Renal cell carcinoma. 1. October 24, 2017: CT scan of abdomen and pelvis reveals conglomerate lymphadenopathy within the aortocaval retroperitoneum. No gross primary was identified. [id number] bladder distention. Questionable mild thickening along posterior/inferior bladder base (similar to 2015 findings). Borderline nonspecific splenomegaly. 2. November 27, 2017, CT scan chest, abdomen, and pelvis: Aortocaval adenopathy has increased in size compared to prior. A left periaortic lymph node slightly increased. Otherwise, findings similar to prior study. 3. 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 4. November 2017: Patient presents with right testicular discomfort. 5. December 22, 2017: Testicular ultrasound reveals a 2.7 x 1.9 x 2.8 cm heterogeneous hypervascular mass projecting inferior to the right testicle. This appears extratesticular in origin. 6. January 11, 2018: Patient undergoes right inguinal orchiectomy. Surgical pathology is consistent with chronic lymphocytic inflammation with fibrosis. There is no evidence of malignancy. Second opinion on this tissue shows nonspecific findings overall. Diagnostic considerations included smooth muscle hyperplasia of testicular adnexa, granulomatous ischemic lesion, resolving granulomatous orchitis, or possibly resolving reaction to extravasated sperm (sperm granuloma). There is no evidence of neoplastic process. 7. January 2018: Began palliative cabozantinib. 8. CT scan on 02/18/18 showed an increasing retroperitoneal mass with nerve root irritation and an osteolytic tumor involving T8. Completed palliative radiation on 04/19/18. 9. Completed palliative radiation to T5 from 08/03/18 through 08/17/18. 10. Cabometyx discontinued due to toxicity. PAST MEDICAL HISTORY 1. Recurrent UTI. 2. Smoking and reported history of polysubstance abuse. 3. Concern for personality disorder. 4. Cerebral palsy. 5. Type 2 diabetes, diet controlled. CURRENT MEDICATIONS 1. Flomax 0.4 mg daily. 2. Seroquel 25 mg, two at bedtime. 3. Hydrochlorothiazide 12.5 mg daily. 4. Pantoprazole 40 mg daily. 5. Baclofen 10 mg b.i.d. 6. Amlodipine/atorvastatin 5-20 mg daily. 7. Cogentin 0.5 mg at bedtime. 8. Gabapentin 300 mg, three p.o. b.i.d. 9. Micro-K 10 mEq, four tabs b.i.d. 10. OxyContin 10 mg every 12 hours. 11. Oxycodone 5 mg every four to six hours p.r.n. 12. Zofran 8 mg p.r.n. 13. Magnesium oxide 400 mg one b.i.d. ALLERGIES No known drug allergies. FAMILY HISTORY Noncontributory. SOCIAL HISTORY Patient is single. He has a history of heavy alcohol use. He is a current everyday smoker. There is also a reported history of polysubstance abuse. REVIEW OF SYSTEMS A 12-point review of systems is performed and is negative except as stated above. PHYSICAL EXAMINATION VITAL SIGNS: Temperature 99.5, blood pressure 87/60, pulse 88, respirations 16, O2 sat 93%. GENERAL: Patient is a well-developed but thin male in no acute distress. HEAD: Normocephalic, atraumatic. Temporal wasting noted. EYES: Sclerae anicteric. MOUTH: Poor dentition. No mucositis. LUNGS: Diminished but clear bilaterally. CARDIOVASCULAR: Heart rate regular, 88 per minute without murmur. EXTREMITIES: Muscle wasting noted. No edema. NEUROLOGIC: Nonfocal. LABORATORY CBC today reveals a WBC of 4.5, hemoglobin 7.8, hematocrit 24.0, platelet count 416,000. CMP showed a slightly decreased sodium of 134 and the remainder within normal limits including magnesium of 1.8. IMPRESSION The patient is a 68-year-old male diagnosed with metastatic renal cell carcinoma. Began palliative cabozantinib in January 2018 with a dose reduction due to significant diarrhea. He completed palliative radiation to the mesentery as well as T5, last on 08/17/18. Cabozantinib discontinued due to toxicity. PLAN 1. Metastatic renal cell carcinoma. Dr. Beckford met with the patient on September 29, 2018. The current plan is for Ozzy to improve in terms of appetite, weight gain and strength and then consideration will be given to possible radiofrequency ablation of the lesion in his kidney. The remainder of his scan was generally favorable but growth was noted in the left kidney lesion. Patient states understanding. 2. Anemia, ongoing. Recent GI bleed. I will check iron studies. 3. Low-grade fevers. Check UA with culture. 4. Rehab. Patient feels he is much stronger and able to manage at home. He plans to discuss this with the ECF staff today. 5. GI. Continue prophylactic management of constipation. 6. Hypomagnesemia. Magnesium has normalized, last 1.8. 7. Hypokalemia. Potassium has normalized. Today, 3.7. Will continue current potassium. 8. Follow up pending results of urine culture. He does have an appointment on October 13, 2018 for continued care or earlier if there is a problem. MARZENA
[~2018-10-13 10:30] MED LIST changes: +ALTEPLASE RECOMB 2 MG VIAL IVP PRN; +DEXTROSE 5%(*) 100 ML BAG 100 ML IVPB PRN; +HYDR12.556 PO; +KCL IV ONE; +LOPERAMIDE HCL 2 MG CAP PO ONE; +MAGNESIUM SU IV ONE; +MAGNESIUM SULF 4 GM/50 ML BAG 50 ML IVPB ONE; +NS(*) 0.9% 100 ML BAG 100 ML IVPB PRN; +NS(*) 0.9% 1000 ML BAG 1,000 ML IV PRN; +NS(*) 0.9% 250 ML BAG 250 ML IVPB PRN; +ONDA8TAB97 PO; +ONDANSETRON 4 MG/2 ML VIAL IVP ONE; +OXYC5TAB38 PO; +POTA20TA94 PO; +WATER FOR INJ,STERILE 20 ML IVP PRN; +[UNRECOGNIZED DRUG - OTHER] IV ONE
[2018-10-13 11:17] VITALS: BP 93/61
[2018-10-13] MEDS: LIDOCAINE/SOD BICARB 8.4% SYR ID PRN (11:20)
[2018-10-13 11:29] LABS: PLATELET COUNT, AUTOMATED 458 K/uL (150-450)
[2018-10-13] MEDS: HEPARIN FLSH (PORT) 500 UN/5ML IVP PRN (12:00)
--- NOTE | 2018-10-14 20:31 | ONCOLOGY FOLLOW UP NOTE ---
EVENT DATE: October 14, 2018 CHIEF COMPLAINT Followup for metastatic renal cell carcinoma and recent GI bleed. HISTORY OF PRESENT ILLNESS Patient is a 68-year-old male who is seen today in followup. He was admitted for a GI bleed in August and was significantly weakened by this. He is working hard at home with his own rehab and feels that he is getting stronger. He is able to walk more. He does have some fatigue. Chronic constipation is fairly well controlled on MiraLAX b.i.d. and stool softeners. He has had no further low-grade fevers. He is concerned as he has been off the Cabometyx since the end of July 2018. Pain is under fair to good control on OxyContin 10 mm q.12 hours and oxycodone p.r.n. ONCOLOGY HISTORY Renal cell carcinoma. 1. October 24, 2017: CT scan of abdomen and pelvis reveals conglomerate lymphadenopathy within the aortocaval retroperitoneum. No gross primary was identified. [id number] bladder distention. Questionable mild thickening along posterior/inferior bladder base (similar to 2015 findings). Borderline nonspecific splenomegaly. 2. November 27, 2017, CT scan chest, abdomen, and pelvis: Aortocaval adenopathy has increased in size compared to prior. A left periaortic lymph node slightly increased. Otherwise, findings similar to prior study. 3. 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 4. November 2017: Patient presents with right testicular discomfort. 5. December 22, 2017: Testicular ultrasound reveals a 2.7 x 1.9 x 2.8 cm heterogeneous hypervascular mass projecting inferior to the right testicle. This appears extratesticular in origin. 6. January 11, 2018: Patient undergoes right inguinal orchiectomy. Surgical pathology is consistent with chronic lymphocytic inflammation with fibrosis. There is no evidence of malignancy. Second opinion on this tissue shows nonspecific findings overall. Diagnostic considerations included smooth muscle hyperplasia of testicular adnexa, granulomatous ischemic lesion, resolving granulomatous orchitis, or possibly resolving reaction to extravasated sperm (sperm granuloma). There is no evidence of neoplastic process. 7. January 2018: Began palliative cabozantinib. 8. CT scan on 02/18/18 showed an increasing retroperitoneal mass with nerve root irritation and an osteolytic tumor involving T8. Completed palliative radiation on 04/19/18. 9. Completed palliative radiation to T5 from 08/03/18 through 08/17/18. 10. Cabometyx discontinued due to toxicity. PAST MEDICAL HISTORY 1. Recurrent UTI. 2. Smoking and reported history of polysubstance abuse. 3. Concern for personality disorder. 4. Cerebral palsy. 5. Type 2 diabetes, diet controlled. CURRENT MEDICATIONS 1. Flomax 0.4 mg daily. 2. Seroquel 25 mg two at bedtime. 3. Hydrochlorothiazide 12.5 mg daily. 4. Pantoprazole 40 mg daily. 5. Baclofen 10 mg b.i.d. 6. Amlodipine/atorvastatin 5/20 mg daily. 7. Cogentin 0.5 mg at bedtime. 8. Gabapentin 300 mg three p.o. b.i.d. 9. Micro-K 10 mEq four tabs b.i.d. 10. OxyContin 10 mg every 12 hours. 11. Oxycodone 5 mg every four to six hours p.r.n. 12. Zofran 8 mg p.r.n. 13. Magnesium oxide 400 mg one b.i.d. ALLERGIES No known drug allergies. FAMILY HISTORY Noncontributory. SOCIAL HISTORY Patient is single. He has a history of heavy alcohol use. He is a current every day smoker. There is also a reported history of polysubstance abuse. REVIEW OF SYSTEMS A 12-point review of systems is performed and is negative except as stated above. PHYSICAL EXAMINATION VITAL SIGNS: Weight 50.7 kg. BP 93/61, P 88, R 16, temp 97.3, O2 sat 94%. GENERAL: Patient is a well-developed, well-nourished, but thin male in no acute distress. HEAD: Normocephalic, atraumatic. EYES: Sclerae anicteric. MOUTH: Moist mucous membranes. Poor dentition. LUNGS: Diminished, but clear bilaterally. CARDIOVASCULAR: Heart rate regular, 88 per minute. EXTREMITIES: No peripheral edema. Ongoing muscle wasting noted. NEUROLOGIC: Nonfocal. LABORATORY CBC today reveals WBC of 5.2, hemoglobin 7.6, hematocrit 23.3, platelets 458,000. CMP is within normal limits except for an alkaline phosphatase of 375 and albumin of 2.9. Magnesium is 2.2. IMPRESSION The patient is a 68-year-old male diagnosed with metastatic renal cell carcinoma. Began palliative cabozantinib in January 2018 with a dose reduction due to significant diarrhea. He completed palliative radiation to the mesentery as well as T5, last on 08/17/18. Cabozantinib discontinued due to toxicity at the end of July 2018. PLAN 1. Metastatic renal cell carcinoma. Patient is recovering from his recent GI bleed and overall weakness. He believes he is getting stronger. He underwent CT scan, which was generally favorable, but growth was noted in the left kidney lesion. Dr. Beckford is hopeful that he will improve in terms of his strength so that radiofrequency ablation can be performed on this lesion. 2. Anemia. This is felt to be anemia of chronic disease. Iron studies on 10/04/18 showed a serum iron of 15, iron saturation of 9%, and a ferritin of 1200. I have reviewed this with Dr. Beckford, who recommends transfusing for hemoglobin <7. 3. Rehab. Patient is working at home with Physical Therapy. He notes he is walking more and feels stronger. I have encouraged him to continue. 4. GI. Chronic constipation. This is under fair control with MiraLAX b.i.d. and stool softeners. 5. Hypomagnesemia. Now resolved. Magnesium today is 2.2. Will discontinue the magnesium oxide. 6. Hypokalemia. Also resolved. Potassium today is 4.0. He will continue on Micro-K 10 mEq four tabs daily, decreased from b.i.d. 7. Follow up in two weeks with Dr. Beckford to discuss the possibility of radiofrequency ablation of left kidney lesion. 8. Follow up with Dr. Tavarez on 11/18/18. [facility]
== END 2018-10-19 ==
LOC: SPU 10:30
PROVIDERS: ATTEND Internal Medicine Medical Oncology
DX: C64.2 Malignant neoplasm of left kidney, except renal pelvis (principal); C79.51 Secondary malignant neoplasm of bone; Z92.21 Personal history of antineoplastic chemotherapy; R19.7 Diarrhea, unspecified; E87.6 Hypokalemia; F17.210 Nicotine dependence, cigarettes, uncomplicated; R53.1 Weakness; R53.83 Other fatigue
CPT/HCPCS: 36415; 36591; 81001; 83036; 83735; 84443; 85025; 87088; 96360; 96365; 96366; A9270; G0463; J1642; J2405; J3475; J3480; J7030; J7050; 82040; 82247; 82310; 82374; 82435; 82565; 82947; 84075; 84132; 84155; 84295; 84450; 84460; 84520; 99212